=== PATIENT | female | born 1970 | race Caucasian/White ===

== ENCOUNTER 2019-07-30 13:49 | Inpatient (IN) | payer BC ==
[2019-07-30] MEDS ORDERED: ONDANSETRON 4 MG/2 ML VIAL IVP STA (14:43)
[2019-07-30] MEDS ORDERED: SODIUM CHLORIDE 0.9% 2,000 ML IV STA (14:43)
[2019-07-30 14:45] LABS: Appearance,Urine Cloudy (Clear); Bacteria,Urine Moderate /hpf; Bilirubin,Urine Negative (Negative); Blood,Urine Negative (Negative); Color,Urine Yellow; Glucose,Urine (UA) Negative (Negative); Ketones,Urine Negative (Negative); Leukocyte Esterase,Urine Small (Negative); Mucus,Urine Rare /hpf; Nitrite,Urine Positive (Negative); Protein,Urine Trace (Negative); RBC,Urine 1 /hpf (0-5); Specific Gravity,Urine 1.011 (1.001-1.035); Squamous Epithelial Cell,Urine 4 /hpf (0-4); Urobilinogen,Urine <2.0 mg/dL (<2.0); WBC,Urine 14 /hpf (0-5)
[2019-07-30 15:23] LABS: Basophils # (A) 0.1 k/uL (0-0.2); Basophils % (A) 2 %; Eosinophils # (A) 0.1 k/uL (0-0.7); Eosinophils % (A) 3 %; HCT 41.9 % (34.0-46.0); HGB 15.2 gm/dL (11.4-16.0); Lymphocytes # (A) 1.7 k/uL (1.0-4.8); Lymphocytes % (A) 32 %; MCH 34.5 pg (25.0-35.0); MCHC 36.3 g/dL (31.0-37.0); MCV 95.1 fL (80.0-100.0); Mean Platelet Volume 5.9; Monocytes # (A) 0.4 k/uL (0-1.0); Monocytes % (A) 7 %; Neutrophils # (A) 2.8 k/uL (1.3-7.7); Neutrophils % (A) 55 %; Platelet Count 164 k/uL (150-450); RBC 4.41 m/uL (3.80-5.40); RDW 13.5 % (11.5-15.5); WBC 5.2 k/uL (3.8-10.6)
[2019-07-30 15:26] LABS: ALT 88 U/L (9-52); AST 162 U/L (14-36); African American GFR (CKD) >90 (>60 ml/min/1.73 sqM); Albumin 4.9 g/dL (3.5-5.0); Alkaline Phosphatase 98 U/L (38-126); Anion Gap 18 mmol/L; Blood Urea Nitrogen 6 mg/dL (7-17); Calcium 9.8 mg/dL (8.4-10.2); Carbon Dioxide 21 mmol/L (22-30); Chloride 105 mmol/L (98-107); Glucose 100 mg/dL (74-99); Sodium 144 mmol/L (137-145); Total Bilirubin 0.5 mg/dL (0.2-1.3)
--- NOTE | 2019-07-30 16:13 | XR ---
KUB HISTORY: Abdominal pain Frontal KUB submitted Multiple surgical clips are present. There is no evident bowel obstruction or pneumoperitoneum. There is a scoliosis. Lung bases not included on exam. Pathologic calcification not evident, there are lik jannette vascular calcifications in the pelvis. IMPRESSION: Nonspecific bowel gas pattern. Postop changes.
--- NOTE | 2019-07-30 16:14 | XR ---
EXAMINATION TYPE: XR chest 2V DATE OF EXAM: 07/30/2019 COMPARISON: NONE HISTORY: Cough TECHNIQUE: Frontal and lateral views of the chest are obtained. FINDINGS: There is no focal air space opacity, pleural effusion, or pneumothorax seen. The cardiac silhouette size is within normal limits. The osseous structures are intact. Surgical clips present in the upper abdomen. IMPRESSION: No acute cardiopulmonary process.
--- NOTE | 2019-07-30 17:16 | US ---
EXAMINATION TYPE: US abdomen limited DATE OF EXAM: 07/30/2019 COMPARISON: NONE CLINICAL HISTORY: ruq abdominal pain. Nausea per patient, weakness EXAM MEASUREMENTS: Liver Length: 18.2 cm Gallbladder Wall: 0.2 cm CBD: 0.6 cm Right Kidney: 11.7 x 5.2 x 4.6 cm Pancreas: wnl. tail gassed out Liver: enlarged, attenuated posteriorly, fatty liver Gallbladder: large, mobile shadowing stone noted within and size = 1.9 x 2.0 x 0.9cm; wall is wnl Evidence for sonographic Denson's sign: no CBD: wnl Right Kidney: No hydronephrosis or masses seen IMPRESSION: Large gallstone. No dilated ducts. No focal liver defect.
--- NOTE | 2019-07-30 17:55 | ED ---
General Adult HPI - General Chief complaint: Nausea/Vomiting/Diarrhea Stated complaint: nausea, weakness x 3 weeks Time Seen by Provider: 07/30/19 14:16 Source: patient Mode of arrival: ambulatory Limitations: no limitations - History of Present Illness Initial comments: Patient complains of abdominal discomfort, nausea, vomiting. She has been vomiting for several days. She was seen at another facility. They were concerned she is dehydrated. Nothing makes her symptoms better or worse. She has taken no specific medication to help with the symptoms. She denies any sick contacts. She denies any recent illnesses. She did not eat or drink anything unusual. She has no lightheadedness. She does feel very weak. - Related Data Home Medications Medication Instructions Recorded Confirmed diphenhydrAMINE [Benadryl] 25 mg PO QID PRN 07/30/19 07/30/19 Allergies Allergy/AdvReac Type Severity Reaction Status Date / Time Penicillins Allergy Anaphylaxis Verified 07/30/19 14:33 Review of Systems ROS Statement: Those systems with pertinent positive or pertinent negative responses have been documented in the HPI. ROS Other: All systems not noted in ROS Statement are negative. Past Medical History Past Medical History: Hypertension History of Any Multi-Drug Resistant Organisms: None Reported Additional Past Surgical History / Comment(s): Gastric bypass Past Psychological History: No Psychological Hx Reported Smoking Status: Current every day smoker Past Alcohol Use History: Occasional Past Drug Use History: None Reported General Exam Limitations: no limitations General appearance: alert, in no apparent distress Head exam: Present: atraumatic, normocephalic, normal inspection Eye exam: Present: normal appearance, PERRL, EOMI. Absent: scleral icterus, conjunctival injection, periorbital swelling ENT exam: Present: normal exam, mucous membranes moist Neck exam: Present: normal inspection. Absent: tenderness, meningismus, lymphadenopathy Respiratory exam: Present: normal lung sounds bilaterally. Absent: respiratory distress, wheezes, rales, rhonchi, stridor Cardiovascular Exam: Present: regular rate, normal rhythm, normal heart sounds. Absent: systolic murmur, diastolic murmur, rubs, gallop, clicks GI/Abdominal exam: Present: soft, normal bowel sounds. Absent: distended, tenderness, guarding, rebound, rigid Extremities exam: Present: normal inspection, full ROM, normal capillary refill. Absent: tenderness, pedal edema, joint swelling, calf tenderness Back exam: Present: normal inspection Neurological exam: Present: alert, oriented X3, CN II-XII intact Psychiatric exam: Present: normal affect, normal mood Skin exam: Present: warm, dry, intact, normal color. Absent: rash Course Vital Signs 07/30/19 07/30/19 07/30/19 13:53 15:30 17:35 Temperature 98 F 98.7 F Pulse Rate 90 94 95 Respiratory 20 16 18 Rate Blood Pressure 178/119 178/122 160/122 O2 Sat by Pulse 99 98 98 Oximetry Medical Decision Making - Medical Decision Making Patient presents with nausea and vomiting. Laboratory studies show a very elevated lipase. She has transaminitis. Ultrasound shows gallstones. I'm conc irma for gallstone pancreatitis. I will consult surgery. Patient will be admitted to the hospital. - Lab Data Result diagrams: 07/30/19 15:08 07/30/19 15:08 Lab Results 07/30/19 07/30/19 07/30/19 Range/Units 14:31 14:31 15:08 WBC 5.2 (3.8-10.6) k/uL RBC 4.41 (3.80-5.40) m/uL Hgb 15.2 (11.4-16.0) gm/dL Hct 41.9 (34.0-46.0) % MCV 95.1 (80.0-100.0) fL MCH 34.5 (25.0-35.0) pg MCHC 36.3 (31.0-37.0) g/dL RDW 13.5 (11.5-15.5) % Plt Count 164 (150-450) k/uL Neutrophils % 55 % Lymphocytes % 32 % Monocytes % 7 % Eosinophils % 3 % Basophils % 2 % Neutrophils # 2.8 (1.3-7.7) k/uL Lymphocytes # 1.7 (1.0-4.8) k/uL Monocytes # 0.4 (0-1.0) k/uL Eosinophils # 0.1 (0-0.7) k/uL Basophils # 0.1 (0-0.2) k/uL Sodium (137-145) mmol/L Potassium (3.5-5.1) mmol/L Chloride (98-107) mmol/L Carbon Dioxide (22-30) mmol/L Anion Gap mmol/L BUN (7-17) mg/dL Creatinine (0.52-1.04) mg/dL Est GFR (CKD-EPI)AfAm (>60 ml/min/1.73 sqM) Est GFR (CKD-EPI)NonAf (>60 ml/min/1.73 sqM) Glucose (74-99) mg/dL Calcium (8.4-10.2) mg/dL Total Bilirubin (0.2-1.3) mg/dL AST (14-36) U/L ALT (9-52) U/L Alkaline Phosphatase (38-126) U/L Total Protein (6.3-8.2) g/dL Albumin (3.5-5.0) g/dL Lipase (23-300) U/L Urine Color Yellow Urine Appearance Cloudy H (Clear) Urine pH 8.0 (5.0-8.0) Ur Specific Agenda 1.011 (1.001-1.035) Urine Protein Trace H (Negative) Urine Glucose (UA) Negative (Negative) Urine Ketones Negative (Negative) Urine Blood Negative (Negative) Urine Nitrite Positive H (Negative) Urine Bilirubin Negative (Negative) Urine Urobilinogen <2.0 (<2.0) mg/dL Ur Leukocyte Esterase Small H (Negative) Urine RBC 1 (0-5) /hpf Urine WBC 14 H (0-5) /hpf Ur Squamous Epith Cells 4 (0-4) /hpf Urine Bacteria Moderate H (None) /hpf Urine Mucus Rare H (None) /hpf Urine HCG, Qual Not Detected (Not Detectd) 07/30/19 Range/Units 15:08 WBC (3.8-10.6) k/uL RBC (3.80-5.40) m/uL Hgb (11.4-16.0) gm/dL Hct (34.0-46.0) % MCV (80.0-100.0) fL MCH (25.0-35.0) pg MCHC (31.0-37.0) g/dL RDW (11.5-15.5) % Plt Count (150-450) k/uL Neutrophils % % Lymphocytes % % Monocytes % % Eosinophils % % Basophils % % Neutrophils # (1.3-7.7) k/uL Lymphocytes # (1.0-4.8) k/uL Monocytes # (0-1.0) k/uL Eosinophils # (0-0.7) k/uL Basophils # (0-0.2) k/uL Sodium 144 (137-145) mmol/L Potassium 4.0 (3.5-5.1) mmol/L Chloride 105 (98-107) mmol/L Carbon Dioxide 21 L (22-30) mmol/L Anion Gap 18 mmol/L BUN 6 L (7-17) mg/dL Creatinine 0.58 (0.52-1.04) mg/dL Est GFR (CKD-EPI)AfAm >90 (>60 ml/min/1.73 sqM) Est GFR (CKD-EPI)NonAf >90 (>60 ml/min/1.73 sqM) Glucose 100 H (74-99) mg/dL Calcium 9.8 (8.4-10.2) mg/dL Total Bilirubin 0.5 (0.2-1.3) mg/dL AST 162 H (14-36) U/L ALT 88 H (9-52) U/L Alkaline Phosphatase 98 (38-126) U/L Total Protein 8.0 (6.3-8.2) g/dL Albumin 4.9 (3.5-5.0) g/dL Lipase 1384 H (23-300) U/L Urine Color Urine Appearance (Clear) Urine pH (5.0-8.0) Ur Specific Agenda (1.001-1.035) Urine Protein (Negative) Urine Glucose (UA) (Negative) Urine Ketones (Negative) Urine Blood (Negative) Urine Nitrite (Negative) Urine Bilirubin (Negative) Urine Urobilinogen (<2.0) mg/dL Ur Leukocyte Esterase (Negative) Urine RBC (0-5) /hpf Urine WBC (0-5) /hpf Ur Squamous Epith Cells (0-4) /hpf Urine Bacteria (None) /hpf Urine Mucus (None) /hpf Urine HCG, Qual (Not Detectd) Disposition Clinical Impression: Pancreatitis Disposition: ADMITTED IP TO THIS [facility] Condition: Serious Referrals: None,Stated [Primary Care Provider] - 1-2 days
[2019-07-30] MEDS ORDERED: ONDANSETRON 4 MG/2 ML VIAL IVP PRN (17:56)
[2019-07-30] MEDS ORDERED: TEMAZEPAM 15 MG CAP PO PRN (17:56)
[2019-07-30] MEDS ORDERED: MORPHINE SULFATE 4 MG/ML SYRINGE IV PRN (17:56)
[2019-07-30] MEDS ORDERED: MAG HYDROX/AL HYDROX/SIMETH 30 ML CUP PO PRN (17:56)
[2019-07-30] MEDS ORDERED: NALOXONE 0.4 MG/ML 1 ML VIAL IV PRN (17:56)
[2019-07-30] MEDS ORDERED: amLODIPine 10 MG TAB PO STA (18:19)
[2019-07-30] MEDS ORDERED: hydrALAZINE HCL 20 MG/ML 1 ML VIAL IVP PRN (19:51)
[2019-07-30] MEDS ORDERED: diphenhydrAMINE 25 MG CAP PO PRN (19:53)
[2019-07-30 22:40] VITALS: BMI 24.2
[2019-07-30] MEDS: CIPROFLOXACIN HCL 500 MG TAB PO SCH (23:15)
[2019-07-31] MEDS: CIPROFLOXACIN HCL 500 MG TAB PO SCH ×2 (07:39→21:21)
[2019-07-31] MEDS ORDERED: LORazepam 2 MG/ML INJ IV PRN ×3 (08:37→08:39)
[2019-07-31] MEDS: LORazepam 2 MG/ML INJ IV PRN ×3 (08:53→16:10)
[2019-07-31] MEDS: SODIUM CHLORIDE 0.9% 1,000 ML IV SCH ×3 (09:45→22:47)
--- NOTE | 2019-07-31 12:43 | P.GSCN ---
History of Present Illness Consult date: 07/31/19 History of present illness: CHIEF COMPLAINT: Pancreatitis HISTORY OF PRESENT ILLNESS: The patient is a 48 year old female who reports coming in for generalized weakness and instability on her feet for over 2 days. She was unable to stand or walk without falling. She denies any abdominal pain today. She had nausea for 3 weeks but since admission her nausea is resolved. She had incidental finding of elevated lipase and work-up of finding of gallstones. "I don't have any abdominal pain." In fact, she is eager to go home. She denies any elevating factors. Since being placed on Ativan she is feeling better. PAST MEDICAL HISTORY: See list. PAST SURGICAL HISTORY: See list. MEDICATIONS: See list. ALLERGIES: See list. SOCIAL HISTORY: See list. FAMILY HISTORY: See list. REVIEW OF ORGAN SYSTEMS: CONSTITUTIONAL: No fevers or chills. EYES: Denies any trouble with vision. HEENT: No difficulties with hearing. No nosebleeds. No difficulty swallowing. RESPIRATORY: Denies pneumonia. Denies any troubles with breathing or dyspnea on exertion. CARDIOVASCULAR: Denies any chest pain, palpitations, or recent heart attacks. GASTROINTESTINAL: Denies fatty food intolerance. Denies change in bowel habits and gas bloat. GENITOURINARY: Denies any blood in urine or increased urinary frequency. NEUROLOGICAL: Denies any numbness or tingling along the distal extremities. No seizure disorders or headaches. MUSCULOSKELETAL: Has back pain, stiffness or joint arthritis. SKIN: No current skin cancer. No rash. PSYCHIATRIC: Denies current depression or suicidal thoughts. ENDOCRINE: Denies current thyroid disorders. Denies any blood sugar glucose int olerance. HEME/LYMPHATIC: Denies any lumps and bumps around the neck. No recent deep venous thrombosis. ALLERGY/IMMUNOLOGY: No immunoglobulin therapy. No immune deficiencies. BREAST: Denies current breast lumps, pain or nipple discharge. PHYSICAL EXAM: VITALS: Reviewed CONSTITUTIONAL: Well developed and in no acute distress. EYES: Conjuctivae without sclera icterus. Pupils are equally round and reactive to light. Extraocular movements grossly intact. HEAD, EARS, NOSE, THROAT: Moist buccal mucosa. Head is atraumatic, normocephalic. Hears conversational speech. No nasal drainage. Good dentition. NECK: Supple. No JV distention. No thyroidomegaly. RESPIRATORY: Non-labored respirations and equal bilateral excursions. No gross wheezes. CARDIOVASCULAR: Regular rate and rhythm. Extremities without moderate edema. Palpable 2+ radial pulses. ABDOMEN: Soft. Non-tender. Nondistended. LYMPH: No neck lymphadenopathy. No axillary lymphadenopathy. MUSCULOSKELETAL: Gait within normal limits. Range of motion bilateral upper extremities within normal limits. Nail and fingers with good capillary refill. SKIN: Warm and well perfused with good skin turgor. NEUROLOGIC: Cranial nerves I through XII grossly intact. Sensation upper and extremities intact. No focal or lateralizing signs. PSYCH: Appropriate affect. Alert and oriented to person, place and time. Displays appropriate insight. CLINCAL LABS: Reviewed. WBC normal 5,200. AST and ALT elevated. Lipase elevated 1300+ RADIOLOGY: Report reviewed without cholecystitis IMAGING: Independently reviewed with gallstone without cholecystitis ASSESSMENT: 1. Generalized instability and weakness 2. Nausea, resolved 3. Gallstones 4. Pancreatitis PLAN: 1. She is clinically stable without any abdominal pain 2. Low fat diet advised 3. Outpatient cholecystectomy described as well 4. Option for discharge once tolerating diet as she feels well today Thank you for this kind consultation. Past Medical History Past Medical History: Hypertension History of Any Multi-Drug Resistant Organisms: None Reported Additional Past Surgical History / Comment(s): Gastric bypass, Reconstrutive surg after weight loss, and bilat overy removal Past Psychological History: No Psychological Hx Reported Smoking Status: Current every day smoker Past Alcohol Use History: Occasional Past Drug Use History: None Reported - Past Family History Mother Family Medical History: Diabetes Mellitus Additional Family Medical History / Comment(s): mother from rectal cancer 1999 Father Family Medical History: Diabetes Mellitus Additional Family Medical History / Comment(s): from emphysema in 2003 Medications and Allergies Home Medications Medication Instructions Recorded Confirmed Type diphenhydrAMINE [Benadryl] 25 mg PO QID PRN 07/30/19 07/30/19 History Allergies Allergy/AdvReac Type Severity Reaction Status Date / Time Penicillins Allergy Anaphylaxis Verified 07/30/19 14:33 Surgical - Exam Vital Signs Temp Pulse Resp BP Pulse Ox 98 F 90 20 178/119 99 07/30/19 13:53 07/30/19 13:53 07/30/19 13:53 07/30/19 13:53 07/30/19 13:53 Results - Labs 07/30/19 15:08 07/30/19 15:08 Abnormal Lab Results - Last 24 Hours (Table) 07/30/19 07/30/19 Range/Units 14:31 15:08 Carbon Dioxide 21 L (22-30) mmol/L BUN 6 L (7-17) mg/dL Glucose 100 H (74-99) mg/dL AST 162 H (14-36) U/L ALT 88 H (9-52) U/L Lipase 1384 H (23-300) U/L Urine Appearance Cloudy H (Clear) Urine Protein Trace H (Negative) Urine Nitrite Positive H (Negative) Ur Leukocyte Esterase Small H (Negative) Urine WBC 14 H (0-5) /hpf Urine Bacteria Moderate H (None) /hpf Urine Mucus Rare H (None) /hpf Diabetes panel 07/30/19 Range/Units 15:08 Sodium 144 (137-145) mmol/L Potassium 4.0 (3.5-5.1) mmol/L Chloride 105 (98-107) mmol/L Carbon Dioxide 21 L (22-30) mmol/L BUN 6 L (7-17) mg/dL Creatinine 0.58 (0.52-1.04) mg/dL Glucose 100 H (74-99) mg/dL Calcium 9.8 (8.4-10.2) mg/dL AST 162 H (14-36) U/L ALT 88 H (9-52) U/L Alkaline Phosphatase 98 (38-126) U/L Total Protein 8.0 (6.3-8.2) g/dL Albumin 4.9 (3.5-5.0) g/dL Calcium panel 07/30/19 Range/Units 15:08 Calcium 9.8 (8.4-10.2) mg/dL Albumin 4.9 (3.5-5.0) g/dL Pituitary panel 07/30/19 Range/Units 15:08 Sodium 144 (137-145) mmol/L Potassium 4.0 (3.5-5.1) mmol/L Chloride 105 (98-107) mmol/L Carbon Dioxide 21 L (22-30) mmol/L BUN 6 L (7-17) mg/dL Creatinine 0.58 (0.52-1.04) mg/dL Glucose 100 H (74-99) mg/dL Calcium 9.8 (8.4-10.2) mg/dL Adrenal panel 07/30/19 Range/Units 15:08 Sodium 144 (137-145) mmol/L Potassium 4.0 (3.5-5.1) mmol/L Chloride 105 (98-107) mmol/L Carbon Dioxide 21 L (22-30) mmol/L BUN 6 L (7-17) mg/dL Creatinine 0.58 (0.52-1.04) mg/dL Glucose 100 H (74-99) mg/dL Calcium 9.8 (8.4-10.2) mg/dL Total Bilirubin 0.5 (0.2-1.3) mg/dL AST 162 H (14-36) U/L ALT 88 H (9-52) U/L Alkaline Phosphatase 98 (38-126) U/L Total Protein 8.0 (6.3-8.2) g/dL Albumin 4.9 (3.5-5.0) g/dL
--- NOTE | 2019-07-31 16:40 | HP ---
HISTORY AND PHYSICAL SUBJECTIVE: This is a 48-year-old white female who comes in with generalized weakness, instability in her feet any abdominal pain, nausea for 3 weeks only. She had elevated lipase and a finding of gallstones. She is having some abdominal pain. She has had nausea and vomiting for 3 or 4 days. She is also complaining of severe tremors in her extremities. PAST MEDICAL HISTORY: 1. Gastric bypass. 2. Reconstructive surgery after weight loss. 3. Bilateral ovary removal. 4. Hypertension. SOCIAL HISTORY: Current everyday smoker. FAMILY HISTORY: Mother with diabetes mellitus. Father with diabetes mellitus. HOME MEDICINES: Benadryl. ALLERGIES: PENICILLIN. LABS: Reviewed. Carbon dioxide 21, BUN of 6, glucose 100. Liver enzymes are 100, 162, lipase 1384. Small nitrite. Fourteen white cells in the urine, moderate bacteria. REVIEW OF SYSTEMS: Fourteen-point review of systems negative except for significant tremors, which are responding to CIWA protocol. She has a chronic alcohol problem. ASSESSMENT: 1. Acute on chronic pancreatitis. 2. Cholelithiasis. 3. Probably cholecystitis. Surgery will be consulted as well as Neurology for severe tremors. Continue to monitor closely. Continue on CIWA protocol. Check electrolytes in the morning. MMODL / IJN: [id number] /
[2019-08-01] MEDS: LORazepam 2 MG/ML INJ IV PRN ×8 (02:50→22:54)
[2019-08-01] MEDS: SODIUM CHLORIDE 0.9% 1,000 ML IV SCH ×3 (05:25→17:00)
[2019-08-01 06:52] LABS: Basophils # (A) 0.1 k/uL (0-0.2); Basophils % (A) 2 %; Eosinophils # (A) 0.1 k/uL (0-0.7); Eosinophils % (A) 2 %; HCT 42.2 % (34.0-46.0); HGB 14.8 gm/dL (11.4-16.0); Lymphocytes % (A) 23 %; MCH 33.8 pg (25.0-35.0); MCV 96.5 fL (80.0-100.0); Mean Platelet Volume 7.1; Monocytes # (A) 0.4 k/uL (0-1.0); Monocytes % (A) 10 %; Neutrophils # (A) 2.7 k/uL (1.3-7.7); Neutrophils % (A) 61 %; Platelet Count 112 k/uL (150-450); RBC 4.37 m/uL (3.80-5.40); RDW 13.3 % (11.5-15.5); WBC 4.5 k/uL (3.8-10.6)
[2019-08-01 07:02] LABS: ALT 92 U/L (9-52); AST 160 U/L (14-36); African American GFR (CKD) >90 (>60 ml/min/1.73 sqM); Albumin 3.6 g/dL (3.5-5.0); Alkaline Phosphatase 70 U/L (38-126); Anion Gap 8 mmol/L; Blood Urea Nitrogen 12 mg/dL (7-17); Calcium 8.8 mg/dL (8.4-10.2); Carbon Dioxide 23 mmol/L (22-30); Chloride 108 mmol/L (98-107); Glucose 98 mg/dL (74-99); Potassium 3.4 mmol/L (3.5-5.1); Sodium 139 mmol/L (137-145); Total Bilirubin 0.8 mg/dL (0.2-1.3); Total Protein 6.2 g/dL (6.3-8.2)
[2019-08-01] MEDS: CIPROFLOXACIN HCL 500 MG TAB PO SCH ×2 (07:11→20:43)
[2019-08-01] MEDS ORDERED: hydrALAZINE HCL 25 MG TAB PO PRN (08:55)
[2019-08-01] MEDS: cloNIDine HCL 0.1 MG TAB PO SCH ×3 (09:17→20:43)
--- NOTE | 2019-08-01 13:10 | P.PN ---
Subjective Progress Note Date: 08/01/19 CHIEF COMPLAINT: Pancreatitis HISTORY OF PRESENT ILLNESS: The patient is a 48 year old female who reports coming in for generalized weakness and instability on her feet 2 days prior to admission. She had additional work-up for nausea with findings of gallstones and elevated lipase over 1000+. She denies any abdominal pain yesterday or today. She is tolerating regular diet. She denies nausea. She reports that her sister had gallstones and she has none of her sister's symptoms. "I do not want surgery !" She wants to go home. ROS: No fevers or chills. No productive cough or sputum. No chest pain. PHYSICAL EXAM: VITALS: Reviewed CONSTITUTIONAL: Well developed and in no acute distress. EYES: Conjuctivae without sclera icterus. Pupils are equally round and reactive to light. Extraocular movements grossly intact. Wears glasses. HEAD, EARS, NOSE, THROAT: Moist buccal mucosa. Head is atraumatic, normocephalic. Hears conversational speech. No nasal drainage. Good dentition. RESPIRATORY: Non-labored respirations and equal bilateral excursions. No gross wheezes. CARDIOVASCULAR: Regular rate and rhythm. Extremities without moderate edema. Palpable 2+ radial pulses. ABDOMEN: Soft. Non-tender. Nondistended. MUSCULOSKELETAL: Nail and fingers with good capillary refill. SKIN: Warm and well perfused with good skin turgor. NEUROLOGIC: Cranial nerves I through XII grossly intact. Sensation upper and extremities intact. No focal or lateralizing signs. PSYCH: Appropriate affect. Alert and oriented to person, place and time. Displays appropriate insight. CLINCAL LABS: Reviewed. Lipase elevated 1300+ to over 1400+. LFTs remain unchanged and elevated ASSESSMENT: 1. Generalized instability and weakness 2. Nausea, resolved 3. Gallstones 4. Pancreatitis PLAN: 1. She denies any abdominal pain despite the laboratory findings. "I want to go home." I have recommended bowel rest for pancreatitis 2. Also recommend additional labs including for hypertriglyceridemia for other causes of pancreatitis. 3. Surgical intervention with cholecystectomy also reviewed for which she prefers to do as an outpatient. 4. Repeat chemistries for tomorrow. Objective - Vital Signs Vital signs: Vital Signs Temp 98.5 F 08/01/19 07:00 Pulse 102 H 08/01/19 10:55 Resp 17 08/01/19 07:10 BP 90/63 08/01/19 10:55 Pulse Ox 96 08/01/19 02:45 Intake & Output 07/31/19 08/01/19 08/01/19 18:59 06:59 18:59 Intake Total 319 408 7834 Balance 993 668 7144 Weight 63.957 kg Intake: Intake, IV Titration 2200 Amount Sodium Chloride 0.9% 1, 2200 000 ml @ 150 mls/hr IV . Q6H40M [facility] Rx#:[id number] Oral 420 120 300 Other: Voiding Method Bedside Commode Bedside Commode Bedside Commode # Voids 2 3 2 - Labs CBC & Chem 7: 08/01/19 05:53 08/01/19 05:53 Labs: Abnormal Lab Results - Last 24 Hours (Table) 08/01/19 08/01/19 Range/Units 05:53 05:53 Plt Count 112 L (150-450) k/uL Potassium 3.4 L (3.5-5.1) mmol/L Chloride 108 H (98-107) mmol/L AST 160 H (14-36) U/L ALT 92 H (9-52) U/L Total Protein 6.2 L (6.3-8.2) g/dL Lipase 1490 H (23-300) U/L Assessment and Plan (1) Gallstones Current Visit: Yes Status: Acute Code(s): K80.20 - CALCULUS OF GALLBLADDER W/O CHOLECYSTITIS W/O OBSTRUCTION SNOMED Code(s): 493768489 (2) Generalized weakness Current Visit: Yes Status: Acute Code(s): R53.1 - WEAKNESS SNOMED Code(s): 20700840 (3) Elevated liver enzymes Current Visit: Yes Status: Acute Code(s): R74.8 - ABNORMAL LEVELS OF OTHER SERUM ENZYMES SNOMED Code(s): 169434275 (4) Pancreatitis Current Visit: Yes Status: Acute Code(s): K85.90 - ACUTE PANCREATITIS WITHOUT NECROSIS OR INFECTION, UNSP SNOMED Code(s): 48785034
--- NOTE | 2019-08-01 18:20 | PN ---
PROGRESS NOTE 48-year-old female comes in with generalized weakness, fatigue, instability severe DTs. She is improving with her Ativan every 2 hours. Catapres has improved her tachycardia and hypertension today. She has gallstones and she has elevated lipase. For some reason, surgeon gave her regular food and fed her despite her bad gallbladder and her elevated lipase and liver enzymes. She is sitting in bed. Defiant. Is going to sign out AMA, possibly. She does not want any treatment done. Lungs are clear. Heart: Regular rate and rhythm. Apparently surgeon today told her she wants bowel rest for pancreatitis and repeat chemistries tomorrow. Do bowel rest. Follow up in next 24-48 hours. Continue with Catapres and Ativan for withdrawal. MMODL / IJN: [id number] /
[2019-08-01 19:38] VITALS: PULSE 77
[2019-08-02] MEDS: SODIUM CHLORIDE 0.9% 1,000 ML IV SCH (00:23)
[2019-08-02 00:47] VITALS: RESP 15
[2019-08-02] MEDS: LORazepam 2 MG/ML INJ IV PRN (03:08)
[2019-08-02 03:35] VITALS: BP 154/100; TEMP 98
== END 2019-08-02 04:57 | disposition left against medical advice (07) | DRG 439 ==
LOC: EC 13:49 → 6PED 17:56 → 4SSUR 19:23
PROVIDERS: ADMIT Family Medicine; ATTEND Family Medicine
DX: K85.90 Acute pancreatitis without necrosis or infection, unspecified (principal); K80.10 Calculus of gallbladder with chronic cholecystitis without obstruction; F10.231 Alcohol dependence with withdrawal delirium; K86.1 Other chronic pancreatitis; F17.200 Nicotine dependence, unspecified, uncomplicated; I10 Essential (primary) hypertension; R53.1 Weakness; R26.81 Unsteadiness on feet; R25.1 Tremor, unspecified; Z98.84 Bariatric surgery status; Z88.0 Allergy status to penicillin; Z90.722 Acquired absence of ovaries, bilateral; Z83.3 Family history of diabetes mellitus; Z82.5 Family history of asthma and other chronic lower respiratory diseases; Z80.0 Family history of malignant neoplasm of digestive organs
CPT/HCPCS: 36415; 71046; 74018; 76705; 80053; 81001; 81025; 83690; 85025; 96360; 96361; 99285

== ENCOUNTER 2019-09-08 23:23 | Inpatient (IN) | payer BC ==
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
[2019-09-09] MEDS ORDERED: LORazepam 2 MG/ML INJ IM STA (00:54)
[2019-09-09] MEDS ORDERED: LORazepam 1 MG TAB PO STA (01:16)
[2019-09-09 01:40] LABS: Basophils # (A) 0.1 k/uL (0-0.2); Basophils % (A) 3 %; Eosinophils # (A) 0.1 k/uL (0-0.7); Eosinophils % (A) 1 %; HCT 50.4 % (34.0-46.0); HGB 16.7 gm/dL (11.4-16.0); Lymphocytes # (A) 1.8 k/uL (1.0-4.8); Lymphocytes % (A) 40 %; MCH 33.6 pg (25.0-35.0); MCHC 33.2 g/dL (31.0-37.0); MCV 101.2 fL (80.0-100.0); Macrocytosis Slight; Mean Platelet Volume 5.9; Monocytes # (A) 0.4 k/uL (0-1.0); Monocytes % (A) 8 %; Neutrophils # (A) 2.1 k/uL (1.3-7.7); Neutrophils % (A) 45 %; RBC 4.98 m/uL (3.80-5.40); RDW 14.1 % (11.5-15.5); WBC 4.6 k/uL (3.8-10.6)
[2019-09-09 01:44] LABS: Platelet Count 542 k/uL (150-450)
[2019-09-09 01:59] LABS: ALT 54 U/L (9-52); AST 88 U/L (14-36); Acetaminophen <10.0 ug/mL; African American GFR (CKD) >90 (>60 ml/min/1.73 sqM); Albumin 5.2 g/dL (3.5-5.0); Alkaline Phosphatase 121 U/L (38-126); Anion Gap 17 mmol/L; Blood Urea Nitrogen 6 mg/dL (7-17); Calcium 9.7 mg/dL (8.4-10.2); Carbon Dioxide 22 mmol/L (22-30); Chloride 100 mmol/L (98-107); Glucose 109 mg/dL (74-99); Potassium 5.1 mmol/L (3.5-5.1); Salicylate <1.0 mg/dL; Sodium 139 mmol/L (137-145); Total Bilirubin 0.7 mg/dL (0.2-1.3); Total Protein 8.6 g/dL (6.3-8.2)
[2019-09-09 02:00] LABS: Alcohol 283 mg/dL
[2019-09-09 02:52] LABS: Appearance,Urine Cloudy (Clear); Bilirubin,Urine Negative (Negative); Blood,Urine Negative (Negative); Color,Urine Yellow; Glucose,Urine (UA) Negative (Negative); Hyaline Casts,Urine 30 /lpf (0-2); Ketones,Urine Negative (Negative); Leukocyte Esterase,Urine Negative (Negative); Mucus,Urine Rare /hpf; Nitrite,Urine Negative (Negative); Protein,Urine Trace (Negative); RBC,Urine 1 /hpf (0-5); Specific Gravity,Urine 1.006 (1.001-1.035); Squamous Epithelial Cell,Urine 2 /hpf (0-4); Urobilinogen,Urine <2.0 mg/dL (<2.0); WBC,Urine 1 /hpf (0-5)
[2019-09-09 03:00] LABS: Amphetamine Screen,Urine Not Detected (NotDetected); Barbiturate Screen,Urine Not Detected (NotDetected); Benzodiazepines Screen,Urine Not Detected (NotDetected); Cocaine Screen,Urine Not Detected (NotDetected); Methadone Screen, Urine Not Detected (NotDetected); Opiate Screen,Urine Not Detected (NotDetected); Oxycodone Screen, Urine Not Detected (NotDetected); Phencyclidine Screen,Urine Not Detected (NotDetected); Tricyclic Antidepressant,Urine Not Detected (NotDetected); Urn Cannabinoid Scrn Not Detected (NotDetected)
[2019-09-09] MEDS ORDERED: LORazepam 2 MG/ML INJ IV PRN (03:10)
[2019-09-09] MEDS ORDERED: THIAMINE 100 MG/ML 2 ML VIAL IM STA (03:10)
[2019-09-09] MEDS ORDERED: SODIUM CHLORIDE 0.9% 1,000 ML IV STA (03:11)
[2019-09-09] MEDS ORDERED: NALOXONE 0.4 MG/ML 1 ML VIAL IV PRN (03:23)
[2019-09-09] MEDS: LORazepam 2 MG/ML INJ IV PRN ×7 (04:39→22:55)
--- NOTE | 2019-09-09 05:02 | P.HPIM ---
History of Present Illness H&P Date: 09/09/19 Chief Complaint: Alcohol intoxication and suicidal and homicidal ideation 48-year-old female who was brought in by police custody due to suicidal and homicidal ideation Police reported that he got a phone call from unknown person notifying them regarding an incident at the patient address. When the police arrived they found the patient's belligerent reporting someone in her house. after checking the house they could found nothing however they found a gallon of liquor sitting around the patient who apparently was intoxicated she starting reporting homicidal threats against her however she also reported that he's not worth going to assisted for. She was also reporting suicidal ideation for which they brought her to the hospital. Patient has history of alcohol abuse and pancreatitis in the past, she reports that she has relapsed recently due to her 's behavior and started drinking again. She became very irritated using foul language when she realized that she is getting admitted for observation she requested to be discharged home at this point she started denying suicidal ideation or homicidal ideations. She currently denies any chest pain or trouble breathing denies any abdominal pain nausea or vomiting. Patient was not interested in participating in the interview or giving any further history In the ER she was found to have elevated liver enzymes slightly. With alcohol level of 283. She was kept to the hospital under observation until sober to be evaluated by psychiatry Review of Systems Unable to obtain full meaningful review of systems due to patient not cooperating with history taking due to alcohol intoxication Past Medical History Past Medical History: Hypertension Additional Past Medical History / Comment(s): Alcohol abuse, pancreatitis History of Any Multi-Drug Resistant Organisms: None Reported Additional Past Surgical History / Comment(s): Gastric bypass, Reconstrutive s urg after weight loss, and bilat overy removal Past Psychological History: No Psychological Hx Reported Smoking Status: Current every day smoker Past Alcohol Use History: Occasional Past Drug Use History: None Reported - Past Family History Mother Family Medical History: Diabetes Mellitus Additional Family Medical History / Comment(s): mother from rectal cancer 1999 Father Family Medical History: Diabetes Mellitus Additional Family Medical History / Comment(s): from emphysema in 2003 Medications and Allergies Home Medications Medication Instructions Recorded Confirmed Type diphenhydrAMINE [Benadryl] 25 mg PO QID PRN 07/30/19 07/30/19 History Allergies Allergy/AdvReac Type Severity Reaction Status Date / Time Penicillins Allergy Anaphylaxis Verified 09/08/19 23:33 Physical Exam Vitals: Vital Signs Temp Pulse Resp BP Pulse Ox 09/08/19 23:28 98.3 F 65 20 155/83 97 Intake and Output 09/08/19 09/08/19 09/09/19 14:59 22:59 06:59 Other: Weight 63.049 kg Limited exam was obtained due to patient not cooperating with the interview Constitutional: No acute distress, patient is anxious and irritable not cooperative Eyes: Anicteric sclerae, moist conjunctiva, Pupils equal round reactive to light ENMT: NC/AT Neck: patient is moving her neck freely Lungs: Clear to auscultation Clear to percussion Normal respiratory effort, no accessory muscle use Cardiovascular: Heart regular in rate and rhythm, No murmurs, gallops, or rubs No peripheral edema Abdominal: Soft Nontender, no guarding, rebound or rigidity Extremities: No digital cyanosis No clubbing Pedal pulses intact and symmetrical Radial pulses intact and symmetrical No calf tenderness Psychiatric: Alert and oriented to person, place Patient using foul language, belligerent Poor judgment Neuro Limited exam patient moving all extremities Results CBC & Chem 7: 09/09/19 01:30 09/09/19 01:30 Labs: Abnormal Lab Results - Last 24 Hours (Table) 09/09/19 09/09/19 09/09/19 Range/Units 01:30 01:30 02:41 Hgb 16.7 H (11.4-16.0) gm/dL Hct 50.4 H (34.0-46.0) % MCV 101.2 H (80.0-100.0) fL Plt Count 542 H D (150-450) k/uL BUN 6 L (7-17) mg/dL Glucose 109 H (74-99) mg/dL AST 88 H (14-36) U/L ALT 54 H (9-52) U/L Total Protein 8.6 H (6.3-8.2) g/dL Albumin 5.2 H (3.5-5.0) g/dL Urine Appearance Cloudy H (Clear) Urine Protein Trace H (Negative) Hyaline Casts 30 H (0-2) /lpf Urine Mucus Rare H (None) /hpf Serum Alcohol 283 H* mg/dL Assessment and Plan Assessment: 48-year-old female with history of alcohol abuse presented to the hospital by po lice custody due to suicidal and homicidal ideation patient was found to be intoxicated with alcohol admitted under observation with anticipated length of stay less than two midnight until sober for psych evaluation Plan: Acute severe alcohol intoxication with delirium IV fluid hydration Thiamine Fall precautions When necessary benzos per CIWA scale for pending withdrawals Counseled to quit alcohol abuse Suicidal and homicidal ideation Psych evaluation Suicide precautions Alcoholic hepatitis Significant alcohol abuse Monitoring for now DVT prophylaxis mechanical CODE STATUS: Full code Discussed with: Patient, ER, RN Anticipated length of stay us than [address]: Pending clinical course and psych eval A total of 60 minutes was spent on the care of this complex patient more than 50% of the time was spent in counseling and care coordination.
[2019-09-09] MEDS: THIAMINE 100 MG TAB PO SCH (09:10)
--- NOTE | 2019-09-09 11:10 | P.PN ---
Progress Note - Text Progress Note Date: 09/09/19 Patient was seen for a short visit today after her admission early this morning, patient was noted to be still severely depressed and she is very angry has no eye contact and poor insight in her condition she was referred for mental evaluation it was communicated to the nurse to call mental health attending half section ironer to see this patient as soon as possible. We will continue one-to-one direct supervision for her and suicide precautions. Patient will be continued on I'll call withdrawal protocol currently there is no signs symptoms of withdrawal noted. We will continue to monitor.
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
[2019-09-09 19:01] VITALS: RESP 20
[2019-09-10] MEDS: LORazepam 2 MG/ML INJ IV PRN ×5 (00:33→06:32)
[2019-09-10] MEDS: THIAMINE 100 MG TAB PO SCH (11:03)
--- NOTE | 2019-09-10 11:17 | P.DS ---
Providers Date of admission: 09/09/19 03:23 Attending physician: Lucy Baker MD Consults: 09/09/19 03:23 Consult Physician Stat Consulting Provider: Sebastien Mahajan Consult Reason/Comments: SI/HI Do you want consulting provider notified?: Yes, Notify in am Primary care physician: Stated None Hospital Course: This is a 48-year-old female who presented to the emergency room brought in by police after she was found intoxicated with alcohol and was having homicidal and suicidal ideation. Patient was evaluated in the ER and admitted to the medical floor for IV fluid hydration. She had mild alcoholic hepatitis. She was counseled extensively regarding alcohol cessation. She was seen and evaluated by psychiatry. She was deemed him stable to be discharged home and plan is to admit her to the psych hospital for further management. Patient will be transferred to the psych unit in a stable condition. For further details about this hospitalization please refer to the electronic chart. Patient Condition at Discharge: Serious Plan - Discharge Summary Discharge Rx Participant: No New Discharge Prescriptions: No Action No Known Home Medications Discharge Medication List No Known Home Medications 09/09/19 [History] Follow up Appointment(s)/Referral(s): None,Stated [Primary Care Provider] - 1-2 days Discharge Disposition: TRANSFER TO PSYCH HOSP/UNIT
[2019-09-10 13:59] VITALS: BP 154/107; PULSE 102; TEMP 98.4
== END 2019-09-10 14:59 | disposition still patient (30) | DRG 897 ==
LOC: EC 23:23 → 4SSUR 09-09 03:23 → OBSVTOIN 09-10 10:40
PROVIDERS: ADMIT Internal Medicine; ATTEND Internal Medicine
DX: F10.221 Alcohol dependence with intoxication delirium (principal); R45.851 Suicidal ideations; F33.2 Major depressive disorder, recurrent severe without psychotic features; K70.10 Alcoholic hepatitis without ascites; Y90.8 Blood alcohol level of 240 mg/100 ml or more; Z71.41 Alcohol abuse counseling and surveillance of alcoholic; F10.239 Alcohol dependence with withdrawal, unspecified; F17.210 Nicotine dependence, cigarettes, uncomplicated; I10 Essential (primary) hypertension; R45.850 Homicidal ideations; Z80.0 Family history of malignant neoplasm of digestive organs; Z82.5 Family history of asthma and other chronic lower respiratory diseases; Z83.3 Family history of diabetes mellitus; Z98.84 Bariatric surgery status; F41.0 Panic disorder [episodic paroxysmal anxiety]; Z88.0 Allergy status to penicillin; Z79.899 Other long term (current) drug therapy
CPT/HCPCS: 36415; 80053; 80306; 80320; 80329; 81001; 81025; 82075; 83520; 85025; 99285

== ENCOUNTER 2019-09-10 14:15 | Inpatient (IN) | payer BC ==
[2019-09-10] MEDS ORDERED: ACETAMINOPHEN TAB 325 MG TAB PO PRN (14:30)
[2019-09-10] MEDS ORDERED: MAGNESIUM HYDROXIDE 2,400 MG/10 ML CUP PO PRN (14:30)
[2019-09-10] MEDS ORDERED: MAG HYDROX/AL HYDROX/SIMETH 30 ML CUP PO PRN (14:30)
[2019-09-10] MEDS: LORazepam 1 MG TAB PO PRN (15:30)
[2019-09-10] MEDS ORDERED: cloNIDine HCL 0.1 MG TAB PO STA (17:05)
[2019-09-10] MEDS: DIAZEPAM 5 MG TAB PO SCH ×2 (17:27→21:05)
[2019-09-11] MEDS: LORazepam 1 MG TAB PO PRN ×3 (06:11→18:48)
[2019-09-11 08:53] LABS: Cholesterol 199 mg/dL (<200); Triglycerides 63 mg/dL (<150)
[2019-09-11] MEDS: DIAZEPAM 5 MG TAB PO SCH (09:00)
[2019-09-11 09:01] LABS: LDL Cholesterol,Calculated 63 mg/dL (0-99)
[2019-09-11 09:13] LABS: HDL Cholesterol 123 mg/dL (40-60)
--- NOTE | 2019-09-11 11:47 | P.CONS ---
History of Present Illness - Reason for Consult Consult date: 09/11/19 Medical management - Chief Complaint Alcohol abuse - History of Present Illness This is a 48-year-old female with past medical history significant for alcohol abuse who was brought in by police originally with suicidal and homicidal thoughts. Patient was placed on the medical floor and was treated aggressively with IV fluid. She was transferred to the psych unit yesterday. I was asked to see her for medical management. Yesterday upon arrival to the psych unit patient was more agitated and was noted to be tachycardic and hypertensive. She was started on Valium 5 mg every 8 hours scheduled for prevention of alcohol withdrawals. She is doing a lot better today. Blood pressure is better controlled. She denies having any history of hypertension nor that she take blood pressure medications at home. She is awaiting psychiatry evaluation. She does not have any concerns at this time other than when she can go home. Review of Systems Review of system: 14 points review of systems were obtained and were negative except to what were mentioned in the HPI. Past Medical History Past Medical History: Hypertension Additional Past Medical History / Comment(s): Alcohol abuse, pancreatitis History of Any Multi-Drug Resistant Organisms: None Reported Additional Past Surgical History / Comment(s): Gastric bypass, Reconstrutive surg after weight loss, and bilat overy removal Past Anesthesia/Blood Transfusion Reactions: No Reported Reaction Past Psychological History: No Psychological Hx Reported Smoking Status: Current every day smoker Past Alcohol Use History: Occasional Additional Past Alcohol Use History / Comment(s): Start smoking a the age 12 Past Drug Use History: None Reported - Past Family History Mother Family Medical History: Diabetes Mellitus Additional Family Medical History / Comment(s): mother from rectal cancer 1999 Father Family Medical History: Diabetes Mellitus Additional Family Medical History / Comment(s): from emphysema in 2003 Medications and Allergies Home Medications Medication Instructions Recorded Confirmed Type No Known Home Medications 09/09/19 09/10/19 History Allergies Allergy/AdvReac Type Severity Reaction Status Date / Time Penicillins Allergy Anaphylaxis Verified 09/09/19 09:42 Physical Exam Vitals: Vital Signs Temp Pulse Resp BP BP Pulse Ox 09/11/19 09:00 85 16 139/89 09/11/19 06:07 98 F 75 16 136/101 09/10/19 17:58 87 146/96 09/10/19 17:09 156/103 11/08/19 17:08 99 170/117 09/10/19 16:39 97.1 F L 105 H 20 168/115 09/10/19 15:25 97.1 F L 20 168/115 98 Intake and Output 09/10/19 09/11/19 09/11/19 22:59 06:59 14:59 Other: Weight 62.6 kg General: The patient is awake and alert, in no distress Eye: there is normal conjunctiva bilaterally. Neck: The neck is supple, there is no JVD. Cardiovascular: Normal S1-S2, no S3-S4, no murmurs. Respiratory: Lungs clear to auscultation bilaterally Gastrointestinal: Abdomen is soft, nontender Musculoskeletal: There is no pedal edema. Neurological:. Speech is normal. Skin: Skin is warm and dry Results Labs: Abnormal Lab Results - Last 24 Hours (Table) 09/11/19 Range/Units 07:45 HDL Cholesterol 123 H (40-60) mg/dL Assessment and Plan Assessment: 1. Suicidal and homicidal thoughts and ideation on presentation. Now denies any this time. Awaiting psychiatry evaluation. 2. Alcohol abuse: Counseled extensively to quit during this admission. Patient was on Valium 5 mg 3 times a day to prevent withdrawal that can be discontinued today. Continue Ativan as needed. Today, I reviewed her medication list and lab work results. We will continue to monitor blood pressure closely. I advised nursing staff to check blood pressure manually to confirm any elevated blood pressure. Please call back as needed.
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
[2019-09-11 19:03] LABS: Hemoglobin A1C 5.1 % (4.0-6.0)
[2019-09-12] MEDS: LORazepam 1 MG TAB PO PRN ×4 (02:06→22:21)
--- NOTE | 2019-09-12 15:00 | P.PN ---
Progress Note - Text Interval history: The patient is found in her room she refuses to follow me to an interview room she additionally refuses to answer any questions if I do not promise to discharge her today. Mental status exam: The patient is in bed she is covered with a blanket she refuses to meet with me an interview room and further refuses to answer any questions if I do not tell her I'm discharging her today. I did not observe her out in the milieu this morning. Insight and judgment are impaired. She appears to be in no physical distress. She demonstrates no verbal or physical aggressiveness. She demonstrates no involuntary repetitive movements. Plan: The patient is uncooperative with the interview today. We will continue to monitor her for safety. She is encouraged to participate fully in the milieu so that we are able to evaluate her. She does not wish to discuss any treatment options in terms of medication management. CIWA scores are reviewed.
[2019-09-13] MEDS: LORazepam 1 MG TAB PO PRN (04:07)
[2019-09-13] MEDS ORDERED: hydrOXYzine PAMOATE 25 MG CAP PO PRN (14:39)
--- NOTE | 2019-09-13 14:45 | P.PN ---
Progress Note - Text Progress Note Date: 09/13/19 Interval History: Patient was seen in her room and was agreeable to speak to marine underwriter today in the office. Patient described the many events that led her to come in to the hospital. She described "the police got it all wrong" and stated that she was not suicidal or homicidal and did not know why she came into the hospital. Patient was focused on discharge throughout the interview and was minimizing her symptoms and tearful at times. Patient did appear to be somewhat cooperative and was agreeable to continue with treatment. She did state that she would like to move from [place]" back to [place] as she would be able to smoke cigarettes and still work. She states that her mood is depressed and she is anxious throughout the day. She denies any withdrawal symptoms from alcohol at this time. She states that she has poor sleep overnight. At this time patient denies any suicidal or homical ideations, intent or plan. Patient denies any auditory, visual hallucinations and denies any paranoia or delusions. Mental Status Exam: General Appearance: Patient appears to be stated age is alert, directable, poor hygiene and grooming. Behavior: Patient is calmly seated without any agitated behavior. Speech: Patient's speech is fluent and nonpressured. Soft tone. Mood/Affect: Mood is depressed and anxious, affect is congruent and tearful. Suicidality/Homicidality: Patient denies having any suicidal or homicidal ideation intent or plan. Perceptions: Patient denies any auditory or visual hallucinations. Though content/process: There is no evidence of any delusional thought content and thought process is linear and goal-directed. Patient is minimizing her symptoms and focused on discharge. Memory and concentration: AOX3, grossly intact for the purposes of this session Judgment and insight: Poor Assessment Major depressive disorder, without psychotic features Alcohol use disorder, moderate and severe Anxiety disorder unspecified Plan: -Patient continues to meet criteria for inpatient psychiatric admission for symptom stabilization and safety. Patient has signed adult voluntary form and medication consent and was placed in patient's chart. -Medications: Patient was agreeable to be started on Zoloft 50 mg daily for mood/anxiety. Trazodone 50 mg daily at bedtime for sleep/mood. Vistaril 50 mg daily at bedtime for anxiety/sleep as needed. -When necessary Ativan for agitation/aggression. -NRT - patient states that she is ALLERGIC to nicotine patch and gum and declines these at this time. -SW on board for discharge planning. She is declining medication for alcohol use disorder and declining inpatient rehab upon discharge. Likely discharge in 1-2 days.
[2019-09-13] MEDS: SERTRALINE 50 MG TAB PO SCH (15:25)
[2019-09-13] MEDS ORDERED: traZODone HCL 50 MG TAB PO SCH (21:00)
[2019-09-14] MEDS: SERTRALINE 50 MG TAB PO SCH (09:05)
--- NOTE | 2019-09-14 14:19 | P.PN ---
Progress Note - Text Progress Note Date: 09/14/19 Interval History: Patient was seen wandering the hallways and was agreeable to speak to clinical writer raquel canchola in the office. Patient states that today she feels "much better" and claims that yesterday after she took her first dose of Zoloft she felt an improvement in her mood. She states that she is feeling like she wants to participate more and speak to other people on the unit and claims that she feels "calm her". Patient described watching TV with other patients yesterday and having a good time. 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 She spoke about her mood and her anxiety gradually improving and is open to having her medications titrated up.. She denies any withdrawal symptoms from alcohol at this time. She states that she slept better last night however only reported 2-1/2 hours of sleep and requested an increase in her trazodone. At this time patient denies any suicidal or homical ideations, intent or plan. Patient denies any auditory, visual hallucinations and denies any paranoia or delusions. Mental Status Exam: General Appearance: Patient appears to be stated age is alert, directable, improving hygiene and grooming. Behavior: Patient is calmly seated without any agitated behavior. Speech: Patient's speech is fluent and nonpressured. Mood/Affect: Mood is depressed and anxious, mildly improving. affect is congruent Suicidality/Homicidality: Patient denies having any suicidal or homicidal ideation intent or plan. Perceptions: Patient denies any auditory or visual hallucinations. Though content/process: There is no evidence of any delusional thought content and thought process is linear and goal-directed. More future oriented. Memory and concentration: AOX3, grossly intact for the purposes of this session Judgment and insight: Poor, mildly improving Assessment Major depressive disorder, without psychotic features Alcohol use disorder, moderate and severe Anxiety disorder unspecified Plan: -Patient continues to meet criteria for inpatient psychiatric admission for symptom stabilization and safety. Patient has signed adult voluntary form and medication consent and was placed in patient's chart. -Medications: Will increase Zoloft 100 mg daily for mood/anxiety. We will increase Trazodone 100 mg daily at bedtime for sleep/mood. Continue with Vistaril 50 mg daily at bedtime for anxiety/sleep as needed. -When necessary Ativan for agitation/aggression. -NRT - patient states that she is ALLERGIC to nicotine patch and gum and declines these at this time. -SW on board for discharge planning. She is declining medication for alcohol use disorder and declining inpatient rehab upon discharge. Likely discharge in 1-2 days.
[2019-09-14] MEDS: hydrOXYzine PAMOATE 25 MG CAP PO SCH (20:53)
[2019-09-14] MEDS ORDERED: traZODone HCL 100 MG TAB PO SCH (21:00)
[2019-09-15 06:52] VITALS: RESP 16
[2019-09-15] MEDS: SERTRALINE 100 MG TAB PO SCH (09:09)
--- NOTE | 2019-09-15 12:06 | P.PN ---
Progress Note - Text Progress Note Date: 09/15/19 Interval History: Patient was seen wandering the hallways and was agreeable to speak to rewriter raquel canchola in the conference room. Patient states that today she feels "better" with regards to her mood and is happy to be on medications to help her depression. Patient continues to reflect back on her mood and state of mind when she did come in the hospital and how she wanted to be discharged at any cost however now claims that she is feeling much better however continues to be anxious about what her next step is. Patient spoke about continuing to want to leave her as he gets drunk almost every day and she cannot have conversation with him. She states that she is concerned about her dog and whether or not he is taking care of the dog. Patient also states that she would like to possibly call into rehab today to see if she'll be able to go on Friday to work on her sobriety. Patient did speak about other patients on the unit and how she is trying to be supportive however finds herself being roped into their problems. She denies any withdrawal symptoms from alcohol at this time. She states that she slept better last night however only reported approximately 3-4 hours hours of sleep and requested an increase in her trazodone once again. At this time patient denies any suicidal or homical ideations, intent or plan. Patient denies any auditory, visual hallucinations and denies any paranoia or delusions. Mental Status Exam: General Appearance: Patient appears to be stated age is alert, directable, improving hygiene and grooming. Behavior: Patient is calmly seated without any agitated behavior. Speech: Patient's speech is fluent and nonpressured. Mood/Affect: Mood is mildly improving. affect is congruent Suicidality/Homicidality: Patient denies having any suicidal or homicidal ideation intent or plan. Perceptions: Patient denies any auditory or visual hallucinations. Though content/process: There is no evidence of any delusional thought content and thought process is linear and goal-directed. Future oriented. Memory and concentration: AOX3, grossly intact for the purposes of this session Judgment and insight: Fair, mildly improving Assessment Major depressive disorder, without psychotic features Alcohol use disorder, moderate and severe Anxiety disorder unspecified Plan: -Patient continues to meet criteria for inpatient psychiatric admission for symptom stabilization and safety. Patient has signed adult voluntary form and medication consent and was placed in patient's chart. -Medications: Will continue with Zoloft 100 mg daily for mood/anxiety. We will increase Trazodone 150 mg daily at bedtime for sleep/mood. Continue with Vistaril 50 mg daily at bedtime for anxiety/sleep as needed. -When necessary Ativan for agitation/aggression. -NRT - patient states that she is ALLERGIC to nicotine patch and gum and declines these at this time. -SW on board for discharge planning. Patient is more open to the idea of substance use rehab and will try to get more information/do the screening call today. Likely discharge tomorrow.
[2019-09-15] MEDS: hydrOXYzine PAMOATE 25 MG CAP PO SCH (20:03)
[2019-09-15] MEDS ORDERED: traZODone HCL 50 MG TAB PO SCH (21:00)
[2019-09-16 04:18] VITALS: BP 152/96; PULSE 62; TEMP 97.9
[2019-09-16] MEDS: SERTRALINE 100 MG TAB PO SCH (07:55)
[2019-09-16] MEDS: LORazepam 1 MG TAB PO PRN (09:36)
--- NOTE | 2019-09-16 10:19 | P.DS ---
Providers Date of admission: 09/10/19 15:05 Expected date of discharge: 09/16/19 Attending physician: Rosendo Woodward MD Consults: 09/10/19 14:30 Consult Physician Routine Consulting Provider: Mary Physician Consult Reason/Comments: medical management Do you want consulting provider notified?: Already Contacted Primary care physician: Stated None - Discharge Diagnosis(es) (1) Major depressive disorder without psychotic features Current Visit: Yes Status: Acute Priority: High (2) Alcohol use disorder, moderate, dependence Current Visit: Yes Status: Acute Priority: Medium (3) Anxiety disorder Current Visit: Yes Status: Acute Priority: Medium Hospital Course: Admission HPI: Patient is a 48-year-old female who was admitted to the mental health unit as a transfer from medical floor due to concerns of suicidal ideation. The patient presented initially to the hospital after calling 911 with an alcohol level of 283. She states that she had consumed a box of wine and was feeling paranoid that somebody was in her home. She felt someone may be in the basement and her refused to go check. She called 911 so the police could investigate. She states while the police were there she endorsed feeling depressed and may have made him a statement about being suicidal. She was admitted to the medical floor to treat any alcohol withdrawal symptoms and transferred subsequently to our unit after being seen by Dr. Mahajan in psychiatric consultation. Dr. Mahajan felt that the patient was at risk due to her previous suicide attempt 2 years ago and having very little support. In his consult he noted that she was tearful throughout the interview. Today the patient is quite agitated that she is here in the mental health unit. She is minimizing symptoms and answering questions so as to try to facilitate a discharge. She indicates she is not depressed. She states her mood is quite good. She is endorsing no hopelessness thinking. She states she is chronically struggling with insomnia and that is why she drinks alcohol. When she does not sleep her energy is subsequently affected. Appetite is stable when she is not drinking alcohol. She is reporting no suicidal or homicidal ideation intent or plan at this time. She states she never made those statements. She is endorsing auditory visual hallucinations when she is sober. She states that these occur when she is intoxicated. She reports feeling safe overall. She is endorsing no other paranoid or persecutory thoughts. She endorses no history of hypomania or lenny. She states that usually at home she is calm in terms of anxiety symptoms. She feels her anxiety can be provoked in certain social situations. She endorses no panic attacks. She resides with her . She states that there are no firearms at home. Hospital course: Upon admission to the unit patient was initially hostile, guarded/evasive and tearful. Patient was however directable and agreeable to commence treatment. Patient got along well with other patients on the unit and followed unit pro tocol. Patient was compliant with the medications and denied any side effects throughout hospital course. Patient was started on Zoloft and titrated up to dose of 100 mg daily for mood/anxiety. Patient was also started on trazodone and titrated up to a dose of 150 mg daily at bedtime for sleep/mood. Patient was also started on Vistaril 50 mg nightly for anxiety/sleep as needed. Patient spoke of her stressors and engaged in therapy both group and individual. Patient was also seen by medical team for history and physical exam. Throughout the course of the hospitalization patient gradually improved with regards to mood, anxiety, sleep and became future oriented with improved insight and judgment. On the day of discharge patient denied any suicidal or homicidal ideations intent or plan denied any auditory or visual hallucinations. Patient endorsed wanting to live for her health and her future. The patient denied any access to guns or weapons. Patient denied any paranoia and did not endorse any delusions. Patient does have a significant history of substance abuse and was counseled on abstaining from all substances including alcohol and marijuana. Patient claims that she did when new go to inpatient substance-abuse rehab however due to her insurance not being able to cover this she claims that she will look down other avenues to stay sober and other treatment options on her own. She declined any medication for alcohol treatment. Patient was also counseled on the medications and need for regular compliance and was encouraged to follow-up with their outpatient appointment for mental health and also for primary care. Patient adamantly declined a family meeting prior to discharge as she states she does not want her involved in her care and does not have other relatives in the area. Mental status exam: General Appearance: Patient appears to be older than stated age is alert, pleasant, and cooperative. Patient is in no acute distress and has fair hygiene and grooming Behavior: Patient is calmly seated without any agitated behavior. Speech: Patient's speech is fluent and nonpressured. Mood/Affect: Patient reports their mood is "much better", affect is congruent and euthymic. Suicidality/Homicidality: Patient denies having any suicidal or homicidal ideation intent or plan. Perceptions: Patient denies any auditory or visual hallucinations. Though content/process: There is no evidence of any delusional thought content and thought process is linear and goal-directed. Memory and concentration: AOX3, grossly intact for the purposes of this session. Can spell "WORLD" backwards correctly. Judgment and insight: fair, improved Impression: Major depressive disorder, without psychotic features Alcohol use disorder moderate-severe Anxiety disorder unspecified Plan: -Continue with discharge today as patient has improved and stabilized psychiatrically and is not currently an imminent threat to herself and/or others. -Continue medications: To be continued on Zoloft 100 mg daily for mood/anxiety, trazodone 150 mg nightly for sleep/mood. Vistaril 50 mg nightly for anxiety/sleep as needed. -Patient was counseled on the need for medication compliance and appropriate follow-up at mental health and also primary care for medical issues. Patient verbalized understanding and agreed. - Patient adamantly declined a family meeting prior to discharge as she states she does not want her involved in her care and does not have other relatives in the area. Social work also to arrange for patients follow up appointments for psychiatric care along with follow up with primary care provider. Patient did want to go to inpatient substance rehab however her insurance did not cover it therefore patient states that she would like to explore other treatment options in the community and declined any medication assisted treatment for alcohol use. -Patient counseled on abstaining from recreational drugs and marijuana and alcohol. Was informed/educated on the adverse effects on their physical and mental health. Patient verbally agreed and understood -Patient was instructed to return to the hospital or seek immediate medical care if their psychiatric or medical symptoms do worsen or reoccur. Allergies Allergy/AdvReac Type Severity Reaction Status Date / Time Penicillins Allergy Anaphylaxis Verified 09/09/19 09:[address] Glu mg/dL 100 09/11/19 07:45 Hemoglobin A1c 5.1 % (4.0-6.0) 09/11/19 07:45 Triglycerides 63 mg/dL (<150) 09/11/19 07:45 Cholesterol 199 mg/dL (<200) 09/11/19 07:45 LDL Cholesterol, Calc 63 mg/dL (0-99) 09/11/19 07:45 HDL Cholesterol 123 mg/dL (40-60) H 09/11/19 07:45 Vital Signs Temp 97.9 F 09/16/19 04:17 Pulse 62 09/16/19 04:17 Resp 16 09/16/19 04:17 BP 152/96 09/16/19 04:17 Pulse Ox 97 09/14/19 06:25 Patient Condition at Discharge: Stable Plan - Discharge Summary Discharge Rx Participant: No New Discharge Prescriptions: New traZODone HCL [Desyrel] 150 mg PO HS 30 Days tab hydrOXYzine PAMOATE [Vistaril] 50 mg PO HS PRN 28 Days cap PRN Reason: Insomnia Sertraline [Zoloft] 100 mg PO DAILY 30 Days tab Discharge Medication List Sertraline [Zoloft] 100 mg PO DAILY 30 Days tab 09/16/19 [Rx] hydrOXYzine PAMOATE [Vistaril] 50 mg PO HS PRN 28 Days cap 09/16/19 [Rx] traZODone HCL [Desyrel] 150 mg PO HS 30 Days tab 09/16/19 [Rx] Follow up Appointment(s)/Referral(s): [facility] [Outside] - 09/20/19 1:00 pm (Susan Steen) Patient Instructions/Handouts: Depression (DC) Activity/Diet/Wound Care/Special Instructions: Activity and diet as tolerated. Avoid the use of street drugs and alcohol. Take all medications as prescribed. When you are in need of refills on your medications please contact your medical provider and/or outpatient psychiatrist to have this done. Please go to scheduled outpatient appointment for aftercare treatment. If symptoms return or become worse, call the crisis line at and/or go to the nearest emergency room for evaluation. Discharge Disposition: HOME SELF-CARE
== END 2019-09-16 14:00 | disposition home or self-care (01) | DRG 881 ==
LOC: 3MHU 15:05
PROVIDERS: ADMIT Psychiatry & Neurology Psychiatry; ATTEND Psychiatry & Neurology Psychiatry
DX: F32.9 Major depressive disorder, single episode, unspecified (principal); R45.851 Suicidal ideations; F41.9 Anxiety disorder, unspecified; F17.210 Nicotine dependence, cigarettes, uncomplicated; G47.00 Insomnia, unspecified; F10.20 Alcohol dependence, uncomplicated; Y90.8 Blood alcohol level of 240 mg/100 ml or more; I10 Essential (primary) hypertension; R45.850 Homicidal ideations; Z79.899 Other long term (current) drug therapy; Z80.0 Family history of malignant neoplasm of digestive organs; Z82.5 Family history of asthma and other chronic lower respiratory diseases; Z83.3 Family history of diabetes mellitus; Z91.5 Personal history of self-harm; Z98.84 Bariatric surgery status
CPT/HCPCS: 80061; 83036

== ENCOUNTER 2019-10-15 12:49 | Inpatient (IN) | payer BC ==
[2019-10-15] MEDS ORDERED: KETOROLAC 30 MG/ML 1 ML VIAL IVP STA (14:30)
[2019-10-15] MEDS ORDERED: SODIUM CHLORIDE 0.9% 1,000 ML IV STA (14:30)
[2019-10-15] MEDS ORDERED: ONDANSETRON 4 MG/2 ML VIAL IVP STA (14:30)
[2019-10-15 14:59] LABS: Basophils % (A) 1 %; Eosinophils # (A) 0.1 k/uL (0-0.7); Eosinophils % (A) 2 %; HCT 43.3 % (34.0-46.0); Lymphocytes # (A) 1.5 k/uL (1.0-4.8); Lymphocytes % (A) 30 %; MCH 35.4 pg (25.0-35.0); MCHC 34.7 g/dL (31.0-37.0); MCV 101.9 fL (80.0-100.0); Macrocytosis Slight; Monocytes # (A) 0.6 k/uL (0-1.0); Monocytes % (A) 12 %; Neutrophils # (A) 2.7 k/uL (1.3-7.7); Neutrophils % (A) 54 %; RBC 4.25 m/uL (3.80-5.40); RDW 13.9 % (11.5-15.5)
--- NOTE | 2019-10-15 15:00 | ED ---
Abdominal Pain HPI - General Chief Complaint: Abdominal Pain Stated Complaint: Poss rectal prolapse, NVD Time Seen by Provider: 10/15/19 14:06 Source: patient Mode of arrival: ambulatory Limitations: no limitations - History of Present Illness Initial Comments: Patient is a 48-year-old female, with past medical history of alcohol abuse, pancreatitis, presenting to the emergency Department with complaints of abdominal pain for a few months now. Patient states she was in the ER approximately 3 months ago for same complaint and was recommended to have her gallbladder removed however she declined at that time. Patient states since that she has been having intermittent abdominal pain, nausea, vomiting, diarrhea. Patient states she continues to get weaker and weaker. Patient went to her PCP today, Dr. Bagley, who recommended she come in to the ER for further reevaluation and possible surgical consultation. Patient denies recent fever, chills. Patient states she has not eaten much food in the last week. Patient states her last drink was 2 days ago. Patient does have history of gastric bypass as well as abdominal reconstruction, no other abdominal surgeries. Patient has not been taking anything for her pain or other symptoms. There are no other complaints at this time. Upon arrival to the ER, vital signs are stable. - Related Data Home Medications Medication Instructions Recorded Confirmed Loperamide [Imodium] 2 mg PO Q6H PRN 10/15/19 10/15/19 Previous Rx's Medication Instructions Recorded Sertraline [Zoloft] 100 mg PO DAILY 30 Days tab 09/16/19 hydrOXYzine PAMOATE [Vistaril] 50 mg PO HS PRN 28 Days cap 09/16/19 traZODone HCL [Desyrel] 150 mg PO HS 30 Days tab 09/16/19 Allergies Allergy/AdvReac Type Severity Reaction Status Date / Time Penicillins Allergy Anaphylaxis Verified 10/15/19 17:45 Review of Systems ROS Statement: Those systems with pertinent positive or pertinent negative responses have been documented in the HPI. ROS Other: All systems not noted in ROS Statement are negative. Past Medical History Past Medical History: Hypertension Additional Past Medical History / Comment(s): Alcohol abuse, pancreatitis History of Any Multi-Drug Resistant Organisms: None Reported Additional Past Surgical History / Comment(s): Gastric bypass, Reconstrutive surg after weight loss, and bilat overy removal Past Anesthesia/Blood Transfusion Reactions: No Reported Reaction Past Psychological History: No Psychological Hx Reported Smoking Status: Current every day smoker Past Alcohol Use History: Abuse, Daily Past Drug Use History: None Reported - Past Family History Mother Family Medical History: Diabetes Mellitus Additional Family Medical History / Comment(s): mother from rectal cancer 1999 Father Family Medical History: Diabetes Mellitus Additional Family Medical History / Comment(s): from emphysema in 2003 General Exam - General Exam Comments Initial Comments: GENERAL: Disheveled appearance, looks uncomfortable. HEAD: Atraumatic, normocephalic. EYES: Pupils equal round and reactive to light, extraocular movements intact, sclera anicteric, conjunctiva are normal. ENT: TMs normal, nares patent, oropharynx clear without exudates. Moist mucous membranes. NECK: Normal range of motion, supple without lymphadenopathy or JVD. LUNGS: Breath sounds clear to auscultation bilaterally and equal. No wheezes rales or rhonchi. HEART: Regular rate and rhythm without murmurs, rubs or gallops. ABDOMEN: Tender to palpation of right upper quadrant. Soft, normoactive bowel sounds. No guarding, no rebound. No masses appreciated. : Deferred EXTREMITIES: Normal range of motion, no pitting or edema. No clubbing or cyanosis. NEUROLOGICAL: Normal speech, normal gait. PSYCH: Normal mood, normal affect. SKIN: Warm, Dry, normal turgor, no rashes or lesions noted. Limitations: no limitations Course Vital Signs 10/15/19 10/15/19 13:08 17:26 Temperature 98.5 F 98.5 F Pulse Rate 92 75 Respiratory 16 18 Rate Blood Pressure 145/107 133/94 O2 Sat by Pulse 99 99 Oximetry Medical Decision Making - Medical Decision Making Patient is a 48-year-old female presenting with right upper quadrant pain has been ongoing for months now. Patient was sent in today by Dr. Bagley for possible surgical consultation for cholecystectomy. Vital signs normal upon arrival. Lab work reveals lipase of 1400, bilirubin is 1.5, AST and ALTs are elevated. Urine shows 4+ ketones and 1+ bilirubin. Ultrasound the gallbladder shows cholelithiasis. The gallbladder is distended, dilated common bile duct, consider GI consult. I discussed these findings with the patient and patient will be admitted for pancreatitis as well as cholelithiasis. GI and surgery will be consulted. Patient is in agreement this plan of care. Patient will be accepted by Dr. Sneed. Case discussed with Dr. Meza. - Lab Data Result diagrams: 10/15/19 14:15 10/15/19 14:15 Lab Results 10/15/19 10/15/19 10/15/19 Range/Units 14:15 14:15 15:55 WBC 5.0 (3.8-10.6) k/uL RBC 4.25 (3.80-5.40) m/uL Hgb 15.0 (11.4-16.0) gm/dL Hct 43.3 (34.0-46.0) % MCV 101.9 H (80.0-100.0) fL MCH 35.4 H (25.0-35.0) pg MCHC 34.7 (31.0-37.0) g/dL RDW 13.9 (11.5-15.5) % Plt Count 192 D (150-450) k/uL Neutrophils % 54 % Lymphocytes % 30 % Monocytes % 12 % Eosinophils % 2 % Basophils % 1 % Neutrophils # 2.7 (1.3-7.7) k/uL Lymphocytes # 1.5 (1.0-4.8) k/uL Monocytes # 0.6 (0-1.0) k/uL Eosinophils # 0.1 (0-0.7) k/uL Basophils # 0.0 (0-0.2) k/uL Macrocytosis Slight Sodium 135 L (137-145) mmol/L Potassium 4.0 (3.5-5.1) mmol/L Chloride 92 L (98-107) mmol/L Carbon Dioxide 16 L (22-30) mmol/L Anion Gap 27 mmol/L BUN 9 (7-17) mg/dL Creatinine 0.73 (0.52-1.04) mg/dL Est GFR (CKD-EPI)AfAm >90 (>60 ml/min/1.73 sqM) Est GFR (CKD-EPI)NonAf >90 (>60 ml/min/1.73 sqM) Glucose 112 H (74-99) mg/dL Calcium 10.2 (8.4-10.2) mg/dL Total Bilirubin 1.5 H (0.2-1.3) mg/dL AST 106 H (14-36) U/L ALT 58 H (4-34) U/L Alkaline Phosphatase 83 (38-126) U/L Total Protein 8.4 H (6.3-8.2) g/dL Albumin 5.2 H (3.5-5.0) g/dL Amylase 91 (30-110) U/L Lipase 1429 H (23-300) U/L Urine Color Urine Appearance (Clear) Urine pH (5.0-8.0) Ur Specific [place] (1.001-1.035) Urine Protein (Negative) Urine Glucose (UA) (Negative) Urine Ketones (Negative) Urine Blood (Negative) Urine Nitrite (Negative) Urine Bilirubin (Negative) Urine Urobilinogen (<2.0) mg/dL Ur Leukocyte Esterase (Negative) Urine RBC (0-5) /hpf Urine WBC (0-5) /hpf Ur Squamous Epith Cells (0-4) /hpf Amorphous Sediment (None) /hpf Urine Bacteria (None) /hpf Hyaline Casts (0-2) /lpf Urine Mucus (None) /hpf Urine HCG, Qual Not Detected (Not Detectd) 10/15/19 Range/Units 15:55 WBC (3.8-10.6) k/uL RBC (3.80-5.40) m/uL Hgb (11.4-16.0) gm/dL Hct (34.0-46.0) % MCV (80.0-100.0) fL MCH (25.0-35.0) pg MCHC (31.0-37.0) g/dL RDW (11.5-15.5) % Plt Count (150-450) k/uL Neutrophils % % Lymphocytes % % Monocytes % % Eosinophils % % Basophils % % Neutrophils # (1.3-7.7) k/uL Lymphocytes # (1.0-4.8) k/uL Monocytes # (0-1.0) k/uL Eosinophils # (0-0.7) k/uL Basophils # (0-0.2) k/uL Macrocytosis Sodium (137-145) mmol/L Potassium (3.5-5.1) mmol/L Chloride (98-107) mmol/L Carbon Dioxide (22-30) mmol/L Anion Gap mmol/L BUN (7-17) mg/dL Creatinine (0.52-1.04) mg/dL Est GFR (CKD-EPI)AfAm (>60 ml/min/1.73 sqM) Est GFR (CKD-EPI)NonAf (>60 ml/min/1.73 sqM) Glucose (74-99) mg/dL Calcium (8.4-10.2) mg/dL Total Bilirubin (0.2-1.3) mg/dL AST (14-36) U/L ALT (4-34) U/L Alkaline Phosphatase (38-126) U/L Total Protein (6.3-8.2) g/dL Albumin (3.5-5.0) g/dL Amylase (30-110) U/L Lipase (23-300) U/L Urine Color Yellow Urine Appearance Clear (Clear) Urine pH 6.0 (5.0-8.0) Ur Specific [place] 1.020 (1.001-1.035) Urine Protein 1+ H (Negative) Urine Glucose (UA) Negative (Negative) Urine Ketones 4+ H (Negative) Urine Blood Negative (Negative) Urine Nitrite Negative (Negative) Urine Bilirubin 1+ H (Negative) Urine Urobilinogen 4.0 (<2.0) mg/dL Ur Leukocyte Esterase Negative (Negative) Urine RBC 1 (0-5) /hpf Urine WBC 4 (0-5) /hpf Ur Squamous Epith Cells 5 H (0-4) /hpf Amorphous Sediment Rare H (None) /hpf Urine Bacteria Rare H (None) /hpf Hyaline Casts 12 H (0-2) /lpf Urine Mucus Few H (None) /hpf Urine HCG, Qual (Not Detectd) Disposition Clinical Impression: Pancreatitis, Cholelithiasis Disposition: ADMITTED IP TO THIS [facility] Condition: Good Is patient prescribed a controlled substance at d/c from ED?: No Decision Date: 10/15/19 Decision Time: 16:42
[2019-10-15 15:04] LABS: Platelet Count 192 k/uL (150-450)
[2019-10-15 15:15] LABS: ALT 58 U/L (4-34); AST 106 U/L (14-36); African American GFR (CKD) >90 (>60 ml/min/1.73 sqM); Albumin 5.2 g/dL (3.5-5.0); Alkaline Phosphatase 83 U/L (38-126); Amylase 91 U/L (30-110); Anion Gap 27 mmol/L; Blood Urea Nitrogen 9 mg/dL (7-17); Calcium 10.2 mg/dL (8.4-10.2); Carbon Dioxide 16 mmol/L (22-30); Chloride 92 mmol/L (98-107); Glucose 112 mg/dL (74-99); Non-African American GFR(CKD) >90 (>60 ml/min/1.73 sqM); Sodium 135 mmol/L (137-145); Total Bilirubin 1.5 mg/dL (0.2-1.3); Total Protein 8.4 g/dL (6.3-8.2)
--- NOTE | 2019-10-15 15:28 | US ---
EXAMINATION TYPE: US gallbladder DATE OF EXAM: 10/15/2019 COMPARISON: US 07/30/2019 CLINICAL HISTORY: RUQ pain. EXAM MEASUREMENTS: Liver Length: 15.3 cm Gallbladder Wall: 0.1 cm CBD: 0.7 cm Right Kidney: 10.9 x 4.1 x 5.5 cm Pancreas: visualized portions wnl Liver: difficult to penetrate Gallbladder: large mobile stone with shadowing measures 1.8 cm with adjacent sludge. Evidence for sonographic Denson's sign: Yes CBD: measures 0.7 cm Right Kidney: No hydronephrosis or masses seen IMPRESSION: There are some limitations the exam. Possible hepatic steatosis, hepatocellular disease. Cholelithiasis. There is distended gallbladder. Dilated common bile duct, consider gastroenterology c onsult
[2019-10-15 16:17] LABS: Amorphous Sediment,Urine Rare /hpf; Appearance,Urine Clear (Clear); Bacteria,Urine Rare /hpf; Bilirubin,Urine 1+ (Negative); Blood,Urine Negative (Negative); Color,Urine Yellow; Glucose,Urine (UA) Negative (Negative); Hyaline Casts,Urine 12 /lpf (0-2); Ketones,Urine 4+ (Negative); Leukocyte Esterase,Urine Negative (Negative); Mucus,Urine Few /hpf; Nitrite,Urine Negative (Negative); Protein,Urine 1+ (Negative); RBC,Urine 1 /hpf (0-5); Squamous Epithelial Cell,Urine 5 /hpf (0-4); WBC,Urine 4 /hpf (0-5)
[2019-10-15] MEDS ORDERED: ONDANSETRON 4 MG/2 ML VIAL IVP PRN (16:26)
[2019-10-15] MEDS ORDERED: traMADol 50 MG TAB PO PRN (16:26)
[2019-10-15] MEDS ORDERED: NALOXONE 0.4 MG/ML 1 ML VIAL IV PRN (16:26)
[2019-10-15] MEDS ORDERED: ACETAMINOPHEN TAB 325 MG TAB PO PRN (16:26)
[2019-10-15] MEDS ORDERED: LORazepam 2 MG/ML INJ IV PRN ×3 (16:39)
[2019-10-15] MEDS ORDERED: THIAMINE 100 MG/ML 2 ML VIAL IM STA (16:39)
[2019-10-15] MEDS: SODIUM CHLORIDE 0.9% 1,000 ML IV SCH (17:22)
[2019-10-15] MEDS: MORPHINE SULFATE 4 MG/ML SYRINGE IV PRN (21:29)
[2019-10-16] MEDS: THIAMINE 100 MG TAB PO SCH ×2 (08:01→17:03)
[2019-10-16] MEDS: SODIUM CHLORIDE 0.9% 1,000 ML IV SCH ×2 (08:01→20:18)
[2019-10-16 08:05] LABS: Basophils % (A) 1 %; Eosinophils # (A) 0.2 k/uL (0-0.7); Eosinophils % (A) 5 %; HCT 39.7 % (34.0-46.0); HGB 13.3 gm/dL (11.4-16.0); Lymphocytes # (A) 1.1 k/uL (1.0-4.8); Lymphocytes % (A) 35 %; MCH 34.1 pg (25.0-35.0); MCHC 33.4 g/dL (31.0-37.0); MCV 102.2 fL (80.0-100.0); Macrocytosis Slight; Mean Platelet Volume 8.3; Monocytes # (A) 0.3 k/uL (0-1.0); Monocytes % (A) 8 %; Neutrophils # (A) 1.7 k/uL (1.3-7.7); Neutrophils % (A) 50 %; Platelet Count 146 k/uL (150-450); RBC 3.88 m/uL (3.80-5.40); RDW 13.8 % (11.5-15.5); WBC 3.3 k/uL (3.8-10.6)
[2019-10-16 08:21] LABS: ALT 47 U/L (4-34); AST 85 U/L (14-36); African American GFR (CKD) >90 (>60 ml/min/1.73 sqM); Albumin 3.9 g/dL (3.5-5.0); Alkaline Phosphatase 62 U/L (38-126); Anion Gap 13 mmol/L; Blood Urea Nitrogen 8 mg/dL (7-17); Calcium 9.4 mg/dL (8.4-10.2); Carbon Dioxide 27 mmol/L (22-30); Chloride 98 mmol/L (98-107); Glucose 106 mg/dL (74-99); Non-African American GFR(CKD) >90 (>60 ml/min/1.73 sqM); Potassium 3.3 mmol/L (3.5-5.1); Sodium 138 mmol/L (137-145); Total Bilirubin 0.8 mg/dL (0.2-1.3); Total Protein 6.3 g/dL (6.3-8.2)
[2019-10-16] MEDS ORDERED: PANTOPRAZOLE 40 MG/10 ML VIAL IV SCH (09:00)
--- NOTE | 2019-10-16 10:11 | P.GSCN ---
History of Present Illness Consult date: 10/16/19 History of present illness: 48-year-old female presented to the emergency department with complaints of abdominal pain and nausea. She had similar episodes a few weeks ago and was counseled on possible gallbladder disease, however the patient did refuse surgical care at that point in time. Currently, the patient states that she has been having abdominal pain for approximately 4 days. She does admit to being a heavy alcohol user but states that she has not had an alcoholic beverage and 3 days. She states that her pain is in the right upper quadrant of her abdomen and that she also has nausea episodes. On workup on her arrival, the patient was noted to have elevated transaminases, mildly elevated bilirubin and lipase indicative of pancreatitis. After treatment overnight with IV fluids, her bilirubin has normalized, however her lipase remains elevated. She states her nausea has improved. She has no additional complaints at this time. She denies any fevers, chills, chest pain or shortness of breath. She is noted to have a previous gastric bypass for weight loss. This was performed laparoscopically according to the patient. Review of Systems All systems: negative Past Medical History Past Medical History: Hypertension Additional Past Medical History / Comment(s): Alcohol abuse, pancreatitis History of Any Multi-Drug Resistant Organisms: None Reported Additional Past Surgical History / Comment(s): Gastric bypass, Reconstrutive surg after weight loss, and bilat overy removal Past Anesthesia/Blood Transfusion Reactions: No Reported Reaction Past Psychological History: No Psychological Hx Reported Smoking Status: Current every day smoker Past Alcohol Use History: Abuse, Daily Past Drug Use History: None Reported - Past Family History Mother Family Medical History: Diabetes Mellitus Additional Family Medical History / Comment(s): mother from rectal cancer 1999 Father Family Medical History: Diabetes Mellitus Additional Family Medical History / Comment(s): from emphysema in 2003 Medications and Allergies Home Medications Medication Instructions Recorded Confirmed Type Sertraline [Zoloft] 100 mg PO DAILY 30 Days tab 09/16/19 10/15/19 Rx hydrOXYzine PAMOATE [Vistaril] 50 mg PO HS PRN 28 Days cap 09/16/19 10/15/19 Rx traZODone HCL [Desyrel] 150 mg PO HS 30 Days tab 09/16/19 10/15/19 Rx Loperamide [Imodium] 2 mg PO Q6H PRN 10/15/19 10/15/19 History Allergies Allergy/AdvReac Type Severity Reaction Status Date / Time Penicillins Allergy Anaphylaxis Verified 10/15/19 17:45 Surgical - Exam Osteopathic Statement: *. No significant issues noted on an osteopathic structural exam other than those noted in the History and Physical/Consult. Vital Signs Temp Pulse Resp BP Pulse Ox 98.5 F 92 16 145/107 99 10/15/19 13:08 10/15/19 13:08 10/15/19 13:08 10/15/19 13:08 10/15/19 13:08 - General well nourished, no distress - Eyes normal ocular movement - ENT normal mucosa, no hearing loss - Neck trachea midline - Respiratory No difficulty with respiration - Abdomen Soft, tenderness to palpation in the epigastrium and right upper quadrant, nondistended, no rebound, no guarding - Psychiatric oriented to time, oriented to person, oriented to place Results - Labs 10/16/19 07:48 10/16/19 07:48 Abnormal Lab Results - Last 24 Hours (Table) 10/15/19 10/15/19 10/15/19 Range/Units 14:15 14:15 15:55 WBC (3.8-10.6) k/uL MCV 101.9 H (80.0-100.0) fL MCH 35.4 H (25.0-35.0) pg Plt Count (150-450) k/uL Sodium 135 L (137-145) mmol/L Potassium (3.5-5.1) mmol/L Chloride 92 L (98-107) mmol/L Carbon Dioxide 16 L (22-30) mmol/L Glucose 112 H (74-99) mg/dL Total Bilirubin 1.5 H (0.2-1.3) mg/dL AST 106 H (14-36) U/L ALT 58 H (4-34) U/L Total Protein 8.4 H (6.3-8.2) g/dL Albumin 5.2 H (3.5-5.0) g/dL Lipase 1429 H (23-300) U/L Urine Protein 1+ H (Negative) Urine Ketones 4+ H (Negative) Urine Bilirubin 1+ H (Negative) Ur Squamous Epith Cells 5 H (0-4) /hpf Amorphous Sediment Rare H (None) /hpf Urine Bacteria Rare H (None) /hpf Hyaline Casts 12 H (0-2) /lpf Urine Mucus Few H (None) /hpf 10/16/19 10/16/19 Range/Units 07:48 07:48 WBC 3.3 L (3.8-10.6) k/uL MCV 102.2 H (80.0-100.0) fL MCH (25.0-35.0) pg Plt Count 146 L (150-450) k/uL Sodium (137-145) mmol/L Potassium 3.3 L (3.5-5.1) mmol/L Chloride (98-107) mmol/L Carbon Dioxide (22-30) mmol/L Glucose 106 H (74-99) mg/dL Total Bilirubin (0.2-1.3) mg/dL AST 85 H (14-36) U/L ALT 47 H (4-34) U/L Total Protein (6.3-8.2) g/dL Albumin (3.5-5.0) g/dL Lipase 1506 H (23-300) U/L Urine Protein (Negative) Urine Ketones (Negative) Urine Bilirubin (Negative) Ur Squamous Epith Cells (0-4) /hpf Amorphous Sediment (None) /hpf Urine Bacteria (None) /hpf Hyaline Casts (0-2) /lpf Urine Mucus (None) /hpf Diabetes panel 10/15/19 10/16/19 Range/Units 14:15 07:48 Sodium 135 L 138 (137-145) mmol/L Potassium 4.0 3.3 L (3.5-5.1) mmol/L Chloride 92 L 98 (98-107) mmol/L Carbon Dioxide 16 L 27 (22-30) mmol/L BUN 9 8 (7-17) mg/dL Creatinine 0.73 0.60 (0.52-1.04) mg/dL Glucose 112 H 106 H (74-99) mg/dL Calcium 10.2 9.4 (8.4-10.2) mg/dL AST 106 H 85 H (14-36) U/L ALT 58 H 47 H (4-34) U/L Alkaline Phosphatase 83 62 (38-126) U/L Total Protein 8.4 H 6.3 (6.3-8.2) g/dL Albumin 5.2 H 3.9 (3.5-5.0) g/dL Calcium panel 10/15/19 10/16/19 Range/Units 14:15 07:48 Calcium 10.2 9.4 (8.4-10.2) mg/dL Albumin 5.2 H 3.9 (3.5-5.0) g/dL Pituitary panel 10/15/19 10/16/19 Range/Units 14:15 07:48 Sodium 135 L 138 (137-145) mmol/L Potassium 4.0 3.3 L (3.5-5.1) mmol/L Chloride 92 L 98 (98-107) mmol/L Carbon Dioxide 16 L 27 (22-30) mmol/L BUN 9 8 (7-17) mg/dL Creatinine 0.73 0.60 (0.52-1.04) mg/dL Glucose 112 H 106 H (74-99) mg/dL Calcium 10.2 9.4 (8.4-10.2) mg/dL Adrenal panel 10/15/19 10/16/19 Range/Units 14:15 07:48 Sodium 135 L 138 (137-145) mmol/L Potassium 4.0 3.3 L (3.5-5.1) mmol/L Chloride 92 L 98 (98-107) mmol/L Carbon Dioxide 16 L 27 (22-30) mmol/L BUN 9 8 (7-17) mg/dL Creatinine 0.73 0.60 (0.52-1.04) mg/dL Glucose 112 H 106 H (74-99) mg/dL Calcium 10.2 9.4 (8.4-10.2) mg/dL Total Bilirubin 1.5 H 0.8 (0.2-1.3) mg/dL AST 106 H 85 H (14-36) U/L ALT 58 H 47 H (4-34) U/L Alkaline Phosphatase 83 62 (38-126) U/L Total Protein 8.4 H 6.3 (6.3-8.2) g/dL Albumin 5.2 H 3.9 (3.5-5.0) g/dL Assessment and Plan (1) Pancreatitis Narrative/Plan: 48-year-old female with pancreatitis - Cause of pancreatitis is difficult to elicit due to the patient's history of alcohol abuse along with finding of cholelithiasis along with distended gallbladder and elevated transaminases and bilirubin. However, with the patient's history of weight loss surgery along with current finding of right upper quadrant pain, gallbladder etiology cannot be excluded. I did have a long discussion with the patient about cholecystectomy and risk of recurrent pancreatitis episodes with continued alcohol abuse. The patient did state that she understood and that she has not had any alcohol use in the past 3 days and does not intend on continuing alcohol use after her discharge in the hospital. We will await GI recommendations, however due to her resolution of hyperbilirubinemia, likely plan is for cholecystectomy. Currently, the patient will be tried on clear liquid diet and increase in IV fluids to evaluate for resolution of pancreatitis. Current Visit: Yes Status: Acute Code(s): K85.90 - ACUTE PANCREATITIS WITHOUT NECROSIS OR INFECTION, UNSP SNOMED Code(s): 35147802
--- NOTE | 2019-10-16 11:12 | PN ---
PROGRESS NOTE DATE OF SERVICE: October 16, 2019. REASON FOR CONSULTATION: Acute biliary pancreatitis. HISTORY OF PRESENT ILLNESS: The patient is a 48-year-old pleasant white female admitted to hospital with intermittent episodes of epigastric abdominal pain associated with nausea on and off for the last 2 weeks duration. Patient had a similar episode about 6 weeks ago, came into the emergency room, admitted to the hospital for 3 days, was diagnosed with cholelithiasis and recommended a gallbladder surgery, but she did not have it done. She presents to the hospital with ongoing symptoms and during this time she is noted to have elevated lipase consistent with acute pancreatitis. Also she is noted to have mild elevation of serum transaminases and hence we are consulted in regards to this issue. She did have ultrasound of the gallbladder done yesterday that showed evidence of gallstones and mild CBD dilation of 7 mm. She is feeling much better today. The abdominal pain has resolved. She has mild nausea. PAST MEDICAL HISTORY: Hypertension and recent episode of pancreatitis and alcohol use. PAST SURGICAL HISTORY: Gastric bypass. MEDICATIONS: At home include Zoloft, Vistaril, Restoril, Imodium. ALLERGIES: PENICILLIN. SOCIAL HISTORY: Chronic smoker and alcohol use as mentioned above. FAMILY HISTORY: Mother diabetes mellitus and father had also diabetes mellitus. REVIEW OF SYSTEMS: CARDIOPULMONARY: No chest pain, shortness of breath. GENITOURINARY: No dysuria or hematuria. MUSCULOSKELETAL: Unremarkable. SKIN unremarkable. ENDOCRINE unremarkable. PSYCHIATRIC unremarkable. NEUROLOGICAL: Unremarkable. ENT/vision unremarkable. CONSTITUTIONAL: No recent weight loss. No fever, chills, night sweats. PHYSICAL EXAMINATION: Appears comfortable in no apparent distress. Vital signs stable. Blood pressure 152/95, pulse is 63, temperature 97.2. HEENT examination unremarkable. Conjunctivae pink. Sclerae anicteric. Oral cavity no lesions. NECK: No JVD or lymph node enlargement. Chest was clear to auscultation. HEART: Regular rate and rhythm. ABDOMEN: Soft. Mild tenderness in the epigastric area. Bowel sounds are positive. No organomegaly. EXTREMITIES: No pedal edema. SKIN no rashes. NEUROLOGIC: Alert and oriented x3. No focal deficits. LABS: From yesterday WBC 5, hemoglobin 15, platelets normal. AST and ALT are 106 and 58 respectively. T-bilirubin 1.5 and alkaline phosphatase 83. Today, T-bilirubin and alkaline phosphatase are normal. AST and ALT are 85 and 47. Lipase was 1506. IMPRESSION: This is a lady who presents to the hospital with epigastric and right upper quadrant abdominal pain on and off for the last 2 weeks duration. She had a similar episode 6 weeks ago and was diagnosed with gallstones. During this hospitalization was noted to have elevated lipase and mild elevation of serum transaminases as well as T-bilirubin of 1.5, suggestive of acute biliary pancreatitis. The patient also has history of heavy alcohol abuse and part of the elevated LFTs could be on the basis of liver disease. In any event, her serum transaminases are improving and the T-bilirubin and alkaline phosphatase have normalized. Ultrasound showed gallstones with CBD measuring 7 mm. RECOMMENDATIONS: 1. Since her serum transaminases are improving no indication for an ERCP at the present time. 2. Repeat labs in the morning. 3. Abstain from alcohol. 4. Patient already evaluated by Dr. Najera and scheduled for laparoscopic cholecystectomy tomorrow. Thank you for this consultation. MMODL / IJN: [id number] /
[2019-10-16] MEDS: MORPHINE SULFATE 4 MG/ML SYRINGE IV PRN (20:18)
--- NOTE | 2019-10-16 20:41 | P.HPIM ---
History of Present Illness H&P Date: 10/16/19 Chief Complaint: abdominal pain History of present complaint: This is a pleasant [address] Bagley. Patient is a long-standing history of smoking and also increase alcohol intake for quite a while. Amount fluctuates. We'll 6 week ago patient had a bout of pancreatitis. She'll also was found to have gallbladder dysfunction. Surgery was held because of her clinical condition. 4 days ago patient decided to stop drinking and went into withdrawals. Her mood appears to be a cold withdrawal for at least 2 days. The same time patient been having nausea and abdominal pain on and off for about 2 weeks. Level has been fluctuating. Pain is predominantly in the right upper quadrant.. Ultrasound did confirm clinical picture compatible with cholecystitis. Patient also was found to have acute pancreatitis again. Patient admitted for the same. Both GI and general surgery were consulted. 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 Physical examination: VITAL SIGNS: 98.5, 92, 16, 145/107, 99% room air GENERAL: BMI 22.9, sitting up in a chair awake, not in distress. EYES: Pupils equal. Conjunctiva normal. HEENT: External appearance of nose and ears normal, oral cavity grossly normal. NECK: JVD not raised; masses not palpable. HEART: First and second heart sounds are normal; no edema. LUNGS: Respiratory rate normal; clear to auscultation. ABDOMEN: Soft, right upper quadrant tenderness, with positive Denson's sign, no guarding rigidity liver spleen not palpable, no masses palpable. PSYCH: Alert and oriented x3; mood and affect normal. NEUROLOGICAL: Cranial nerves grossly intact; no facial asymmetry, power and sensation grossly intact. LYMPHATICS: No lymph nodes palpable in the axilla and neck INVESTIGATIONS, reviewed in the clinical context: White count 3.3 hemoglobin 13.3 platelets 146 potassium 3.3 creatinine 0.69 bilirubin 1.5 AST 106 ALT 58 lipase 1429 Abdominal ultrasound she evidence of acute cholecystitis Assessment: -Acute on chronic cholecystitis with the patient having a similar diagnoses about 6 weeks ago -Acute pancreatitis recurrent secondary to alcoholism -Chronic alcohol use -Chronic nicotine dependence -Alcoholic hepatitis Plan: Patient is getting IV fluids, Lovenox for DVT prophylaxis, pain control in place. Patient's home medications resumed. Both GI and general surgery were consulted. We will put the patient on a CIWA scale follow closely. We'll put the patient will small dose of Valium for DT prophylaxis. Care was discussed with the patient. Questions were answered. Smoke cessation counseling: This was done with the patient. Patient has declined a nicotine patch.. More than 3 minutes was spent for this Past Medical History Past Medical History: Hypertension Additional Past Medical History / Comment(s): Alcohol abuse, pancreatitis History of Any Multi-Drug Resistant Organisms: None Reported Additional Past Surgical History / Comment(s): Gastric bypass, Reconstrutive surg after weight loss, and bilat overy removal Past Anesthesia/Blood Transfusion Reactions: No Reported Reaction Past Psychological History: No Psychological Hx Reported Smoking Status: Current every day smoker Past Alcohol Use History: Abuse, Daily Past Drug Use History: None Reported - Past Family History Mother Family Medical History: Diabetes Mellitus Additional Family Medical History / Comment(s): mother from rectal cancer 1999 Father Family Medical History: Diabetes Mellitus Additional Family Medical History / Comment(s): from emphysema in 2003 Medications and Allergies Home Medications Medication Instructions Recorded Confirmed Type Sertraline [Zoloft] 100 mg PO DAILY 30 Days tab 09/16/19 10/15/19 Rx hydrOXYzine PAMOATE [Vistaril] 50 mg PO HS PRN 28 Days cap 09/16/19 10/15/19 Rx traZODone HCL [Desyrel] 150 mg PO HS 30 Days tab 09/16/19 10/15/19 Rx Loperamide [Imodium] 2 mg PO Q6H PRN 10/15/19 10/15/19 History Allergies Allergy/AdvReac Type Severity Reaction Status Date / Time Penicillins Allergy Anaphylaxis Verified 10/15/19 17:45 Physical Exam Vitals: Vital Signs Temp Pulse Pulse Resp BP BP Pulse Ox 10/16/19 05:00 97.2 F L 63 18 152/95 96 10/15/19 21:00 98.0 F 62 18 122/80 98 10/15/19 17:56 97.7 F 70 16 157/103 99 10/15/19 17:26 98.5 F 75 18 133/94 99 10/15/19 13:08 98.5 F 92 16 145/107 99 Intake and Output 10/15/19 10/16/19 10/16/19 22:59 06:59 14:59 Intake Total 0 0 Balance 0 0 Intake: Oral 0 0 Other: # Voids 1 2 Weight 58.649 kg Results CBC & Chem 7: 10/16/19 07:48 10/16/19 07:48 Labs: Abnormal Lab Results - Last 24 Hours (Table) 10/15/19 10/15/19 10/15/19 Range/Units 14:15 14:15 15:55 WBC (3.8-10.6) k/uL MCV 101.9 H (80.0-100.0) fL MCH 35.4 H (25.0-35.0) pg Plt Count (150-450) k/uL Sodium 135 L (137-145) mmol/L Potassium (3.5-5.1) mmol/L Chloride 92 L (98-107) mmol/L Carbon Dioxide 16 L (22-30) mmol/L Glucose 112 H (74-99) mg/dL Total Bilirubin 1.5 H (0.2-1.3) mg/dL AST 106 H (14-36) U/L ALT 58 H (4-34) U/L Total Protein 8.4 H (6.3-8.2) g/dL Albumin 5.2 H (3.5-5.0) g/dL Lipase 1429 H (23-300) U/L Urine Protein 1+ H (Negative) Urine Ketones 4+ H (Negative) Urine Bilirubin 1+ H (Negative) Ur Squamous Epith Cells 5 H (0-4) /hpf Amorphous Sediment Rare H (None) /hpf Urine Bacteria Rare H (None) /hpf Hyaline Casts 12 H (0-2) /lpf Urine Mucus Few H (None) /hpf 10/16/19 10/16/19 Range/Units 07:48 07:48 WBC 3.3 L (3.8-10.6) k/uL MCV 102.2 H (80.0-100.0) fL MCH (25.0-35.0) pg Plt Count 146 L (150-450) k/uL Sodium (137-145) mmol/L Potassium 3.3 L (3.5-5.1) mmol/L Chloride (98-107) mmol/L Carbon Dioxide (22-30) mmol/L Glucose 106 H (74-99) mg/dL Total Bilirubin (0.2-1.3) mg/dL AST 85 H (14-36) U/L ALT 47 H (4-34) U/L Total Protein (6.3-8.2) g/dL Albumin (3.5-5.0) g/dL Lipase 1506 H (23-300) U/L Urine Protein (Negative) Urine Ketones (Negative) Urine Bilirubin (Negative) Ur Squamous Epith Cells (0-4) /hpf Amorphous Sediment (None) /hpf Urine Bacteria (None) /hpf Hyaline Casts (0-2) /lpf Urine Mucus (None) /hpf Thrombosis Risk Factor Assmnt - Choose All That Apply Any of the Below Risk Factors Present?: Yes Each Factor Represents 1 point: Age 41-60 years Other Risk Factors: No Other congenital or acquired thrombophilia - If yes, enter type in comment: No Thrombosis Risk Factor Assessment Total Risk Factor Score: 1 Thrombosis Risk Factor Assessment Level: Low Risk
[2019-10-16] MEDS ORDERED: POTASSIUM CHLORIDE ER 20 MEQ TAB.ER PO STA (20:47)
[2019-10-16] MEDS: DIAZEPAM 2 MG TAB PO SCH (21:00)
[2019-10-16] MEDS: FAMOTIDINE 20 MG TAB PO SCH (21:01)
[2019-10-16] MEDS ORDERED: POTASSIUM CHLORIDE ER 20 MEQ TAB.ER PO ONE (22:00)
[2019-10-17] MEDS: MORPHINE SULFATE 4 MG/ML SYRINGE IV PRN ×3 (00:59→11:04)
[2019-10-17] MEDS: DIAZEPAM 2 MG TAB PO SCH ×2 (05:21→12:53)
[2019-10-17] MEDS: THIAMINE 100 MG TAB PO SCH ×2 (06:31→16:45)
[2019-10-17 06:39] LABS: African American GFR (CKD) >90 (>60 ml/min/1.73 sqM); Anion Gap 11 mmol/L; Blood Urea Nitrogen 4 mg/dL (7-17); Calcium 9.4 mg/dL (8.4-10.2); Carbon Dioxide 23 mmol/L (22-30); Chloride 104 mmol/L (98-107); Glucose 145 mg/dL (74-99); Non-African American GFR(CKD) >90 (>60 ml/min/1.73 sqM); Potassium 3.1 mmol/L (3.5-5.1); Sodium 138 mmol/L (137-145)
[2019-10-17] MEDS ORDERED: POTASSIUM CHLORIDE ER 20 MEQ TAB.ER PO STA ×2 (07:15→11:00)
[2019-10-17] MEDS: FAMOTIDINE 20 MG TAB PO SCH (07:37)
[2019-10-17] MEDS: POTASSIUM CHLORIDE 20 MEQ in WATER FOR INJECTION 1 100ML.BAG IVPB SCH ×2 (08:16→10:53)
[2019-10-17] MEDS: SODIUM CHLORIDE 0.9% 1,000 ML IV SCH (08:16)
[2019-10-17] MEDS ORDERED: fentaNYL (PF) 50 MCG/ML 2 ML AMP ONE (08:57)
[2019-10-17] MEDS ORDERED: MIDAZOLAM 2 MG/2 ML VIAL ONE (08:57)
[2019-10-17] MEDS ORDERED: NEOSTIGMINE 1 MG/ML 10 ML VIAL ONE (08:57)
[2019-10-17] MEDS ORDERED: GLYCOPYRROLATE 0.2 MG/ML 2 ML VIAL ONE (08:57)
[2019-10-17] MEDS ORDERED: ROCURONIUM BROMIDE 10 MG/ML 10 ML VIAL IV ONE (08:57)
[2019-10-17] MEDS ORDERED: PHENYLEPHRINE-0.9% NACL SYG 1 MG/10 ML SYRINGE ONE (08:57)
[2019-10-17] MEDS ORDERED: PROPOFOL 10 MG/ML 20 ML VIAL IV ONE (08:57)
[2019-10-17] MEDS ORDERED: SUCCINYLCHOLINE CHLORIDE 100 MG/5 ML SYR IV ONE (08:57)
[2019-10-17] MEDS ORDERED: LIDOCAINE 1% INJ 10MG/ML (20 ML MDV) ONE (08:57)
[2019-10-17] MEDS ORDERED: CLINDAMYCIN 150 MG/ML 4 ML VIAL IVPB ONE (09:02)
[2019-10-17] MEDS ORDERED: IV FLUID CONTINUATION 1,000 ML IV ONE (09:02)
[2019-10-17] MEDS ORDERED: BUPIVACAINE (PF) 0.25% 30 ML VIAL SQ ONE ×2 (09:16)
--- NOTE | 2019-10-17 09:51 | P.OP ---
Date of Procedure: 10/17/19 Preoperative Diagnosis: Cholecystitis Pancreatitis Postoperative Diagnosis: Cholecystitis Pancreatitis Procedure(s) Performed: Laparoscopic cholecystectomy Anesthesia: BALJINDER Surgeon: Francesca Najera Pathology: other (Gallbladder) Condition: stable Disposition: floor Indications for Procedure: 40-year-old female presented to the emergency department with complaints of epigastric and right upper quadrant pain. She is known to have a history of all call abuse and is also found to have cholelithiasis. Due to her symptoms along with elevated transaminases and bilirubin, there was suspicion for biliary etiology for pancreatitis. Secondary to this, plan is for left scopic cholecystectomy. Operative Findings: Significantly distended gallbladder Description of Procedure: The patient was brought into the operating suite and placed in supine position on the operating table. Sedation was provided by anesthesia and the patient underwent endotracheal intubation. The patient was then prepped and draped in regular sterile fashion. An infraumbilical incision was made dissection was carried to the fascia the fascia was incised and a 12 mm trocar was placed. Pneumoperitoneum was then achieved. The gallbladder was clearly visualized and was noted to be significantly distended. 3 additional 5 mm ports were placed. One was placed in the subxiphoid location and 2 were placed in the right upper quadrant. The gallbladder was then grasped and retracted, dissection was carried along the infundibulum to create the critical view. The cystic duct and cystic artery were skeletonized. 2 clips were placed proximally and the cystic duct and one was placed distally and the cystic duct was ligated. 2 clips were placed proximally and the cystic artery and one was placed distally and the cystic artery was ligated. At this point cautery was used to dissect the gallbladder from the gallbladder fossa. Hemostasis was noted to be maintained. The gallbladder was then placed in an Endo Catch bag and removed from the abdomen from the infraumbilical incision site. Irrigation was then used in the right upper quadrant. Hemostasis was noted to be maintained. The infra umbilical incision site fascia was closed with 0 Vicryl suture using a Navid- Sandra device under direct visualization. Pneumoperitoneum was released and all ports removed from the abdomen. All ports sites were closed with 4-0 Vicryl subcuticular suture. The patient was awakened in the operating suite and taken to postanesthesia care unit in stable condition.
[2019-10-17] MEDS ORDERED: LACTATED RINGERS 1,000 ML IV SCH (10:00)
[2019-10-17] MEDS ORDERED: LACTATED RINGERS 1,000 ML IV ONE (10:05)
[2019-10-17 11:00] VITALS: RESP 18
[2019-10-17 15:11] VITALS: BP 148/98; PULSE 71; TEMP 97.9
[2019-10-17] MEDS ORDERED: HYDROcodone/APAP 5-325MG 1 EACH TAB PO PRN (15:37)
--- NOTE | 2019-10-17 20:34 | P.DS ---
Providers Date of admission: 10/15/19 16:54 Expected date of discharge: 10/17/19 Attending physician: Carlton Sneed Consults: 10/15/19 16:26 Consult Physician Stat Consulting Provider: Bouchra Ro Consult Reason/Comments: Pancreatitis, cholelithiasis Do you want consulting provider notified?: Yes 10/15/19 16:41 Consult Physician Stat Consulting Provider: Francesca Njaera Consult Reason/Comments: Cholelithiasis Do you want consulting provider notified?: Yes Primary care physician: Rosendo Bagley [facility] Course: Chief Complaint: abdominal pain Hospital course: This is a pleasant [address] Bag[address]. Patient is a long-standing history of smoking and also increase alcohol intake for quite a while. Amount fluctuates. We'll 6 week ago patient had a bout of pancreatitis. She'll also was found to have gallbladder dysfunction. Surgery was held because of her clinical condition. 4 days ago patient decided to stop drinking and went into withdrawals. Her mood appears to be a cold withdrawal for at least 2 days. The same time patient been having nausea and abdominal pain on and off for about 2 weeks. Level has been fluctuating. Pain is predominantly in the right upper quadrant.. Ultrasound did confirm clinical picture compatible with cholecystitis. Patient also was found to have acute pancreatitis again. Patient admitted for the same. Both GI and general surgery were consulted. Abdominal ultrasound did confirm acute cholecystitis. Today- This morning patient underwent a laparoscopic cholecystectomy. Postprocedure doing well. Diet was advanced. Currently well. I discussed with Dr. Najera. Okay to discharge. Lipase is coming on. GI also okayed the patient to DC. Discussed with nurse. Patient be discharged later today. Care was discussed with the patient. Patient to have low fat diet Discussion and discharge planning more than 35 minutes Consults: Dr. Najera from surgery Dr. Nataliia Ro from GI Physical examination: VITAL SIGNS: 97.9, 71, 18, 148/98, 97% on room air GENERAL: Sitting up, not in distress EYES: Pupils equal. Conjunctiva normal. HEENT: External appearance of nose and ears normal, oral cavity grossly normal. NECK: JVD not raised; masses not palpable. HEART: First and second heart sounds are normal; no edema. LUNGS: Respiratory rate normal; clear to auscultation. ABDOMEN: Soft, mild tenderness,, no guarding rigidity liver spleen not palpable, no masses palpable. PSYCH: Alert and oriented x3; mood and affect normal. NEUROLOGICAL: Cranial nerves grossly intact; no facial asymmetry, power and sensation grossly intact. INVESTIGATIONS, reviewed in the clinical context: Potassium 3.1 creatinine 0.53 lipase 691 White count 3.3 hemoglobin 13.3 platelets 146 potassium 3.3 creatinine 0.69 bilirubin 1.5 AST 106 ALT 58 lipase 1429 Abdominal ultrasound she evidence of acute cholecystitis Assessment: -Acute on chronic cholecystitis with the patient having a similar diagnoses about 6 weeks ago. Status post laparoscopic cholecystectomy, POA -Acute pancreatitis recurrent secondary to alcoholism, POA -Chronic alcohol use -Chronic nicotine dependence -Alcoholic hepatitis Disposition: Home Patient Condition at Discharge: Stable Plan - Discharge Summary New Discharge Prescriptions: New Acetaminophen Tab [Tylenol] 650 mg PO Q6HR PRN tab PRN Reason: Mild Pain Or Fever > 100.5 Continue traZODone HCL [Desyrel] 150 mg PO HS 30 Days tab hydrOXYzine PAMOATE [Vistaril] 50 mg PO HS PRN 28 Days cap PRN Reason: Insomnia Sertraline [Zoloft] 100 mg PO DAILY 30 Days tab Loperamide [Imodium] 2 mg PO Q6H PRN PRN Reason: Diarrhea Discharge Medication List Sertraline [Zoloft] 100 mg PO DAILY 30 Days tab 09/16/19 [Rx] hydrOXYzine PAMOATE [Vistaril] 50 mg PO HS PRN 28 Days cap 09/16/19 [Rx] traZODone HCL [Desyrel] 150 mg PO HS 30 Days tab 09/16/19 [Rx] Loperamide [Imodium] 2 mg PO Q6H PRN 10/15/19 [History] Acetaminophen Tab [Tylenol] 650 mg PO Q6HR PRN tab 10/17/19 [Rx] Follow up Appointment(s)/Referral(s): Rosendo Bagley DO [Primary Care Provider] - 1-2 days (office closed. please make follow up appointments) Francesca Najera DO [Doctor of Osteopathic Medicine] - 2 Weeks (office closed, please make follow up appointment) Patient Instructions/Handouts: *Surgery [facility] - Laparoscopic Cholecystectomy Discharge Instructions, Low Fat Diet (DC), Laparoscopic Cholecystectomy (DC) Activity/Diet/Wound Care/Special Instructions: Perri Benoit 10/17/19 activity as tolerated low fat diet as tolerated Incentive Spirometer 10x/hr to prevent post op pneumonia monitor incision sites for s/sx of infection, keep area clean and dry, no submerging sites in water tylenol Q6hour PRN for pain/fever Discharge Disposition: HOME SELF-CARE
== END 2019-10-17 18:17 | disposition home or self-care (01) | DRG 417 ==
LOC: EC 12:49 → 4MS4W 16:54 → 6NMEDSUR 10-17 07:35
PROVIDERS: ADMIT Hospitalist; ATTEND Hospitalist
PROC: 0FT44ZZ Resection of Gallbladder, Percutaneous Endoscopic Approach (ICD-10-PCS; principal; 2019-10-17 09:00)
DX: K80.12 Calculus of gallbladder with acute and chronic cholecystitis without obstruction (principal); K85.10 Biliary acute pancreatitis without necrosis or infection; F17.200 Nicotine dependence, unspecified, uncomplicated; I10 Essential (primary) hypertension; K70.10 Alcoholic hepatitis without ascites; Z79.899 Other long term (current) drug therapy; Z80.0 Family history of malignant neoplasm of digestive organs; Z82.5 Family history of asthma and other chronic lower respiratory diseases; Z83.3 Family history of diabetes mellitus; Z98.84 Bariatric surgery status
CPT/HCPCS: 36415; 76705; 80048; 80053; 81001; 81025; 82150; 83690; 85025; 88304; 96361; 96372; 96374; 96375; 99285

== ENCOUNTER 2020-04-21 14:29 | Observation (INO) | payer BC, OTHER ==
--- NOTE | 2020-04-21 14:49 | ED ---
Psych HPI <LatoshawinifredlaurenHardik Ivory - Last Filed: 04/21/20 16:44> - General Source: patient, police, RN notes reviewed, old records reviewed - History of Present Illness MD Complaint: suicidal ideation, feels depressed <Hardik Dickerson - Last Filed: 04/22/20 07:17> - General Stated Complaint: Suicide attempt Time Seen by Provider: 04/21/20 14:39 - History of Present Illness Initial Comments: This is a 49-year-old female with a prior history of depression also history of pancreatitis in the past history of alcohol intoxication past was brought in by police and EMS after being found in her motor vehicle with the eyes are running in a garden was running from the exhaust to her vehicles compartment. She was found slumped over and was extricated by a chief of police. Patient initially was minimally responsive after several minutes and open air did respond. She has she did become somewhat combative and uncooperative per paramedics. She refused evaluation and refused intervention by paramedics in route to. Upon arrival the patient refused to be physically evaluated she was noted be hyperventilating. He states that she is afraid that her as well as kill her and her dog. Refuses to answer she's had any drugs or alcohol today. She is refusing examination at this time saying that no one can get near her and she Presenting her middle fingers to STAFF members and police present. (Hardik Dickerson) - Related Data Home Medications Medication Instructions Recorded Confirmed No Known Home Medications 04/21/20 04/21/20 Allergies Allergy/AdvReac Type Severity Reaction Status Date / Time Penicillins Allergy Anaphylaxis Verified 04/21/20 17:41 Review of Systems ROS Other: All systems not noted in ROS Statement are negative. <Hardik Kim - Last Filed: 04/21/20 16:44> ROS Other: All systems not noted in ROS Statement are negative. Limitations: ROS unobtainable due to patients medical condition <Hardik Dickerson - Last Filed: 04/22/20 07:17> ROS Statement: Those systems with pertinent positive or pertinent negative responses have been documented in the HPI. Past Medical History Past Medical History: Hypertension Additional Past Medical History / Comment(s): Alcohol abuse, pancreatitis History of Any Multi-Drug Resistant Organisms: None Reported Additional Past Surgical History / Comment(s): Gastric bypass, Reconstrutive surg after weight loss, and bilat overy removal Past Anesthesia/Blood Transfusion Reactions: No Reported Reaction Past Psychological History: No Psychological Hx Reported Smoking Status: Current every day smoker Past Alcohol Use History: Abuse, Daily Past Drug Use History: None Reported - Past Family History Mother Family Medical History: Diabetes Mellitus Additional Family Medical History / Comment(s): mother from rectal cancer 1999 Father Family Medical History: Diabetes Mellitus Additional Family Medical History / Comment(s): from emphysema in 2003 <Hardik Dickerson - Last Filed: 04/22/20 07:17> General Exam General appearance: alert, anxious Head exam: Present: atraumatic, normocephalic, normal inspection Eye exam: Present: normal appearance, PERRL, EOMI. Absent: scleral icterus, conjunctival injection, periorbital swelling Neck exam: Present: normal inspection, full ROM. Absent: tenderness, meningismus, lymphadenopathy Respiratory exam: Present: other (tachypnic). Absent: respiratory distress, wheezes, rales, rhonchi, stridor Cardiovascular Exam: Absent: systolic murmur, diastolic murmur, rubs, gallop, clicks GI/Abdominal exam: Absent: distended, tenderness, guarding, rebound, rigid Extremities exam: Present: normal inspection, full ROM. Absent: tenderness, pedal edema, joint swelling, calf tenderness Back exam: Present: normal inspection, other (Within the limits the exam allowed) Neurological exam: Present: alert, oriented X3, CN II-XII intact. Absent: motor sensory deficit Psychiatric exam: Present: depressed, agitated, anxious, suicidal ideation Skin exam: Present: intact, normal color. Absent: rash <Hardik Dickerson - Last Filed: 04/22/20 07:17> - General Exam Comments Initial Comments: This is a well-developed well-nourished awake alert very anxious female who was noted be hyperventilating. She is stating that she's afraid of her and her friend that he will kill her and her dog. She also stated that she wanted go back to her car and try to do it again. (Hardik Dickerson) Course <Hardik Dickerson - Last Filed: 04/22/20 07:17> Vital Signs 04/21/20 04/21/20 04/21/20 14:34 16:06 17:00 Temperature 97.0 F L Pulse Rate 110 H 103 H Respiratory 18 18 18 Rate Blood Pressure 193/103 O2 Sat by Pulse 99 99 Oximetry 04/21/20 04/21/20 04/21/20 17:53 18:18 19:56 Temperature 98.0 F 98.0 F Pulse Rate 72 78 91 Respiratory 16 16 16 Rate Blood Pressure 139/103 142/94 152/90 O2 Sat by Pulse 96 96 96 Oximetry - Reevaluation(s) Reevaluation #1: 04/21/20 15:02 The patient's care will be endorsed to Dr. Kim at our shift change. (Hardik Dickerson) Medical Decision Making - Lab Data Result diagrams: 04/21/20 16:00 04/21/20 16:00 <Hardik Kim - Last Filed: 04/21/20 16:44> - Lab Data Result diagrams: 04/21/20 16:00 04/21/20 16:00 <Hardik Dickerson - Last Filed: 04/22/20 07:17> - Medical Decision Making Patient's care was signed out at shift change awaiting laboratory testing and reevaluation. Patient was placed on a nonrebreather for concern of carbon monoxide toxicity with inhaled car exhaust. Her carbon monoxide level is 7% and she is a current smoker. She has a normal CBC, otherwise normal CMP, and alcohol level of 244. Given her high alcohol level and suicide attempts she will be admitted for close observation, suicide precautions, psychiatry is placed on consult. Case is discussed with the admitting physician Dr. Mancia. (Hardik Kim) - Lab Data Lab Results 04/21/20 04/21/20 04/21/20 Range/Units 16:00 16:00 16:00 WBC 6.9 (3.8-10.6) k/uL RBC 4.78 (3.80-5.40) m/uL Hgb 15.1 (11.4-16.0) gm/dL Hct 46.1 H (34.0-46.0) % MCV 96.6 (80.0-100.0) fL MCH 31.7 (25.0-35.0) pg MCHC 32.8 (31.0-37.0) g/dL RDW 13.4 (11.5-15.5) % Plt Count 288 (150-450) k/uL Neutrophils % 39 % Lymphocytes % 47 % Monocytes % 8 % Eosinophils % 2 % Basophils % 1 % Neutrophils # 2.7 (1.3-7.7) k/uL Lymphocytes # 3.2 (1.0-4.8) k/uL Monocytes # 0.6 (0-1.0) k/uL Eosinophils # 0.2 (0-0.7) k/uL Basophils # 0.1 (0-0.2) k/uL Carbon Monoxide, Quant 7.2 (<10.0) % Sodium 139 (137-145) mmol/L Potassium 4.4 (3.5-5.1) mmol/L Chloride 105 (98-107) mmol/L Carbon Dioxide 21 L (22-30) mmol/L Anion Gap 13 mmol/L BUN 5 L (7-17) mg/dL Creatinine 0.75 (0.52-1.04) mg/dL Est GFR (CKD-EPI)AfAm >90 (>60 ml/min/1.73 sqM) Est GFR (CKD-EPI)NonAf >90 (>60 ml/min/1.73 sqM) Glucose 111 H (74-99) mg/dL Calcium 9.3 (8.4-10.2) mg/dL Magnesium 2.0 (1.6-2.3) mg/dL Total Bilirubin 0.3 (0.2-1.3) mg/dL AST 53 H (14-36) U/L ALT 73 H (4-34) U/L Alkaline Phosphatase 124 (38-126) U/L Creatine Kinase 58 (30-135) U/L Total Protein 7.5 (6.3-8.2) g/dL Albumin 4.7 (3.5-5.0) g/dL Lipase 63 (23-300) U/L Serum Alcohol 244 H* mg/dL Disposition Is patient prescribed a controlled substance at d/c from ED?: No Decision to Admit Reason: Admit from EC Decision Date: 04/21/20 Decision Time: 16:46 <Hardik Kim - Last Filed: 04/21/20 16:44> <Hardik Dickerson - Last Filed: 04/22/20 07:17> Clinical Impression: Alcohol intoxication, Attempted suicide, Depression Disposition: ADMITTED IP TO THIS HOSP Condition: Stable
[2020-04-21 16:15] LABS: Basophils # (A) 0.1 k/uL (0-0.2); Basophils % (A) 1 %; Eosinophils # (A) 0.2 k/uL (0-0.7); Eosinophils % (A) 2 %; HCT 46.1 % (34.0-46.0); HGB 15.1 gm/dL (11.4-16.0); Lymphocytes # (A) 3.2 k/uL (1.0-4.8); Lymphocytes % (A) 47 %; MCH 31.7 pg (25.0-35.0); MCHC 32.8 g/dL (31.0-37.0); MCV 96.6 fL (80.0-100.0); Mean Platelet Volume 6.8; Monocytes # (A) 0.6 k/uL (0-1.0); Monocytes % (A) 8 %; Neutrophils # (A) 2.7 k/uL (1.3-7.7); Neutrophils % (A) 39 %; Platelet Count 288 k/uL (150-450); RBC 4.78 m/uL (3.80-5.40); RDW 13.4 % (11.5-15.5); WBC 6.9 k/uL (3.8-10.6)
[2020-04-21 16:26] LABS: ALT 73 U/L (4-34); AST 53 U/L (14-36); African American GFR (CKD) >90 (>60 ml/min/1.73 sqM); Albumin 4.7 g/dL (3.5-5.0); Alkaline Phosphatase 124 U/L (38-126); Anion Gap 13 mmol/L; Blood Urea Nitrogen 5 mg/dL (7-17); Calcium 9.3 mg/dL (8.4-10.2); Carbon Dioxide 21 mmol/L (22-30); Chloride 105 mmol/L (98-107); Creatine Kinase 58 U/L (30-135); Glucose 111 mg/dL (74-99); Non-African American GFR(CKD) >90 (>60 ml/min/1.73 sqM); Potassium 4.4 mmol/L (3.5-5.1); Sodium 139 mmol/L (137-145); Total Bilirubin 0.3 mg/dL (0.2-1.3); Total Protein 7.5 g/dL (6.3-8.2)
[2020-04-21 16:28] LABS: Alcohol 244 mg/dL
[2020-04-21] MEDS ORDERED: NALOXONE 0.4 MG/ML 1 ML VIAL IV PRN (16:42)
[2020-04-21 17:40] LABS: Amphetamine Screen,Urine Not Detected (NotDetected); Barbiturate Screen,Urine Not Detected (NotDetected); Benzodiazepines Screen,Urine Not Detected (NotDetected); Cocaine Screen,Urine Not Detected (NotDetected); Methadone Screen, Urine Not Detected (NotDetected); Opiate Screen,Urine Not Detected (NotDetected); Oxycodone Screen, Urine Not Detected (NotDetected); Phencyclidine Screen,Urine Not Detected (NotDetected); Tricyclic Antidepressant,Urine Not Detected (NotDetected); Urn Cannabinoid Scrn Not Detected (NotDetected)
[2020-04-21 17:56] VITALS: RESP 16; TEMP 98
[2020-04-21 19:57] VITALS: BP 152/90
[2020-04-22 09:44] VITALS: PULSE 68
[2020-04-22 17:57] LABS: Basophils # (A) 0.1 k/uL (0-0.2); Basophils % (A) 1 %; Eosinophils # (A) 0.1 k/uL (0-0.7); Eosinophils % (A) 1 %; HCT 48.5 % (34.0-46.0); HGB 15.6 gm/dL (11.4-16.0); Lymphocytes # (A) 1.8 k/uL (1.0-4.8); Lymphocytes % (A) 43 %; MCHC 32.1 g/dL (31.0-37.0); MCV 96.5 fL (80.0-100.0); Mean Platelet Volume 7.3; Monocytes # (A) 0.4 k/uL (0-1.0); Monocytes % (A) 9 %; Neutrophils # (A) 1.9 k/uL (1.3-7.7); Neutrophils % (A) 44 %; Platelet Count 271 k/uL (150-450); RBC 5.03 m/uL (3.80-5.40); RDW 13.3 % (11.5-15.5); WBC 4.3 k/uL (3.8-10.6)
[2020-04-22 18:32] LABS: ALT 52 U/L (4-34); AST 33 U/L (14-36); African American GFR (CKD) >90 (>60 ml/min/1.73 sqM); Albumin 4.5 g/dL (3.5-5.0); Alcohol <10 mg/dL; Alkaline Phosphatase 128 U/L (38-126); Anion Gap 7 mmol/L; Blood Urea Nitrogen 8 mg/dL (7-17); Calcium 9.5 mg/dL (8.4-10.2); Carbon Dioxide 26 mmol/L (22-30); Chloride 103 mmol/L (98-107); Glucose 97 mg/dL (74-99); Non-African American GFR(CKD) >90 (>60 ml/min/1.73 sqM); Potassium 4.1 mmol/L (3.5-5.1); Sodium 136 mmol/L (137-145); Total Bilirubin 0.6 mg/dL (0.2-1.3); Total Protein 7.2 g/dL (6.3-8.2)
--- NOTE | 2020-04-22 18:39 | P.CN ---
Psychiatric Consult - . Consult date: 04/22/20 Consult:: 04/22/20 18:31 IDENTIFYING DATA: 49-year-old female patient HPI: Patient was admitted to the medical floor status post an episode where she was found in her vehicle per chart history, was found slumped over and minimally responsive. Per chart history she became combative and uncooperative. carbon monoxide level was found to be 7.2. Patient says she talked to the psychiatric nurse in the emergency room relays that she can be kept for 72 hours and she signing out. She does make a reference to having attempted suicide. She also made a reference to having become drunk. Her serum alcohol level was found to be 244. Patient is hesitant to talk to me about things and asks that I reference the chart several times. She relays that I'm not going to help her because she's not going to talk to me. PAST PSYCHIATRIC HISTORY: She makes reference to one prior admission under Dr. Crissy granado in the past. She relays that the paperboard machine operator said that she was suicidal and homicidal. PMH: Per chart. Pancreatitis, hypertension, bilateral ovary removal, gastric bypass ALLERGIES: Penicillins MEDICATIONS: naloxone when necessary CHEMICAL DEPENDENCY HISTORY: relays that she got drunk prior to hospitalization FAMILY PSYCHIATRIC HISTORY: not known at this time FAMILY CHEMICAL DEPENDENCY HISTORY: not known at this time SOCIAL HISTORY: not known MENTAL STATUS EXAM: PATIENT IS ALERT, NOT FULLY COOPERATIVE WITH THE EXAM. SHE RELAYS THAT I'M NOT GOING TO HELP HER BECAUSE SHE'S NOT GOING TO TALK TO ME. HER MOOD APPEARS DEPRESSED. SHE DENIES ANY THOUGHTS OF HARM TO SELF OR OTHERS. SHE DID MAKE A REFERENCE TO HAVING ATTEMPTED SUICIDE. NO EVIDENCE OF ANY ACTIVE PSYCHOSIS. IMPRESSIONS: Unspecified depressive disorder, alcohol use disorder PLAN: recommend admission to the inpatient psychiatric unit. Patient is not agreeable at this time, petition has been done per staff, we'll need a first clinic closer to be done for involuntary admission. Recommend admission to be able to monitor for safety and continue to evaluate regarding depression and recommended treatment.
--- NOTE | 2020-04-22 19:06 | P.HPIM ---
History of Present Illness H&P Date: 04/22/20 Chief Complaint: suicidal attempt Ms. Lopez is a 49-year-old femalewith a past medical history of hypertension, alcohol abuse, gastric bypass brought in by the police after being found in her motor vehicle slumped over and was minimally responsive. As per the ED note patient was very combative and uncooperative in the emergency and her carbon monoxide level was found to be 7.2. Patient was petitioned for an attempted suicide and admitted to the floors. Currently the patient is sitting up in a chair by the bedside with a sitter in the room. She states that she was feeling depressed as she was not allowed to her [id number] . She states that her would not allow her and so she got depressed and drank alcohol and later on went into her car. Patient was having pressurized speech all through the conversation. She was also tearful at times. Her serum alcohol level was found to be 244 at the time of admission. On review of systems patient denies having any fevers chills or rigors. No abdominal pain nausea vomiting or diarrhea. No chest pain or palpitations. No cough or difficulty in breathing. No dysuria or hematuria. She denies taking any medications at home on a chronic basis. Review of Systems REVIEW OF SYSTEMS: PSYCH: as per HPI NEURO:No c/o weakness of the extremties, No facial droop, No speech abnormalities. VASCULAR: no edema HEMATOLOGIC: No history of easy bleeding and bruising . No recent infections . RESPIRATORY: No cough, No SOB, No chest discomfort. IMMUNE: No infections INTEGUMENT: no rashes OPHTHALMOLOGIC: No blurry vision and no eye discharge : No dysuria or hematuria FISH BAIT PROCESSING SUPERVISOR: No bleeding PV CARDIAC: No chest pain , shortness of breath , paroxysmal nocturnal dyspnea MUSCULOSKELETAL : No Aches or pains in the joints or muscles. GI: No abdominal pain, Nausea or vomiting. No constipation or diarrhea. Past Medical History Past Medical History: Hypertension Additional Past Medical History / Comment(s): Alcohol abuse, pancreatitis History of Any Multi-Drug Resistant Organisms: None Reported Additional Past Surgical History / Comment(s): Gastric bypass, Reconstrutive surg after weight loss, and bilat overy removal Past Anesthesia/Blood Transfusion Reactions: No Reported Reaction Past Psychological History: No Psychological Hx Reported Smoking Status: Current every day smoker Past Alcohol Use History: Abuse, Daily Past Drug Use History: None Reported - Past Family History Mother Family Medical History: Diabetes Mellitus Additional Family Medical History / Comment(s): mother from rectal cancer 1999 Father Family Medical History: Diabetes Mellitus Additional Family Medical History / Comment(s): from emphysema in 2003 Medications and Allergies Home Medications Medication Instructions Recorded Confirmed Type No Known Home Medications 04/21/20 04/21/20 History Allergies Allergy/AdvReac Type Severity Reaction Status Date / Time Penicillins Allergy Anaphylaxis Verified 04/21/20 17:41 Physical Exam Vitals: Vital Signs Temp Pulse Pulse Resp BP Pulse Ox 04/22/20 09:43 68 95 04/21/20 19:56 98.0 F 91 16 152/90 96 Intake and Output 04/22/20 04/22/20 04/22/20 06:59 14:59 22:59 Other: # Voids 1 1 PHYSICAL EXAM GEN. APPEARANCE: pressurized speech and at times tearful HEAD EXAM: atraumatic, normocephalic, normal inspection EYE EXAM: normal appearance, PERRL, EOMI. No pallor. No icterus. ENT EXAM: normal exam, mucous membranes moist NECK EXAM: normal inspection. no JVD. No thyromegaly. RESPIRATORY EXAM: normal lung sounds bilaterally. no wheezes or crackles. CARDIOVASCULAR EXAM: regular rate, normal rhythm, normal heart sounds. no additional sounds. GI/ABDOMINAL EXAM: soft, normal bowel sounds. nontender. No rebound or guarding or rigidity. EXTREMITIES EXAM: no pedal edema. NEUROLOGICAL EXAM: alert, oriented X3, no focal neurological deficits on gross exam PSYCHIATRIC EXAM: pressurized speech and tearful. SKIN EXAM: warm, dry, intact, normal color. Absent: rash Results CBC & Chem 7: 04/22/20 17:36 04/22/20 17:36 Labs: Abnormal Lab Results - Last 24 Hours (Table) 04/22/20 04/22/20 Range/Units 17:36 17:36 Hct 48.5 H (34.0-46.0) % Sodium 136 L (137-145) mmol/L ALT 52 H (4-34) U/L Alkaline Phosphatase 128 H (38-126) U/L Assessment and Plan Assessment: ASSESSMENT Suicidal attempt Alcohol intoxication Depression Hypertension PLAN: Patient's labs have been reviewed. except for an alcohol level of 244 on labs seemed to be within normal limits. Consult at psychiatric for possible inpatient psychiatric admission. Continue with the sitter at bedside. Patient cannot leave AGAINST MEDICAL ADVICE.
--- NOTE | 2020-04-23 14:07 | P.PN ---
Progress Note - Text Progress Note Date: 04/23/20 Interval history: Patient is seen in follow-up to psychiatric consultation provided yesterday. Patient verbalizes that she she does not wish to talk with me. Mental status exam: Patient is seen with one-to-one staff present. She relays that she does not wish to talk with me today. She does not display any significant agitation. Plan: Plan is for admission to the inpatient mental health unit for monitoring and stabilization. Patient was not agreeable with psychiatric follow-up session today.
[2020-04-23] MEDS ORDERED: IMIQUIMOD MISCELLANE SCH (21:00)
--- NOTE | 2020-04-23 23:45 | P.DS ---
Providers Date of admission: 04/21/20 16:43 Expected date of discharge: 04/23/20 Attending physician: Tracy Mancia Consults: 04/21/20 16:43 Consult Physician Routine Consulting Provider: Cipriano Talavera Consult Reason/Comments: Alcohol intoxication, suicide attempt Do you want consulting provider notified?: Yes Primary care physician: Rosendo Bagley [facility] Course: Ms. Lopez is a 49-year-old femalewith a past medical history of hypertension, alcohol abuse, gastric bypass brought in by the police after being found in her motor vehicle slumped over and was minimally responsive. As per the ED note patient was very combative and uncooperative in the emergency and her carbon monoxide level was found to be 7.2. Patient was petitioned for an attempted suicide and admitted to the floors. She had a sitter in the room. She states that she was feeling depressed as she was not allowed to her [id number] . She states that her would not allow her and so she got depressed and drank alcohol and later on went into her car. Patient was having pressurized speech all through the conversation. She was also tearful at times. Her serum alcohol level was found to be 244 at the time of admission. On review of systems patient denied having any fevers chills or rigors. No abdominal pain nausea vomiting or diarrhea. No chest pain or palpitations. No cough or difficulty in breathing. No dysuria or hematuria. She denies taking any medications at home on a chronic basis. Hospital course - Patient was stable all through. Inpatient psychiatric services have been consulted and she is being transferred to their service today. The patient is medically cleared to be transferred to inpatient psychiatric unit. DISCHARGE DIAGNOSIS Suicidal attempt Alcohol intoxication Depression More than 35 min spent for coordination the transfer of care. Patient Condition at Discharge: Stable Plan - Discharge Summary New Discharge Prescriptions: No Action Imiquimod 1 packet VAGINAL MOWEFR@1999 Discharge Medication List Imiquimod 1 packet VAGINAL MOWEFR@199904/23/20 [History] Follow up Appointment(s)/Referral(s): Rosendo Bagley DO [Primary Care Provider] - 1-2 days Discharge Disposition: TRANSFER TO PSYCH HOSP/UNIT
[2020-04-24] MEDS ORDERED: IMIQUIMOD MISCELLANE SCH (21:00)
== END 2020-04-23 20:13 ==
LOC: EC 14:29 → 4SSUR 16:43 → EEVIPCON 16:43
PROVIDERS: ADMIT Internal Medicine; ATTEND Internal Medicine
DX: R45.851 Suicidal ideations (principal); Z78.1 Physical restraint status
CPT/HCPCS: 36415; 80053 ×2; 82375; 82550; 83690; 83735; 85025 ×2; 80306; 80320 ×2; G0378 ×3; 99285

== ENCOUNTER 2020-04-23 20:16 | Inpatient (IN) | payer BC, OTHER ==
[2020-04-23] MEDS ORDERED: MAG HYDROX/AL HYDROX/SIMETH 30 ML CUP PO PRN (20:30)
[2020-04-23] MEDS ORDERED: ZIPRASIDONE 20 MG VIAL IM PRN (20:30)
[2020-04-23] MEDS ORDERED: MAGNESIUM HYDROXIDE 2,400 MG/10 ML CUP PO PRN (20:30)
[2020-04-23] MEDS ORDERED: ACETAMINOPHEN TAB 325 MG TAB PO PRN (20:30)
[2020-04-23] MEDS ORDERED: LORazepam 2 MG/ML INJ IM PRN (20:34)
[2020-04-23] MEDS: LORazepam 1 MG TAB PO PRN (22:12)
[2020-04-24 06:37] VITALS: RESP 16
[2020-04-24] MEDS: NICOTINE 14MG/24HR PATCH TRANSDERM SCH (08:22)
[2020-04-24] MEDS: LORazepam 1 MG TAB PO PRN ×2 (08:23→16:05)
--- NOTE | 2020-04-24 10:55 | P.HP ---
Psychiatric H&P - . History & Physical: Allergies Allergy/AdvReac Type Severity Reaction Status Date / Time Penicillins Allergy Anaphylaxis Verified 04/21/20 17:41 Vital Signs Temp 97.9 F 04/24/20 05:23 Pulse 91 04/24/20 05:23 Resp 16 04/24/20 05:23 BP 153/97 04/24/20 05:23 Pulse Ox 96 04/23/20 22:42 Intake & Output 04/23/20 04/24/20 04/24/20 18:59 06:59 18:59 Weight 63.684 kg 04/24/20 10:17 IDENTIFYING DATA: This patient is a 49-year-old female who was admitted to the mental health unit from the medical floor after a recent suicide attempt via carbon monoxide poisoning. HPI: The patient presented to the hospital intoxicated with alcohol with a blood level of 244, she had recently attempted suicide with carbon monoxide poisoning. She admits that she had placed a garden hose in her exhaust pipe of her vehicle and then put the other end of the hose in the back seat of her car. Apparently she was found by a pedestrian who had observe the hose running from the exhaust into the vehicle. The petition states "arrived on location observe Pavithra slumped over front seat and running vehicle. Hose from exhaust to inside of car. Car was full of exhaust. I removed her from running vehicle. She had shallow breathing and was originally unresponsive." The patient states that her [id number] recently . The patient had been experiencing ongoing altercations with her and he indicated that he did not want her going to his mother's . While he was at the she became overwhelmed began using alcohol and attempted suicide. The patient is known to the psychiatric service she was admitted here in September 2019 with suicidal ideation in the context of alcohol use disorder. The patient states that she wants to be discharged he states that she's only here because she drink alcohol. She does have a history of depression and alcohol use disorder and anxiety symptoms. She was treated with trazodone Vistaril and Zoloft with her last admission but she states she discontinued though shortly after discharge and did not follow up with outpatient services. She indicates that she recently left her and went to stay with a friend in [place] but that friend had expectations that she wasn't comfortable with. She states again that she wants to divorce her and moved to [place]. She is endorsing no homicidal thoughts she is endorsing no symptoms of psychosis hypomania or elnny. PAST PSYCHIATRIC HISTORY: This is the patient's second inpatient psychiatric hospitalization on this mental health unit the last one was in September 2019. This is at least her second suicide attempt. Previous to that she overdosed with Ambien. No outpatient mental health services are in place. Previously she has been treated with Wellbutrin XL Effexor Zoloft trazodone and Vistaril. PMH: History of hypertension, pancreatitis history, gastric bypass ALLERGIES: Penicillin MEDICATIONS: Refer to [facility] CHEMICAL DEPENDENCY HISTORY: The patient has a history of alcohol use disorder she reports that recently she was sober for 2 weeks then began drinking Friday. She drank Friday and pretty consistently and was in the hospital on Friday. She has never been placed in residential care for chemical dependency reasons. Her alcohol use has ranged from 1 bottle of wine to 2 bottles of wine and 3 pints in a day. She reports no use of marijuana or other substances. FAMILY PSYCHIATRIC HISTORY: She has a sister known to have bipolar disorder, no suicides in the family FAMILY CHEMICAL DEPENDENCY HISTORY: Unknown SOCIAL HISTORY: The patient is 49 years old she is for the third time she indicates her marriage is poor. She has 3 daughters reside in [place] and she has no contact with them. 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 No history of experience. No legal or abuse history reported. MENTAL STATUS EXAM: Patient is a female appearing her stated age she presents in her own clothing she is disheveled hygiene adequate. One of her front teeth is fractured. Eye contact is appropriate. Upon approach she is very irritable and refused to speak with me, with further attempts he was willing to follow me to an interview room. She reports that she is fine and demands to be discharged. She freely admits that she attempted to end her life and described how she arranged the hose for the attempted carbon monoxide poisoning. She reports no thoughts of harming others she is reporting no auditory or visual hallucinations or any specific delusions thought process is linear she demonstrates no tangential thinking loose associations or flight of ideas. She demonstrates no abnormal involuntary movements. She demonstrates no evidence of alcohol withdrawal at this point. Insight and judgment appear to be impaired. Affect very she is irritable at first she becomes more cooperative she is tearful at times. She is oriented to person place and date she is able to name the days of the week backwards. STRENGTHS/WEAKNESSES: Strengths: Housing, support from friends weaknesses: Alcohol use marital strain INTELLECTUAL FUNCTIONING: Average IMPRESSIONS: [] 1. Major depressive disorder recurrent severe without psychosis, anxiety unspecified, alcohol use disorder severe PLAN: Patient has been admitted to the mental health unit on a petition and clinical certificate. She indicates she does not wish to sign in voluntarily and would like to be discharged. I will complete a second clinical certificate. We reviewed her presenting symptoms and treatment options. She is willing to restart the Zoloft and trazodone. She is asking for more frequent Ativan but this will be limited to 1 mg 3 times a day as needed. We will monitor for any alcohol withdrawal symptoms. She was informed that she would not leave with a prescription for Ativan. We will discuss the possibility of inpatient chemical dependency treatment. She will be seen by internal medicine for routine history and physical exam. We will monitor her for safety and encourage full participation in the milieu. We will involve any available support in treatment and discharge planning as she will allow. 04/24/20 10:52
[2020-04-24 13:59] VITALS: BMI 21.9
--- NOTE | 2020-04-24 18:39 | P.CON ---
Consult Note - . Consult date: 04/24/20 Assessment/Plan:: Consultation was put in for management of medical issues. I went in to evaluate the patient this afternoon. The patient refused to see me and this message was conveyed to the nursing staff.
[2020-04-24] MEDS ORDERED: traZODone HCL 100 MG TAB PO SCH (21:00)
[2020-04-24] MEDS ORDERED: SERTRALINE 50 MG TAB PO SCH (21:00)
[2020-04-25] MEDS: LORazepam 1 MG TAB PO PRN ×3 (00:37→15:39)
[2020-04-25] MEDS ORDERED: IMIQUIMOD 5% TOPICAL SCH (00:45)
[2020-04-25] MEDS: NICOTINE 14MG/24HR PATCH TRANSDERM SCH (07:38)
--- NOTE | 2020-04-25 10:50 | P.PN ---
Progress Note - Text Interval history: The patient is found in the hallway she follows me to an interview room. She indicates her mood is fine. Apparently she had told staff that she did not want to be transferred to another facility but this morning she expresses concern about her insurance not covering her stay at this hospital and she would like a transfer. I did speak with staff this morning during treatment team meeting and they will clarify with her again today. We reviewed her psychotropic medications. She continues to ask for more frequent Ativan which she was informed we cannot do. We plan to titrate the Zoloft further during the course of her stay. Vital signs reviewed she does have a history of hypertension area refused the internal medicine visit yesterday. She states that she has been on Zestoretic in the past and is willing to have me restart that medication for some blood pressure control. She did have some difficulty sleeping last evening appetite stable. We discussed having her possibly dissipate an inpatient chemical dependency treatment but she refuses we discussed using naltrexone and she refuses. Mental status exam: The patient is alert she is dressed in her own clothing hygiene grooming adequate. Eye contact is appropriate. She is somewhat guarded she reports her mood is fine affect is bland. She is reporting no suicidal or homicidal ideation intent or plan I don't believe that she is a valid historian in that regard however. She is reporting no auditory or visual hallucinations she denies having any specific delusional thoughts there is no observed evidence of psychosis. She demonstrates no tangential thinking loose associations or flight of ideas. Insight and judgment continue to be impaired. She demonstrates no verbal or physical aggressiveness she does have an irritable quality during conversation intermittently. She remains oriented to person place and date. Plan: The patient will continue on her current psychotropic medications I will initiate Zestoretic 1012 0.5 mg. We will plan to titrate the Zoloft to chair. Social work and utilization review will speak with the patient again regarding her desire to transfer to another facility that accepts her insurance. She is encouraged to fully participate in the milieu we will monitor her for safety.
[2020-04-25 10:55] LABS: Cholesterol 172 mg/dL (<200); HDL Cholesterol 75 mg/dL (40-60); LDL Cholesterol,Calculated 73 mg/dL (0-99); Triglycerides 120 mg/dL (<150)
[2020-04-25] MEDS ORDERED: LISINOPRIL-HCTZ 10-12.5 MG 1 EACH TAB PO SCH (11:00)
[2020-04-25 11:12] VITALS: BP 112/67; PULSE 79; TEMP 97.6
[2020-04-25 20:31] LABS: Hemoglobin A1C 5.6 % (4.0-6.0)
--- NOTE | 2020-05-11 10:14 | P.DS ---
Providers Date of admission: 04/23/20 20:16 Expected date of discharge: 04/25/20 Attending physician: Nathanael Gotti Consults: 04/23/20 20:30 Consult Physician Routine Consulting Provider: Carlton Sneed Consult Reason/Comments: medical management Do you want consulting provider notified?: Yes Primary care physician: Rosendo Bagley - Discharge Diagnosis(es) (1) Major depressive disorder, recurrent severe without psychotic features Status: Acute Priority: High (2) Anxiety disorder Status: Acute Priority: Medium (3) Alcohol use disorder, severe, dependence Status: Acute Priority: High Hospital Course: Brief summary of admission note: This patient is a 49-year-old female who was admitted to the mental health unit from the medical floor after a recent suicide attempt via carbon monoxide poisoning. The patient presented to the hospital with a blood alcohol level of 244. She had attempted suicide by placing a garden hose from her exhaust pipe of her vehicle into the vehicle and letting the engine run. She was found by a pedestrian who observed the hose entering the car and that person called for help. The petition indicates that the patient was observed slumped over the front seat in a running vehicle. The car was full of exhaust. Upon admission the patient states that she had several verbal altercations with her and that seemed to be the primary stressor. For full detail please refer to the psychiatric evaluation. Summary of hospital course: The patient was admitted to the hospital on a petition and clinical certificate. She indicated she did not accept voluntary admission and treatment therefore I completed a second clinical certificate. We decided to restart Zoloft and we would use Ativan for treating any potential alcohol withdrawal symptoms. The patient was seen by internal medicine for routine history and physical exam. irrigation worker met with the patient to complete a psychosocial assessment for discharge planning purposes. Early into the admission it became apparent that this hospital did not take the patient's insurance. It was determined that she would benefit from a transfer to a facility that accepted her insurance area arrangements were made for her to be transferred to [facility] via EMS for further psychiatric treatment and stabilization. Mental status exam: The patient was alert she is dressed in her own clothing hygiene grooming adequate. Eye contact was appropriate she was somewhat guarded but reported her mood was fine. Affect was bland. She reported no acute suicidal or homicidal ideation intent or plan. I don't believe that she is a valid historian in that regard however. She reported no auditory or visual hallucinations or any specific delusions there was no observed evidence of psychosis. She demonstrated no tangential thinking loose associations or flight of ideas. Insight and judgment continued to be impaired. She demonstrated no verbal or physical aggressiveness. She was irritable during the conversation will ever. She was oriented to person place and date. Impressions 1. He depressive disorder recurrent severe without psychosis, anxiety disorder unspecified, alcohol use disorder severe Plan: The patient will be discharged to [facility] for continued inpatient psychiatric stabilization. She will be transported there via EMS. Patient Condition at Discharge: Fair Plan - Discharge Summary New Discharge Prescriptions: No Action Imiquimod 1 packet VAGINAL MOWEFR@1999 Loperamide HCl [Imodium A-D] 2 - 4 mg PO QID PRN PRN Reason: Diarrhea Magnesium Oxide [Mag-Ox] 400 mg PO BID 30 Days #60 tab Pantoprazole [Protonix] 40 mg PO DAILY 30 Days #30 tablet. Thiamine [Vitamin B-1] 100 mg PO DAILY 30 Days #30 tab Discharge Medication List Imiquimod 1 packet VAGINAL MOWEFR@199904/23/20 [History] Loperamide HCl [Imodium A-D] 2 - 4 mg PO QID PRN 05/02/20 [History] Magnesium Oxide [Mag-Ox] 400 mg PO BID 30 Days #60 tab 05/09/20 [Rx] Pantoprazole [Protonix] 40 mg PO DAILY 30 Days #30 tablet. 05/09/20 [Rx] Thiamine [Vitamin B-1] 100 mg PO DAILY 30 Days #30 tab 05/09/20 [Rx] Follow up Appointment(s)/Referral(s): intake,intake [Other] - 04/25/20 (Facility to facility transfer (inpatient behavioral health). Per patients request, being transferred to [facility] (in-network with [facility]). ) Activity/Diet/Wound Care/Special Instructions: Activity and diet as tolerated. Avoid the use of street drugs and alcohol. Take all medications as prescribed. When you are in need of refills on your medications please contact your medical provider and/or outpatient psychiatrist to have this done. Please go to scheduled outpatient appointment for aftercare treatment. If symptoms return or become worse, call the crisis line at and/or go to the nearest emergency room for evaluation. Discharge Disposition: TRANSFER TO PSYCH HOSP/UNIT
== END 2020-04-25 16:34 | DRG 885 ==
LOC: 3MHU 20:16
PROVIDERS: ADMIT Psychiatry & Neurology Psychiatry; ATTEND Psychiatry & Neurology Psychiatry
DX: F33.2 Major depressive disorder, recurrent severe without psychotic features (principal); F10.129 Alcohol abuse with intoxication, unspecified; T58.8X2A Toxic effect of carbon monoxide from other source, intentional self-harm, initial encounter; Y90.8 Blood alcohol level of 240 mg/100 ml or more; I10 Essential (primary) hypertension; Y92.810 Car as the place of occurrence of the external cause; Z98.84 Bariatric surgery status; Z53.29 Procedure and treatment not carried out because of patient's decision for other reasons; Z63.5 Disruption of family by separation and divorce; K08.89 Other specified disorders of teeth and supporting structures; F41.9 Anxiety disorder, unspecified; Z88.0 Allergy status to penicillin; Z79.899 Other long term (current) drug therapy
CPT/HCPCS: 80061; 83036

== ENCOUNTER 2020-05-02 17:56 | Inpatient (IN) | payer BC ==
[2020-05-02] MEDS ORDERED: SODIUM CHLORIDE 0.9% 1,000 ML IV STA (18:34)
[2020-05-02 18:37] LABS: Glucose,Whole Blood 117 mg/dL (75-99)
--- NOTE | 2020-05-02 19:13 | XR ---
EXAMINATION TYPE: XR pelvis AP view DATE OF EXAM: 05/02/2020 COMPARISON: NONE HISTORY: Pain TECHNIQUE: 2 views FINDINGS: Pelvic ring appears intact. Proximal femurs and hip joints appear normal. There is no sign of hip dysplasia. Sacroiliac joints appear normal. IMPRESSION: Negative exam. No fracture.
[2020-05-02 19:24] LABS: INR 1.2 (<1.2); Partial Thromboplastin Time 24.3 sec (22.0-30.0)
[2020-05-02] MEDS ORDERED: SODIUM CHLORIDE 0.9% 1,000 ML IV ONE ×2 (19:30→21:10)
--- NOTE | 2020-05-02 19:31 | ED ---
Weakness HPI - General Chief complaint: Weakness Stated complaint: Dehydration Time Seen by Provider: 05/02/20 18:05 Source: patient Mode of arrival: ambulatory - History of Present Illness Initial comments: Patient is a 49 year female past medical history of pancreatitis secondary to alcohol abuse and gastric bypass who presents to emergency room with reported diarrhea 3 days. at bedside helps provide history. He states that the patient has had dark stools for the past 3 days. She has become progressively weak. States he left for work this morning and she was able to ambulate. He came home and found the patient on the floor. Unknown if the patient had fall en. states that she has been taking ibuprofen at home. No history of peptic ulcer disease. Patient admits to generalized abdominal pain as well as bilateral arm and leg pain. Denies chest pain or shortness of breath. No fevers or chills. Denies hematuria, dysuria or difficulty voiding. There are no alleviating, precipitating or modifying factors - Related Data Home Medications Medication Instructions Recorded Confirmed Imiquimod 1 packet VAGINAL [id number]/23/20 05/02/20 Ibuprofen [Motrin Ib] 200 - 800 mg PO Q6H PRN 05/02/20 05/02/20 Loperamide HCl [Imodium A-D] 2 - 4 mg PO QID PRN 05/02/20 05/02/20 Allergies Allergy/AdvReac Type Severity Reaction Status Date / Time Penicillins Allergy Anaphylaxis Verified 05/02/20 19:19 Review of Systems ROS Statement: Those systems with pertinent positive or pertinent negative responses have been documented in the HPI. ROS Other: All systems not noted in ROS Statement are negative. Past Medical History Past Medical History: Hypertension Additional Past Medical History / Comment(s): Alcohol abuse, pancreatitis History of Any Multi-Drug Resistant Organisms: None Reported Additional Past Surgical History / Comment(s): Gastric bypass, Reconstrutive surg after weight loss, and bilat overy removal Past Anesthesia/Blood Transfusion Reactions: No Reported Reaction Past Psychological History: No Psychological Hx Reported Smoking Status: Current every day smoker Past Alcohol Use History: None Reported - Past Family History Mother Family Medical History: Diabetes Mellitus Additional Family Medical History / Comment(s): mother from rectal cancer 1999 Father Family Medical History: Diabetes Mellitus Additional Family Medical History / Comment(s): from emphysema in 2003 General Exam Limitations: altered mental status General appearance: lethargic, in distress Head exam: Present: atraumatic, normocephalic, normal inspection Eye exam: Present: PERRL, EOMI ENT exam: Present: mucous membranes dry Neck exam: Present: normal inspection. Absent: tenderness, meningismus, lymphadenopathy Respiratory exam: Present: decreased breath sounds. Absent: wheezes, rales, rhonchi Cardiovascular Exam: Present: regular rate, normal rhythm, normal heart sounds. Absent: systolic murmur, diastolic murmur, rubs, gallop, clicks GI/Abdominal exam: Present: tenderness (generalized. No peritoneal signs) Rectal exam: Present: normal rectal tone, heme (+) stool. Absent: black stool, bloody stool Extremities exam: Present: tenderness (generalized tenderness to palpation of the bilateral upper and lower extremities. All compartments are soft. Patient has delayed cap refill about 5 seconds) Back exam: Present: normal inspection Neurological exam: Present: altered. Absent: motor sensory deficit Psychiatric exam: Present: flat affect Skin exam: Present: diaphoretic (pallor bilateral upper extremities and face), pallor Course Vital Signs 05/02/20 05/02/20 05/02/20 18:02 18:19 18:40 Temperature 97.8 F Pulse Rate 84 77 75 Respiratory 22 16 16 Rate Blood Pressure 65/45 92/54 92/54 O2 Sat by Pulse 100 98 Oximetry 05/02/20 05/02/20 05/02/20 19:57 20:06 21:00 Temperature 98 F Pulse Rate 75 85 Respiratory 16 16 Rate Blood Pressure 91/58 85/70 O2 Sat by Pulse 91 L 98 97 Oximetry 05/02/20 05/02/20 05/02/20 21:30 21:44 21:50 Temperature Pulse Rate 86 98 99 Respiratory 16 16 16 Rate Blood Pressure 78/59 107/50 114/86 O2 Sat by Pulse 100 93 L 94 L Oximetry 05/02/20 05/02/20 05/02/20 21:55 22:15 22:30 Temperature Pulse Rate 97 92 95 Respiratory 16 16 16 Rate Blood Pressure 95/53 101/50 89/47 O2 Sat by Pulse 95 98 100 Oximetry 05/02/20 05/02/20 05/02/20 22:45 23:00 23:10 Temperature Pulse Rate 95 98 93 Respiratory 16 16 16 Rate Blood Pressure 63/41 91/68 91/68 O2 Sat by Pulse 98 98 95 Oximetry 05/02/20 05/02/20 05/02/20 23:20 23:30 23:40 Temperature Pulse Rate 92 92 101 H Respiratory 16 16 16 Rate Blood Pressure 99/50 97/59 92/51 O2 Sat by Pulse 97 98 96 Oximetry 05/02/20 05/03/20 05/03/20 23:50 00:00 00:10 Temperature Pulse Rate 98 96 101 H Respiratory 16 16 16 Rate Blood Pressure 88/65 80/48 99/31 O2 Sat by Pulse 97 98 96 Oximetry 05/03/20 05/03/20 05/03/20 00:20 00:30 00:40 Temperature Pulse Rate 103 H 96 95 Respiratory 16 16 16 Rate Blood Pressure 106/48 65/35 73/38 O2 Sat by Pulse 95 96 95 Oximetry 05/03/20 05/03/20 05/03/20 00:50 01:00 01:10 Temperature Pulse Rate 90 90 92 Respiratory 16 16 16 Rate Blood Pressure 72/38 75/42 74/44 O2 Sat by Pulse 96 97 98 Oximetry 05/03/20 05/03/20 05/03/20 01:20 01:30 01:45 Temperature Pulse Rate 90 78 88 Respiratory 16 16 16 Rate Blood Pressure 72/38 61/33 78/42 O2 Sat by Pulse 98 97 98 Oximetry 05/03/20 05/03/20 05/03/20 02:00 02:15 02:30 Temperature Pulse Rate 91 85 84 Respiratory 16 16 16 Rate Blood Pressure 89/52 89/52 77/57 O2 Sat by Pulse 97 99 99 Oximetry 05/03/20 05/03/20 05/03/20 02:45 03:00 03:15 Temperature Pulse Rate 82 84 84 Respiratory 16 16 16 Rate Blood Pressure 87/45 94/56 90/50 O2 Sat by Pulse 100 99 98 Oximetry 05/03/20 05/03/20 05/03/20 03:30 03:45 04:00 Temperature Pulse Rate 81 86 81 Respiratory 16 16 16 Rate Blood Pressure 101/48 94/64 94/64 O2 Sat by Pulse 97 96 98 Oximetry 05/03/20 05/03/20 05/03/20 04:15 04:30 04:45 Temperature Pulse Rate 88 96 90 Respiratory 16 16 16 Rate Blood Pressure 96/55 99/58 101/63 O2 Sat by Pulse 96 97 97 Oximetry 05/03/20 05/03/20 05/03/20 05:00 05:15 05:30 Temperature Pulse Rate 94 89 85 Respiratory 16 16 17 Rate Blood Pressure 104/48 104/59 100/67 O2 Sat by Pulse 97 98 97 Oximetry 05/03/20 05/03/20 05/03/20 05:32 05:45 06:00 Temperature 98.9 F Pulse Rate 79 87 Respiratory 16 17 Rate Blood Pressure 92/53 91/57 O2 Sat by Pulse 95 98 Oximetry 05/03/20 05/03/20 05/03/20 06:15 06:30 06:45 Temperature Pulse Rate 85 85 84 Respiratory 16 16 19 Rate Blood Pressure 97/59 95/49 97/54 O2 Sat by Pulse 98 98 96 Oximetry 05/03/20 05/03/20 05/03/20 07:00 07:15 07:30 Temperature 98.5 F Pulse Rate 78 85 Respiratory 9 L 12 Rate Blood Pressure 97/41 99/60 90/51 O2 Sat by Pulse 96 94 L Oximetry 05/03/20 05/03/20 05/03/20 07:45 08:00 08:15 Temperature 97.8 F Pulse Rate 78 86 78 Respiratory 9 L 14 8 L Rate Blood Pressure 99/52 89/50 O2 Sat by Pulse 96 95 93 L Oximetry 05/03/20 05/03/20 05/03/20 08:30 08:45 09:00 Temperature Pulse Rate 83 79 82 Respiratory 9 L 8 L 13 Rate Blood Pressure 93/55 93/52 95/57 O2 Sat by Pulse 95 97 97 Oximetry 05/03/20 05/03/20 05/03/20 09:15 09:30 09:45 Temperature Pulse Rate 91 77 87 Respiratory 7 L 8 L 9 L Rate Blood Pressure 85/56 101/64 101/50 O2 Sat by Pulse 97 90 L 94 L Oximetry 05/03/20 05/03/20 05/03/20 10:00 10:15 10:30 Temperature Pulse Rate 80 84 78 Respiratory 11 L 9 L 11 L Rate Blood Pressure 84/46 102/57 86/52 O2 Sat by Pulse 96 95 Oximetry 05/03/20 05/03/20 05/03/20 10:45 11:00 11:15 Temperature Pulse Rate 78 80 82 Respiratory 11 L 10 L 9 L Rate Blood Pressure 89/58 89/53 96/49 O2 Sat by Pulse 93 L 95 94 L Oximetry 05/03/20 05/03/20 05/03/20 11:30 11:45 12:00 Temperature Pulse Rate 79 82 75 Respiratory 10 L 12 9 L Rate Blood Pressure 95/57 110/55 93/53 O2 Sat by Pulse 94 L 93 L 94 L Oximetry 05/03/20 05/03/20 13:00 14:00 Temperature 98.6 F Pulse Rate 96 76 Respiratory 9 L 11 L Rate Blood Pressure 93/64 102/53 O2 Sat by Pulse 95 Oximetry EKG Findings - EKG Comments: EKG Findings:: EKG demonstrates a normal sinus rhythm with a ventricular rate of 77. MN interval 148. QRS 102. QTC 425. Peak T waves in V2 through the 4. No acute ST segment elevations. Procedures - Central Line Placement Right IJ Consent Obtained: verbal consent, emergent situation Patient Placed on Monitor/Pulse Ox: Yes MD Prep: mask, gown, gloves Central Line Prep: Chlorhexidine scrub, sterile drapes applied Local Anesthesia Used: Lidocaine 1% Amount of Anesthesia Used (mls): 10 Ultrasound Used for Placement: Yes Central Line Lumen Inserted: triple Bloods Obtained for Lab: Yes Central Line Position: good blood return, all ports aspirated, flushed, capped, sutured in place with nylon Dressing Applied: Tegaderm Post Procedure X-Ray: tip of catheter in good position Patient Tolerated Procedure: well, no complications Complications: none Medical Decision Making - Medical Decision Making Upon arrival the patient is promptly placed in trauma bay 1. A thorough history and physical exam was performed. Patient is markedly hypotensive. He is started on a 2 L bolus of normal saline. Lab studies were conducted. CT of the patient's chest abdomen pelvis was ordered. I requested we wait until lab studies result prior to going over for imaging however this information was not communicated and the patient did go as CT techs did assume that the patient was going to be dialyzed. Lab studies show multiple lab abnormalities. Potassium is 6.6. CO2 is 6. Creatinine 9.5. Lactic acid 4.5. Calcium 5.6. AST 1918. ALT 1395. CK is 12,491. Urinalysis is positive for 18 red blood, 178 white blood cells and many white cell clumps. Fecal is positive for blood. Urine drug screen is positive for benzodiazepines. CT of the chest demonstrates linear infiltrate and atelectasis of the left lower lobe. CT of the abdomen demonstrates a distended fluid-filled loops of small bowel with a few thickened wall thickening related to ileus and inflammatory bowel disease. the patient does have improvement in her blood pressures with fluid administration however does drop again to 80 systolic. Central line was placed. Patient received 1 g of calcium chloride, 10 g of IV insulin, an amp of dextrose, 1 amp of bicarb and was started on a bicarb drip at 200 mL per hour. I discussed the case with Dr. Valencia at 2132 agreed to the management. I also discussed the case with Dr. Pierre and Dr. Tinoco. She is currently awaiting a bed in the ICU - Lab Data Result diagrams: 05/05/20 07:39 05/05/20 07:39 Lab Results 05/02/20 05/02/20 05/02/20 Range/Units 18:35 18:38 18:38 WBC (3.8-10.6) k/uL RBC (3.80-5.40) m/uL Hgb (11.4-16.0) gm/dL Hct (34.0-46.0) % MCV (80.0-100.0) fL MCH (25.0-35.0) pg MCHC (31.0-37.0) g/dL RDW (11.5-15.5) % Plt Count (150-450) k/uL Neutrophils % (Manual) % Band Neutrophils % % Lymphocytes % (Manual) % Monocytes % (Manual) % Metamyelocytes % % Myelocytes % % Neutrophils # (Manual) (1.3-7.7) k/uL Lymphocytes # (Manual) (1.0-4.8) k/uL Monocytes # (Manual) (0-1.0) k/uL Metamyelocytes # (Man) (0) k/uL Myelocytes # (Manual) (0) k/uL Nucleated RBCs (0-0) /100 WBC Manual Slide Review Hypochromasia Poikilocytosis (manual Anisocytosis (manual) Macrocytosis PT 12.0 (9.0-12.0) sec INR 1.2 H (<1.2) APTT 24.3 (22.0-30.0) sec Sodium (137-145) mmol/L Potassium (3.5-5.1) mmol/L Chloride (98-107) mmol/L Carbon Dioxide (22-30) mmol/L Anion Gap mmol/L BUN (7-17) mg/dL Creatinine (0.52-1.04) mg/dL Est GFR (CKD-EPI)AfAm (>60 ml/min/1.73 sqM) Est GFR (CKD-EPI)NonAf (>60 ml/min/1.73 sqM) Glucose (74-99) mg/dL POC Glucose (mg/dL) 117 H (75-99) mg/dL POC Glu Him Specialist ID Ron Hart Lactic Ac Sepsis Rflx Plasma Lactic Acid [place] (0.7-2.0) mmol/L Calcium (8.4-10.2) mg/dL Magnesium (1.6-2.3) mg/dL Total Bilirubin (0.2-1.3) mg/dL AST (14-36) U/L ALT (4-34) U/L Alkaline Phosphatase (38-126) U/L Ammonia (<30) umol/L Creatine Kinase (30-135) U/L Troponin I <0.012 (0.000-0.034) ng/mL Total Protein (6.3-8.2) g/dL Albumin (3.5-5.0) g/dL Lipase (23-300) U/L Urine Color Urine Appearance (Clear) Urine pH (5.0-8.0) Ur Specific [place] (1.001-1.035) Urine Protein (Negative) Urine Glucose (UA) (Negative) Urine Ketones (Negative) Urine Blood (Negative) Urine Nitrite (Negative) Urine Bilirubin (Negative) Urine Urobilinogen (<2.0) mg/dL Ur Leukocyte Esterase (Negative) Urine RBC (0-5) /hpf Urine WBC (0-5) /hpf Urine WBC Clumps (None) /hpf Ur Squamous Epith Cells (0-4) /hpf Urine Bacteria (None) /hpf Urine Mucus (None) /hpf Urine HCG, Qual (Not Detectd) Stool Occult Blood (Negative) Salicylates mg/dL Urine Opiates Screen (NotDetected) Ur Oxycodone Screen (NotDetected) Urine Methadone Screen (NotDetected) Ur Propoxyphene Screen (NotDetected) Acetaminophen ug/mL Ur Barbiturates Screen (NotDetected) U Tricyclic Antidepress (NotDetected) Ur Phencyclidine Scrn (NotDetected) Ur Amphetamines Screen (NotDetected) U Methamphetamines Scrn (NotDetected) U Benzodiazepines Scrn (NotDetected) Urine Cocaine Screen (NotDetected) U Marijuana (THC) Screen (NotDetected) Serum Alcohol mg/dL Coronavirus (PCR) (Not Detected) Blood Type Blood Type Confirm Blood Type Recheck Bld Type Recheck Status Antibody Screen Spec Expiration Date 05/02/20 05/02/20 05/02/20 Range/Units 18:38 18:39 18:39 WBC 5.6 (3.8-10.6) k/uL RBC 4.72 (3.80-5.40) m/uL Hgb 15.5 (11.4-16.0) gm/dL Hct 48.7 H (34.0-46.0) % MCV 103.3 H D (80.0-100.0) fL MCH 32.9 (25.0-35.0) pg MCHC 31.9 (31.0-37.0) g/dL RDW 14.4 (11.5-15.5) % Plt Count 150 (150-450) k/uL Neutrophils % (Manual) 76 % Band Neutrophils % 6 % Lymphocytes % (Manual) 9 % Monocytes % (Manual) 8 % Metamyelocytes % 2 % Myelocytes % 1 % Neutrophils # (Manual) 4.50 (1.3-7.7) k/uL Lymphocytes # (Manual) 0.50 L (1.0-4.8) k/uL Monocytes # (Manual) 0.45 (0-1.0) k/uL Metamyelocytes # (Man) 0.11 H (0) k/uL Myelocytes # (Manual) 0.06 H (0) k/uL Nucleated RBCs 0 (0-0) /100 WBC Manual Slide Review Performed Hypochromasia Marked Poikilocytosis (manual Present Anisocytosis (manual) Present Macrocytosis Slight PT (9.0-12.0) sec INR (<1.2) APTT (22.0-30.0) sec Sodium 130 L (137-145) mmol/L Potassium 6.6 H* (3.5-5.1) mmol/L Chloride 97 L (98-107) mmol/L Carbon Dioxide 6 L* (22-30) mmol/L Anion Gap 27 mmol/L BUN 82 H (7-17) mg/dL Creatinine 9.55 H* (0.52-1.04) mg/dL Est GFR (CKD-EPI)AfAm 5 (>60 ml/min/1.73 sqM) Est GFR (CKD-EPI)NonAf 4 (>60 ml/min/1.73 sqM) Glucose 108 H (74-99) mg/dL POC Glucose (mg/dL) (75-99) mg/dL POC Glu Him Specialist ID Lactic Ac Sepsis Rflx Plasma Lactic Acid [place] (0.7-2.0) mmol/L Calcium 5.6 L* (8.4-10.2) mg/dL Magnesium 2.0 (1.6-2.3) mg/dL Total Bilirubin 0.8 (0.2-1.3) mg/dL AST 1918 H (14-36) U/L ALT 1395 H (4-34) U/L Alkaline Phosphatase 113 (38-126) U/L Ammonia (<30) umol/L Creatine Kinase 29314 H* (30-135) U/L Troponin I (0.000-0.034) ng/mL Total Protein 6.4 (6.3-8.2) g/dL Albumin 3.6 (3.5-5.0) g/dL Lipase 172 (23-300) U/L Urine Color Urine Appearance (Clear) Urine pH (5.0-8.0) Ur Specific [place] (1.001-1.035) Urine Protein (Negative) Urine Glucose (UA) (Negative) Urine Ketones (Negative) Urine Blood (Negative) Urine Nitrite (Negative) Urine Bilirubin (Negative) Urine Urobilinogen (<2.0) mg/dL Ur Leukocyte Esterase (Negative) Urine RBC (0-5) /hpf Urine WBC (0-5) /hpf Urine WBC Clumps (None) /hpf Ur Squamous Epith Cells (0-4) /hpf Urine Bacteria (None) /hpf Urine Mucus (None) /hpf Urine HCG, Qual (Not Detectd) Stool Occult Blood (Negative) Salicylates mg/dL Urine Opiates Screen (NotDetected) Ur Oxycodone Screen (NotDetected) Urine Methadone Screen (NotDetected) Ur Propoxyphene Screen (NotDetected) Acetaminophen ug/mL Ur Barbiturates Screen (NotDetected) U Tricyclic Antidepress (NotDetected) Ur Phencyclidine Scrn (NotDetected) Ur Amphetamines Screen (NotDetected) U Methamphetamines Scrn (NotDetected) U Benzodiazepines Scrn (NotDetected) Urine Cocaine Screen (NotDetected) U Marijuana (THC) Screen (NotDetected) Serum Alcohol <10 mg/dL Coronavirus (PCR) (Not Detected) Blood Type O Positive Blood Type Confirm Blood Type Recheck No Previous Record Bld Type Recheck Status CABO Indicated Antibody Screen NEGATIVE Spec Expiration Date 05/05/2020 - 233705/02/20 05/02/20 05/02/20 Range/Units 18:39 18:39 18:39 WBC (3.8-10.6) k/uL RBC (3.80-5.40) m/uL Hgb (11.4-16.0) gm/dL Hct (34.0-46.0) % MCV (80.0-100.0) fL MCH (25.0-35.0) pg MCHC (31.0-37.0) g/dL RDW (11.5-15.5) % Plt Count (150-450) k/uL Neutrophils % (Manual) % Band Neutrophils % % Lymphocytes % (Manual) % Monocytes % (Manual) % Metamyelocytes % % Myelocytes % % Neutrophils # (Manual) (1.3-7.7) k/uL Lymphocytes # (Manual) (1.0-4.8) k/uL Monocytes # (Manual) (0-1.0) k/uL Metamyelocytes # (Man) (0) k/uL Myelocytes # (Manual) (0) k/uL Nucleated RBCs (0-0) /100 WBC Manual Slide Review Hypochromasia Poikilocytosis (manual Anisocytosis (manual) Macrocytosis PT (9.0-12.0) sec INR (<1.2) APTT (22.0-30.0) sec Sodium (137-145) mmol/L Potassium (3.5-5.1) mmol/L Chloride (98-107) mmol/L Carbon Dioxide (22-30) mmol/L Anion Gap mmol/L BUN (7-17) mg/dL Creatinine (0.52-1.04) mg/dL Est GFR (CKD-EPI)AfAm (>60 ml/min/1.73 sqM) Est GFR (CKD-EPI)NonAf (>60 ml/min/1.73 sqM) Glucose (74-99) mg/dL POC Glucose (mg/dL) (75-99) mg/dL POC Glu Him Specialist ID Lactic Ac Sepsis Rflx Plasma Lactic Acid [place] 4.5 H* (0.7-2.0) mmol/L Calcium (8.4-10.2) mg/dL Magnesium (1.6-2.3) mg/dL Total Bilirubin (0.2-1.3) mg/dL AST (14-36) U/L ALT (4-34) U/L Alkaline Phosphatase (38-126) U/L Ammonia <9 (<30) umol/L Creatine Kinase (30-135) U/L Troponin I (0.000-0.034) ng/mL Total Protein (6.3-8.2) g/dL Albumin (3.5-5.0) g/dL Lipase (23-300) U/L Urine Color Urine Appearance (Clear) Urine pH (5.0-8.0) Ur Specific [place] (1.001-1.035) Urine Protein (Negative) Urine Glucose (UA) (Negative) Urine Ketones (Negative) Urine Blood (Negative) Urine Nitrite (Negative) Urine Bilirubin (Negative) Urine Urobilinogen (<2.0) mg/dL Ur Leukocyte Esterase (Negative) Urine RBC (0-5) /hpf Urine WBC (0-5) /hpf Urine WBC Clumps (None) /hpf Ur Squamous Epith Cells (0-4) /hpf Urine Bacteria (None) /hpf Urine Mucus (None) /hpf Urine HCG, Qual (Not Detectd) Stool Occult Blood Positive H (Negative) Salicylates 1.1 mg/dL Urine Opiates Screen (NotDetected) Ur Oxycodone Screen (NotDetected) Urine Methadone Screen (NotDetected) Ur Propoxyphene Screen (NotDetected) Acetaminophen 19.5 ug/mL Ur Barbiturates Screen (NotDetected) U Tricyclic Antidepress (NotDetected) Ur Phencyclidine Scrn (NotDetected) Ur Amphetamines Screen (NotDetected) U Methamphetamines Scrn (NotDetected) U Benzodiazepines Scrn (NotDetected) Urine Cocaine Screen (NotDetected) U Marijuana (THC) Screen (NotDetected) Serum Alcohol mg/dL Coronavirus (PCR) (Not Detected) Blood Type Blood Type Confirm Blood Type Recheck Bld Type Recheck Status Antibody Screen Spec Expiration Date 05/02/20 05/02/20 05/02/20 Range/Units 19:38 19:57 19:57 WBC (3.8-10.6) k/uL RBC (3.80-5.40) m/uL Hgb (11.4-16.0) gm/dL Hct (34.0-46.0) % MCV (80.0-100.0) fL MCH (25.0-35.0) pg MCHC (31.0-37.0) g/dL RDW (11.5-15.5) % Plt Count (150-450) k/uL Neutrophils % (Manual) % Band Neutrophils % % Lymphocytes % (Manual) % Monocytes % (Manual) % Metamyelocytes % % Myelocytes % % Neutrophils # (Manual) (1.3-7.7) k/uL Lymphocytes # (Manual) (1.0-4.8) k/uL Monocytes # (Manual) (0-1.0) k/uL Metamyelocytes # (Man) (0) k/uL Myelocytes # (Manual) (0) k/uL Nucleated RBCs (0-0) /100 WBC Manual Slide Review Hypochromasia Poikilocytosis (manual Anisocytosis (manual) Macrocytosis PT (9.0-12.0) sec INR (<1.2) APTT (22.0-30.0) sec Sodium (137-145) mmol/L Potassium (3.5-5.1) mmol/L Chloride (98-107) mmol/L Carbon Dioxide (22-30) mmol/L Anion Gap mmol/L BUN (7-17) mg/dL Creatinine (0.52-1.04) mg/dL Est GFR (CKD-EPI)AfAm (>60 ml/min/1.73 sqM) Est GFR (CKD-EPI)NonAf (>60 ml/min/1.73 sqM) Glucose (74-99) mg/dL POC Glucose (mg/dL) (75-99) mg/dL POC Glu Him Specialist ID Lactic Ac Sepsis Rflx Plasma Lactic Acid [place] (0.7-2.0) mmol/L Calcium (8.4-10.2) mg/dL Magnesium (1.6-2.3) mg/dL Total Bilirubin (0.2-1.3) mg/dL AST (14-36) U/L ALT (4-34) U/L Alkaline Phosphatase (38-126) U/L Ammonia (<30) umol/L Creatine Kinase (30-135) U/L Troponin I (0.000-0.034) ng/mL Total Protein (6.3-8.2) g/dL Albumin (3.5-5.0) g/dL Lipase (23-300) U/L Urine Color Red Urine Appearance Cloudy H (Clear) Urine pH 5.0 (5.0-8.0) Ur Specific [place] 1.023 (1.001-1.035) Urine Protein 1+ H (Negative) Urine Glucose (UA) 1+ H (Negative) Urine Ketones Negative (Negative) Urine Blood Small H (Negative) Urine Nitrite Negative (Negative) Urine Bilirubin Negative (Negative) Urine Urobilinogen <2.0 (<2.0) mg/dL Ur Leukocyte Esterase Negative (Negative) Urine RBC 18 H (0-5) /hpf Urine WBC 178 H (0-5) /hpf Urine WBC Clumps Many H (None) /hpf Ur Squamous Epith Cells 3 (0-4) /hpf Urine Bacteria Rare H (None) /hpf Urine Mucus Rare H (None) /hpf Urine HCG, Qual Not Detected (Not Detectd) Stool Occult Blood (Negative) Salicylates mg/dL Urine Opiates Screen Not Detected (NotDetected) Ur Oxycodone Screen Not Detected (NotDetected) Urine Methadone Screen Not Detected (NotDetected) Ur Propoxyphene Screen Not Detected (NotDetected) Acetaminophen ug/mL Ur Barbiturates Screen Not Detected (NotDetected) U Tricyclic Antidepress Not Detected (NotDetected) Ur Phencyclidine Scrn Not Detected (NotDetected) Ur Amphetamines Screen Not Detected (NotDetected) U Methamphetamines Scrn Not Detected (NotDetected) U Benzodiazepines Scrn Detected H (NotDetected) Urine Cocaine Screen Not Detected (NotDetected) U Marijuana (THC) Screen Not Detected (NotDetected) Serum Alcohol mg/dL Coronavirus (PCR) (Not Detected) Blood Type Blood Type Confirm O Positive Blood Type Recheck Bld Type Recheck Status Antibody Screen Spec Expiration Date 05/02/20 05/02/20 Range/Units 20:31 21:56 WBC (3.8-10.6) k/uL RBC (3.80-5.40) m/uL Hgb (11.4-16.0) gm/dL Hct (34.0-46.0) % MCV (80.0-100.0) fL MCH (25.0-35.0) pg MCHC (31.0-37.0) g/dL RDW (11.5-15.5) % Plt Count (150-450) k/uL Neutrophils % (Manual) % Band Neutrophils % % Lymphocytes % (Manual) % Monocytes % (Manual) % Metamyelocytes % % Myelocytes % % Neutrophils # (Manual) (1.3-7.7) k/uL Lymphocytes # (Manual) (1.0-4.8) k/uL Monocytes # (Manual) (0-1.0) k/uL Metamyelocytes # (Man) (0) k/uL Myelocytes # (Manual) (0) k/uL Nucleated RBCs (0-0) /100 WBC Manual Slide Review Hypochromasia Poikilocytosis (manual Anisocytosis (manual) Macrocytosis PT (9.0-12.0) sec INR (<1.2) APTT (22.0-30.0) sec Sodium (137-145) mmol/L Potassium (3.5-5.1) mmol/L Chloride (98-107) mmol/L Carbon Dioxide (22-30) mmol/L Anion Gap mmol/L BUN (7-17) mg/dL Creatinine (0.52-1.04) mg/dL Est GFR (CKD-EPI)AfAm (>60 ml/min/1.73 sqM) Est GFR (CKD-EPI)NonAf (>60 ml/min/1.73 sqM) Glucose (74-99) mg/dL POC Glucose (mg/dL) (75-99) mg/dL POC Glu Him Specialist ID Lactic Ac Sepsis Rflx Y Plasma Lactic Acid [place] (0.7-2.0) mmol/L Calcium (8.4-10.2) mg/dL Magnesium (1.6-2.3) mg/dL Total Bilirubin (0.2-1.3) mg/dL AST (14-36) U/L ALT (4-34) U/L Alkaline Phosphatase (38-126) U/L Ammonia (<30) umol/L Creatine Kinase (30-135) U/L Troponin I (0.000-0.034) ng/mL Total Protein (6.3-8.2) g/dL Albumin (3.5-5.0) g/dL Lipase (23-300) U/L Urine Color Urine Appearance (Clear) Urine pH (5.0-8.0) Ur Specific [place] (1.001-1.035) Urine Protein (Negative) Urine Glucose (UA) (Negative) Urine Ketones (Negative) Urine Blood (Negative) Urine Nitrite (Negative) Urine Bilirubin (Negative) Urine Urobilinogen (<2.0) mg/dL Ur Leukocyte Esterase (Negative) Urine RBC (0-5) /hpf Urine WBC (0-5) /hpf Urine WBC Clumps (None) /hpf Ur Squamous Epith Cells (0-4) /hpf Urine Bacteria (None) /hpf Urine Mucus (None) /hpf Urine HCG, Qual (Not Detectd) Stool Occult Blood (Negative) Salicylates mg/dL Urine Opiates Screen (NotDetected) Ur Oxycodone Screen (NotDetected) Urine Methadone Screen (NotDetected) Ur Propoxyphene Screen (NotDetected) Acetaminophen ug/mL Ur Barbiturates Screen (NotDetected) U Tricyclic Antidepress (NotDetected) Ur Phencyclidine Scrn (NotDetected) Ur Amphetamines Screen (NotDetected) U Methamphetamines Scrn (NotDetected) U Benzodiazepines Scrn (NotDetected) Urine Cocaine Screen (NotDetected) U Marijuana (THC) Screen (NotDetected) Serum Alcohol mg/dL Coronavirus (PCR) Not Detected (Not Detected) Blood Type Blood Type Confirm Blood Type Recheck Bld Type Recheck Status Antibody Screen Spec Expiration Date Critical Care Time Critical Care Time: Yes Critical Care Time: 50 minutes Disposition Clinical Impression: Liver failure, Renal failure, Hypotension, GI bleed, Lactic acidosis, Hyperkalemia, Rhabdomyolysis, UTI (urinary tract infection) Disposition: ADMITTED IP TO THIS [facility] Condition: Serious Is patient prescribed a controlled substance at d/c from ED?: No Decision to Admit Reason: Admit from EC Decision Date: 05/02/20 Decision Time: 22:23
--- NOTE | 2020-05-02 19:33 | XR ---
EXAMINATION TYPE: XR femur bilateral DATE OF EXAM: 05/02/2020 COMPARISON: NONE HISTORY: Leg pain Fall TECHNIQUE: 4 views each femur FINDINGS: There is no evidence of fracture nor dislocation. Knee joint spaces are normal. There is no sign of knee joint effusion. Hip joint spaces are normal. Acetabula appear intact. IMPRESSION: Normal bilateral femur exam. No fracture.
[2020-05-02] MEDS ORDERED: PANTOPRAZOLE 40 MG/10 ML VIAL IVP ONE (19:58)
[2020-05-02 20:01] LABS: African American GFR (CKD) 5 (>60 ml/min/1.73 sqM); Albumin 3.6 g/dL (3.5-5.0); Alcohol <10 mg/dL; Alkaline Phosphatase 113 U/L (38-126); Anion Gap 27 mmol/L; Blood Urea Nitrogen 82 mg/dL (7-17); Chloride 97 mmol/L (98-107); Glucose 108 mg/dL (74-99); Non-African American GFR(CKD) 4 (>60 ml/min/1.73 sqM); Sodium 130 mmol/L (137-145); Total Bilirubin 0.8 mg/dL (0.2-1.3); Total Protein 6.4 g/dL (6.3-8.2)
[2020-05-02 20:13] LABS: HCT 48.7 % (34.0-46.0); HGB 15.5 gm/dL (11.4-16.0); Hypochromasia Marked; MCH 32.9 pg (25.0-35.0); MCHC 31.9 g/dL (31.0-37.0); Macrocytosis Slight; Mean Platelet Volume 8.9; Platelet Count 150 k/uL (150-450); RBC 4.72 m/uL (3.80-5.40); RDW 14.4 % (11.5-15.5); WBC 5.6 k/uL (3.8-10.6)
[2020-05-02 20:14] LABS: Appearance,Urine Cloudy (Clear); Bacteria,Urine Rare /hpf; Bilirubin,Urine Negative (Negative); Blood,Urine Small (Negative); Color,Urine Red; Glucose,Urine (UA) 1+ (Negative); Ketones,Urine Negative (Negative); Leukocyte Esterase,Urine Negative (Negative); Mucus,Urine Rare /hpf; Nitrite,Urine Negative (Negative); Protein,Urine 1+ (Negative); RBC,Urine 18 /hpf (0-5); Specific Gravity,Urine 1.023 (1.001-1.035); Squamous Epithelial Cell,Urine 3 /hpf (0-4); Urobilinogen,Urine <2.0 mg/dL (<2.0); WBC,Urine 178 /hpf (0-5)
[2020-05-02 20:17] LABS: MCV 103.3 fL (80.0-100.0)
[2020-05-02 20:23] LABS: Amphetamine Screen,Urine Not Detected (NotDetected); Barbiturate Screen,Urine Not Detected (NotDetected); Benzodiazepines Screen,Urine Detected (NotDetected); Cocaine Screen,Urine Not Detected (NotDetected); Methadone Screen, Urine Not Detected (NotDetected); Opiate Screen,Urine Not Detected (NotDetected); Oxycodone Screen, Urine Not Detected (NotDetected); Phencyclidine Screen,Urine Not Detected (NotDetected); Tricyclic Antidepressant,Urine Not Detected (NotDetected); Urn Cannabinoid Scrn Not Detected (NotDetected)
[2020-05-02 20:27] LABS: ALT 1395 U/L (4-34); AST 1918 U/L (14-36)
[2020-05-02 20:29] LABS: Potassium 6.6 mmol/L (3.5-5.1)
[2020-05-02 20:30] LABS: Calcium 5.6 mg/dL (8.4-10.2); Carbon Dioxide 6 mmol/L (22-30); Lactic Acid, Venous 4.5 mmol/L (0.7-2.0)
[2020-05-02 20:37] LABS: Creatine Kinase 12491 U/L (30-135)
[2020-05-02 20:45] LABS: Anisocytosis (M) Present; Band Neutrophils % 6 %; Metamyelocytes # (M) 0.11 k/uL (0); Metamyelocytes % 2 %; Monocytes # (M) 0.45 k/uL (0-1.0); Myelocytes # (M) 0.06 k/uL (0); Myelocytes % 1 %; Neutrophils % (M) 76 %; Nucleated Red Blood Cells 0 /100 WBC (0-0); Poikilocytosis (M) Present; Total Cells Counted 200
--- NOTE | 2020-05-02 20:56 | CT ---
EXAMINATION TYPE: CT abdomen pelvis w con DATE OF EXAM: 05/02/2020 COMPARISON: HISTORY: Abdominal pain. CT DLP: 1124.5 mGycm Automated exposure control for dose reduction was used. CONTRAST: Performed with IV Contrast, patient injected with mL of Isovue 300. There is some mild atelectasis at the left lung base. There is no pleural effusion. Heart size is nor mal. There are bilateral breast implants. Liver shows no focal defect. There are clips from cholecyst ectomy. Spleen appears normal. There is no evidence of pancreatic mass. There is no adrenal mass. Kid neys show satisfactory contrast opacification. There is no hydronephrosis. Ureters are not dilated. A ppendix appears normal. There is no retroperitoneal adenopathy. Bladder distends smoothly. There is n o inguinal hernia. There is no evidence of a pelvic mass. There are a few sigmoid diverticula. There is no sign of diverticulitis. There is no mesenteric edema . There is no ascites or free air. There is however some small bowel loops distended with fluid and air in the mid abdomen. These measure up to 3 cm. There is intestinal surgery noted in the left mid a bdomen. Lumbar vertebra have normal alignment. There is no compression fracture. Bony pelvis is intact. Hip j oints are intact. IMPRESSION: Distended fluid filled loops of small bowel with suggestion of a few thickened mascorro that could relat e to some ileus and inflammatory bowel disease. I do not suspect a mechanical bowel obstruction. Normal appendix.
[2020-05-02] MEDS ORDERED: INSULIN REGULAR 100 UNIT/ML VIAL IV ONE (21:03)
[2020-05-02] MEDS ORDERED: CALCIUM GLUCONATE 2 GM in SODIUM CHLORIDE 0.9% 100 ML IVPB ONE (21:04)
[2020-05-02] MEDS ORDERED: DEXTROSE 50% SYRINGE 50 ML IVP STA (21:05)
--- NOTE | 2020-05-02 21:05 | CT ---
EXAMINATION TYPE: CT chest angio for PE DATE OF EXAM: 05/02/2020 COMPARISON: None HISTORY: Hypoxia. CT DLP: 440.2 mGycm Automated exposure control for dose reduction was used. CONTRAST: Performed with IV Contrast, patient injected with 100 mL of Isovue 300. There are 3-D post processed images. There is some focal atelectasis in the posterior left lower lobe. There is no evidence of a pulmonary mass. There is no pleural effusion. Heart size is normal. There is no pericardial effusion. There ar e no hilar masses. There is no mediastinal adenopathy. Thoracic aorta is intact. There is no aneurysm or dissection. There is normal contrast opacification of the pulmonary arteries. There are no filling defects. Thora cic spine is intact. There is no compression fracture. I see no bony destructive process. IMPRESSION: There is some linear infiltrate and atelectasis left lower lobe posteriorly. No evidence of pulmonary embolism.
[2020-05-02] MEDS ORDERED: SODIUM BICARB 8.4% 50 ML SYR (1 MEQ/ML) IV STA (21:06)
[2020-05-02] MEDS ORDERED: cefTRIAXone IN SWFI 1,000 MG/10 ML SYRINGE IVP STA ×2 (21:12→23:05)
[2020-05-02] MEDS ORDERED: CALCIUM CHLORIDE 100 MG/ML 10 ML SYRINGE IVP STA (21:19)
[2020-05-02 21:27] LABS: Acetaminophen 19.5 ug/mL; Salicylate 1.1 mg/dL
[2020-05-02] MEDS ORDERED: NOREPINEPHRINE 4 MG in SODIUM CHLORIDE 0.9% 250 ML IV ONE (21:41)
[2020-05-02] MEDS: DEXTROSE 5% IN WATER 1,000 ML with SODIUM BICARB (1 MEQ/ML) 150 ML IV SCH (22:19)
[2020-05-02] MEDS ORDERED: NALOXONE 0.4 MG/ML 1 ML VIAL IV PRN (22:24)
[2020-05-02 23:32] LABS: MCH 30.9 pg (25.0-35.0); MCHC 31.6 g/dL (31.0-37.0); MCV 97.7 fL (80.0-100.0); Mean Platelet Volume 8.3; Platelet Count 111 k/uL (150-450); RBC 3.96 m/uL (3.80-5.40); RDW 14.3 % (11.5-15.5); WBC 3.7 k/uL (3.8-10.6)
[2020-05-02 23:41] LABS: Albumin 2.5 g/dL (3.5-5.0); Potassium 4.8 mmol/L (3.5-5.1); Total Bilirubin 0.5 mg/dL (0.2-1.3); Total Protein 4.8 g/dL (6.3-8.2)
[2020-05-02 23:45] LABS: HCT 38.7 % (34.0-46.0); HGB 12.2 gm/dL (11.4-16.0)
[2020-05-03 00:11] LABS: Calcium 5.6 mg/dL (8.4-10.2)
--- NOTE | 2020-05-03 00:47 | XR ---
EXAMINATION TYPE: XR chest 1V portable DATE OF EXAM: 05/03/2020 COMPARISON: 07/30/2019 HISTORY: Cough TECHNIQUE: Single view FINDINGS: There is right jugular catheter with the tip in the superior vena cava. There is some mild infiltrate in the left lower lobe. The right lung is clear. There are chest leads. There is no pneumo thorax. Trachea is midline. There is no pleural effusion. IMPRESSION: There is a new mild infiltrate left lower lobe compared to old exam. Normal heart.
[2020-05-03] MEDS ORDERED: NOREPINEPHRINE 32 MG in SODIUM CHLORIDE 0.9% 218 ML IV ONE (01:06)
[2020-05-03 01:16] LABS: Band Neutrophils % 18 %; Lymphocytes # (M) 0.78 k/uL (1.0-4.8); Monocytes # (M) 0.26 k/uL (0-1.0); Neutrophils % (M) 54 %; Nucleated Red Blood Cells 0 /100 WBC (0-0); Total Cells Counted 100
[2020-05-03 01:27] LABS: Glucose,Whole Blood 109 mg/dL (75-99)
[2020-05-03] MEDS ORDERED: CALCIUM GLUCONATE 1 GM in SODIUM CHLORIDE 0.9% 100 ML IVPB ONE (02:58)
[2020-05-03] MEDS: DEXTROSE 5% IN WATER 1,000 ML with SODIUM BICARB (1 MEQ/ML) 150 ML IV SCH ×3 (03:40→17:20)
[2020-05-03 04:51] LABS: HCT 36.9 % (34.0-46.0); HGB 12.2 gm/dL (11.4-16.0); MCH 31.4 pg (25.0-35.0); MCHC 32.9 g/dL (31.0-37.0); MCV 95.5 fL (80.0-100.0); Mean Platelet Volume 8.7; Platelet Count 101 k/uL (150-450); RBC 3.86 m/uL (3.80-5.40); RDW 14.2 % (11.5-15.5); WBC 3.6 k/uL (3.8-10.6)
[2020-05-03 04:52] LABS: Albumin 2.4 g/dL (3.5-5.0); Potassium 4.2 mmol/L (3.5-5.1); Total Bilirubin 0.4 mg/dL (0.2-1.3); Total Protein 4.6 g/dL (6.3-8.2)
[2020-05-03 05:19] LABS: Band Neutrophils % 10 %; Lymphocytes # (M) 0.47 k/uL (1.0-4.8); Monocytes # (M) 0.43 k/uL (0-1.0); Neutrophils % (M) 65 %; Nucleated Red Blood Cells 0 /100 WBC (0-0); Total Cells Counted 100
[2020-05-03 05:31] LABS: Calcium 5.3 mg/dL (8.4-10.2)
[2020-05-03] MEDS ORDERED: PANTOPRAZOLE 40 MG/10 ML VIAL IV SCH (09:00)
--- NOTE | 2020-05-03 09:09 | US ---
EXAMINATION TYPE: US liver DATE OF EXAM: 05/03/2020 COMPARISON: CT & US CLINICAL HISTORY: pancreatitis, elevated LFTs. Pain EXAM MEASUREMENTS: Liver Length: 13.8 cm CBD: 0.9 cm Right Kidney: 10.8 x 4.8 x 4.9 cm Pancreas: obscured by overlying bowel gas Liver: wnl Gallbladder: Surgically absent Evidence for sonographic Denson's sign: No CBD: wnl post pastor Right Kidney: wnl IMPRESSION: 1. Pancreas is limited by overlying bowel gas. 2. Post cholecystectomy.
[2020-05-03 09:17] LABS: HCT 34.3 % (34.0-46.0); HGB 11.8 gm/dL (11.4-16.0); MCH 32.8 pg (25.0-35.0); MCHC 34.5 g/dL (31.0-37.0); MCV 95.2 fL (80.0-100.0); Mean Platelet Volume 8.4; Platelet Count 103 k/uL (150-450); RDW 14.5 % (11.5-15.5); WBC 3.8 k/uL (3.8-10.6)
[2020-05-03 09:32] LABS: Metamyelocytes # (M) 0.04 k/uL (0); Metamyelocytes % 1 %; Myelocytes # (M) 0.08 k/uL (0); Myelocytes % 2 %; Nucleated Red Blood Cells 0 /100 WBC (0-0)
[2020-05-03 09:36] LABS: Band Neutrophils % 7 %; Eosinophils # (M) 0.11 k/uL (0-0.7); Lymphocytes # (M) 0.42 k/uL (1.0-4.8); Monocytes # (M) 0.15 k/uL (0-1.0); Neutrophils % (M) 74 %; Total Cells Counted 200
[2020-05-03 09:37] LABS: Toxic Granulation Present
[2020-05-03] MEDS: PANTOPRAZOLE 40 MG/10 ML VIAL IV SCH ×2 (09:39→21:05)
[2020-05-03 09:45] LABS: Albumin 2.4 g/dL (3.5-5.0); Potassium 3.8 mmol/L (3.5-5.1); Total Bilirubin 0.5 mg/dL (0.2-1.3); Total Protein 4.5 g/dL (6.3-8.2)
[2020-05-03] MEDS ORDERED: LORazepam 2 MG/ML INJ IV PRN ×3 (09:56)
[2020-05-03] MEDS ORDERED: THIAMINE 100 MG/ML 2 ML VIAL IM STA (09:56)
[2020-05-03] MEDS ORDERED: CALCIUM GLUCONATE 2 GM in SODIUM CHLORIDE 0.9% 100 ML IVPB ONE (11:30)
--- NOTE | 2020-05-03 13:46 | P.CNPUL ---
History of Present Illness Consult date: 05/03/20 Reason for consult: other (Acute rhabdomyolysis, acute kidney injury, and possible sepsis) Chief complaint: Weakness. History of present illness: This is a 49-year-old female with history of alcoholism and alcohol abuse, history of previous gastric bypass surgery. Patient was brought in by her yesterday to the ER complaining of 3 days history of diarrhea, dark stools for the last 3 days, and the patient has been progressively weak. found the patient on the floor, unable to ambulate, unknown whether the patient has fallen. states that the patient has been taking ibuprofen at home for generalized aches and pains and weakness. No history of peptic ulcer disease, no previous history of GI bleeding. Patient was brought into the ER, and she was found to have significant abnormalities including low sodium of 130. Significantly elevated BUN of 81 with creatinine of 7.89 anion gap metab olic acidosis of 27, normal lactic acid, calcium of 5.6, elevated liver enzymes with AST of 1989 ALT of 1397 and significantly elevated CPK of 12,500. Patient was also found to have abnormal urinalysis consistent with urinary tract infection although the patient had no symptoms. She had positive stool occult blood. Drug screen was mostly positive for benzodiazepines, and her acetaminophen level was 19.5, in that the therapeutic range, and alcohol was less than 10. Her potassium was as high as 6.6 initially. Patient received sodium bicarb, calcium chloride, insulin and dextrose 50, and she was placed on IV fluids, and sodium bicarb drip 150 mEq at 200 mL per hour. Patient was admitted to the ICU, however no beds were available, and I had to see the patient down in the ER this morning. Looking at the workup, patient seems to be improving, her BUN is down to 76 creatinine is down to 6.29, bicarb is up to 17, anion gap is down to 14. CPK is down to 7500, liver enzymes remain elevated. Patient was examined, and she seemed to be slow, could not give a good history. She knows that she has history of alcoholism, and her only complaint was mostly generalized weakness before she presented to the ER. And according to her her symptoms have been going on for the last [address] abdomen and pelvis showed distended fluid-filled loops of small bowel suggestive of ileus and inflammatory bowel disease, no clear-cut evidence of mechanical bowel obstruction. After evaluating the patient in the ER, I cut down on her sodium bicarb drip, kept her on IV fluids, and I recommended that we continue Rocephin empirically. Until the urine culture is available. I have also recommended placement on alcohol withdrawal protocol. Review of Systems Patient is not a great historian, her only complaint is weakness for the last 1 week. Denied any other symptoms, and she has no idea how she ended up in the ER. ROS unobtainable: due to mental status Past Medical History Past Medical History: Hypertension Additional Past Medical History / Comment(s): Alcohol abuse, pancreatitis History of Any Multi-Drug Resistant Organisms: None Reported Additional Past Surgical History / Comment(s): Gastric bypass, Reconstrutive surg after weight loss, and bilat overy removal Past Anesthesia/Blood Transfusion Reactions: No Reported Reaction Past Psychological History: No Psychological Hx Reported Smoking Status: Current every day smoker Past Alcohol Use History: None Reported - Past Family History Mother Family Medical History: Diabetes Mellitus Additional Family Medical History / Comment(s): mother from rectal cancer 1999 Father Family Medical History: Diabetes Mellitus Additional Family Medical History / Comment(s): from emphysema in 2003 Medications and Allergies Home Medications Medication Instructions Recorded Confirmed Type Imiquimod 1 packet VAGINAL [id number]/23/20 05/02/20 History Ibuprofen [Motrin Ib] 200 - 800 mg PO Q6H PRN 05/02/20 05/02/20 History Loperamide HCl [Imodium A-D] 2 - 4 mg PO QID PRN 05/02/20 05/02/20 History Allergies Allergy/AdvReac Type Severity Reaction Status Date / Time Penicillins Allergy Anaphylaxis Verified 05/02/20 19:19 Physical Exam Vitals: Vital Signs Temp Pulse Resp BP Pulse Ox 05/03/20 12:00 75 9 L 93/53 94 L 05/03/20 11:45 82 12 110/55 93 L 05/03/20 11:30 79 10 L 95/57 94 L 05/03/20 11:15 82 9 L 96/49 94 L 05/03/20 11:00 80 10 L 89/53 95 05/03/20 10:45 78 11 L 89/58 93 L 05/03/20 10:30 78 11 L 86/52 05/03/20 10:15 84 9 L 102/57 95 05/03/20 10:00 80 11 L 84/46 96 05/03/20 09:45 87 9 L 101/50 94 L 05/03/20 09:30 77 8 L 101/64 90 L 05/03/20 09:15 91 7 L 85/56 97 05/03/20 09:00 82 13 95/57 97 05/03/20 08:45 79 8 L 93/52 97 05/03/20 08:30 83 9 L 93/55 95 05/03/20 08:15 97.8 F 78 8 L 89/50 93 L 05/03/20 08:00 86 14 95 05/03/20 07:45 78 9 L 99/52 96 05/03/20 07:30 90/51 05/03/20 07:15 98.5 F 85 12 99/60 94 L 05/03/20 07:00 78 9 L 97/41 96 05/03/20 06:45 84 19 97/54 96 05/03/20 06:30 85 16 95/49 98 05/03/20 06:15 85 16 97/59 98 05/03/20 06:00 87 17 91/57 98 05/03/20 05:45 79 16 92/53 95 05/03/20 05:32 98.9 F 05/03/20 05:30 85 17 100/67 97 05/03/20 05:15 89 16 104/59 98 05/03/20 05:00 94 16 104/48 97 05/03/20 04:45 90 16 101/63 97 05/03/20 04:30 96 16 99/58 97 05/03/20 04:15 88 16 96/55 96 05/03/20 04:00 81 16 94/64 98 05/03/20 03:45 86 16 94/64 96 05/03/20 03:30 81 16 101/48 97 05/03/20 03:15 84 16 90/50 98 05/03/20 03:00 84 16 94/56 99 05/03/20 02:45 82 16 87/45 100 05/03/20 02:30 84 16 77/57 99 05/03/20 02:15 85 16 89/52 99 05/03/20 02:00 91 16 89/52 97 05/03/20 01:45 88 16 78/42 98 05/03/20 01:30 78 16 61/33 97 05/03/20 01:20 90 16 72/38 98 05/03/20 01:10 92 16 74/44 98 05/03/20 01:00 90 16 75/42 97 05/03/20 00:50 90 16 72/38 96 05/03/20 00:40 95 16 73/38 95 05/03/20 00:30 96 16 65/35 96 05/03/20 00:20 103 H 16 106/48 95 05/03/20 00:10 101 H 16 99/31 96 05/03/20 00:00 96 16 80/48 98 05/02/20 23:50 98 16 88/65 97 05/02/20 23:40 101 H 16 92/51 96 05/02/20 23:30 92 16 97/59 98 05/02/20 23:20 92 16 99/50 97 05/02/20 23:10 93 16 91/68 95 05/02/20 23:00 98 16 91/68 98 05/02/20 22:45 95 16 63/41 98 05/02/20 22:30 95 16 89/47 100 05/02/20 22:15 92 16 101/50 98 05/02/20 21:55 97 16 95/53 95 05/02/20 21:50 99 16 114/86 94 L 05/02/20 21:44 98 16 107/50 93 L 05/02/20 21:30 86 16 78/59 100 05/02/20 21:00 85 16 85/70 97 05/02/20 20:06 98 05/02/20 19:57 98 F 75 16 91/58 91 L 05/02/20 18:40 75 16 92/54 05/02/20 18:19 77 16 92/54 98 05/02/20 18:02 97.8 F 84 22 65/45 100 Intake and Output 05/02/20 05/03/20 05/03/20 22:59 06:59 14:59 Intake Total 27.287 1563.857 Output Total 450 450 Balance -681.945 5186.857 Intake: IV 580 ns 580 Intake, IV Titration 27.287 983.857 Amount Calcium Gluconate 2 gm In 100 Sodium Chloride 0.9% 100 ml @ 100 mls/hr IVPB ONCE ONE Rx#:[id number] Dextrose 5% in Water 1, 850 000 ml @ 150 mls/hr IV . Q7H40M KELLY with Sodium Bicarb (1 Meq/ml) 150 ml Rx#:[id number] Norepinephrine 32 mg In 1.507 33.857 Sodium Chloride 0.9% 218 ml @ 0.05 MCG/KG/MIN 1. 435 mls/hr IV .Q24H ONE Rx#:[id number] Norepinephrine 4 mg In 25.780 Sodium Chloride 0.9% 250 ml @ 0.05 MCG/KG/MIN 11. 665 mls/hr IV .[id number] ONE Rx#:[id number] Output: Urine 450 450 Other: Voiding Method Indwelling Catheter # Bowel Movements 1 Weight 61.235 kg 61.235 kg Physical Exam: Revealed a 49-year-old female in no distress, presently on room air. Head: Atraumatic, normocephalic. HEENT: PERRLA, EOMI, no icterus. [Neck is supple.] [No neck masses.] [No thyromegaly.] [No JVD.] Chest: [Diminished breath sounds at the bases, no crackles or rhonchi or wheezes. Cardiac Exam: [Normal S1 and S2, no S3 gallop, no murmur.] Abdomen: [Soft, slight tenderness in the left lower quadrant and left upper quadrant area., no megaly, no rebound, no guarding, normal bowel sounds.] Extremities: [No clubbing, no edema, no cyanosis.] Neurological Exam: Patient is noted to be generally weak, has slow mentation, unable to give adequate history, oriented 2. Psychiatric: Depressed mood, blunt affect, and mental status seems to be a bit compromised and slow. Results - Laboratory Findings CBC and BMP: 05/03/20 09:07 05/03/20 09:07 PT/INR, D-dimer PT 12.0 sec (9.0-12.0) 05/02/20 18:38 INR 1.2 (<1.2) H 05/02/20 18:38 Abnormal lab findings: Abnormal Labs 05/02/20 05/02/20 05/02/20 18:35 18:38 18:39 WBC RBC Hct 48.7 H MCV 103.3 H D Plt Count Lymphocytes # (Manual) 0.50 L Metamyelocytes # (Man) 0.11 H Myelocytes # (Manual) 0.06 H INR 1.2 H Sodium Potassium Chloride Carbon Dioxide BUN Creatinine Glucose POC Glucose (mg/dL) 117 H Plasma Lactic Acid Froilan Calcium Ionized Calcium Angy AST ALT Creatine Kinase Total Protein Albumin Urine Appearance Urine Protein Urine Glucose (UA) Urine Blood Urine RBC Urine WBC Urine WBC Clumps Urine Bacteria Urine Mucus Stool Occult Blood U Benzodiazepines Scrn 05/02/20 05/02/20 05/02/20 18:39 18:39 18:39 WBC RBC Hct MCV Plt Count Lymphocytes # (Manual) Metamyelocytes # (Man) Myelocytes # (Manual) INR Sodium 130 L Potassium 6.6 H* Chloride 97 L Carbon Dioxide 6 L* BUN 82 H Creatinine 9.55 H* Glucose 108 H POC Glucose (mg/dL) Plasma Lactic Acid Froilan 4.5 H* Calcium 5.6 L* Ionized Calcium Angy AST 1918 H ALT 1395 H Creatine Kinase 02916 H* Total Protein Albumin Urine Appearance Urine Protein Urine Glucose (UA) Urine Blood Urine RBC Urine WBC Urine WBC Clumps Urine Bacteria Urine Mucus Stool Occult Blood Positive H U Benzodiazepines Scrn 05/02/20 05/02/20 05/02/20 19:57 23:23 23:23 WBC 3.7 L RBC Hct MCV Plt Count 111 L Lymphocytes # (Manual) 0.78 L Metamyelocytes # (Man) Myelocytes # (Manual) INR Sodium 130 L Potassium Chloride Carbon Dioxide 10 L BUN 81 H Creatinine 7.89 H* Glucose 64 L POC Glucose (mg/dL) Plasma Lactic Acid Froilan Calcium 5.6 L* Ionized Calcium Angy AST 1989 H ALT 1397 H Creatine Kinase Total Protein 4.8 L Albumin 2.5 L Urine Appearance Cloudy H Urine Protein 1+ H Urine Glucose (UA) 1+ H Urine Blood Small H Urine RBC 18 H Urine WBC 178 H Urine WBC Clumps Many H Urine Bacteria Rare H Urine Mucus Rare H Stool Occult Blood U Benzodiazepines Scrn Detected H 05/03/20 05/03/20 05/03/20 01:23 04:00 04:00 WBC 3.6 L RBC Hct MCV Plt Count 101 L Lymphocytes # (Manual) 0.47 L Metamyelocytes # (Man) Myelocytes # (Manual) INR Sodium 131 L Potassium Chloride Carbon Dioxide 13 L BUN 77 H Creatinine 6.90 H Glucose 126 H POC Glucose (mg/dL) 109 H Plasma Lactic Acid Froilan Calcium 5.3 L* Ionized Calcium Angy AST 3164 H ALT 2151 H Creatine Kinase 7710 H* Total Protein 4.6 L Albumin 2.4 L Urine Appearance Urine Protein Urine Glucose (UA) Urine Blood Urine RBC Urine WBC Urine WBC Clumps Urine Bacteria Urine Mucus Stool Occult Blood U Benzodiazepines Scrn 05/03/20 05/03/20 05/03/20 06:14 09:07 09:07 WBC RBC 3.60 L Hct MCV Plt Count 103 L Lymphocytes # (Manual) 0.42 L Metamyelocytes # (Man) 0.04 H Myelocytes # (Manual) 0.08 H INR Sodium 133 L Potassium Chloride Carbon Dioxide 17 L BUN 76 H Creatinine 6.29 H Glucose 143 H POC Glucose (mg/dL) Plasma Lactic Acid Froilan Calcium 5.0 L* Ionized Calcium Angy 3.1 L* AST 2870 H ALT 2221 H Creatine Kinase Total Protein 4.5 L Albumin 2.4 L Urine Appearance Urine Protein Urine Glucose (UA) Urine Blood Urine RBC Urine WBC Urine WBC Clumps Urine Bacteria Urine Mucus Stool Occult Blood U Benzodiazepines Scrn - Diagnostic Findings Additional studies: CT angiogram of chest, CT of abdomen and pelvis were reviewed, as noted in HPI, liver ultrasound was also noted. Assessment and Plan Assessment: Impression: Acute kidney injury, most likely secondary to acute rhabdomyolysis and hypovolemia. And secondary to nonsteroidal anti-inflammatory drugs Acute rhabdomyolysis, possible fall,found patient on the floor. Acute alcoholic hepatitis Acute anion gap metabolic acidosis secondary to acute kidney injury, possible sepsis. Acute urinary tract infection, continue Rocephin. Acute GI bleeding most likely related to alcohol and related to nonsteroidal anti-inflammatory drugs. Acute hyperkalemia secondary to acute kidney injury History of alcoholism. History of depression and previous suicidal attempt, history of major depressive disorder History of hypertension Chronic nicotine dependence Recommendation: Continue IV fluids. Continue sodium bicarb. Continue antibiotics/Rocephin. Alcohol withdrawal protocol. Admitted to the ICU Close monitoring of electrolytes and labs on a daily basis. GI and DVT prophylaxis. Monitor renal status on a daily basis, nephrology to see on consultation. Overall prognosis is guarded, we'll continue to follow. Time with Patient: Greater than 30
--- NOTE | 2020-05-03 15:34 | CONS ---
CONSULTATION REASON FOR CONSULT: Renal failure. HISTORY OF PRESENT ILLNESS: Patient is a 49-year-old female with history of EtOH abuse. She also has a previous history of pancreatitis. Patient was admitted to the hospital with complaints of weakness and having had diarrhea for about 3-4 days prior to admission. She did state that her stools have been dark in color. No bright red blood noted, according to the history. There is report of taking ibuprofen at home prior to admission. No prior history of kidney diseases. Patient was found to be quite hypotensive on admission. Systolic blood pressure was in the 70s. She has received about 3 L of fluid boluses since admission. Patient has had good urine output. Her creatinine was 9.5 on admission, and it is now down to 6.29. Patient's CO2 was 6. She is currently maintained on a bicarb drip. Liver enzymes have been significantly elevated; 19,894 for AST and 1397 for ALT. PAST MEDICAL HISTORY: 1. History of EtOH abuse. 2. Hypertension, not taking any medications currently. 3. History of alcoholic pancreatitis. PAST SURGICAL HISTORY: 1. Gastric bypass surgery for weight loss. 2. Reconstructive surgery after weight loss. 3. Oophorectomy. SOCIAL HISTORY: Patient is a daily smoker. MEDICATIONS: Medications at home prior to admission included Motrin and Imodium. REVIEW OF SYSTEMS: As per HPI. Other systems negative. PHYSICAL EXAMINATION: Patient is comfortable, awake. She is not in any acute distress. She is sleepy but arousable. Blood pressure was 101/50, heart rate 87 per minute. She is afebrile. EXAMINATION OF THE HEART: S1 and S2. EXAMINATION OF LUNGS: Bilateral breath sounds are heard. ABDOMEN: Soft, non-tender. Examination of lower extremities shows no evidence of edema. [employer] exam shows patient moving all 4 extremities. LABS: Labs show hemoglobin 11.8, white cell count 3.8, sodium 133, potassium 3.8, chloride 102, CO2 17, BUN 76, creatinine 6.29. Calcium was 5.0, AST 2870, ALT 2221, creatine kinase 7710, albumin 2.5. UA shows 1+ protein, glucose 1+, small blood, WBCs 178. Alcohol was negative. Drug screen was negative except for benzodiazepines. Stool for occult blood was positive. ASSESSMENT: 1. Acute kidney injury, acute tubular necrosis, secondary to hypotension and volume depletion as well as secondary to non-steroidal anti-inflammatories, currently nonoliguric and improving. Continue with aggressive IV hydration. 2. Severe metabolic acidosis, anion gap, associated with renal failure, lactic acidosis, currently improving. Patient is maintained on a bicarb drip. She also had diarrhea prior to admission, which contributed to the acidosis as well. 3. Hypovolemic hyponatremia, improving with IV hydration. 4. Shock liver. Liver enzymes are now decreasing. 5. Rhabdomyolysis. CK levels will be repeated. The patient is not on any statins. 6. History of EtOH abuse. 7. History of pancreatitis related to alcohol previously. 8. Gastrointestinal bleed. Hemoglobin is stable. No active bleeding noted. Stool for occult blood was positive. 9. Hyperkalemia associated with acute kidney injury, use of non-steroidal anti- inflammatories and underlying gastrointestinal bleed, currently improved. PLAN: Continue with the bicarb drip. I will give her another liter of fluid bolus. We will try to wean down the Levophed. Check vitamin D levels. Repeat labs in a.m. Avoid nephrotoxic agents. However, patient did have IV contrast for a CT scan and CTA yesterday on admission. We need to avoid any further IV contrast administration. Thank you for this consultation. Will continue to follow the patient with you during her hospitalization. MMODL / EDWINN: [id number] /
[2020-05-03] MEDS: THIAMINE 100 MG TAB PO SCH (17:55)
--- NOTE | 2020-05-03 18:38 | P.HPIM ---
History of Present Illness This is a pleasant 49 years old female with past medical history of hypertension and alcoholic pancreatitis. Patient presents with a three-day history of diarrhea with dark-colored stool, pt could not provide much history as she looks tires and fatigues , talks very slowly although she talks appropriately and sometimes she does not answer so information were obtained form the records, staff and some from the pt as no family at bed side. pt states she was very weak and She's been using ibuprofen for her pain , she has generalized body aches and abd pain ( pt refused me examine her abd) Blood pressure 93/53, heart rate 75, breathing rate 9-12, she is afebrile. Labs showing normal hemoglobin 11.8 and WBCs 3.8K, platelets 103 which is low. Low calcium with an ionized Ca 3.1, sodium 133, creatinine 7.8 on admission current ly 6.2. Elevated liver enzymes with AST 2870 and ALT 2221, creatinine kinase is elevated at 7710. UA showing cloudy and concentrated sample was somewhat protein and glucose units. Occult blood in the stool is positive. Urine hydroxy train is positive for benzodiazepines. pelvis and femur x-ray were negative for fracture Chest x-ray: Mild lower lobe infiltrate Chest CTA: Some linear infiltrate and atelectasis in the left lower lobe posteriorly CT of the abdomen and pelvis: Possible ileus versus inflammatory bowel disease due to distended fluid-filled loops of small bowel On admission she is receives several injections of, some leukocytes and calcium gluconate, more than 2 L of normal saline, sodium bicarb, ceftriaxone, levophed Protonix Review of Systems -CONSTITUTIONAL: No fever,+ malaise,+ fatigue. HEENT: No recent visual problems or hearing problems. Denied any sore throat. CARDIOVASCULAR: No orthopnea, PND, no palpitations, no syncope. PULMONARY: No shortness of breath, no cough, no hemoptysis. -GASTROINTESTINAL: + abdominal pain. Normoactive bowel sounds. NEUROLOGICAL: No headaches, no weakness, no numbness. HEMATOLOGICAL: Denies any bleeding or petechiae. GENITOURINARY: Denies any burning micturition, frequency, or urgency. MUSCULOSKELETAL/RHEUMATOLOGICAL: Denies any joint pain, swelling, or any muscle pain. ENDOCRINE: Denies any polyuria or polydipsia. Past Medical History Past Medical History: Hypertension Additional Past Medical History / Comment(s): Alcohol abuse, pancreatitis History of Any Multi-Drug Resistant Organisms: None Reported Additional Past Surgical History / Comment(s): Gastric bypass, Reconstrutive surg after weight loss, and bilat overy removal Past Anesthesia/Blood Transfusion Reactions: No Reported Reaction Past Psychological History: No Psychological Hx Reported Smoking Status: Current every day smoker Past Alcohol Use History: None Reported - Past Family History Mother Family Medical History: Diabetes Mellitus Additional Family Medical History / Comment(s): mother from rectal cancer 1999 Father Family Medical History: Diabetes Mellitus Additional Family Medical History / Comment(s): from emphysema in 2003 Medications and Allergies Home Medications Medication Instructions Recorded Confirmed Type Imiquimod 1 packet VAGINAL [id number]/23/20 05/02/20 History Ibuprofen [Motrin Ib] 200 - 800 mg PO Q6H PRN 05/02/20 05/02/20 History Loperamide HCl [Imodium A-D] 2 - 4 mg PO QID PRN 05/02/20 05/02/20 History Allergies Allergy/AdvReac Type Severity Reaction Status Date / Time Penicillins Allergy Anaphylaxis Verified 05/02/20 19:19 Physical Exam Vitals: Vital Signs Temp Pulse Resp BP Pulse Ox 05/03/20 10:15 84 9 L 102/57 95 05/03/20 10:00 80 11 L 84/46 96 05/03/20 09:45 87 9 L 101/50 94 L 05/03/20 09:30 77 8 L 101/64 90 L 05/03/20 09:15 91 7 L 85/56 97 05/03/20 09:00 82 13 95/57 97 05/03/20 08:45 79 8 L 93/52 97 05/03/20 08:30 83 9 L 93/55 95 05/03/20 08:15 97.8 F 78 8 L 89/50 93 L 05/03/20 08:00 86 14 95 05/03/20 07:45 78 9 L 99/52 96 05/03/20 07:30 90/51 05/03/20 07:15 98.5 F 85 12 99/60 94 L 05/03/20 07:00 78 9 L 97/41 96 05/03/20 06:45 84 19 97/54 96 05/03/20 06:30 85 16 95/49 98 05/03/20 06:15 85 16 97/59 98 05/03/20 06:00 87 17 91/57 98 05/03/20 05:45 79 16 92/53 95 05/03/20 05:32 98.9 F 05/03/20 05:30 85 17 100/67 97 05/03/20 05:15 89 16 104/59 98 05/03/20 05:00 94 16 104/48 97 05/03/20 04:45 90 16 101/63 97 05/03/20 04:30 96 16 99/58 97 05/03/20 04:15 88 16 96/55 96 05/03/20 04:00 81 16 94/64 98 05/03/20 03:45 86 16 94/64 96 05/03/20 03:30 81 16 101/48 97 05/03/20 03:15 84 16 90/50 98 05/03/20 03:00 84 16 94/56 99 05/03/20 02:45 82 16 87/45 100 05/03/20 02:30 84 16 77/57 99 05/03/20 02:15 85 16 89/52 99 05/03/20 02:00 91 16 89/52 97 05/03/20 01:45 88 16 78/42 98 05/03/20 01:30 78 16 61/33 97 05/03/20 01:20 90 16 72/38 98 05/03/20 01:10 92 16 74/44 98 05/03/20 01:00 90 16 75/42 97 05/03/20 00:50 90 16 72/38 96 05/03/20 00:40 95 16 73/38 95 05/03/20 00:30 96 16 65/35 96 05/03/20 00:20 103 H 16 106/48 95 05/03/20 00:10 101 H 16 99/31 96 05/03/20 00:00 96 16 80/48 98 05/02/20 23:50 98 16 88/65 97 05/02/20 23:40 101 H 16 92/51 96 05/02/20 23:30 92 16 97/59 98 05/02/20 23:20 92 16 99/50 97 05/02/20 23:10 93 16 91/68 95 05/02/20 23:00 98 16 91/68 98 06/30/20 22:45 95 16 63/41 98 05/02/20 22:30 95 16 89/47 100 05/02/20 22:15 92 16 101/50 98 05/02/20 21:55 97 16 95/53 95 05/02/20 21:50 99 16 114/86 94 L 05/02/20 21:44 98 16 107/50 93 L 05/02/20 21:30 86 16 78/59 100 05/02/20 21:00 85 16 85/70 97 05/02/20 20:06 98 05/02/20 19:57 98 F 75 16 91/58 91 L 05/02/20 18:40 75 16 92/54 05/02/20 18:19 77 16 92/54 98 05/02/20 18:02 97.8 F 84 22 65/45 100 Intake and Output 05/02/20 05/03/20 05/03/20 22:59 06:59 14:59 Intake Total 27.287 1116.06 Output Total 450 300 Balance -422.713 816.06 Intake: IV 540 ns 540 Intake, IV Titration 27.287 576.06 Amount Dextrose 5% in Water 1, 550 000 ml @ 150 mls/hr IV . Q7H40M KELLY with Sodium Bicarb (1 Meq/ml) 150 ml Rx#:[id number] Norepinephrine 32 mg In 1.507 26.06 Sodium Chloride 0.9% 218 ml @ 0.05 MCG/KG/MIN 1. 435 mls/hr IV .Q24H ONE Rx#:[id number] Norepinephrine 4 mg In 25.780 Sodium Chloride 0.9% 250 ml @ 0.05 MCG/KG/MIN 11. 665 mls/hr IV .[id number] ONE Rx#:[id number] Output: Urine 450 300 Other: Voiding Method Indwelling Catheter # Bowel Movements 1 Weight 61.235 kg 61.235 kg GENERAL: The patient is alert and oriented x2-3, she is lethargic and weak rather than confused, not in any acute distress. thin build. HEENT: Pupils are round and equally reacting to light. EOMI. No scleral icterus. No conjunctival pallor. Normocephalic, atraumatic. No pharyngeal erythema. No thyromegaly. CARDIOVASCULAR: S1 and S2 present. No murmurs, rubs, or gallops. PULMONARY: Chest is clear to auscultation, no wheezing or crackles. -ABDOMEN: Soft, tender ( but pt refused me examine her abd or touch her abd), nondistended, normoactive bowel sounds. No palpable organomegaly. MUSCULOSKELETAL: No joint swelling or deformity. EXTREMITIES: No cyanosis, clubbing, or pedal edema. NEUROLOGICAL: Gross neurological examination did not reveal any focal deficits. SKIN: No rashes. No petechiae Results CBC & Chem 7: 05/03/20 09:07 05/03/20 09:07 Labs: Abnormal Lab Results - Last 24 Hours (Table) 05/02/20 05/02/20 05/02/20 Range/Units 18:35 18:38 18:39 WBC (3.8-10.6) k/uL RBC (3.80-5.40) m/uL Hct 48.7 H (34.0-46.0) % MCV 103.3 H D (80.0-100.0) fL Plt Count (150-450) k/uL Lymphocytes # (Manual) 0.50 L (1.0-4.8) k/uL Metamyelocytes # (Man) 0.11 H (0) k/uL Myelocytes # (Manual) 0.06 H (0) k/uL INR 1.2 H (<1.2) Sodium (137-145) mmol/L Potassium (3.5-5.1) mmol/L Chloride (98-107) mmol/L Carbon Dioxide (22-30) mmol/L BUN (7-17) mg/dL Creatinine (0.52-1.04) mg/dL Glucose (74-99) mg/dL POC Glucose (mg/dL) 117 H (75-99) mg/dL Plasma Lactic Acid Froilan (0.7-2.0) mmol/L Calcium (8.4-10.2) mg/dL Ionized Calcium Angy (4.5-5.3) mg/dL AST (14-36) U/L ALT (4-34) U/L Creatine Kinase (30-135) U/L Total Protein (6.3-8.2) g/dL Albumin (3.5-5.0) g/dL Urine Appearance (Clear) Urine Protein (Negative) Urine Glucose (UA) (Negative) Urine Blood (Negative) Urine RBC (0-5) /hpf Urine WBC (0-5) /hpf Urine WBC Clumps (None) /hpf Urine Bacteria (None) /hpf Urine Mucus (None) /hpf Stool Occult Blood (Negative) U Benzodiazepines Scrn (NotDetected) 05/02/20 05/02/20 05/02/20 Range/Units 18:39 18:39 18:39 WBC (3.8-10.6) k/uL RBC (3.80-5.40) m/uL Hct (34.0-46.0) % MCV (80.0-100.0) fL Plt Count (150-450) k/uL Lymphocytes # (Manual) (1.0-4.8) k/uL Metamyelocytes # (Man) (0) k/uL Myelocytes # (Manual) (0) k/uL INR (<1.2) Sodium 130 L (137-145) mmol/L Potassium 6.6 H* (3.5-5.1) mmol/L Chloride 97 L (98-107) mmol/L Carbon Dioxide 6 L* (22-30) mmol/L BUN 82 H (7-17) mg/dL Creatinine 9.55 H* (0.52-1.04) mg/dL Glucose 108 H (74-99) mg/dL POC Glucose (mg/dL) (75-99) mg/dL Plasma Lactic Acid Froilan 4.5 H* (0.7-2.0) mmol/L Calcium 5.6 L* (8.4-10.2) mg/dL Ionized Calcium Angy (4.5-5.3) mg/dL AST 1918 H (14-36) U/L ALT 1395 H (4-34) U/L Creatine Kinase 89186 H* (30-135) U/L Total Protein (6.3-8.2) g/dL Albumin (3.5-5.0) g/dL Urine Appearance (Clear) Urine Protein (Negative) Urine Glucose (UA) (Negative) Urine Blood (Negative) Urine RBC (0-5) /hpf Urine WBC (0-5) /hpf Urine WBC Clumps (None) /hpf Urine Bacteria (None) /hpf Urine Mucus (None) /hpf Stool Occult Blood Positive H (Negative) U Benzodiazepines Scrn (NotDetected) 05/02/20 05/02/20 05/02/20 Range/Units 19:57 23:23 23:23 WBC 3.7 L (3.8-10.6) k/uL RBC (3.80-5.40) m/uL Hct (34.0-46.0) % MCV (80.0-100.0) fL Plt Count 111 L (150-450) k/uL Lymphocytes # (Manual) 0.78 L (1.0-4.8) k/uL Metamyelocytes # (Man) (0) k/uL Myelocytes # (Manual) (0) k/uL INR (<1.2) Sodium 130 L (137-145) mmol/L Potassium (3.5-5.1) mmol/L Chloride (98-107) mmol/L Carbon Dioxide 10 L (22-30) mmol/L BUN 81 H (7-17) mg/dL Creatinine 7.89 H* (0.52-1.04) mg/dL Glucose 64 L (74-99) mg/dL POC Glucose (mg/dL) (75-99) mg/dL Plasma Lactic Acid Froilan (0.7-2.0) mmol/L Calcium 5.6 L* (8.4-10.2) mg/dL Ionized Calcium Angy (4.5-5.3) mg/dL AST 1989 H (14-36) U/L ALT 1397 H (4-34) U/L Creatine Kinase (30-135) U/L Total Protein 4.8 L (6.3-8.2) g/dL Albumin 2.5 L (3.5-5.0) g/dL Urine Appearance Cloudy H (Clear) Urine Protein 1+ H (Negative) Urine Glucose (UA) 1+ H (Negative) Urine Blood Small H (Negative) Urine RBC 18 H (0-5) /hpf Urine WBC 178 H (0-5) /hpf Urine WBC Clumps Many H (None) /hpf Urine Bacteria Rare H (None) /hpf Urine Mucus Rare H (None) /hpf Stool Occult Blood (Negative) U Benzodiazepines Scrn Detected H (NotDetected) 05/03/20 05/03/20 05/03/20 Range/Units 01:23 04:00 04:00 WBC 3.6 L (3.8-10.6) k/uL RBC (3.80-5.40) m/uL Hct (34.0-46.0) % MCV (80.0-100.0) fL Plt Count 101 L (150-450) k/uL Lymphocytes # (Manual) 0.47 L (1.0-4.8) k/uL Metamyelocytes # (Man) (0) k/uL Myelocytes # (Manual) (0) k/uL INR (<1.2) Sodium 131 L (137-145) mmol/L Potassium (3.5-5.1) mmol/L Chloride (98-107) mmol/L Carbon Dioxide 13 L (22-30) mmol/L BUN 77 H (7-17) mg/dL Creatinine 6.90 H (0.52-1.04) mg/dL Glucose 126 H (74-99) mg/dL POC Glucose (mg/dL) 109 H (75-99) mg/dL Plasma Lactic Acid Froilan (0.7-2.0) mmol/L Calcium 5.3 L* (8.4-10.2) mg/dL Ionized Calcium Angy (4.5-5.3) mg/dL AST 3164 H (14-36) U/L ALT 2151 H (4-34) U/L Creatine Kinase 7710 H* (30-135) U/L Total Protein 4.6 L (6.3-8.2) g/dL Albumin 2.4 L (3.5-5.0) g/dL Urine Appearance (Clear) Urine Protein (Negative) Urine Glucose (UA) (Negative) Urine Blood (Negative) Urine RBC (0-5) /hpf Urine WBC (0-5) /hpf Urine WBC Clumps (None) /hpf Urine Bacteria (None) /hpf Urine Mucus (None) /hpf Stool Occult Blood (Negative) U Benzodiazepines Scrn (NotDetected) 05/03/20 05/03/20 05/03/20 Range/Units 06:14 09:07 09:07 WBC (3.8-10.6) k/uL RBC 3.60 L (3.80-5.40) m/uL Hct (34.0-46.0) % MCV (80.0-100.0) fL Plt Count 103 L (150-450) k/uL Lymphocytes # (Manual) 0.42 L (1.0-4.8) k/uL Metamyelocytes # (Man) 0.04 H (0) k/uL Myelocytes # (Manual) 0.08 H (0) k/uL INR (<1.2) Sodium 133 L (137-145) mmol/L Potassium (3.5-5.1) mmol/L Chloride (98-107) mmol/L Carbon Dioxide 17 L (22-30) mmol/L BUN 76 H (7-17) mg/dL Creatinine 6.29 H (0.52-1.04) mg/dL Glucose 143 H (74-99) mg/dL POC Glucose (mg/dL) (75-99) mg/dL Plasma Lactic Acid Froilan (0.7-2.0) mmol/L Calcium 5.0 L* (8.4-10.2) mg/dL Ionized Calcium Angy 3.1 L* (4.5-5.3) mg/dL AST 2870 H (14-36) U/L ALT 2221 H (4-34) U/L Creatine Kinase (30-135) U/L Total Protein 4.5 L (6.3-8.2) g/dL Albumin 2.4 L (3.5-5.0) g/dL Urine Appearance (Clear) Urine Protein (Negative) Urine Glucose (UA) (Negative) Urine Blood (Negative) Urine RBC (0-5) /hpf Urine WBC (0-5) /hpf Urine WBC Clumps (None) /hpf Urine Bacteria (None) /hpf Urine Mucus (None) /hpf Stool Occult Blood (Negative) U Benzodiazepines Scrn (NotDetected) Thrombosis Risk Factor Assmnt - Choose All That Apply Any of the Below Risk Factors Present?: Yes Each Factor Represents 1 point: Age 41-60 years Other Risk Factors: No Other congenital or acquired thrombophilia - If yes, enter type in comment: No Thrombosis Risk Factor Assessment Total Risk Factor Score: 1 Thrombosis Risk Factor Assessment Level: Low Risk Assessment and Plan Assessment: Acute kidney injury Possible ileus versus inflamed small bowel Hypocalcemia Rhabdomyolysis Hepatitis/transaminitis alcohol abuse thrombocytopenia Hypertension Focal abuse Plan: this is a pleasant 49 years old female who presents with acute kidney injury and rhabdomyolysis with possible inflamed bowel versus ileus. Continue with CIWA protocol, continue with antibiotic ceftriaxone, continue with thiamine. She is currently on bicarbonate drip. pt is going to ICU, pulmonary/critical care team , nephrology and GI teams are on consults Labs and medication were reviewed.. Continue same treatment. Continue with symptomatic treatment. Resume home medication. Monitor lytes and vitals. DVT and GI prophylaxis. Further recommendations of the clinical course of the patient DVT prophylaxis: Subcutaneous heparin GI Prophylaxis: Pepcid PT/OT: Pending Prognosis is guarded
--- NOTE | 2020-05-03 22:32 | P.CONS ---
History of Present Illness - Reason for Consult Consult date: 05/03/20 Elevated liver enzymes, alcohol abuse Requesting physician: Gaurav E Sheet - Chief Complaint Diarrhea, dark stool, patient found down, weakness - History of Present Illness 49-year-old female with a past medical history significant for hypertension, alcoholic pancreatitis and alcohol abuse who was brought to the hospital for evaluation after she was found down at her residence and with concerned over altered bowel function. Of note the patient is a poor historian. And history has been taken in conversation with the patient and on review of the electronic medical record. The patient has a known history of alcohol abuse but is unable to quantify how much and for how long she had drained states that currently she has cut down on drinking. No history of alcoholic cirrhosis or GI bleed. She does not believe she has had an upper endoscopy in the past but does have a history of gastric bypass. Patient has been having loose dark stool at home for a few days prior to presentation. She has been weak and felt dehydrated. She denies any blood per rectum, nausea or vomiting or hematemesis. The patient does take ibuprofen regularly for pain. She has previously undergone cholecystectomy. On presentation patient was found to have a markedly elevated CPK has 7710 with elevated liver enzymes with total bilirubin 0.5, alkaline phosphatase 81, AST 2870 and ALT 2228. Creatinine found to be significantly elevated at 6.29 with WBC 3.8, hemoglobin 11.1 and platelet count of 203,000. Computed tomography scan of the abdomen did show fluid-filled small bowel العراقي ggestive of possible ileus versus inflammatory process with no focal liver lesions. Ultrasound of the abdomen showed a normal-appearing liver with a normal CBD. Review of Systems REVIEW OF SYSTEMS: CONSTITUTIONAL: Denies any fevers, chills, weight change but the patient did report fatigue.. CARDIOVASCULAR: Denies any chest pain, palpitations high or low blood pressures RESPIRATORY: Denies any shortness of breath, hemoptysis or cough. GENITOURINARY: No dysuria or hematuria. MUSCULOSKELETAL: No weakness reported. SKIN: Denies any new rashes or lesions, jaundice or pallor. PSYCHIATRIC: Does have a history significant for alcohol abuse.. NEUROLOGY: Denies headache, denies any new focal deficits. EARS/NOSE/THROAT: No recent hearing change, congestion, nasal discharge or sore throat. EYES: No pain in eyes, discharge or change in vision. GASTROINTESTINAL: As per HPI. Past Medical History Past Medical History: Hypertension Additional Past Medical History / Comment(s): Alcohol abuse, pancreatitis History of Any Multi-Drug Resistant Organisms: None Reported Additional Past Surgical History / Comment(s): Gastric bypass, Reconstrutive surg after weight loss, and bilat overy removal Past Anesthesia/Blood Transfusion Reactions: No Reported Reaction Past Psychological History: No Psychological Hx Reported Smoking Status: Current every day smoker Past Alcohol Use History: None Reported - Past Family History Mother Family Medical History: Diabetes Mellitus Additional Family Medical History / Comment(s): mother from rectal cancer 1999 Father Family Medical History: Diabetes Mellitus Additional Family Medical History / Comment(s): from emphysema in 2003 Medications and Allergies Home Medications Medication Instructions Recorded Confirmed Type Imiquimod 1 packet VAGINAL [id number]@[id number]/23/20 05/02/20 History Ibuprofen [Motrin Ib] 200 - 800 mg PO Q6H PRN 05/02/20 05/02/20 History Loperamide HCl [Imodium A-D] 2 - 4 mg PO QID PRN 05/02/20 05/02/20 History Allergies Allergy/AdvReac Type Severity Reaction Status Date / Time Penicillins Allergy Anaphylaxis Verified 05/02/20 19:19 Physical Exam Vitals: Vital Signs Temp Pulse Resp BP Pulse Ox 05/03/20 12:00 75 9 L 93/53 94 L 05/03/20 11:45 82 12 110/55 93 L 05/03/20 11:30 79 10 L 95/57 94 L 05/03/20 11:15 82 9 L 96/49 94 L 05/03/20 11:00 80 10 L 89/53 95 05/03/20 10:45 78 11 L 89/58 93 L 05/03/20 10:30 78 11 L 86/52 05/03/20 10:15 84 9 L 102/57 95 05/03/20 10:00 80 11 L 84/46 96 05/03/20 09:45 87 9 L 101/50 94 L 05/03/20 09:30 77 8 L 101/64 90 L 05/03/20 09:15 91 7 L 85/56 97 05/03/20 09:00 82 13 95/57 97 05/03/20 08:45 79 8 L 93/52 97 05/03/20 08:30 83 9 L 93/55 95 05/03/20 08:15 97.8 F 78 8 L 89/50 93 L 05/03/20 08:00 86 14 95 05/03/20 07:45 78 9 L 99/52 96 05/03/20 07:30 90/51 05/03/20 07:15 98.5 F 85 12 99/60 94 L 05/03/20 07:00 78 9 L 97/41 96 05/03/20 06:45 84 19 97/54 96 05/03/20 06:30 85 16 95/49 98 05/03/20 06:15 85 16 97/59 98 05/03/20 06:00 87 17 91/57 98 05/03/20 05:45 79 16 92/53 95 05/03/20 05:32 98.9 F 05/03/20 05:30 85 17 100/67 97 05/03/20 05:15 89 16 104/59 98 05/03/20 05:00 94 16 104/48 97 05/03/20 04:45 90 16 101/63 97 05/03/20 04:30 96 16 99/58 97 05/03/20 04:15 88 16 96/55 96 05/03/20 04:00 81 16 94/64 98 05/03/20 03:45 86 16 94/64 96 05/03/20 03:30 81 16 101/48 97 05/03/20 03:15 84 16 90/50 98 05/03/20 03:00 84 16 94/56 99 05/03/20 02:45 82 16 87/45 100 05/03/20 02:30 84 16 77/57 99 05/03/20 02:15 85 16 89/52 99 05/03/20 02:00 91 16 89/52 97 05/03/20 01:45 88 16 78/42 98 05/03/20 01:30 78 16 61/33 97 05/03/20 01:20 90 16 72/38 98 05/03/20 01:10 92 16 74/44 98 05/03/20 01:00 90 16 75/42 97 05/03/20 00:50 90 16 72/38 96 05/03/20 00:40 95 16 73/38 95 05/03/20 00:30 96 16 65/35 96 05/03/20 00:20 103 H 16 106/48 95 05/03/20 00:10 101 H 16 99/31 96 05/03/20 00:00 96 16 80/48 98 05/02/20 23:50 98 16 88/65 97 05/02/20 23:40 101 H 16 92/51 96 05/02/20 23:30 92 16 97/59 98 05/02/20 23:20 92 16 99/50 97 05/02/20 23:10 93 16 91/68 95 05/02/20 23:00 98 16 91/68 98 05/02/20 22:45 95 16 63/41 98 05/02/20 22:30 95 16 89/47 100 05/02/20 22:15 92 16 101/50 98 05/02/20 21:55 97 16 95/53 95 05/02/20 21:50 99 16 114/86 94 L 05/02/20 21:44 98 16 107/50 93 L 05/02/20 21:30 86 16 78/59 100 05/02/20 21:00 85 16 85/70 97 05/02/20 20:06 98 05/02/20 19:57 98 F 75 16 91/58 91 L 05/02/20 18:40 75 16 92/54 05/02/20 18:19 77 16 92/54 98 05/02/20 18:02 97.8 F 84 22 65/45 100 Intake and Output 05/02/20 05/03/20 05/03/20 22:59 06:59 14:59 Intake Total 27.287 1958.291 Output Total 450 675 Balance -282.923 6733.291 Intake: IV 620 ns 620 Intake, IV Titration 27.287 1338.291 Amount Calcium Gluconate 2 gm In 100 Sodium Chloride 0.9% 100 ml @ 100 mls/hr IVPB ONCE ONE Rx#:[id number] Dextrose 5% in Water 1, 1150 000 ml @ 150 mls/hr IV . Q7H40M KELLY with Sodium Bicarb (1 Meq/ml) 150 ml Rx#:[id number] Norepinephrine 32 mg In 1.507 38.291 Sodium Chloride 0.9% 218 ml @ 0.05 MCG/KG/MIN 1. 435 mls/hr IV .Q24H ONE Rx#:[id number] Norepinephrine 4 mg In 25.780 Sodium Chloride 0.9% 250 ml @ 0.05 MCG/KG/MIN 11. 665 mls/hr IV .[id number] ONE Rx#:[id number] cefTRIAXone 1 gm In 50 Sodium Chloride 0.9% 50 ml @ 100 mls/hr IVPB Q24HR [facility] Rx#:[id number] Output: Urine 450 675 Other: Voiding Method Indwelling Catheter # Bowel Movements 1 1 Weight 61.235 kg 61.235 kg On physical examination, patient appears comfortable in no apparent distress. HEAD: Normocephalic, atraumatic. EYES: No scleral icterus. No conjunctival injection. MOUTH: No lesions, tongue midline. NECK: Trachea midline, no gross abnormalities. CHEST: Clear to auscultation with no wheezing or rhonchi appreciated. HEART: Regular rate and rhythm. ABDOMEN: Soft, mildly tender to palpation. Bowel sounds are positive. No organomegaly. No guarding or rigidity. EXTREMITIES: No pedal edema. SKIN: No rashes, no jaundice. NEUROLOGIC: Alert and oriented x3 with no focal defects, however patient is slow and deliberate when speaking. Results CBC & Chem 7: 05/03/20 09:07 05/03/20 09:07 Labs: Abnormal Lab Results - Last 24 Hours (Table) 05/02/20 05/02/20 05/02/20 Range/Units 18:35 18:38 18:39 WBC (3.8-10.6) k/uL RBC (3.80-5.40) m/uL Hct 48.7 H (34.0-46.0) % MCV 103.3 H D (80.0-100.0) fL Plt Count (150-450) k/uL Lymphocytes # (Manual) 0.50 L (1.0-4.8) k/uL Metamyelocytes # (Man) 0.11 H (0) k/uL Myelocytes # (Manual) 0.06 H (0) k/uL INR 1.2 H (<1.2) Sodium (137-145) mmol/L Potassium (3.5-5.1) mmol/L Chloride (98-107) mmol/L Carbon Dioxide (22-30) mmol/L BUN (7-17) mg/dL Creatinine (0.52-1.04) mg/dL Glucose (74-99) mg/dL POC Glucose (mg/dL) 117 H (75-99) mg/dL Plasma Lactic Acid Froilan (0.7-2.0) mmol/L Calcium (8.4-10.2) mg/dL Ionized Calcium Angy (4.5-5.3) mg/dL AST (14-36) U/L ALT (4-34) U/L Creatine Kinase (30-135) U/L Total Protein (6.3-8.2) g/dL Albumin (3.5-5.0) g/dL Urine Appearance (Clear) Urine Protein (Negative) Urine Glucose (UA) (Negative) Urine Blood (Negative) Urine RBC (0-5) /hpf Urine WBC (0-5) /hpf Urine WBC Clumps (None) /hpf Urine Bacteria (None) /hpf Urine Mucus (None) /hpf Stool Occult Blood (Negative) U Benzodiazepines Scrn (NotDetected) 05/02/20 05/02/20 05/02/20 Range/Units 18:39 18:39 18:39 WBC (3.8-10.6) k/uL RBC (3.80-5.40) m/uL Hct (34.0-46.0) % MCV (80.0-100.0) fL Plt Count (150-450) k/uL Lymphocytes # (Manual) (1.0-4.8) k/uL Metamyelocytes # (Man) (0) k/uL Myelocytes # (Manual) (0) k/uL INR (<1.2) Sodium 130 L (137-145) mmol/L Potassium 6.6 H* (3.5-5.1) mmol/L Chloride 97 L (98-107) mmol/L Carbon Dioxide 6 L* (22-30) mmol/L BUN 82 H (7-17) mg/dL Creatinine 9.55 H* (0.52-1.04) mg/dL Glucose 108 H (74-99) mg/dL POC Glucose (mg/dL) (75-99) mg/dL Plasma Lactic Acid Froilan 4.5 H* (0.7-2.0) mmol/L Calcium 5.6 L* (8.4-10.2) mg/dL Ionized Calcium Angy (4.5-5.3) mg/dL AST 1918 H (14-36) U/L ALT 1395 H (4-34) U/L Creatine Kinase 99894 H* (30-135) U/L Total Protein (6.3-8.2) g/dL Albumin (3.5-5.0) g/dL Urine Appearance (Clear) Urine Protein (Negative) Urine Glucose (UA) (Negative) Urine Blood (Negative) Urine RBC (0-5) /hpf Urine WBC (0-5) /hpf Urine WBC Clumps (None) /hpf Urine Bacteria (None) /hpf Urine Mucus (None) /hpf Stool Occult Blood Positive H (Negative) U Benzodiazepines Scrn (NotDetected) 05/02/20 05/02/20 05/02/20 Range/Units 19:57 23:23 23:23 WBC 3.7 L (3.8-10.6) k/uL RBC (3.80-5.40) m/uL Hct (34.0-46.0) % MCV (80.0-100.0) fL Plt Count 111 L (150-450) k/uL Lymphocytes # (Manual) 0.78 L (1.0-4.8) k/uL Metamyelocytes # (Man) (0) k/uL Myelocytes # (Manual) (0) k/uL INR (<1.2) Sodium 130 L (137-145) mmol/L Potassium (3.5-5.1) mmol/L Chloride (98-107) mmol/L Carbon Dioxide 10 L (22-30) mmol/L BUN 81 H (7-17) mg/dL Creatinine 7.89 H* (0.52-1.04) mg/dL Glucose 64 L (74-99) mg/dL POC Glucose (mg/dL) (75-99) mg/dL Plasma Lactic Acid Froilan (0.7-2.0) mmol/L Calcium 5.6 L* (8.4-10.2) mg/dL Ionized Calcium Angy (4.5-5.3) mg/dL AST 1989 H (14-36) U/L ALT 1397 H (4-34) U/L Creatine Kinase (30-135) U/L Total Protein 4.8 L (6.3-8.2) g/dL Albumin 2.5 L (3.5-5.0) g/dL Urine Appearance Cloudy H (Clear) Urine Protein 1+ H (Negative) Urine Glucose (UA) 1+ H (Negative) Urine Blood Small H (Negative) Urine RBC 18 H (0-5) /hpf Urine WBC 178 H (0-5) /hpf Urine WBC Clumps Many H (None) /hpf Urine Bacteria Rare H (None) /hpf Urine Mucus Rare H (None) /hpf Stool Occult Blood (Negative) U Benzodiazepines Scrn Detected H (NotDetected) 05/03/20 05/03/20 05/03/20 Range/Units 01:23 04:00 04:00 WBC 3.6 L (3.8-10.6) k/uL RBC (3.80-5.40) m/uL Hct (34.0-46.0) % MCV (80.0-100.0) fL Plt Count 101 L (150-450) k/uL Lymphocytes # (Manual) 0.47 L (1.0-4.8) k/uL Metamyelocytes # (Man) (0) k/uL Myelocytes # (Manual) (0) k/uL INR (<1.2) Sodium 131 L (137-145) mmol/L Potassium (3.5-5.1) mmol/L Chloride (98-107) mmol/L Carbon Dioxide 13 L (22-30) mmol/L BUN 77 H (7-17) mg/dL Creatinine 6.90 H (0.52-1.04) mg/dL Glucose 126 H (74-99) mg/dL POC Glucose (mg/dL) 109 H (75-99) mg/dL Plasma Lactic Acid Froilan (0.7-2.0) mmol/L Calcium 5.3 L* (8.4-10.2) mg/dL Ionized Calcium Angy (4.5-5.3) mg/dL AST 3164 H (14-36) U/L ALT 2151 H (4-34) U/L Creatine Kinase 7710 H* (30-135) U/L Total Protein 4.6 L (6.3-8.2) g/dL Albumin 2.4 L (3.5-5.0) g/dL Urine Appearance (Clear) Urine Protein (Negative) Urine Glucose (UA) (Negative) Urine Blood (Negative) Urine RBC (0-5) /hpf Urine WBC (0-5) /hpf Urine WBC Clumps (None) /hpf Urine Bacteria (None) /hpf Urine Mucus (None) /hpf Stool Occult Blood (Negative) U Benzodiazepines Scrn (NotDetected) 05/03/20 05/03/20 05/03/20 Range/Units 06:14 09:07 09:07 WBC (3.8-10.6) k/uL RBC 3.60 L (3.80-5.40) m/uL Hct (34.0-46.0) % MCV (80.0-100.0) fL Plt Count 103 L (150-450) k/uL Lymphocytes # (Manual) 0.42 L (1.0-4.8) k/uL Metamyelocytes # (Man) 0.04 H (0) k/uL Myelocytes # (Manual) 0.08 H (0) k/uL INR (<1.2) Sodium 133 L (137-145) mmol/L Potassium (3.5-5.1) mmol/L Chloride (98-107) mmol/L Carbon Dioxide 17 L (22-30) mmol/L BUN 76 H (7-17) mg/dL Creatinine 6.29 H (0.52-1.04) mg/dL Glucose 143 H (74-99) mg/dL POC Glucose (mg/dL) (75-99) mg/dL Plasma Lactic Acid Froilan (0.7-2.0) mmol/L Calcium 5.0 L* (8.4-10.2) mg/dL Ionized Calcium Angy 3.1 L* (4.5-5.3) mg/dL AST 2870 H (14-36) U/L ALT 2221 H (4-34) U/L Creatine Kinase (30-135) U/L Total Protein 4.5 L (6.3-8.2) g/dL Albumin 2.4 L (3.5-5.0) g/dL Urine Appearance (Clear) Urine Protein (Negative) Urine Glucose (UA) (Negative) Urine Blood (Negative) Urine RBC (0-5) /hpf Urine WBC (0-5) /hpf Urine WBC Clumps (None) /hpf Urine Bacteria (None) /hpf Urine Mucus (None) /hpf Stool Occult Blood (Negative) U Benzodiazepines Scrn (NotDetected) CT scan - abdomen: report reviewed (Computed tomography scan of the abdomen did show fluid-filled small bowel suggestive of possible ileus versus inflammatory process with no focal liver lesions. Ultrasound of the abdomen showed a normal- appearing liver with a normal CBD.) Assessment and Plan (1) Elevated liver enzymes Narrative/Plan: 49-year-old female with a medical history significant for hypertension, prior episode of pancreatitis, and alcohol abuse who was brought to the hospital for evaluation of a constellation of symptoms including being found down on the floor of her residence by her , weakness, dark stool and fatigue. Patient found to have rhabdomyolysis on presentation with a creatinine kinase of 7710 with elevated creatinine at 6.29 and markedly elevated liver enzymes predominantly in a hepatocellular pattern with normal total bilirubin of 0.5, alkaline phosphatase 81, AST 2870 and ALT 2228. Elevation in liver enzymes is not consistent with alcoholic hepatitis and likely is secondary to underlying rhabdomyolysis. In addition computed tomography scan of the abdomen and ultrasound did not show any focal liver lesions or nodularity to suggest underlying cirrhosis, however given the chronicity of alcohol use cannot rule out some component of fibrosis/cirrhosis. Full liver serology will be ordered to rule out other underlying liver disease. Current Visit: No Status: Acute Code(s): R74.8 - ABNORMAL LEVELS OF OTHER SERUM ENZYMES SNOMED Code(s): 869041293 (2) Rhabdomyolysis Current Visit: Yes Status: Acute Code(s): M62.82 - RHABDOMYOLYSIS SNOMED Code(s): 029827898 (3) Melena Narrative/Plan: Patient had been having loose dark colored stool with positive testing for occult blood on presentation. This is in the setting of NSAID use. Cannot rule out peptic ulcer disease, esophagitis, gastritis, AVM or other upper GI source o f bleeding. Hemoglobin has remained stable at 11.1 today. Current Visit: Yes Status: Acute Code(s): K92.1 - MELENA SNOMED Code(s): 8970899 (4) Positive occult stool blood test Current Visit: Yes Status: Acute Code(s): R19.5 - OTHER FECAL ABNORMALITIES SNOMED Code(s): 33871819 Plan: Supportive care Okay for clear liquid diet Continue IV fluid resuscitation Continue to monitor CBC, BMP, LFTs, INR and clinically Alcohol abstinence Full liver serologies ordered and pending Continue Protonix therapy Continue ICU care Patient can be evaluated with upper endoscopy when medically stable Avoid NSAID use Thank you for allowing us to participate in the care of the patient
[2020-05-04 05:04] LABS: INR 1.2 (<1.2)
[2020-05-04 05:05] LABS: HCT 33.6 % (34.0-46.0); HGB 11.1 gm/dL (11.4-16.0); MCHC 33.1 g/dL (31.0-37.0); MCV 93.6 fL (80.0-100.0); Mean Platelet Volume 8.6; RBC 3.59 m/uL (3.80-5.40); RDW 14.2 % (11.5-15.5); WBC 4.4 k/uL (3.8-10.6)
[2020-05-04 05:11] LABS: Albumin 2.5 g/dL (3.5-5.0); Potassium 2.9 mmol/L (3.5-5.1); Total Bilirubin 0.9 mg/dL (0.2-1.3); Total Protein 4.9 g/dL (6.3-8.2)
[2020-05-04 05:29] LABS: Lactic Acid, Venous 1.1 mmol/L (0.7-2.0)
[2020-05-04 05:31] LABS: Band Neutrophils % 7 %; Eosinophils # (M) 0.09 k/uL (0-0.7); Lymphocytes # (M) 0.62 k/uL (1.0-4.8); Neutrophils % (M) 68 %; Nucleated Red Blood Cells 0 /100 WBC (0-0); Platelet Count 87 k/uL (150-450); Total Cells Counted 200
[2020-05-04 05:45] LABS: Calcium 6.1 mg/dL (8.4-10.2)
[2020-05-04] MEDS: DEXTROSE 5% IN WATER 1,000 ML with SODIUM BICARB (1 MEQ/ML) 150 ML IV SCH ×2 (06:52→08:42)
[2020-05-04] MEDS ORDERED: Potassium Replacement Protocol 1 EACH MISC MISCELLANE PRN (08:22)
[2020-05-04] MEDS: POTASSIUM CHLORIDE ER 20 MEQ TAB.ER PO SCH ×3 (08:52→15:26)
[2020-05-04] MEDS: THIAMINE 100 MG TAB PO SCH ×2 (08:52→18:57)
[2020-05-04] MEDS: POTASSIUM CHLORIDE 20 MEQ in WATER FOR INJECTION 1 100ML.BAG IVPB SCH ×3 (08:53→15:26)
[2020-05-04] MEDS: PANTOPRAZOLE 40 MG/10 ML VIAL IV SCH ×2 (08:53→21:54)
[2020-05-04] MEDS: SODIUM CHLORIDE 0.9% 1,000 ML IV SCH (09:05)
[2020-05-04] MEDS ORDERED: FUROSEMIDE 10 MG/ML 2 ML VIAL IV ONE (10:12)
--- NOTE | 2020-05-04 11:02 | XR ---
EXAMINATION TYPE: XR chest 1V portable DATE OF EXAM: 05/04/2020 COMPARISON: Prior chest x-ray 05/03/2020 HISTORY: Shortness of breath TECHNIQUE: Single frontal view of the chest is obtained. FINDINGS: Right jugular central venous catheter is present with the distal tip over the superior denice a cava level. Bilateral patchy airspace and interstitial disease has developed in the interval. Heart size is stable. There is no pneumothorax or pleural effusion. IMPRESSION: Correlate for bilateral pneumonia, edema, follow-up recommended.
--- NOTE | 2020-05-04 11:05 | XR ---
KUB HISTORY: Follow-up, abnormal plain film Frontal KUB and 2 images correlated to prior CT 05/02/2020 There are air-filled loops of small and large bowel present with some gastric distention. Surgical cl ips are present in the upper abdomen. Patchy interstitial and airspace disease present within the arnaldo gs. No evident pneumoperitoneum. IMPRESSION: Correlate for enteritis, ileus, follow-up as indicated if bowel obstruction is suspected clinically.
[2020-05-04 11:28] LABS: Magnesium 1.7 mg/dL (1.6-2.3)
[2020-05-04 11:44] LABS: % Iron Saturation 23.68 (12.00-45.00)
--- NOTE | 2020-05-04 12:02 | PN ---
PROGRESS NOTE The patient is seen for followup for acute kidney injury, severe metabolic acidosis and hyperkalemia. She has history of EtOH abuse. Patient was admitted with mental status changes, weakness and severe acute kidney injury. Serum creatinine has improved with creatinine down to 2.4, now from 9.5 mg/dL on initial admission. On examination today, patient is awake, comfortable, not in any acute distress. She is lethargic. She is complaining of pain in the upper part of the abdomen. Blood pressure was 119/74, heart rate 73 per minute. She is afebrile. Examination of the heart S1, S2. Examination of the lungs, bilateral breath sounds are heard. Decreased breath sounds at bases. Abdomen is soft. Minimal tenderness noted in the upper abdomen bilaterally. Examination of lower extremities shows no evidence of edema. [employer] exam shows patient is following commands. Moving all 4 extremities. Labs show sodium 134, potassium 2.9, chloride 98, CO2 is 32, BUN 62, creatinine 2.46, serum calcium was 6.1, AST 107 3, ALT 1511. CK level is down to 5163. ASSESSMENT: 1. Acute kidney injury, acute tubular necrosis, secondary to hypotension and volume depletion as well. Currently improved significantly. The patient has had good urine output. I will discontinue the bicarb drip and changed to normal saline. 2. Severe metabolic acidosis secondary to renal failure, lactic acidosis, currently resolved. The patient is status post bicarb drip. The patient also had diarrhea which contributed to the metabolic acidosis. 3. Hypovolemic hyponatremia, improved. 4. Shock liver, currently improving. 5. Rhabdomyolysis. Repeat CK level is down in the 5000 range. 6. History of EtOH abuse. 7. Previous history of pancreatitis secondary to alcohol. 8. Gastrointestinal bleed. Hemoglobin is stable. Stool for occult blood was positive. No active bleeding noted currently. 9. Hypokalemia associated with decreased oral intake bicarb drip and improving renal function, status post replacement. 10.Hyperkalemia on initial admission associated with acute kidney injury, metabolic acidosis, use of nonsteroidal anti-inflammatory agents, currently resolved. PLAN: Change IV fluids to normal saline. Replace potassium. Check a vitamin D level and encourage increased oral intake. Check magnesium if not done today. MMODL / IJN: [id number] /
[2020-05-04 12:26] LABS: EBV-EA (IgG) <0.2 AI; EBV-EBNA(IgG) >8.0 AI; EBV-VCA (IgM) <0.2 AI
--- NOTE | 2020-05-04 12:35 | P.PN ---
Subjective This is a pleasant 49 years old female with past medical history of hypertension and alcoholic pancreatitis. Patient presents with a three-day history of diarrhea with dark-colored stool, pt could not provide much history as she looks tires and fatigues , talks very slowly although she talks appropriately and sometimes she does not answer so information were obtained form the records, staff and some from the pt as no family at bed side. pt states she was very weak and She's been using ibuprofen for her pain , she has generalized body aches and abd pain ( pt refused me examine her abd) Blood pressure 93/53, heart rate 75, breathing rate 9-12, she is afebrile. Labs showing normal hemoglobin 11.8 and WBCs 3.8K, platelets 103 which is low. Low calcium with an ionized Ca 3.1, sodium 133, creatinine 7.8 on admission currently 6.2. Elevated liver enzymes with AST 2870 and ALT 2221, creatinine kinase is elevated at 7710. UA showing cloudy and concentrated sample was somewhat protein and glucose units. Occult blood in the stool is positive. Urine hydroxy train is positive for benzodiazepines. pelvis and femur x-ray were negative for fracture Chest x-ray: Mild lower lobe infiltrate Chest CTA: Some linear infiltrate and atelectasis in the left lower lobe posteriorly CT of the abdomen and pelvis: Possible ileus versus inflammatory bowel disease due to distended fluid-filled loops of small bowel On admission she is receives several injections of, some leukocytes and calcium gluconate, more than 2 L of normal saline, sodium bicarb, ceftriaxone, levophed Protonix 05/04/2020 Patient seen in the ICU, she is awake but drowsy, she is oriented to place and others. She complaining of from being first. Also she has some abdominal pain but less distressed compared to yesterday. No fever, vitals are stable. CBC is unremarkable and she has lymphopenia, INR is 1.2. Sodium 134, potassium low at 2.9 and his been replaced. Creatinine trended down significantly to 2.4. Lactic is still elevated at 6.1 and liver enzymes are almost cut in half with AST down to 1073 and ALT 1511. Creatinine kinase trending down to 5.63. Blood culture showing no growth so far Patient is off before. Abdominal x-ray showing enteritis, ileus and follow-up as indicated of bowel obstruction is suspected clinically. Will call surgical consults for her ileus Chest x-ray: Bilateral pneumonia and edema. Patient was started on normal saline by reconciliation clerk. She remains on Rocephin empirically, attention Protonix IV twice a day Surgical consult is on the case Review of Systems -CONSTITUTIONAL: No fever,+ malaise,+ fatigue. HEENT: No recent visual problems or hearing problems. Denied any sore throat. CARDIOVASCULAR: No orthopnea, PND, no palpitations, no syncope. PULMONARY: No shortness of breath, no cough, no hemoptysis. -GASTROINTESTINAL: + abdominal pain. Normoactive bowel sounds. NEUROLOGICAL: No headaches, no weakness, no numbness. HEMATOLOGICAL: Denies any bleeding or petechiae. GENITOURINARY: Denies any burning micturition, frequency, or urgency. MUSCULOSKELETAL/RHEUMATOLOGICAL: Denies any joint pain, swelling, or any muscle pain. ENDOCRINE: Denies any polyuria or polydipsia. Active Medications Generic Name Dose Route Start Last Admin Trade Name Freq PRN Reason Stop Dose Admin Ceftriaxone Sodium 1 gm/ 50 mls @ 100 mls/hr 05/03/20 10:00 05/04/20 08:52 Sodium Chloride IVPB 100 mls/hr Q24HR KELLY Administration Potassium Chloride 20 meq/ IV 100 mls @ 50 mls/hr 05/04/20 09:00 05/04/20 08:53 Solution IVPB 05/04/20 14:59 50 mls/hr Q2H KELLY Administration Sodium Chloride 1,000 mls @ 60 mls/hr 05/04/20 09:00 05/04/20 09:05 Saline 0.9% IV 60 mls/hr .[id number] KELLY Administration Lorazepam 1 mg 05/03/20 09:56 Ativan IV Q2HR PRN CIWA 8 or 9 Lorazepam 1 mg 05/03/20 09:56 Ativan IV Q1HR PRN CIWA 10 to 15 Lorazepam 2 mg 05/03/20 09:56 Ativan IV 05/05/20 09:57 Q10M PRN CIWA 16 or higher Miscellaneous Information 1 each 05/04/20 08:22 Potassium Per Protocol MISCELLANE DAILY PRN Per Protocol Protocol Naloxone HCl 0.2 mg 05/02/20 22:24 Narcan IV Q2M PRN Opioid Reversal Pantoprazole Sodium 40 mg 05/03/20 10:00 05/04/20 08:53 Protonix IV 40 mg BID KELLY Administration Potassium Chloride 20 meq 05/04/20 10:00 05/04/20 08:52 K-Dur 20 PO 05/04/20 14:01 20 meq Q2HR KELLY Administration Thiamine HCl 100 mg 05/03/20 17:30 05/04/20 08:52 Vitamin B-1 PO 100 mg BID-W/MEALS KELLY Administration Objective - Vital Signs Vital signs: Vital Signs Temp 98.3 F 05/04/20 04:00 Pulse 73 05/04/20 07:30 Resp 16 05/04/20 07:58 BP 114/62 05/04/20 07:30 Pulse Ox 96 05/04/20 07:58 Intake & Output 05/03/20 05/04/20 05/04/20 18:59 06:59 18:59 Intake Total 2818.676 1880.447 Output Total 1330 1530 100 Balance 1488.676 350.447 -100 Weight 71.1 kg Intake: IV 1320 1870 Dextrose 5% in Water 1, 600 1650 000 ml @ 150 mls/hr IV . Q7H40M KELLY with Sodium Bicarb (1 Meq/ml) 150 ml Rx#:[id number] ns 720 220 Intake, IV Titration 1498.676 10.447 Amount Calcium Gluconate 2 gm In 100 Sodium Chloride 0.9% 100 ml @ 100 mls/hr IVPB ONCE ONE Rx#:[id number] Dextrose 5% in Water 1, 1300 000 ml @ 150 mls/hr IV . Q7H40M KELLY with Sodium Bicarb (1 Meq/ml) 150 ml Rx#:[id number] Norepinephrine 32 mg In 48.676 10.447 Sodium Chloride 0.9% 218 ml @ 0.05 MCG/KG/MIN 1. 435 mls/hr IV .Q24H ONE Rx#:[id number] cefTRIAXone 1 gm In 50 Sodium Chloride 0.9% 50 ml @ 100 mls/hr IVPB Q24HR KELLY Rx#:[id number] Output: Urine 1330 1530 100 Other: Voiding Method Indwelling Catheter Indwelling Catheter # Bowel Movements 1 - Exam -GENERAL: The patient is alert and oriented x2-3, she is lethargic, drowsy and weak rather than confused, not in any acute distress. thin build. HEENT: Pupils are round and equally reacting to light. EOMI. No scleral icterus. No conjunctival pallor. Normocephalic, atraumatic. No pharyngeal erythema. No thyromegaly. CARDIOVASCULAR: S1 and S2 present. No murmurs, rubs, or gallops. PULMONARY: Chest is clear to auscultation, no wheezing or crackles. -ABDOMEN: Soft, generally tender, more in the upper abdomen, nondistended, normoactive bowel sounds. No palpable organomegaly. MUSCULOSKELETAL: No joint swelling or deformity. EXTREMITIES: No cyanosis, clubbing, or pedal edema. NEUROLOGICAL: Gross neurological examination did not reveal any focal deficits. SKIN: No rashes. No petechiae - Labs CBC & Chem 7: 05/04/20 04:50 05/04/20 04:50 Labs: Abnormal Lab Results - Last 24 Hours (Table) 05/03/20 05/03/20 05/04/20 Range/Units 09:07 09:07 04:50 RBC 3.60 L 3.59 L (3.80-5.40) m/uL Hgb 11.1 L (11.4-16.0) gm/dL Hct 33.6 L (34.0-46.0) % Plt Count 103 L 87 L (150-450) k/uL Lymphocytes # (Manual) 0.42 L 0.62 L (1.0-4.8) k/uL Metamyelocytes # (Man) 0.04 H (0) k/uL Myelocytes # (Manual) 0.08 H (0) k/uL INR (<1.2) Sodium 133 L (137-145) mmol/L Potassium (3.5-5.1) mmol/L Carbon Dioxide 17 L (22-30) mmol/L BUN 76 H (7-17) mg/dL Creatinine 6.29 H (0.52-1.04) mg/dL Glucose 143 H (74-99) mg/dL Calcium 5.0 L* (8.4-10.2) mg/dL AST 2870 H (14-36) U/L ALT 2221 H (4-34) U/L Creatine Kinase (30-135) U/L Total Protein 4.5 L (6.3-8.2) g/dL Albumin 2.4 L (3.5-5.0) g/dL 05/04/20 05/04/20 Range/Units 04:50 04:50 RBC (3.80-5.40) m/uL Hgb (11.4-16.0) gm/dL Hct (34.0-46.0) % Plt Count (150-450) k/uL Lymphocytes # (Manual) (1.0-4.8) k/uL Metamyelocytes # (Man) (0) k/uL Myelocytes # (Manual) (0) k/uL INR 1.2 H (<1.2) Sodium 134 L (137-145) mmol/L Potassium 2.9 L (3.5-5.1) mmol/L Carbon Dioxide 32 H (22-30) mmol/L BUN 62 H (7-17) mg/dL Creatinine 2.46 H (0.52-1.04) mg/dL Glucose (74-99) mg/dL Calcium 6.1 L* (8.4-10.2) mg/dL AST 1073 H (14-36) U/L ALT 1511 H (4-34) U/L Creatine Kinase 5163 H* (30-135) U/L Total Protein 4.9 L (6.3-8.2) g/dL Albumin 2.5 L (3.5-5.0) g/dL Microbiology - Last 24 Hours (Table) 05/02/20 21:44 Blood Culture - Preliminary Blood No Growth after 24 hours Assessment and Plan Assessment: Acute kidney injury Possible ileus versus inflamed small bowel Hypocalcemia Rhabdomyolysis Hepatitis/transaminitis alcohol abuse thrombocytopenia Hypertension Focal abuse Plan: this is a pleasant 49 years old female who presents with acute kidney injury and rhabdomyolysis with possible inflamed bowel versus ileus. Continue with CIWA protocol, continue with antibiotic ceftriaxone, continue with thiamine. S pulmonary/critical care team , nephrology and GI teams are on consults Change bicarb drip to normal saline, continue with Protonix and Rocephin. Consult general surgery for her bowel problem Labs and medication were reviewed.. Continue same treatment. Continue with symptomatic treatment. Resume home medication. Monitor lytes and vitals. DVT and GI prophylaxis. Further recommendations of the clinical course of the patient DVT prophylaxis: Subcutaneous heparin GI Prophylaxis: Pepcid PT/OT: Pending Prognosis is guarded
[2020-05-04 12:46] LABS: HIV 2 AB Non-Reactive (Non-Reactive); HIV AB P24 Non-Reactive (Non-Reactive); HIV P24 AG Non-Reactive (Non-Reactive)
--- NOTE | 2020-05-04 13:21 | P.PN ---
Subjective Progress Note Date: 05/04/20 Principal diagnosis: Acute rhabdomyolysis, and acute kidney injury. This is a 49-year-old female with history of alcoholism and alcohol abuse, history of previous gastric bypass surgery. Patient was brought in by her yesterday to the ER complaining of 3 days history of diarrhea, dark stools for the last 3 days, and the patient has been progressively weak. found the patient on the floor, unable to ambulate, unknown whether the patient has fallen. states that the patient has been taking ibuprofen at home for generalized aches and pains and weakness. No history of peptic ulcer disease, no previous history of GI bleeding. Patient was brought into the ER, and she was found to have significant abnormalities including low sodium of 130. Significantly elevated BUN of 81 with creatinine of 7.89 anion gap metabolic acidosis of 27, normal lactic acid, calcium of 5.6, elevated liver enzymes with AST of 1989 ALT of 1397 and significantly elevated CPK of 12,500. Patient was also found to have abnormal urinalysis consistent with urinary tract infection although the patient had no symptoms. She had positive stool occult blood. Drug screen was mostly positive for benzodiazepines, and her acetaminophen level was 19.5, in that the therapeutic range, and alcohol was less than 10. Her potassium was as high as 6.6 initially. Patient received so dium bicarb, calcium chloride, insulin and dextrose 50, and she was placed on IV fluids, and sodium bicarb drip 150 mEq at 200 mL per hour. Patient was admitted to the ICU, however no beds were available, and I had to see the patient down in the ER this morning. Looking at the workup, patient seems to be improving, her BUN is down to 76 creatinine is down to 6.29, bicarb is up to 17, anion gap is down to 14. CPK is down to 7500, liver enzymes remain elevated. Patient was examined, and she seemed to be slow, could not give a good history. She knows that she has history of alcoholism, and her only complaint was mostly generalized weakness before she presented to the ER. And according to her her symptoms have been going on for the last [address] abdomen and pelvis showed distended fluid-filled loops of small bowel suggestive of ileus and inflammatory bowel disease, no clear-cut evidence of mechanical bowel obstruction. After evaluating the patient in the ER, I cut down on her sodium bicarb drip, kept her on IV fluids, and I recommended that we continue Rocephin empirically. Until the urine culture is available. I have also recommended placement on alcohol withdrawal protocol. Reevaluated today in the ICU, patient is arousable, and bit drowsy, oriented to place and person, denies any specific complaints except she feels generally weak. Her labs are showing significant improvement, improved liver enzymes, improved. Renal profile, improved CPK, and improved acidosis, hence I recommended stopping the bicarb drip. Chest x-ray however showed evidence of interstitial edema, and I recommended diuretics/Lasix. Patient received significant amount of fluids over the last 24 hours. Remains on Rocephin for presumptive urinary tract infection, and she remains on Protonix, GI consultation is pending regarding her positive Hemoccult stools. Objective - Vital Signs Vital signs: Vital Signs Temp 98.3 F 05/04/20 04:00 Pulse 72 05/04/20 12:00 Resp 13 05/04/20 12:00 BP 119/72 05/04/20 12:00 Pulse Ox 97 05/04/20 12:00 Intake & Output 05/03/20 05/04/20 05/04/20 18:59 06:59 18:59 Intake Total 2818.676 1880.447 580 Output Total 1330 1530 1800 Balance 1488.676 350.447 -1220 Weight 71.1 kg Intake: IV 1320 1870 330 0.9 720 220 180 Dextrose 5% in Water 1, 600 1650 150 000 ml @ 150 mls/hr IV . Q7H40M KELLY with Sodium Bicarb (1 Meq/ml) 150 ml Rx#:[id number] Intake, IV Titration 1498.676 10.447 150 Amount Calcium Gluconate 2 gm In 100 Sodium Chloride 0.9% 100 ml @ 100 mls/hr IVPB ONCE ONE Rx#:[id number] Dextrose 5% in Water 1, 1300 000 ml @ 150 mls/hr IV . Q7H40M KELLY with Sodium Bicarb (1 Meq/ml) 150 ml Rx#:[id number] Norepinephrine 32 mg In 48.676 10.447 Sodium Chloride 0.9% 218 ml @ 0.05 MCG/KG/MIN 1. 435 mls/hr IV .Q24H ONE Rx#:[id number] Potassium Chloride 20 meq 100 In Water For Injection 1 100ml.bag @ 50 mls/hr IVPB Q2H KELLY Rx#: [id number] cefTRIAXone 1 gm In 50 50 Sodium Chloride 0.9% 50 ml @ 100 mls/hr IVPB Q24HR [facility] Rx#:[id number] Oral 100 Output: Urine 1330 1530 1800 Other: Voiding Method Indwelling Catheter Indwelling Catheter Indwelling Catheter # Bowel Movements 1 - Exam Physical Exam: Revealed a 49-year-old female in no distress, presently on 2 L nasal cannula. Head: Atraumatic, normocephalic. HEENT: PERRLA, EOMI, no icterus. [Neck is supple.] [No neck masses.] [No thyromegaly.] [No JVD.] Chest: [Diminished breath sounds at the bases, minimal crackles. Cardiac Exam: [Normal S1 and S2, no S3 gallop, no murmur.] Abdomen: [Soft, slight tenderness in the left lower quadrant and left upper quadrant area., no megaly, no rebound, no guarding, normal bowel sounds.] Extremities: [No clubbing, no edema, no cyanosis.] Neurological Exam: Patient is noted to be generally weak, more arousable today, follow simple instructions, but feels generally weak. Oriented 2. Psychiatric: Depressed mood, blunt affect, and mental status seems to be a bit compromised and slow. - Labs CBC & Chem 7: 05/04/20 04:50 05/04/20 04:50 Labs: Abnormal Lab Results - Last 24 Hours (Table) 05/04/20 05/04/20 05/04/20 Range/Units 04:50 04:50 04:50 RBC 3.59 L (3.80-5.40) m/uL Hgb 11.1 L (11.4-16.0) gm/dL Hct 33.6 L (34.0-46.0) % Plt Count 87 L (150-450) k/uL Lymphocytes # (Manual) 0.62 L (1.0-4.8) k/uL INR 1.2 H (<1.2) Sodium (137-145) mmol/L Potassium (3.5-5.1) mmol/L Carbon Dioxide (22-30) mmol/L BUN (7-17) mg/dL Creatinine (0.52-1.04) mg/dL Calcium (8.4-10.2) mg/dL AST (14-36) U/L ALT (4-34) U/L Creatine Kinase (30-135) U/L Total Protein (6.3-8.2) g/dL Albumin (3.5-5.0) g/dL EBV Capsid Ag IgG Intrp POSITIVE H (NEGATIVE) EBV Nuc Ag IgG Interp POSITIVE H (NEGATIVE) 05/04/20 Range/Units 04:50 RBC (3.80-5.40) m/uL Hgb (11.4-16.0) gm/dL Hct (34.0-46.0) % Plt Count (150-450) k/uL Lymphocytes # (Manual) (1.0-4.8) k/uL INR (<1.2) Sodium 134 L (137-145) mmol/L Potassium 2.9 L (3.5-5.1) mmol/L Carbon Dioxide 32 H (22-30) mmol/L BUN 62 H (7-17) mg/dL Creatinine 2.46 H (0.52-1.04) mg/dL Calcium 6.1 L* (8.4-10.2) mg/dL AST 1073 H (14-36) U/L ALT 1511 H (4-34) U/L Creatine Kinase 5163 H* (30-135) U/L Total Protein 4.9 L (6.3-8.2) g/dL Albumin 2.5 L (3.5-5.0) g/dL EBV Capsid Ag IgG Intrp (NEGATIVE) EBV Nuc Ag IgG Interp (NEGATIVE) Microbiology - Last 24 Hours (Table) 05/02/20 21:44 Blood Culture - Preliminary Blood No Growth after 24 hours Assessment and Plan Assessment: Impression: Acute kidney injury, most likely secondary to acute rhabdomyolysis and hypovolemia. And secondary to nonsteroidal anti-inflammatory drugs Acute rhabdomyolysis, possible fall,found patient on the floor. Acute alcoholic hepatitis Acute anion gap metabolic acidosis secondary to acute kidney injury, possible sepsis. Acute urinary tract infection, continue Rocephin. Acute GI bleeding most likely related to alcohol and related to nonsteroidal anti-inflammatory drugs. Acute hyperkalemia secondary to acute kidney injury History of alcoholism. History of depression and previous suicidal attempt, history of major depressive disorder History of hypertension Chronic nicotine dependence Possible ileus as noted on the CT of the abdomen and pelvis. And that is being addressed by hospitalist. And gastroenterology on the case. Suspect pulmonary edema from fluid overload, doubt any cardiac pathology. Patient received significant amount of fluids within a relatively short period of time because she presented mostly with profound hypovolemia and acute rhabdomyolysis. The relatively acute change on the chest x-ray noted is more consistent with fluid overload not pneumonia. Unless the patient aspirated. And that is not noted in the history. Recommendation: Cut down her IV fluid to KVO Discontinue bicarb. Gentle diuresis. Continue antibiotics/Rocephin. For presumptive urinary tract infection, cultures are pending. Alcohol withdrawal protocol. Transfer patient out of the ICU to a regular medical floor Close monitoring of electrolytes and labs on a daily basis. GI and DVT prophylaxis. Monitor renal status on a daily basis, nephrology to see on consultation. Suicidal precautions since the patient had history of previous suicidal attempts . Consider psychiatric consultation. If transferred out of the ICU, consider a sitter with the patient. Time with Patient: Less than 30
--- NOTE | 2020-05-04 13:56 | P.CN ---
Psychiatric Consult - . Consult date: 05/04/20 Consult:: 05/04/20 13:47 IDENTIFYING DATA: This patient is a 49-year-old female currently lives with her is unemployed has 3 daughters. HISTORY OF PRESENT ILLNESS: The patient presented to the hospital with a complaint of diarrhea for 3 days and dark stool and also increase in weakness and was brought in by her . Patient was apparently using ibuprofen for pain at home and was found by the apparently after work and patient was laying on the floor. Patient was found to have elevated potassium creatinine/BUN elevated AST/ALT and creatinine kinase levels. Patient was also hypotensive and required intravenous fluids and central line was placed and patient was admitted to the ICU. Patient was recently discharged from the mental unit 10 days ago. Patient has a history of alcohol abuse and depression. Her UDS was positive for benzodiazepines. It was suspected that patient possibly had overdosed on the floor at her home prior to coming in the hospital. Patient was seen at the bedside with a sitter and appeared to be tearful, withdrawn, concrete evasive and guarded during conversation and answered most questions with "I don't know". She claims that she does not know what occurred prior to coming into the hospital. She spoke about an incident in early April where her [id number] and states that her would not let her go to the . She states that "my doesn't understand me". She was tearful when describing her relationship with her . She states every day been having difficulties in the relationship. She states that he called her "selfish" and also states that "Socrates doesn't get me". She was fairly vague and guarded. She also admitted to sticking a pipe in her car exhaust and attempting suicide last Friday. She states that she has been noncompliant with her medications and was guarded about her alcohol use. At this time patient denies any suicidal or homical ideations, intent or plan. Patient denies any auditory, visual hallucinations and denies any paranoia or delusions. Patients admits to using alcohol regularly however does not indicate how much and when she last drank. She states that she uses cigarettes. PAST PSYCHIATRIC HISTORY: Patient has a a history of anxiety and depression.. Patient was previously on Zoloft trazodone and Vistaril patient has been admitted several times to the psychiatric unit. Then claims that she is two overdose and suicide attempts in the past. PAST MEDICAL HISTORY: History of hypertension, pancreatitis history and gastric bypass. ALLERGIES: as per EMR. CHEMICAL DEPENDENCY HISTORY: as per HPI. FAMILY PSYCHIATRIC/SUBSTANCE USE HISTORY: denies SOCIAL HISTORY: Patient was born and raised [place] patient is 49 years old she is for the first time and claims that her marriage is poor, she states that she has 3 daughters live in [place] and does not contact with them. She claims to have finished high school and completed her associate's in nursing but has not been employed. She has no history of experience and no legal history. MENTAL STATUS EXAM: General Appearance: Patient appears to be stated age is alert, guarded/evasive and uncooperative. Patient appears to have poor hygiene and grooming wearing hospital gown with poor eye contact. Behavior: Patient is calmly lying in bed without any agitated behavior. Tearful and withdrawn. Speech: Patient's speech is fluent and nonpressured. Mood/Affect: Patient reports their mood is "depressed", affect is congruent and tearful. Suicidality/Homicidality: Patient denies having any suicidal or homicidal ideation intent or plan. Perceptions: Patient denies any visual hallucinations and denies any auditory hallucinations Though content/process: [place]. Vague. Guarded/evasive. Perseverates on depression and her relationship with her . Memory and concentration: AOX3, grossly intact for the purposes of this session. Can spell "WORLD" backwards Judgment and insight: poor/impulsive. IMPRESSIONS: Depressive disorder, recurrent, severe without psychotic symptoms Anxiety disorder unspecified Alcohol use disorder, severe currently withdrawal PLAN: -At this time patient DOES meet criteria for inpatient psychiatric admission. -Would recommend the following medication changes/additions: At this time we will hold off on antidepressant medications until patient is medically cleared and transferred to the psychiatric unit. -Continue 1:1 sitter for safety -Continue with CIWA with Ativan when necessary for alcohol withdrawal. -Cannot leave AMA at this time. Patient will need a petition and certification if attempting to leave AMA. -Patient apparently has a full court hearing on 05/10/2020. -When medically stable and patient's LFTs and kidney function along with creatinine kinase has improved and patient has stable vital signs, patient will be eligible for transfer to a psych bed when available. We'll anticipate the patient be held on the medical floors for at least 24 hours from now before being transferred to the mental health unit. -Psychiatry will sign off at this point, please contact with any questions.
[2020-05-04 17:53] LABS: Albumin 2.4 g/dL (3.5-5.0); Calcium 7.2 mg/dL (8.4-10.2); Potassium 3.8 mmol/L (3.5-5.1); Total Bilirubin 0.9 mg/dL (0.2-1.3); Total Protein 4.8 g/dL (6.3-8.2)
--- NOTE | 2020-05-04 22:30 | P.PN ---
Subjective Progress Note Date: 05/04/20 Principal diagnosis: Elevated liver enzymes, melena, stool positive for occult blood Patient is seen lying in bed with one-to-one sitter bedside. No acute events ordered. Patient has been evaluated by the psychiatry service with plan for inpatient psychiatric evaluation when medically stable. Objective - Vital Signs Vital signs: Vital Signs Temp 98.3 F 05/04/20 04:00 Pulse 72 05/04/20 12:00 Resp 13 05/04/20 12:00 BP 119/72 05/04/20 12:00 Pulse Ox 97 05/04/20 12:00 Intake & Output 05/03/20 05/04/20 05/04/20 18:59 06:59 18:59 Intake Total 2818.676 1880.447 580 Output Total 1330 1530 600 Balance 1488.676 350.447 -20 Weight 71.1 kg Intake: IV 1320 1870 330 0.9 720 220 180 Dextrose 5% in Water 1, 600 1650 150 000 ml @ 150 mls/hr IV . Q7H40M KELLY with Sodium Bicarb (1 Meq/ml) 150 ml Rx#:[id number] Intake, IV Titration 1498.676 10.447 150 Amount Calcium Gluconate 2 gm In 100 Sodium Chloride 0.9% 100 ml @ 100 mls/hr IVPB ONCE ONE Rx#:[id number] Dextrose 5% in Water 1, 1300 000 ml @ 150 mls/hr IV . Q7H40M KELLY with Sodium Bicarb (1 Meq/ml) 150 ml Rx#:[id number] Norepinephrine 32 mg In 48.676 10.447 Sodium Chloride 0.9% 218 ml @ 0.05 MCG/KG/MIN 1. 435 mls/hr IV .Q24H ONE Rx#:[id number] Potassium Chloride 20 meq 100 In Water For Injection 1 100ml.bag @ 50 mls/hr IVPB Q2H KELLY Rx#: [id number] cefTRIAXone 1 gm In 50 50 Sodium Chloride 0.9% 50 ml @ 100 mls/hr IVPB Q24HR KELLY Rx#:[id number] Oral 100 Output: Urine 1330 1530 600 Other: Voiding Method Indwelling Catheter Indwelling Catheter Indwelling Catheter # Bowel Movements 1 - Exam On physical examination, patient appears comfortable in no apparent distress. HEAD: Normocephalic, atraumatic. EYES: No scleral icterus. No conjunctival injection. MOUTH: No lesions, tongue midline. NECK: Trachea midline, no gross abnormalities. CHEST: Clear to auscultation with no wheezing or rhonchi appreciated. HEART: Regular rate and rhythm. ABDOMEN: Soft, mildly tender to palpation. Bowel sounds are positive. No organomegaly. No guarding or rigidity. EXTREMITIES: No pedal edema. SKIN: No rashes, no jaundice. NEUROLOGIC: Alert and oriented x3. No focal deficits. - Labs CBC & Chem 7: 05/04/20 04:50 05/04/20 17:30 Labs: Abnormal Lab Results - Last 24 Hours (Table) 05/04/20 05/04/20 05/04/20 Range/Units 04:50 04:50 04:50 RBC 3.59 L (3.80-5.40) m/uL Hgb 11.1 L (11.4-16.0) gm/dL Hct 33.6 L (34.0-46.0) % Plt Count 87 L (150-450) k/uL Lymphocytes # (Manual) 0.62 L (1.0-4.8) k/uL INR 1.2 H (<1.2) Sodium (137-145) mmol/L Potassium (3.5-5.1) mmol/L Carbon Dioxide (22-30) mmol/L BUN (7-17) mg/dL Creatinine (0.52-1.04) mg/dL Calcium (8.4-10.2) mg/dL AST (14-36) U/L ALT (4-34) U/L Creatine Kinase (30-135) U/L Total Protein (6.3-8.2) g/dL Albumin (3.5-5.0) g/dL EBV Capsid Ag IgG Intrp POSITIVE H (NEGATIVE) EBV Nuc Ag IgG Interp POSITIVE H (NEGATIVE) 05/04/20 Range/Units 04:50 RBC (3.80-5.40) m/uL Hgb (11.4-16.0) gm/dL Hct (34.0-46.0) % Plt Count (150-450) k/uL Lymphocytes # (Manual) (1.0-4.8) k/uL INR (<1.2) Sodium 134 L (137-145) mmol/L Potassium 2.9 L (3.5-5.1) mmol/L Carbon Dioxide 32 H (22-30) mmol/L BUN 62 H (7-17) mg/dL Creatinine 2.46 H (0.52-1.04) mg/dL Calcium 6.1 L* (8.4-10.2) mg/dL AST 1073 H (14-36) U/L ALT 1511 H (4-34) U/L Creatine Kinase 5163 H* (30-135) U/L Total Protein 4.9 L (6.3-8.2) g/dL Albumin 2.5 L (3.5-5.0) g/dL EBV Capsid Ag IgG Intrp (NEGATIVE) EBV Nuc Ag IgG Interp (NEGATIVE) Microbiology - Last 24 Hours (Table) 05/02/20 21:44 Blood Culture - Preliminary Blood No Growth after 24 hours Assessment and Plan (1) Elevated liver enzymes Narrative/Plan: 49-year-old female with a medical history significant for hypertension, prior episode of pancreatitis, and alcohol abuse who was brought to the hospital for evaluation of a constellation of symptoms including being found down on the floor of her residence by her , weakness, dark stool and fatigue. Patient found to have rhabdomyolysis on presentation with a creatinine kinase of 7710 with elevated creatinine at 6.29 and markedly elevated liver enzymes predominantly in a hepatocellular pattern with normal total bilirubin of 0.5, alkaline phosphatase 81, AST 2870 and ALT 2228. Elevation in liver enzymes is not consistent with alcoholic hepatitis and likely is secondary to underlying rhabdomyolysis. In addition computed tomography scan of the abdomen and ultrasound did not show any focal liver lesions or nodularity to suggest underlying cirrhosis, however given the chronicity of alcohol use cannot rule out some component of fibrosis/cirrhosis. Full liver serology will be ordered to rule out other underlying liver disease with viral studies negative for acute infection. Liver enzymes trending down. Current Visit: No Status: Acute Code(s): R74.8 - ABNORMAL LEVELS OF OTHER SERUM ENZYMES SNOMED Code(s): 798851865 (2) Rhabdomyolysis Current Visit: Yes Status: Acute Code(s): M62.82 - RHABDOMYOLYSIS SNOMED Code(s): 578415628 (3) Melena Narrative/Plan: Patient had been having loose dark colored stool with positive testing for occult blood on presentation. This is in the setting of NSAID use. Cannot rule out peptic ulcer disease, esophagitis, gastritis, AVM or other upper GI source of bleeding. Hemoglobin has remained stable at 11.1 today. Current Visit: Yes Status: Acute Code(s): K92.1 - MELENA SNOMED Code(s): 7260671 (4) Positive occult stool blood test Current Visit: Yes Status: Acute Code(s): R19.5 - OTHER FECAL ABNORMALITIES SNOMED Code(s): 25416809 Plan: Supportive care Okay for diet as tolerated Continue IV fluid resuscitation Continue to monitor CBC, BMP, LFTs, INR and clinically Alcohol abstinence [facility] protocol Full liver serologies ordered and pending, viral studies negative Continue Protonix therapy Continue ICU care Need for endoscopy will be based on patient's symptoms and labs, currently the patient is not having any signs or symptoms of GI bleeding and has a stable hemoglobin at 11.1 Avoid NSAID use Thank you for allowing us to participate in the care of the patient
[2020-05-05] MEDS: SODIUM CHLORIDE 0.9% 1,000 ML IV SCH ×2 (04:14→21:47)
--- NOTE | 2020-05-05 07:52 | P.PN ---
Subjective This is a pleasant 49 years old female with past medical history of hypertension and alcoholic pancreatitis. Patient presents with a three-day history of diarrhea with dark-colored stool, pt could not provide much history as she looks tires and fatigues , talks very slowly although she talks appropriately and sometimes she does not answer so information were obtained form the records, staff and some from the pt as no family at bed side. pt states she was very weak and She's been using ibuprofen for her pain , she has generalized body aches and abd pain ( pt refused me examine her abd) Blood pressure 93/53, heart rate 75, breathing rate 9-12, she is afebrile. Labs showing normal hemoglobin 11.8 and WBCs 3.8K, platelets 103 which is low. Low calcium with an ionized Ca 3.1, sodium 133, creatinine 7.8 on admission currently 6.2. Elevated liver enzymes with AST 2870 and ALT 2221, creatinine kinase is elevated at 7710. UA showing cloudy and concentrated sample was somewhat protein and glucose units. Occult blood in the stool is positive. Urine hydroxy train is positive for benzodiazepines. pelvis and femur x-ray were negative for fracture Chest x-ray: Mild lower lobe infiltrate Chest CTA: Some linear infiltrate and atelectasis in the left lower lobe posteriorly CT of the abdomen and pelvis: Possible ileus versus inflammatory bowel disease due to distended fluid-filled loops of small bowel On admission she is receives several injections of, some leukocytes and calcium gluconate, more than 2 L of normal saline, sodium bicarb, ceftriaxone, levophed Protonix 05/04/2020 Patient seen in the ICU, she is awake but drowsy, she is oriented to place and others. She complaining of from being first. Also she has some abdominal pain but less distressed compared to yesterday. No fever, vitals are stable. CBC is unremarkable and she has lymphopenia, INR is 1.2. Sodium 134, potassium low at 2.9 and his been replaced. Creatinine trended down significantly to 2.4. Lactic is still elevated at 6.1 and liver enzymes are almost cut in half with AST down to 1073 and ALT 1511. Creatinine kinase trending down to 5.63. Blood culture showing no growth so far Patient is off before. Abdominal x-ray showing enteritis, ileus and follow-up as indicated of bowel obstruction is suspected clinically. Will call surgical consults for her ileus Chest x-ray: Bilateral pneumonia and edema. Patient was started on normal saline by heel seat laster. She remains on Rocephin empirically, attention Protonix IV twice a day Surgical consult is on the case 05/05/20 Patient is brought to the general medical floor. She is awake and alert. She still complaining of from some abdominal pain and tenderness felt generalized and more to the right and lower side. She still have low appetite, with no bowel movement. She has low grade temperature of 99.7. Personal vitals are stable. CBC is unremarkable. sodium is mildly low. Creatinine almost back to normal at 1.19, calcium is improved to 7.2, liver enzymes are cut in half to AST was 614 ALT 1151. Troponin is normal 0.9 Creatinine tenderness was improving gradually and her fluid switched to normal saline at 60 mL per hour. She remains on CIWA protocol, she does not need any Ativan as she's been drowsy most of the day. However she is awake and oriented 1. DrNaya She remains on Rocephin for possible UTI. No growth in blood culture so far Psychiatric evaluated the patient with severe depression, monitor her with one-to-one, patient cannot sign AMA and once she is medically clear she needs to go to the psych unit Review of Systems HEENT: No recent visual problems or hearing problems. Denied any sore throat. CARDIOVASCULAR: No orthopnea, PND, no palpitations, no syncope. PULMONARY: No shortness of breath, no cough, no hemoptysis. -GASTROINTESTINAL: + abdominal pain. Normoactive bowel sounds. NEUROLOGICAL: No headaches, no weakness, no numbness. HEMATOLOGICAL: Denies any bleeding or petechiae. GENITOURINARY: Denies any burning micturition, frequency, or urgency. MUSCULOSKELETAL/RHEUMATOLOGICAL: Denies any joint pain, swelling, or any muscle pain. ENDOCRINE: Denies any polyuria or polydipsia. Active Medications Generic Name Dose Route Start Last Admin Trade Name Freq PRN Reason Stop Dose Admin Ceftriaxone Sodium 1 gm/ 50 mls @ 100 mls/hr 05/03/20 10:00 05/04/20 08:52 Sodium Chloride IVPB 100 mls/hr Q24HR KELLY Administration Sodium Chloride 1,000 mls @ 60 mls/hr 05/04/20 09:00 05/05/20 04:14 Saline 0.9% IV 60 mls/hr .[id number] KELLY Administration Lorazepam 1 mg 05/03/20 09:56 Ativan IV Q2HR PRN CIWA 8 or 9 Lorazepam 1 mg 05/03/20 09:56 Ativan IV Q1HR PRN CIWA 10 to 15 Lorazepam 2 mg 05/03/20 09:56 Ativan IV 05/05/20 09:57 Q10M PRN CIWA 16 or higher Miscellaneous Information 1 each 05/04/20 08:22 Potassium Per Protocol MISCELLANE DAILY PRN Per Protocol Protocol Naloxone HCl 0.2 mg 05/02/20 22:24 Narcan IV Q2M PRN Opioid Reversal Pantoprazole Sodium 40 mg 05/03/20 10:00 05/04/20 21:54 Protonix IV 40 mg BID KELLY Administration Thiamine HCl 100 mg 05/03/20 17:30 05/04/20 18:57 Vitamin B-1 PO Not Given BID-W/MEALS KELLY Objective - Vital Signs Vital signs: Vital Signs Temp 99.7 F H 05/05/20 05:06 Pulse 100 05/05/20 05:06 Resp 18 05/05/20 05:06 BP 126/76 05/05/20 05:06 Pulse Ox 92 L 05/05/20 05:06 Intake & Output 05/04/20 05/05/20 05/05/20 18:59 06:59 18:59 Intake Total 940 600 Output Total 2049 1300 Balance -1110 -700 Intake: IV 330 60 0.9 180 60 Dextrose 5% in Water 1, 150 000 ml @ 150 mls/hr IV . Q7H40M KELLY with Sodium Bicarb (1 Meq/ml) 150 ml Rx#:[id number] Intake, IV Titration 210 Amount Potassium Chloride 20 meq 100 In Water For Injection 1 100ml.bag @ 50 mls/hr IVPB Q2H KELLY Rx#: [id number] Sodium Chloride 0.9% 1, 60 000 ml @ 60 mls/hr IV . [id number] [facility] Rx#:[id number] cefTRIAXone 1 gm In 50 Sodium Chloride 0.9% 50 ml @ 100 mls/hr IVPB Q24HR [facility] Rx#:[id number] Oral 400 540 Output: Urine 2049 1300 Uretheral ([place]) 1050 Other: Voiding Method Indwelling Catheter Indwelling Catheter # Voids 0 # Bowel Movements 0 - Exam -GENERAL: The patient is alert and oriented x2-3, she is lethargic, drowsy and weak rather than confused, not in any acute distress. thin build. HEENT: Pupils are round and equally reacting to light. EOMI. No scleral icterus. No conjunctival pallor. Normocephalic, atraumatic. No pharyngeal erythema. No thyromegaly. CARDIOVASCULAR: S1 and S2 present. No murmurs, rubs, or gallops. PULMONARY: Chest is clear to auscultation, no wheezing or crackles. -ABDOMEN: Soft, generally tender, more in the upper abdomen, nondistended, normoactive bowel sounds. No palpable organomegaly. MUSCULOSKELETAL: No joint swelling or deformity. EXTREMITIES: No cyanosis, clubbing, or pedal edema. NEUROLOGICAL: Gross neurological examination did not reveal any focal deficits. SKIN: No rashes. No petechiae - Labs CBC & Chem 7: 05/04/20 04:50 05/04/20 17:30 Labs: Abnormal Lab Results - Last 24 Hours (Table) 05/04/20 05/04/20 05/04/20 Range/Units 04:50 04:50 17:30 Sodium 135 L (137-145) mmol/L Carbon Dioxide 34 H (22-30) mmol/L BUN 40 H (7-17) mg/dL Creatinine 1.19 H (0.52-1.04) mg/dL Glucose 101 H (74-99) mg/dL Calcium 7.2 L (8.4-10.2) mg/dL AST 640 H (14-36) U/L ALT 1151 H (4-34) U/L Total Protein 4.8 L (6.3-8.2) g/dL Albumin 2.4 L (3.5-5.0) g/dL Vitamin D 25-Hydroxy 9.1 L (30.0-100.0) ng/mL EBV Capsid Ag IgG Intrp POSITIVE H (NEGATIVE) EBV Nuc Ag IgG Interp POSITIVE H (NEGATIVE) Microbiology - Last 24 Hours (Table) 05/02/20 21:44 Blood Culture - Preliminary Blood No Growth after 48 hours Assessment and Plan Assessment: Acute kidney injury with Rhabdomyolysis, improving Possible ileus versus inflamed small bowel Severe depression Hypocalcemia, improvement Hepatitis/transaminitis , mostly secondary to alcohol problem, improvement alcohol abuse thrombocytopenia Hypertension Focal abuse Plan: this is a pleasant 49 years old female who presents with acute kidney injury and rhabdomyolysis with possible inflamed bowel versus ileus. Continue with CIWA protocol, continue with antibiotic ceftriaxone, continue with thiamine. Continue with IV fluids. S pulmonary/critical care team , nephrology and GI teams are on consults Patient is an one-to-one, psychiatric recommended psych unit admission once she is medically clear Change bicarb drip to normal saline, continue with Protonix and Rocephin. Consult general surgery for her bowel problem Labs and medication were reviewed.. Continue same treatment. Continue with symptomatic treatment. Resume home medication. Monitor lytes and vitals. DVT and GI prophylaxis. Further recommendations of the clinical course of the patient DVT prophylaxis: Subcutaneous heparin GI Prophylaxis: Pepcid PT/OT: Pending Prognosis is guarded
[2020-05-05 07:55] LABS: Basophils % (A) 0 %; Eosinophils # (A) 0.1 k/uL (0-0.7); Eosinophils % (A) 1 %; HCT 33.1 % (34.0-46.0); HGB 11.4 gm/dL (11.4-16.0); Lymphocytes # (A) 0.8 k/uL (1.0-4.8); Lymphocytes % (A) 12 %; MCHC 34.3 g/dL (31.0-37.0); MCV 96.3 fL (80.0-100.0); Mean Platelet Volume 8.9; Monocytes # (A) 0.4 k/uL (0-1.0); Monocytes % (A) 6 %; Neutrophils # (A) 5.2 k/uL (1.3-7.7); Neutrophils % (A) 78 %; RBC 3.44 m/uL (3.80-5.40); RDW 14.1 % (11.5-15.5); WBC 6.6 k/uL (3.8-10.6)
[2020-05-05 08:03] LABS: Platelet Count 83 k/uL (150-450)
[2020-05-05 08:05] LABS: INR 1.1 (<1.2); Prothrombin Time 10.8 sec (9.0-12.0)
[2020-05-05 08:09] LABS: AST 282 U/L (14-36); African American GFR (CKD) >90 (>60 ml/min/1.73 sqM); Albumin 2.3 g/dL (3.5-5.0); Alkaline Phosphatase 89 U/L (38-126); Anion Gap 2 mmol/L; Blood Urea Nitrogen 25 mg/dL (7-17); Calcium 7.5 mg/dL (8.4-10.2); Carbon Dioxide 33 mmol/L (22-30); Chloride 100 mmol/L (98-107); Glucose 85 mg/dL (74-99); Non-African American GFR(CKD) >90 (>60 ml/min/1.73 sqM); Potassium 3.5 mmol/L (3.5-5.1); Sodium 135 mmol/L (137-145); Total Bilirubin 1.2 mg/dL (0.2-1.3); Total Protein 4.5 g/dL (6.3-8.2)
[2020-05-05 08:17] LABS: ALT 800 U/L (4-34)
[2020-05-05] MEDS: PANTOPRAZOLE 40 MG/10 ML VIAL IV SCH ×2 (08:55→21:45)
[2020-05-05] MEDS: THIAMINE 100 MG TAB PO SCH ×2 (08:55→18:04)
--- NOTE | 2020-05-05 09:09 | XR ---
EXAMINATION TYPE: XR KUB DATE OF EXAM: 05/05/2020 COMPARISON: 05/04/2020 HISTORY: Pain TECHNIQUE: One view abdominal series FINDINGS: The osseous structures are intact. The bowel gas pattern is nonspecific. Numerous dilated bowel loop s are seen. Air in the rectum noted. Surgical clips in the abdomen. IMPRESSION: 1. Nonspecific abdomen. Correlate for bowel obstruction.
[2020-05-05 10:03] VITALS: BMI 28.6
[2020-05-05 10:25] LABS: Ceruloplasmin 18.8 mg/dL (20.0-60.0)
--- NOTE | 2020-05-05 11:06 | P.PN ---
Subjective Progress Note Date: 05/05/20 Principal diagnosis: Acute rhabdomyolysis, acute kidney injury This is a 49-year-old female with history of alcoholism and alcohol abuse, history of previous gastric bypass surgery. Patient was brought in by her yesterday to the ER complaining of 3 days history of diarrhea, dark stools for the last 3 days, and the patient has been progressively weak. found the patient on the floor, unable to ambulate, unknown whether the patient has fallen. states that the patient has been taking ibuprofen at home for generalized aches and pains and weakness. No history of peptic ulcer disease, no previous history of GI bleeding. Patient was brought into the ER, and she was found to have significant abnormalities including low sodium of 130. Significantly elevated BUN of 81 with creatinine of 7.89 anion gap metabolic acidosis of 27, normal lactic acid, calcium of 5.6, elevated liver enzymes with AST of 1989 ALT of 1397 and significantly elevated CPK of 12,500. Patient was also found to have abnormal urinalysis consistent with urinary tract infection although the patient had no symptoms. She had positive stool occult blood. Drug screen was mostly positive for benzodiazepines, and her acetaminophen level was 19.5, in that the therapeutic range, and alcohol was less than 10. Her potassium was as high as 6.6 initially. Patient received sodium bicarb, calcium chloride, insulin and dextrose 50, and she was placed on IV fluids, and sodium bicarb drip 150 mEq at 200 mL per hour. Patient was admitted to the ICU, however no beds were available, and I had to see the patient down in the ER this morning. Looking at the workup, patient seems to be improving, her BUN is down to 76 creatinine is down to 6.29, bicarb is up to 17, anion gap is down to 14. CPK is down to 7500, liver enzymes remain elevated. Patient was examined, and she seemed to be slow, could not give a good history. She knows that she has history of alcoholism, and her only complaint was mostly generalized weakness before she presented to the ER. And according to her her symptoms have been going on for the last [address] abdomen and pelvis showed distended fluid-filled loops of small bowel suggestive of ileus and inflammatory bowel disease, no clear-cut evidence of mechanical bowel obstruction. After evaluating the patient in the ER, I cut down on her sodium bicarb drip, kept her on IV fluids, and I recommended that we continue Rocephin empirically. Until t he urine culture is available. I have also recommended placement on alcohol withdrawal protocol. Reevaluated today in the ICU, patient is arousable, and bit drowsy, oriented to place and person, denies any specific complaints except she feels generally weak. Her labs are showing significant improvement, improved liver enzymes, improved. Renal profile, improved CPK, and improved acidosis, hence I recommended stopping the bicarb drip. Chest x-ray however showed evidence of interstitial edema, and I recommended diuretics/Lasix. Patient received significant amount of fluids over the last 24 hours. Remains on Rocephin for presumptive urinary tract infection, and she remains on Protonix, GI consultation is pending regarding her positive Hemoccult stools. The patient is seen today 05/05/2020 in follow-up on the regular medical floor. She is awake and alert in no acute distress. Somewhat sleepy. Somewhat thirsty. She is maintaining O2 saturations in the low 90s on 3 L/m per nasal c annula. She's afebrile. Hemodynamically stable. Blood culture reveals no growth. White count 6.6. Hemoglobin 11.4. Platelet count 83,000. INR 1.1. Sodium 135. Potassium 3.5. Creatinine 0.75. AST 282. ALT 800. CK level 834. Remains on ceftriaxone. Remains in the CIWA protocol. Remains on IV Protonix. Objective - Vital Signs Vital signs: Vital Signs Temp 99.7 F H 05/05/20 05:06 Pulse 100 05/05/20 05:06 Resp 18 05/05/20 05:06 BP 126/76 05/05/20 05:06 Pulse Ox 92 L 05/05/20 05:06 Intake & Output 05/04/20 05/05/20 05/05/20 18:59 06:59 18:59 Intake Total 940 600 Output Total 2050 1300 Balance -1110 -700 Weight 71.1 kg Intake: IV 330 60 0.9 180 60 Dextrose 5% in Water 1, 150 000 ml @ 150 mls/hr IV . Q7H40M KELLY with Sodium Bicarb (1 Meq/ml) 150 ml Rx#:[id number] Intake, IV Titration 210 Amount Potassium Chloride 20 meq 100 In Water For Injection 1 100ml.bag @ 50 mls/hr IVPB Q2H KELLY Rx#: [id number] Sodium Chloride 0.9% 1, 60 000 ml @ 60 mls/hr IV . [id number] KELLY Rx#:[id number] cefTRIAXone 1 gm In 50 Sodium Chloride 0.9% 50 ml @ 100 mls/hr IVPB Q24HR KELLY Rx#:[id number] Oral 400 540 Output: Urine 2050 1300 Uretheral ([place]) 1050 Other: Voiding Method Indwelling Catheter Indwelling Catheter Indwelling Catheter # Voids 0 # Bowel Movements 0 - Exam GENERAL EXAM: Alert, 49-year-old female patient, on 3 L nasal cannula, comfortable in no apparent distress. HEAD: Normocephalic. EYES: Normal reaction of pupils, equal size. NOSE: Clear with pink turbinates. THROAT: No erythema or exudates. NECK: No masses, no JVD. CHEST: No chest wall deformity. LUNGS: Equal air entry with no crackles, wheeze, rhonchi or dullness. CVS: S1 and S2 normal with no audible murmur, regular rhythm. ABDOMEN: No hepatosplenomegaly, normal bowel sounds, no guarding or rigidity. SPINE: No scoliosis or deformity SKIN: No rashes CENTRAL NERVOUS SYSTEM: No focal deficits, tone is normal in all 4 extremities. EXTREMITIES: There is no peripheral edema. No clubbing, no cyanosis. Peripheral pulses are intact. - Labs CBC & Chem 7: 05/05/20 07:39 05/05/20 07:39 Labs: Abnormal Lab Results - Last 24 Hours (Table) 05/04/20 05/04/20 05/04/20 Range/Units 04:50 04:50 17:30 RBC (3.80-5.40) m/uL Hct (34.0-46.0) % Plt Count (150-450) k/uL Lymphocytes # (1.0-4.8) k/uL Sodium (137-145) mmol/L Carbon Dioxide (22-30) mmol/L BUN (7-17) mg/dL Creatinine (0.52-1.04) mg/dL Glucose (74-99) mg/dL Calcium (8.4-10.2) mg/dL AST (14-36) U/L ALT (4-34) U/L Creatine Kinase (30-135) U/L Total Protein (6.3-8.2) g/dL Albumin (3.5-5.0) g/dL Ceruloplasmin 18.8 L (20.0-60.0) mg/dL Vitamin D 25-Hydroxy 9.1 L (30.0-100.0) ng/mL EBV Capsid Ag IgG Intrp POSITIVE H (NEGATIVE) EBV Nuc Ag IgG Interp POSITIVE H (NEGATIVE) 05/04/20 05/05/20 05/05/20 Range/Units 17:30 07:39 07:39 RBC 3.44 L (3.80-5.40) m/uL Hct 33.1 L (34.0-46.0) % Plt Count 83 L (150-450) k/uL Lymphocytes # 0.8 L (1.0-4.8) k/uL Sodium 135 L 135 L (137-145) mmol/L Carbon Dioxide 34 H 33 H (22-30) mmol/L BUN 40 H 25 H (7-17) mg/dL Creatinine 1.19 H (0.52-1.04) mg/dL Glucose 101 H (74-99) mg/dL Calcium 7.2 L 7.5 L (8.4-10.2) mg/dL AST 640 H 282 H (14-36) U/L ALT 1151 H 800 H (4-34) U/L Creatine Kinase (30-135) U/L Total Protein 4.8 L 4.5 L (6.3-8.2) g/dL Albumin 2.4 L 2.3 L (3.5-5.0) g/dL Ceruloplasmin (20.0-60.0) mg/dL Vitamin D 25-Hydroxy (30.0-100.0) ng/mL EBV Capsid Ag IgG Intrp (NEGATIVE) EBV Nuc Ag IgG Interp (NEGATIVE) 05/05/20 Range/Units 07:39 RBC (3.80-5.40) m/uL Hct (34.0-46.0) % Plt Count (150-450) k/uL Lymphocytes # (1.0-4.8) k/uL Sodium (137-145) mmol/L Carbon Dioxide (22-30) mmol/L BUN (7-17) mg/dL Creatinine (0.52-1.04) mg/dL Glucose (74-99) mg/dL Calcium (8.4-10.2) mg/dL AST (14-36) U/L ALT (4-34) U/L Creatine Kinase 834 H (30-135) U/L Total Protein (6.3-8.2) g/dL Albumin (3.5-5.0) g/dL Ceruloplasmin (20.0-60.0) mg/dL Vitamin D 25-Hydroxy (30.0-100.0) ng/mL EBV Capsid Ag IgG Intrp (NEGATIVE) EBV Nuc Ag IgG Interp (NEGATIVE) Microbiology - Last 24 Hours (Table) 05/02/20 21:44 Blood Culture - Preliminary Blood No Growth after 48 hours Assessment and Plan Assessment: Acute kidney injury, most likely secondary to acute rhabdomyolysis and hypovolemia. And secondary to nonsteroidal anti-inflammatory drugs Acute rhabdomyolysis, possible fall,found patient on the floor. Acute alcoholic hepatitis Acute anion gap metabolic acidosis secondary to acute kidney injury, possible sepsis. Acute urinary tract infection, continue Rocephin. Acute GI bleeding most likely related to alcohol and related to nonsteroidal anti-inflammatory drugs. Acute hyperkalemia secondary to acute kidney injury History of alcoholism. History of depression and previous suicidal attempt, history of major depressive disorder History of hypertension Chronic nicotine dependence Possible ileus as noted on the CT of the abdomen and pelvis. And that is being addressed by hospitalist. And gastroenterology on the case. Suspect pulmonary edema from fluid overload, doubt any cardiac pathology. Patient received significant amount of fluids within a relatively short period of time because she presented mostly with profound hypovolemia and acute rhabdomyolysis. The relatively acute change on the chest x-ray noted is more consistent with fluid overload not pneumonia. Unless the patient aspirated. And that is not noted in the history. Plan: The patient was seen and evaluated by Dr. Will Kearney from the pulmonary and critical care standpoint Titrate down the FiO2 as tolerated CK level improving Electrolytes recovering Psychiatry consult recommends inpatient treatment for depression Cleared for transfer once cleared medically I, the cosigning physician, performed a history & physical examination of the patient. Lungs sounds are clear. Maintaining good O2 saturations in the 90s on 3 L/m per nasal cannula. I discussed the assessment and plan of care with my nurse practitioner, Ruby Craig. I attest to the above note as dictated by her.
[2020-05-05 12:20] LABS: Hepatitis A Antibody IgM Non-Reactive (Non-Reactive); Hepatitis B Core IgM Non-Reactive (Non-Reactive); Hepatitis B Surface Antigen Non-Reactive (Non-Reactive); Hepatitis C IgG Antibody Non-Reactive (Non-Reactive); Procalcitonin 11.32 ng/mL (0.02-0.09)
[2020-05-05 12:37] LABS: Alpha Fetoprotein, Tumor Mkr 3.8 ng/mL (0.0-7.9)
--- NOTE | 2020-05-05 13:37 | P.GSCN ---
History of Present Illness Consult date: 05/05/20 History of present illness: CHIEF COMPLAINT: Abdominal pain HISTORY OF PRESENT ILLNESS: The patient is a 49-year-old female admitted less than a week ago secondary to generalized weakness including multiple electrolyte dyscrasias such as hyponatremia, acute kidney injury with creatinine over 9.0, moderately elevated liver enzymes with AST of 3000, ALT over 2000 with alkaline phosphatase during hospitalization, and alcoholism. Most history obtained from the patient's chart as patient is lethargic at the time of assessment. Patient currently has a sitter at bedside who gives additional history. Patient had a positive guaiac stool. Additionally, patient reports 1-2 week history of generalized abdominal pain prior to presentation to the hospital. She did have a bowel movement today and with passage of flatus and witnessed by a sitter. Additional diagnostic studies including CTs of the abdomen were obtained initially for ileus. Abdominal x-ray today demonstrates questionable bowel obstruction and general surgery consultation. PAST MEDICAL HISTORY: See list and reviewed PAST SURGICAL HISTORY: See list and reviewed MEDICATIONS: See list and reviewed ALLERGIES: See list and reviewed SOCIAL HISTORY: See list and reviewed FAMILY HISTORY: See list and reviewed REVIEW OF ORGAN SYSTEMS: History obtained from chart CONSTITUTIONAL: No fevers or chills. EYES: Denies any trouble with vision. No glasses. HEENT: No difficulties with hearing. No nosebleeds. RESPIRATORY: No active dyspnea on exertion CARDIOVASCULAR: No current chest pain GASTROINTESTINAL: Has change in bowel habits and gas bloat. History of pancreatitis GENITOURINARY: Denies any blood in urine or increased urinary frequency. NEUROLOGICAL: Denies any numbness or tingling along the distal extremities. No seizure disorders or headaches. MUSCULOSKELETAL: Has back pain, stiffness or joint arthritis. SKIN: No current skin cancer. No rash. PSYCHIATRIC: Has depression ENDOCRINE: Denies current thyroid disorders. Denies any blood sugar glucose intolerance. HEME/LYMPHATIC: Denies any lumps and bumps around the neck. No recent deep venous thrombosis. ALLERGY/IMMUNOLOGY: No immunoglobulin therapy. No immune deficiencies. BREAST: Has bilateral breast reconstruction following weight PHYSICAL EXAM: VITALS: Reviewed. T-max 39.7 CONSTITUTIONAL: Well developed and in no acute distress. EYES: Conjuctivae without sclera icterus. Pupils are equally round and reactive to light. Extraocular movements grossly intact. HEAD, EARS, NOSE, THROAT: Moist buccal mucosa. Head is atraumatic, normocephalic. Hears conversational speech. No nasal drainage. NECK: Supple. No JV distention. RESPIRATORY: Non-labored respirations and equal bilateral excursions. No gross wheezes. CARDIOVASCULAR: Regular rate and rhythm. Extremities without moderate edema. Palpable 2+ radial pulses. ABDOMEN: Soft. Nondistended. No diffuse peritonitis. LYMPH: No neck lymphadenopathy. No axillary lymphadenopathy. MUSCULOSKELETAL: G Nail and fingers with good capillary refill. SKIN: Warm and well perfused with good skin turgor. NEUROLOGIC: Cranial nerves II through XII grossly intact. No focal or lateralizing signs. PSYCH: Lethargic. Alert to person. CLINCAL LABS: Reviewed. Multiple electrolyte dyscrasias including hyponatremia, elevated LFTs, low calcium, elevated creatinine kinase identified IMAGING: CT of the abdomen and pelvis independent reviewed with surgical changes along the proximal stomach including jejunum suspicious for previous bariatric surgery. No presence of these enteric swirl to suggest internal hernia. No small bowel dilation features of bowel obstruction. This is my independent interpretation. Presence of bilateral breast implants noted Abdominal x-ray from 05/05/2020 independent reviewed demonstrating gaseous distention throughout the small bowel to the colon. RADIOLOGY: Report reviewed a CT of the abdomen pelvis also supports ileus without bowel obstruction. Abdominal x-ray report questionable for bowel obstruction ASSESSMENT: 1. Ileus secondary to multiple electrolyte and nutritional dyscrasias 2. Alcoholism PLAN: 1. Her medical records were reviewed including for imaging studies that sways between ileus versus bowel obstruction. Recommend small bowel follow through for assessment of mechanical small bowel obstruction. 2. Conservative management regarding liver disease 3. Also, patient has severe alcoholism for which abstinence advised Thank you for this kind consultation. Past Medical History Past Medical History: Hypertension Additional Past Medical History / Comment(s): Alcohol abuse, pancreatitis History of Any Multi-Drug Resistant Organisms: None Reported Additional Past Surgical History / Comment(s): Gastric bypass, Reconstrutive surg after weight loss, and bilat overy removal Past Anesthesia/Blood Transfusion Reactions: No Reported Reaction Past Psychological History: No Psychological Hx Reported Smoking Status: Current every day smoker Past Alcohol Use History: None Reported - Past Family History Mother Family Medical History: Diabetes Mellitus Additional Family Medical History / Comment(s): mother from rectal cancer 1999 Father Family Medical History: Diabetes Mellitus Additional Family Medical History / Comment(s): from emphysema in 2003 Medications and Allergies Home Medications Medication Instructions Recorded Confirmed Type Imiquimod 1 packet VAGINAL [id number]@[id number]/23/20 05/02/20 History Ibuprofen [Motrin Ib] 200 - 800 mg PO Q6H PRN 05/02/20 05/02/20 History Loperamide HCl [Imodium A-D] 2 - 4 mg PO QID PRN 05/02/20 05/02/20 History Allergies Allergy/AdvReac Type Severity Reaction Status Date / Time Penicillins Allergy Anaphylaxis Verified 05/02/20 19:19 Surgical - Exam Vital Signs Temp Pulse Resp BP Pulse Ox 97.8 F 84 22 65/45 100 05/02/20 18:02 05/02/20 18:02 05/02/20 18:02 05/02/20 18:02 05/02/20 18:02 Results - Labs 05/05/20 07:39 05/05/20 07:39 Abnormal Lab Results - Last 24 Hours (Table) 05/04/20 05/04/20 05/04/20 Range/Units 04:50 17:30 17:30 RBC (3.80-5.40) m/uL Hct (34.0-46.0) % Plt Count (150-450) k/uL Lymphocytes # (1.0-4.8) k/uL Sodium 135 L (137-145) mmol/L Carbon Dioxide 34 H (22-30) mmol/L BUN 40 H (7-17) mg/dL Creatinine 1.19 H (0.52-1.04) mg/dL Glucose 101 H (74-99) mg/dL Calcium 7.2 L (8.4-10.2) mg/dL AST 640 H (14-36) U/L ALT 1151 H (4-34) U/L Creatine Kinase (30-135) U/L Total Protein 4.8 L (6.3-8.2) g/dL Albumin 2.4 L (3.5-5.0) g/dL Ceruloplasmin 18.8 L (20.0-60.0) mg/dL Vitamin D 25-Hydroxy 9.1 L (30.0-100.0) ng/mL Procalcitonin 11.32 H (0.02-0.09) ng/mL 05/05/20 05/05/20 05/05/20 Range/Units 07:39 07:39 07:39 RBC 3.44 L (3.80-5.40) m/uL Hct 33.1 L (34.0-46.0) % Plt Count 83 L (150-450) k/uL Lymphocytes # 0.8 L (1.0-4.8) k/uL Sodium 135 L (137-145) mmol/L Carbon Dioxide 33 H (22-30) mmol/L BUN 25 H (7-17) mg/dL Creatinine (0.52-1.04) mg/dL Glucose (74-99) mg/dL Calcium 7.5 L (8.4-10.2) mg/dL AST 282 H (14-36) U/L ALT 800 H (4-34) U/L Creatine Kinase 834 H (30-135) U/L Total Protein 4.5 L (6.3-8.2) g/dL Albumin 2.3 L (3.5-5.0) g/dL Ceruloplasmin (20.0-60.0) mg/dL Vitamin D 25-Hydroxy (30.0-100.0) ng/mL Procalcitonin (0.02-0.09) ng/mL Microbiology - Last 24 Hours (Table) 05/02/20 21:44 Blood Culture - Preliminary Blood No Growth after 48 hours Diabetes panel 05/04/20 05/05/20 Range/Units 17:30 07:39 Sodium 135 L 135 L (137-145) mmol/L Potassium 3.8 3.5 (3.5-5.1) mmol/L Chloride 98 100 (98-107) mmol/L Carbon Dioxide 34 H 33 H (22-30) mmol/L BUN 40 H 25 H (7-17) mg/dL Creatinine 1.19 H 0.75 (0.52-1.04) mg/dL Glucose 101 H 85 (74-99) mg/dL Calcium 7.2 L 7.5 L (8.4-10.2) mg/dL AST 640 H 282 H (14-36) U/L ALT 1151 H 800 H (4-34) U/L Alkaline Phosphatase 94 89 (38-126) U/L Total Protein 4.8 L 4.5 L (6.3-8.2) g/dL Albumin 2.4 L 2.3 L (3.5-5.0) g/dL Calcium panel 05/04/20 05/05/20 Range/Units 17:30 07:39 Calcium 7.2 L 7.5 L (8.4-10.2) mg/dL Albumin 2.4 L 2.3 L (3.5-5.0) g/dL Pituitary panel 05/04/20 05/05/20 Range/Units 17:30 07:39 Sodium 135 L 135 L (137-145) mmol/L Potassium 3.8 3.5 (3.5-5.1) mmol/L Chloride 98 100 (98-107) mmol/L Carbon Dioxide 34 H 33 H (22-30) mmol/L BUN 40 H 25 H (7-17) mg/dL Creatinine 1.19 H 0.75 (0.52-1.04) mg/dL Glucose 101 H 85 (74-99) mg/dL Calcium 7.2 L 7.5 L (8.4-10.2) mg/dL Adrenal panel 05/04/20 05/05/20 Range/Units 17:30 07:39 Sodium 135 L 135 L (137-145) mmol/L Potassium 3.8 3.5 (3.5-5.1) mmol/L Chloride 98 100 (98-107) mmol/L Carbon Dioxide 34 H 33 H (22-30) mmol/L BUN 40 H 25 H (7-17) mg/dL Creatinine 1.19 H 0.75 (0.52-1.04) mg/dL Glucose 101 H 85 (74-99) mg/dL Calcium 7.2 L 7.5 L (8.4-10.2) mg/dL Total Bilirubin 0.9 1.2 (0.2-1.3) mg/dL AST 640 H 282 H (14-36) U/L ALT 1151 H 800 H (4-34) U/L Alkaline Phosphatase 94 89 (38-126) U/L Total Protein 4.8 L 4.5 L (6.3-8.2) g/dL Albumin 2.4 L 2.3 L (3.5-5.0) g/dL Assessment and Plan (1) GI bleed Current Visit: Yes Status: Acute Code(s): K92.2 - GASTROINTESTINAL HEMORRHAGE, UNSPECIFIED SNOMED Code(s): 75817992 (2) Positive occult stool blood test Current Visit: Yes Status: Acute Code(s): R19.5 - OTHER FECAL ABNORMALITIES SNOMED Code(s): 84838960 (3) Renal failure Current Visit: Yes Status: Acute Code(s): N19 - UNSPECIFIED KIDNEY FAILURE SNOMED Code(s): 56064651 (4) Rhabdomyolysis Current Visit: Yes Status: Acute Code(s): M62.82 - RHABDOMYOLYSIS SNOMED Code(s): 990168883 (5) Depression Current Visit: No Status: Acute Code(s): F32.9 - MAJOR DEPRESSIVE DISORDER, SINGLE EPISODE, UNSPECIFIED SNOMED Code(s): 75803582 (6) Elevated liver enzymes Current Visit: No Status: Acute Code(s): R74.8 - ABNORMAL LEVELS OF OTHER SERUM ENZYMES SNOMED Code(s): 324089701 (7) Generalized weakness Current Visit: No Status: Acute Code(s): R53.1 - WEAKNESS SNOMED Code(s): 21368867
[2020-05-05 16:35] LABS: Protein, Total 4.3 g/dL (6.2-8.2)
--- NOTE | 2020-05-05 18:33 | FL ---
EXAMINATION: Small bowel follow through DATE: 05/05/2020 CLINICAL INDICATION: 49-year-old female rule out small bowel obstruction COMPARISON: KUB 05/05/[address] 05/02/2020 Total Fluoroscopy Time: 1 minute 34 seconds Total images: 12 FINDINGS: The patient is status post Aliya-en-Y gastric bypass. Following administration of barium, serial films were carried out to 4 hours and 55 minutes. There ma y be trace barium just entering the cecum. The patient was unable to ingest the entire volume of cydney um and by the last image, there is significant segmentation of barium within the small bowel. During the course of the study, some of the proximal jejunal loops are noted to be dilated up to 4.1 cm. This is followed by normal caliber jejunal loops in the left side of the abdomen. Subsequent dilatation of mid jejunal loops up to 4.4 cm at one hour. Loops just distally located lowe r in the abdomen and pelvis are again noted a normal caliber. At 3 hours 35 minutes, a dilated loop o f ileum measuring up to 4.6 cm is encountered. Remaining ileal loops up to 4 hours and 5 minutes show variable normal caliber to dilatation up to 4.6 cm. At 1 hour, spot images were acquired but we were unable to identify a discrete transition point. Overall normal mucosal fold pattern. IMPRESSION: 1. Segmental dilatation of both jejunum and ileum throughout the abdomen up to 4.6 cm. Interspersed n ormal caliber small bowel loops are also present. A discrete transition point could not be identified . Consider a marked generalized ileus. 2. At 4 hours 55 minutes, trace contrast seems to be just entering the cecum. The patient was unable to ingest the entire volume of contrast limiting the evaluation. 3. The exam has been terminated at this point. A 2 hour post exam portable radiograph (approximately 7 hour time point) has been ordered and should further assess the contrast passage.
--- NOTE | 2020-05-05 20:52 | XR ---
EXAMINATION TYPE: XR K[facility] portable DATE OF EXAM: 05/05/2020 COMPARISON: Today HISTORY: Possible bowel obstruction TECHNIQUE: Single view FINDINGS: Supine view shows some oral contrast in the distal ileum extending into the cecum and ascen ding colon. There is contrast extending to the mid transverse colon. There is no sign of a bowel obst ruction. I see no filling defect. There are some gas-filled small bowel loops. IMPRESSION: There is some gaseous distention of the small bowel but no evidence of a mechanical small bowel obstruction. Terminal ileum appears normal.
[2020-05-06 07:10] LABS: Basophils % (A) 0 %; Eosinophils # (A) 0.1 k/uL (0-0.7); Eosinophils % (A) 1 %; HCT 31.6 % (34.0-46.0); HGB 10.5 gm/dL (11.4-16.0); Lymphocytes # (A) 1.2 k/uL (1.0-4.8); Lymphocytes % (A) 14 %; MCH 31.7 pg (25.0-35.0); MCHC 33.3 g/dL (31.0-37.0); MCV 95.1 fL (80.0-100.0); Mean Platelet Volume 8.6; Monocytes # (A) 0.6 k/uL (0-1.0); Monocytes % (A) 8 %; Neutrophils % (A) 74 %; RBC 3.32 m/uL (3.80-5.40); RDW 13.8 % (11.5-15.5); WBC 8.1 k/uL (3.8-10.6)
[2020-05-06 07:13] LABS: Platelet Count 93 k/uL (150-450)
[2020-05-06 07:31] LABS: African American GFR (CKD) >90 (>60 ml/min/1.73 sqM); Anion Gap 2 mmol/L; Blood Urea Nitrogen 12 mg/dL (7-17); Calcium 7.4 mg/dL (8.4-10.2); Carbon Dioxide 31 mmol/L (22-30); Chloride 100 mmol/L (98-107); Creatine Kinase 239 U/L (30-135); Glucose 92 mg/dL (74-99); Non-African American GFR(CKD) >90 (>60 ml/min/1.73 sqM); Potassium 3.1 mmol/L (3.5-5.1); Sodium 133 mmol/L (137-145)
[2020-05-06] MEDS: PANTOPRAZOLE 40 MG/10 ML VIAL IV SCH (07:56)
[2020-05-06] MEDS: POTASSIUM CHLORIDE ER 20 MEQ TAB.ER PO SCH ×2 (07:57→10:20)
[2020-05-06] MEDS: THIAMINE 100 MG TAB PO SCH ×2 (07:57→18:14)
[2020-05-06] MEDS ORDERED: Potassium Replacement Protocol 1 EACH MISC MISCELLANE PRN (09:24)
--- NOTE | 2020-05-06 09:24 | P.PN ---
Subjective This is a pleasant 49 years old female with past medical history of hypertension and alcoholic pancreatitis. Patient presents with a three-day history of diarrhea with dark-colored stool, pt could not provide much history as she looks tires and fatigues , talks very slowly although she talks appropriately and sometimes she does not answer so information were obtained form the records, staff and some from the pt as no family at bed side. pt states she was very weak and She's been using ibuprofen for her pain , she has generalized body aches and abd pain ( pt refused me examine her abd) Blood pressure 93/53, heart rate 75, breathing rate 9-12, she is afebrile. Labs showing normal hemoglobin 11.8 and WBCs 3.8K, platelets 103 which is low. Low calcium with an ionized Ca 3.1, sodium 133, creatinine 7.8 on admission currently 6.2. Elevated liver enzymes with AST 2870 and ALT 2221, creatinine kinase is elevated at 7710. UA showing cloudy and concentrated sample was somewhat protein and glucose units. Occult blood in the stool is positive. Urine hydroxy train is positive for benzodiazepines. pelvis and femur x-ray were negative for fracture Chest x-ray: Mild lower lobe infiltrate Chest CTA: Some linear infiltrate and atelectasis in the left lower lobe posteriorly CT of the abdomen and pelvis: Possible ileus versus inflammatory bowel disease due to distended fluid-filled loops of small bowel On admission she is receives several injections of, some leukocytes and calcium gluconate, more than 2 L of normal saline, sodium bicarb, ceftriaxone, levophed Protonix 05/04/2020 Patient seen in the ICU, she is awake but drowsy, she is oriented to place and others. She complaining of from being first. Also she has some abdominal pain but less distressed compared to yesterday. No fever, vitals are stable. CBC is unremarkable and she has lymphopenia, INR is 1.2. Sodium 134, potassium low at 2.9 and his been replaced. Creatinine trended down significantly to 2.4. Lactic is still elevated at 6.1 and liver enzymes are almost cut in half with AST down to 1073 and ALT 1511. Creatinine kinase trending down to 5.63. Blood culture showing no growth so far Patient is off before. Abdominal x-ray showing enteritis, ileus and follow-up as indicated of bowel obstruction is suspected clinically. Will call surgical consults for her ileus Chest x-ray: Bilateral pneumonia and edema. Patient was started on normal saline by [employer] worker. She remains on Rocephin empirically, attention Protonix IV twice a day Surgical consult is on the case 05/05/20 Patient is brought to the general medical floor. She is awake and alert. She still complaining of from some abdominal pain and tenderness felt generalized and more to the right and lower side. She still have low appetite, with no bowel movement. She has low grade temperature of 99.7. Personal vitals are stable. CBC is unremarkable. sodium is mildly low. Creatinine almost back to normal at 1.19, calcium is improved to 7.2, liver enzymes are cut in half to AST was 614 ALT 1151. Troponin is normal 0.9 Creatinine tenderness was improving gradually and her fluid switched to normal saline at 60 mL per hour. She remains on CIWA protocol, she does not need any Ativan as she's been drowsy most of the day. However she is awake and oriented 1. She remains on Rocephin for possible UTI. No growth in blood culture so far Psychiatric evaluated the patient with severe depression, monitor her with one-to-one, patient cannot sign AMA and once she is medically clear she needs to go to the psych unit 05/06/2020 Patient is more awake today than last couple days she does not go back to sleep after talking to her. She is tolerating liquid diet with no nausea or vomiting. Abdominal pain about 6-7/10 in severity, her pain is mainly in the left lower quadrant, she has normal bowel movement about passing gas. She has barium follow through yesterday to rule out bowel obstruction, no clear evidence of mechanical bowel obstruction but we will follow up with surgery regarding their recommendation. Patient images showing segmental dilatation of the jejunum and ileum. Also patient has ileus with low-grade temperature and hyperal gallstone in, so we added Flagyl plus she is already on ceftriaxone for possible intra- abdominal infection versus UTI versus others. Last night she ate 50% of her lunch. Serology workup by GI team is pending. She still have Walton catheter with clear urine and she is in normal sinus extremity to per ora Sitter at bedside and when patient is medically clear she would go to inpatient psych for her depression Review of Systems HEENT: No recent visual problems or hearing problems. Denied any sore throat. CARDIOVASCULAR: No orthopnea, PND, no palpitations, no syncope. PULMONARY: No shortness of breath, no cough, no hemoptysis. -GASTROINTESTINAL: + abdominal pain. Normoactive bowel sounds. NEUROLOGICAL: No headaches, no weakness, no numbness. HEMATOLOGICAL: Denies any bleeding or petechiae. GENITOURINARY: Denies any burning micturition, frequency, or urgency. MUSCULOSKELETAL/RHEUMATOLOGICAL: Denies any joint pain, swelling, or any muscle pain. ENDOCRINE: Denies any polyuria or polydipsia. Active Medications Generic Name Dose Route Start Last Admin Trade Name Freq PRN Reason Stop Dose Admin Ceftriaxone Sodium 1 gm/ 50 mls @ 100 mls/hr 05/03/20 10:00 05/06/20 07:57 Sodium Chloride IVPB 100 mls/hr Q24HR KELLY Administration Sodium Chloride 1,000 mls @ 60 mls/hr 05/04/20 09:00 05/05/20 21:47 Saline 0.9% IV 60 mls/hr .[id number] KELLY Administration Metronidazole 500 mg/ IV 100 mls @ 100 mls/hr 05/06/20 21:53 Solution IVPB Q8H KELLY Lorazepam 1 mg 05/03/20 09:56 Ativan IV Q2HR PRN CIWA 8 or 9 Lorazepam 1 mg 05/03/20 09:56 Ativan IV Q1HR PRN CIWA 10 to 15 Miscellaneous Information 1 each 05/04/20 08:22 Potassium Per Protocol MISCELLANE DAILY PRN Per Protocol Protocol Naloxone HCl 0.2 mg 05/02/20 22:24 Narcan IV Q2M PRN Opioid Reversal Pantoprazole Sodium 40 mg 05/03/20 10:00 05/06/20 07:56 Protonix IV 40 mg BID KELLY Administration Thiamine HCl 100 mg 05/03/20 17:30 05/06/20 07:57 Vitamin B-1 PO 100 mg BID-W/MEALS KELLY Administration Objective - Vital Signs Vital signs: Vital Signs Temp 99.2 F 05/06/20 05:15 Pulse 87 05/06/20 05:15 Resp 17 05/06/20 05:15 BP 159/96 05/06/20 05:15 Pulse Ox 91 L 05/06/20 05:15 Intake & Output 05/05/20 05/06/20 05/06/20 18:59 06:59 18:59 Intake Total 480 Output Total 625 800 Balance -145 -800 Weight 71.1 kg Intake: IV 480 0.9 480 Output: Urine 625 800 Uretheral (Walton) 625 400 Other: Voiding Method Indwelling Catheter Indwelling Catheter - Exam -GENERAL: The patient is alert and oriented x2-3, she is lethargic, drowsy and weak rather than confused, not in any acute distress. thin build. HEENT: Pupils are round and equally reacting to light. EOMI. No scleral icterus. No conjunctival pallor. Normocephalic, atraumatic. No pharyngeal erythema. No thyromegaly. CARDIOVASCULAR: S1 and S2 present. No murmurs, rubs, or gallops. PULMONARY: Chest is clear to auscultation, no wheezing or crackles. -ABDOMEN: Soft, generally tender, more in the upper abdomen, nondistended, normoactive bowel sounds. No palpable organomegaly. MUSCULOSKELETAL: No joint swelling or deformity. EXTREMITIES: No cyanosis, clubbing, or pedal edema. NEUROLOGICAL: Gross neurological examination did not reveal any focal deficits. SKIN: No rashes. No petechiae - Labs CBC & Chem 7: 05/06/20 06:58 05/06/20 06:58 Labs: Abnormal Lab Results - Last 24 Hours (Table) 05/04/20 05/05/20 05/06/20 Range/Units 17:30 07:39 06:38 RBC (3.80-5.40) m/uL Hgb (11.4-16.0) gm/dL Hct (34.0-46.0) % Plt Count (150-450) k/uL Sodium (137-145) mmol/L Potassium (3.5-5.1) mmol/L Carbon Dioxide (22-30) mmol/L Calcium (8.4-10.2) mg/dL Magnesium 1.3 L (1.6-2.3) mg/dL Creatine Kinase 834 H (30-135) U/L Total Protein (PEP) 4.3 L (6.2-8.2) g/dL Ceruloplasmin 18.8 L (20.0-60.0) mg/dL Procalcitonin 11.32 H (0.02-0.09) ng/mL 05/06/20 05/06/20 Range/Units 06:58 06:58 RBC 3.32 L (3.80-5.40) m/uL Hgb 10.5 L (11.4-16.0) gm/dL Hct 31.6 L (34.0-46.0) % Plt Count 93 L (150-450) k/uL Sodium 133 L (137-145) mmol/L Potassium 3.1 L (3.5-5.1) mmol/L Carbon Dioxide 31 H (22-30) mmol/L Calcium 7.4 L (8.4-10.2) mg/dL Magnesium (1.6-2.3) mg/dL Creatine Kinase 239 H (30-135) U/L Total Protein (PEP) (6.2-8.2) g/dL Ceruloplasmin (20.0-60.0) mg/dL Procalcitonin (0.02-0.09) ng/mL Microbiology - Last 24 Hours (Table) 05/02/20 21:44 Blood Culture - Preliminary Blood No Growth after 72 hours Assessment and Plan Assessment: Acute kidney injury with Rhabdomyolysis, improving Possible ileus versus inflamed small bowel Severe depression Hypocalcemia, improvement Hepatitis/transaminitis , mostly secondary to alcohol problem, improvement alcohol abuse thrombocytopenia Hypertension Focal abuse Plan: this is a pleasant 49 years old female who presents with acute kidney injury and rhabdomyolysis with possible inflamed bowel versus ileus. Continue with CIWA p rotocol, continue with antibiotic ceftriaxone, continue with thiamine. Continue with IV fluids. S pulmonary/critical care team , nephrology and GI teams are on consults Patient is an one-to-one, psychiatric recommended psych unit admission once she is medically clear Change bicarb drip to normal saline, continue with Protonix and Rocephin. Consult general surgery for her bowel problem Labs and medication were reviewed.. Continue same treatment. Continue with symptomatic treatment. Resume home medication. Monitor lytes and vitals. DVT and GI prophylaxis. Further recommendations of the clinical course of the patient DVT prophylaxis: Subcutaneous heparin GI Prophylaxis: Pepcid PT/OT: Pending Prognosis is guarded
[2020-05-06] MEDS ORDERED: Magnesium Replacement Protocol 1 EACH MISC MISCELLANE PRN (10:29)
--- NOTE | 2020-05-06 10:41 | P.PN ---
Subjective Progress Note Date: 05/05/20 Principal diagnosis: Elevated liver enzymes, melena, stool positive for occult blood Patient is seen lying in bed with one-to-one sitter bedside. No acute events reported. No signs or symptoms of GI bleeding. Liver enzymes continue to trend down. Objective - Vital Signs Vital signs: Vital Signs Temp 99.7 F H 05/05/20 05:06 Pulse 100 05/05/20 05:06 Resp 18 05/05/20 05:06 BP 126/76 05/05/20 05:06 Pulse Ox 92 L 05/05/20 05:06 Intake & Output 05/04/20 05/05/20 05/05/20 18:59 06:59 18:59 Intake Total 940 600 Output Total 205 1300 Balance -1110 -700 Weight 71.1 kg Intake: IV 330 60 0.9 180 60 Dextrose 5% in Water 1, 150 000 ml @ 150 mls/hr IV . Q7H40M KELLY with Sodium Bicarb (1 Meq/ml) 150 ml Rx#:[id number] Intake, IV Titration 210 Amount Potassium Chloride 20 meq 100 In Water For Injection 1 100ml.bag @ 50 mls/hr IVPB Q2H KELLY Rx#: [id number] Sodium Chloride 0.9% 1, 60 000 ml @ 60 mls/hr IV . [id number] KELLY Rx#:[id number] cefTRIAXone 1 gm In 50 Sodium Chloride 0.9% 50 ml @ 100 mls/hr IVPB Q24HR KELLY Rx#:[id number] Oral 400 540 Output: Urine 2049 1300 Uretheral (Walton) 1050 Other: Voiding Method Indwelling Catheter Indwelling Catheter Indwelling Catheter # Voids 0 # Bowel Movements 0 - Exam On physical examination, patient appears comfortable in no apparent distress. HEAD: Normocephalic, atraumatic. EYES: No scleral icterus. No conjunctival injection. MOUTH: No lesions, tongue midline. NECK: Trachea midline, no gross abnormalities. CHEST: Clear to auscultation with no wheezing or rhonchi appreciated. HEART: Regular rate and rhythm. ABDOMEN: Soft, mildly tender to palpation. Bowel sounds are positive. No organomegaly. No guarding or rigidity. EXTREMITIES: No pedal edema. SKIN: No rashes, no jaundice. NEUROLOGIC: Alert and oriented x3. No focal deficits. - Labs CBC & Chem 7: 05/06/20 06:58 05/06/20 06:58 Labs: Abnormal Lab Results - Last 24 Hours (Table) 05/04/20 05/04/20 05/04/20 Range/Units 04:50 04:50 17:30 RBC (3.80-5.40) m/uL Hct (34.0-46.0) % Plt Count (150-450) k/uL Lymphocytes # (1.0-4.8) k/uL Sodium (137-145) mmol/L Carbon Dioxide (22-30) mmol/L BUN (7-17) mg/dL Creatinine (0.52-1.04) mg/dL Glucose (74-99) mg/dL Calcium (8.4-10.2) mg/dL AST (14-36) U/L ALT (4-34) U/L Creatine Kinase (30-135) U/L Total Protein (6.3-8.2) g/dL Albumin (3.5-5.0) g/dL Ceruloplasmin 18.8 L (20.0-60.0) mg/dL Vitamin D 25-Hydroxy 9.1 L (30.0-100.0) ng/mL EBV Capsid Ag IgG Intrp POSITIVE H (NEGATIVE) EBV Nuc Ag IgG Interp POSITIVE H (NEGATIVE) 05/04/20 05/05/20 05/05/20 Range/Units 17:30 07:39 07:39 RBC 3.44 L (3.80-5.40) m/uL Hct 33.1 L (34.0-46.0) % Plt Count 83 L (150-450) k/uL Lymphocytes # 0.8 L (1.0-4.8) k/uL Sodium 135 L 135 L (137-145) mmol/L Carbon Dioxide 34 H 33 H (22-30) mmol/L BUN 40 H 25 H (7-17) mg/dL Creatinine 1.19 H (0.52-1.04) mg/dL Glucose 101 H (74-99) mg/dL Calcium 7.2 L 7.5 L (8.4-10.2) mg/dL AST 640 H 282 H (14-36) U/L ALT 1151 H 800 H (4-34) U/L Creatine Kinase (30-135) U/L Total Protein 4.8 L 4.5 L (6.3-8.2) g/dL Albumin 2.4 L 2.3 L (3.5-5.0) g/dL Ceruloplasmin (20.0-60.0) mg/dL Vitamin D 25-Hydroxy (30.0-100.0) ng/mL EBV Capsid Ag IgG Intrp (NEGATIVE) EBV Nuc Ag IgG Interp (NEGATIVE) 05/05/20 Range/Units 07:39 RBC (3.80-5.40) m/uL Hct (34.0-46.0) % Plt Count (150-450) k/uL Lymphocytes # (1.0-4.8) k/uL Sodium (137-145) mmol/L Carbon Dioxide (22-30) mmol/L BUN (7-17) mg/dL Creatinine (0.52-1.04) mg/dL Glucose (74-99) mg/dL Calcium (8.4-10.2) mg/dL AST (14-36) U/L ALT (4-34) U/L Creatine Kinase 834 H (30-135) U/L Total Protein (6.3-8.2) g/dL Albumin (3.5-5.0) g/dL Ceruloplasmin (20.0-60.0) mg/dL Vitamin D 25-Hydroxy (30.0-100.0) ng/mL EBV Capsid Ag IgG Intrp (NEGATIVE) EBV Nuc Ag IgG Interp (NEGATIVE) Microbiology - Last 24 Hours (Table) 05/02/20 21:44 Blood Culture - Preliminary Blood No Growth after 48 hours Assessment and Plan (1) Elevated liver enzymes Narrative/Plan: 49-year-old female with a medical history significant for hypertension, prior episode of pancreatitis, and alcohol abuse who was brought to the hospital for evaluation of a constellation of symptoms including being found down on the floor of her residence by her , weakness, dark stool and fatigue. Patient found to have rhabdomyolysis on presentation with a creatinine kinase of 7710 with elevated creatinine at 6.29 and markedly elevated liver enzymes predominantly in a hepatocellular pattern with normal total bilirubin of 0.5, alkaline phosphatase 81, AST 2870 and ALT 2228. Elevation in liver enzymes is not consistent with alcoholic hepatitis and likely is secondary to underlying rhabdomyolysis. In addition computed tomography scan of the abdomen and ultrasound did not show any focal liver lesions or nodularity to suggest underlying cirrhosis, however given the chronicity of alcohol use cannot rule out some component of fibrosis/cirrhosis. Full liver serology ordered to rule out other underlying liver disease with viral studies negative for acute infection, and normal iron studies and alpha-1 antitrypsin with only mildly depressed ceruloplasmin. Liver enzymes trending down. Current Visit: No Status: Acute Code(s): R74.8 - ABNORMAL LEVELS OF OTHER SERUM ENZYMES SNOMED Code(s): 002177566 (2) Rhabdomyolysis Current Visit: Yes Status: Acute Code(s): M62.82 - RHABDOMYOLYSIS SNOMED Code(s): 942816512 (3) Melena Narrative/Plan: Patient had been having loose dark colored stool with positive testing for occult blood on presentation. This is in the setting of NSAID use. Cannot rule out peptic ulcer disease, esophagitis, gastritis, AVM or other upper GI source of bleeding. Hemoglobin has remained stable. Current Visit: Yes Status: Acute Code(s): K92.1 - MELENA SNOMED Code(s): 2356769 (4) Positive occult stool blood test Current Visit: Yes Status: Acute Code(s): R19.5 - OTHER FECAL ABNORMALITIES SNOMED Code(s): 69134092 Plan: Supportive care Okay for diet as tolerated Continue IV fluid resuscitation Continue to monitor CBC, BMP, LFTs, INR and clinically Alcohol abstinence [facility] protocol Full liver serologies ordered and normal except for mildly depressed ceruloplasmin which can be repeated or followed up with 24-hour urine copper if liver enzymes do not continue to improve, viral studies negative Continue Protonix therapy Continue ICU care Need for endoscopy will be based on patient's symptoms and labs, currently the patient is not having any signs or symptoms of GI bleeding and has a stable hemoglobin Avoid NSAID use Thank you for allowing us to participate in the care of the patient
[2020-05-06] MEDS: MAGNESIUM SULFATE-D5W PMX 1 GM in DEXTROSE/WATER 1 100ML.BAG IVPB SCH ×3 (10:55→12:46)
[2020-05-06] MEDS: SODIUM CHLORIDE 0.9% 1,000 ML IV SCH (11:00)
--- NOTE | 2020-05-06 13:13 | P.PN ---
Subjective Progress Note Date: 05/06/20 Principal diagnosis: This is a 49-year-old female seen in consultation because of acute kidney injury. She has history of alcohol abuse previous history of pancreatitis. She came in with nausea vomiting diarrhea abdominal pain. Her acute kidney injury is deemed to be from combination of nonsteroidals and hypovolemia and hypotension. Additionally she had severe metabolic acidosis secondary to acute kidney injury and diarrhea. Shock liver rhabdomyolysis and hyperkalemia She was found to have rhabdomyolysis. Her CK was 12 491, has come down to 39. Her creatinine is improved. Liver function tests are improving. She continues to have abdominal pain, in the left lower quadrant with constipation now. Her past is significant also for gastric bypass surgery, Objective - Vital Signs Vital signs: Vital Signs Temp 98.5 F 05/06/20 11:20 Pulse 80 05/06/20 11:20 Resp 18 05/06/20 11:20 BP 168/93 05/06/20 11:20 Pulse Ox 95 05/06/20 11:20 Intake & Output 05/05/20 05/06/20 05/06/20 18:59 06:59 18:59 Intake Total 480 Output Total 625 800 600 Balance -145 -800 -600 Weight 71.1 kg Intake: IV 480 0.9 480 Output: Urine 625 800 600 Uretheral (Walton) 625 400 600 Other: Voiding Method Indwelling Catheter Indwelling Catheter Indwelling Catheter On examination she is awake alert seems to be anxious and depressed HEENT exam no JVP neck is supple no facial asymmetry Lungs are significant for few coarse crackle at the right lower lung posteriorly. Heart sounds are unremarkable for any murmur rub gallop Abdomen soft nontender except in the left lower quadrant Extreme exam was no edema Neurologically awake alert oriented. - Labs CBC & Chem 7: 05/06/20 06:58 05/06/20 06:58 Labs: Abnormal Lab Results - Last 24 Hours (Table) 05/04/20 05/06/20 05/06/20 Range/Units 17:30 06:38 06:58 RBC (3.80-5.40) m/uL Hgb (11.4-16.0) gm/dL Hct (34.0-46.0) % Plt Count (150-450) k/uL Sodium 133 L (137-145) mmol/L Potassium 3.1 L (3.5-5.1) mmol/L Carbon Dioxide 31 H (22-30) mmol/L Calcium 7.4 L (8.4-10.2) mg/dL Magnesium 1.3 L (1.6-2.3) mg/dL Creatine Kinase 239 H (30-135) U/L Total Protein (PEP) 4.3 L (6.2-8.2) g/dL 05/06/20 Range/Units 06:58 RBC 3.32 L (3.80-5.40) m/uL Hgb 10.5 L (11.4-16.0) gm/dL Hct 31.6 L (34.0-46.0) % Plt Count 93 L (150-450) k/uL Sodium (137-145) mmol/L Potassium (3.5-5.1) mmol/L Carbon Dioxide (22-30) mmol/L Calcium (8.4-10.2) mg/dL Magnesium (1.6-2.3) mg/dL Creatine Kinase (30-135) U/L Total Protein (PEP) (6.2-8.2) g/dL Microbiology - Last 24 Hours (Table) 05/02/20 21:44 Blood Culture - Preliminary Blood No Growth after 72 hours Assessment and Plan Assessment: Impression 1. Acute kidney injury from multiple factors including nonsteroidals rhabdomyolysis hypotension and hypovolemia. Corrected and resolved. Creatinine is down to 0.58. 2. Hyponatremia sodium is 133 secondary to low intake. 3. Hypokalemia secondary to low intake and previous GI losses. Magnesium is also low that might contribution to the hypokalemia 4. Hypokalemia secondary to low intake and diarrhea. 5. Rhabdomyolysis resolved CK is down to 239 from a peak of 12 491 6. Acidosis resolved, bicarb is 31 7. Abdominal pain cause not very clear. 8. Improving liver function tests. Ammonia is normal Recommendation 1. Replace magnesium with magnesium sulfate about 4 g IV slowly 2. Replace potassium should've probably require about 60 mEq, can be given by mouth 20 every 2 hours for 3 doses
--- NOTE | 2020-05-06 13:20 | P.PN ---
Subjective Progress Note Date: 05/06/20 CHIEF COMPLAINT: Abdominal pain HISTORY OF PRESENT ILLNESS: The patient is a 49-year-old female admitted for rhabdomyolysis, alcoholism, acute renal failure, abdominal pain are improved. She is tolerating liquid diet. She reports sore abdomen however improved from yesterday. Patient reports history of gastric bypass in 2013 without any follow- up since then. REVIEW OF ORGAN SYSTEMS: No fevers or chills. No new chest pain. No nausea or vomiting. PHYSICAL EXAM: VITALS: Reviewed. T-max 99.5 CONSTITUTIONAL: Well developed and in no acute distress. EYES: Conjuctivae without sclera icterus. Pupils are equally round and reactive to light. Extraocular movements grossly intact. HEAD, EARS, NOSE, THROAT: Moist buccal mucosa. Head is atraumatic, normocephalic. Hears conversational speech. No nasal drainage. NECK: Supple. No JV distention. RESPIRATORY: Non-labored respirations and equal bilateral excursions. No gross wheezes. CARDIOVASCULAR: Regular rate and rhythm. Extremities without moderate edema. Palpable 2+ radial pulses. ABDOMEN: Soft. Nondistended. Mild tenderness. No diffuse peritonitis. LYMPH: No neck lymphadenopathy. No axillary lymphadenopathy. MUSCULOSKELETAL: No clubbing cyanosis or edema. SKIN: Warm and well perfused with good skin turgor. NEUROLOGIC: Cranial nerves II through XII grossly intact. No focal or lateralizing signs. PSYCH: Alert to person and place. CLINCAL LABS: Reviewed. WBC normal at 8.1. Hemoglobin down 11.4-10.5 IMAGING: Small bowel follow-through independently reviewed without evidence of bowel obstruction. RADIOLOGY: Abdominal x-ray and small bowel follow-through results confirm no evidence of bowel obstruction. Findings consistent with ileus. ASSESSMENT: 1. Ileus secondary to multiple electrolyte and nutritional dyscrasias 2. Alcoholism PLAN: 1. Patient tolerated liquid diet. 2. Recommend bariatric dietitian consultation for dietary changes. 3. Advance diet as tolerated with direction from bariatric dietitian consult Objective - Vital Signs Vital signs: Vital Signs Temp 98.5 F 05/06/20 11:20 Pulse 80 05/06/20 11:20 Resp 18 05/06/20 11:20 BP 168/93 05/06/20 11:20 Pulse Ox 95 05/06/20 11:20 Intake & Output 05/05/20 05/06/2005/06/20 18:59 06:59 18:59 Intake Total 480 Output Total 625 800 600 Balance -145 -800 -600 Weight 71.1 kg Intake: IV 480 0.9 480 Output: Urine 625 800 600 Uretheral (Walton) 625 400 600 Other: Voiding Method Indwelling Catheter Indwelling Catheter Indwelling Catheter - Labs CBC & Chem 7: 05/06/20 06:58 05/06/20 15:13 Labs: Abnormal Lab Results - Last 24 Hours (Table) 05/04/20 05/06/20 05/06/20 Range/Units 17:30 06:38 06:58 RBC (3.80-5.40) m/uL Hgb (11.4-16.0) gm/dL Hct (34.0-46.0) % Plt Count (150-450) k/uL Sodium 133 L (137-145) mmol/L Potassium 3.1 L (3.5-5.1) mmol/L Carbon Dioxide 31 H (22-30) mmol/L Calcium 7.4 L (8.4-10.2) mg/dL Magnesium 1.3 L (1.6-2.3) mg/dL Creatine Kinase 239 H (30-135) U/L Total Protein (PEP) 4.3 L (6.2-8.2) g/dL 05/06/20 Range/Units 06:58 RBC 3.32 L (3.80-5.40) m/uL Hgb 10.5 L (11.4-16.0) gm/dL Hct 31.6 L (34.0-46.0) % Plt Count 93 L (150-450) k/uL Sodium (137-145) mmol/L Potassium (3.5-5.1) mmol/L Carbon Dioxide (22-30) mmol/L Calcium (8.4-10.2) mg/dL Magnesium (1.6-2.3) mg/dL Creatine Kinase (30-135) U/L Total Protein (PEP) (6.2-8.2) g/dL Microbiology - Last 24 Hours (Table) 05/02/20 21:44 Blood Culture - Preliminary Blood No Growth after 72 hours Assessment and Plan (1) GI bleed Current Visit: Yes Status: Acute Code(s): K92.2 - GASTROINTESTINAL HEMORRHAGE, UNSPECIFIED SNOMED Code(s): 86759207 (2) Positive occult stool blood test Current Visit: Yes Status: Acute Code(s): R19.5 - OTHER FECAL ABNORMALITIES SNOMED Code(s): 39162838 (3) Renal failure Current Visit: Yes Status: Acute Code(s): N19 - UNSPECIFIED KIDNEY FAILURE SNOMED Code(s): 67442375 (4) Rhabdomyolysis Current Visit: Yes Status: Acute Code(s): M62.82 - RHABDOMYOLYSIS SNOMED Code(s): 727813001 (5) Depression Current Visit: No Status: Acute Code(s): F32.9 - MAJOR DEPRESSIVE DISORDER, SINGLE EPISODE, UNSPECIFIED SNOMED Code(s): 02818391 (6) Elevated liver enzymes Current Visit: No Status: Acute Code(s): R74.8 - ABNORMAL LEVELS OF OTHER SERUM ENZYMES SNOMED Code(s): 010798475 (7) Generalized weakness Current Visit: No Status: Acute Code(s): R53.1 - WEAKNESS SNOMED Code(s): 02956186
[2020-05-06] MEDS: metroNIDAZOLE-NS PMX 500 MG in SALINE 1 100ML.BAG IVPB SCH (21:00)
[2020-05-06] MEDS: PANTOPRAZOLE 40 MG TABLET PO SCH (21:00)
[2020-05-06] MEDS ORDERED: POTASSIUM CHLORIDE ER 20 MEQ TAB.ER PO STA (22:18)
--- NOTE | 2020-05-06 23:57 | P.PN ---
Subjective Progress Note Date: 05/06/20 Principal diagnosis: Elevated liver enzymes, melena, stool positive for occult blood Patient is seen lying in bed with one-to-one sitter bedside. No acute events reported. No signs or symptoms of GI bleeding. Liver enzymes continue to trend down. Objective - Vital Signs Vital signs: Vital Signs Temp 99.2 F 05/06/20 05:15 Pulse 87 05/06/20 05:15 Resp 17 05/06/20 05:15 BP 159/96 05/06/20 05:15 Pulse Ox 91 L 05/06/20 05:15 Intake & Output 05/05/20 05/06/20 05/06/20 18:59 06:59 18:59 Intake Total 480 Output Total 625 800 Balance -145 -800 Weight 71.1 kg Intake: IV 480 0.9 480 Output: Urine 625 800 Uretheral (Walton) 625 400 Other: Voiding Method Indwelling Catheter Indwelling Catheter Indwelling Catheter - Exam On physical examination, patient appears comfortable in no apparent distress. HEAD: Normocephalic, atraumatic. EYES: No scleral icterus. No conjunctival injection. MOUTH: No lesions, tongue midline. NECK: Trachea midline, no gross abnormalities. ABDOMEN: Soft, mildly tender to palpation. Bowel sounds are positive. No organomegaly. No guarding or rigidity. EXTREMITIES: No pedal edema. SKIN: No rashes, no jaundice. NEUROLOGIC: Alert and oriented x3. No focal deficits. - Labs CBC & Chem 7: 05/06/20 06:58 05/06/20 15:13 Labs: Abnormal Lab Results - Last 24 Hours (Table) 05/04/20 05/06/20 05/06/20 Range/Units 17:30 06:38 06:58 RBC (3.80-5.40) m/uL Hgb (11.4-16.0) gm/dL Hct (34.0-46.0) % Plt Count (150-450) k/uL Sodium 133 L (137-145) mmol/L Potassium 3.1 L (3.5-5.1) mmol/L Carbon Dioxide 31 H (22-30) mmol/L Calcium 7.4 L (8.4-10.2) mg/dL Magnesium 1.3 L (1.6-2.3) mg/dL Creatine Kinase 239 H (30-135) U/L Total Protein (PEP) 4.3 L (6.2-8.2) g/dL Procalcitonin 11.32 H (0.02-0.09) ng/mL 05/06/20 Range/Units 06:58 RBC 3.32 L (3.80-5.40) m/uL Hgb 10.5 L (11.4-16.0) gm/dL Hct 31.6 L (34.0-46.0) % Plt Count 93 L (150-450) k/uL Sodium (137-145) mmol/L Potassium (3.5-5.1) mmol/L Carbon Dioxide (22-30) mmol/L Calcium (8.4-10.2) mg/dL Magnesium (1.6-2.3) mg/dL Creatine Kinase (30-135) U/L Total Protein (PEP) (6.2-8.2) g/dL Procalcitonin (0.02-0.09) ng/mL Microbiology - Last 24 Hours (Table) 05/02/20 21:44 Blood Culture - Preliminary Blood No Growth after 72 hours Assessment and Plan (1) Elevated liver enzymes Narrative/Plan: 49-year-old female with a medical history significant for hypertension, prior episode of pancreatitis, and alcohol abuse who was brought to the hospital for evaluation of a constellation of symptoms including being found down on the floor of her residence by her , weakness, dark stool and fatigue. Patient found to have rhabdomyolysis on presentation with a creatinine kinase of 7710 with elevated creatinine at 6.29 and markedly elevated liver enzymes predominantly in a hepatocellular pattern with normal total bilirubin of 0.5, alkaline phosphatase 81, AST 2870 and ALT 2228. Elevation in liver enzymes is not consistent with alcoholic hepatitis and likely is secondary to underlying r habdomyolysis. In addition computed tomography scan of the abdomen and ultrasound did not show any focal liver lesions or nodularity to suggest underlying cirrhosis, however given the chronicity of alcohol use cannot rule out some component of fibrosis/cirrhosis. Full liver serology ordered to rule out other underlying liver disease with viral studies negative for acute infection, and normal iron studies and alpha-1 antitrypsin with only mildly depressed ceruloplasmin. Liver enzymes trending down. Current Visit: No Status: Acute Code(s): R74.8 - ABNORMAL LEVELS OF OTHER SERUM ENZYMES SNOMED Code(s): 758276446 (2) Rhabdomyolysis Current Visit: Yes Status: Acute Code(s): M62.82 - RHABDOMYOLYSIS SNOMED Code(s): 844946175 (3) Melena Current Visit: Yes Status: Acute Code(s): K92.1 - MELENA SNOMED Code(s): 0198088 (4) Positive occult stool blood test Current Visit: Yes Status: Acute Code(s): R19.5 - OTHER FECAL ABNORMALITIES SNOMED Code(s): 31390156 Plan: Supportive care Okay for diet as tolerated Continue IV fluid resuscitation Continue to monitor CBC, BMP, LFTs, INR and clinically Alcohol abstinence [facility] protocol Full liver serologies ordered and normal except for mildly depressed ceruloplasmin which can be repeated or followed up with 24-hour urine copper if liver enzymes do not continue to improve, viral studies negative Continue Protonix therapy Continue ICU care Need for endoscopy will be based on patient's symptoms and labs, currently the patient is not having any signs or symptoms of GI bleeding and has a stable hemoglobin Avoid NSAID use Okay for discharge when otherwise medically stable Thank you for allowing us to participate in the care of the patient
[2020-05-07] MEDS: SODIUM CHLORIDE 0.9% 1,000 ML IV SCH (02:52)
[2020-05-07] MEDS: metroNIDAZOLE-NS PMX 500 MG in SALINE 1 100ML.BAG IVPB SCH (04:51)
[2020-05-07 07:21] LABS: Basophils % (A) 0 %; Eosinophils # (A) 0.2 k/uL (0-0.7); Eosinophils % (A) 2 %; HCT 30.2 % (34.0-46.0); HGB 10.4 gm/dL (11.4-16.0); Lymphocytes # (A) 1.3 k/uL (1.0-4.8); Lymphocytes % (A) 13 %; MCH 32.9 pg (25.0-35.0); MCHC 34.5 g/dL (31.0-37.0); MCV 95.4 fL (80.0-100.0); Mean Platelet Volume 8.3; Monocytes # (A) 0.7 k/uL (0-1.0); Monocytes % (A) 7 %; Neutrophils # (A) 7.8 k/uL (1.3-7.7); Neutrophils % (A) 75 %; Platelet Count 122 k/uL (150-450); RBC 3.17 m/uL (3.80-5.40); RDW 13.7 % (11.5-15.5); WBC 10.4 k/uL (3.8-10.6)
[2020-05-07 07:31] LABS: African American GFR (CKD) >90 (>60 ml/min/1.73 sqM); Anion Gap 3 mmol/L; Blood Urea Nitrogen 9 mg/dL (7-17); Calcium 7.6 mg/dL (8.4-10.2); Carbon Dioxide 28 mmol/L (22-30); Chloride 101 mmol/L (98-107); Creatine Kinase 129 U/L (30-135); Glucose 93 mg/dL (74-99); Magnesium 1.4 mg/dL (1.6-2.3); Non-African American GFR(CKD) >90 (>60 ml/min/1.73 sqM); Potassium 3.6 mmol/L (3.5-5.1); Sodium 132 mmol/L (137-145)
[2020-05-07 08:00] LABS: ALT 266 U/L (4-34); AST 69 U/L (14-36); Albumin 2.2 g/dL (3.5-5.0); Alkaline Phosphatase 86 U/L (38-126); Bilirubin, Delta 0.3 mg/dL (0.0-0.2); Bilirubin,Unconjugated 0.6 mg/dL (0.0-1.1); Total Bilirubin 0.9 mg/dL (0.2-1.3); Total Protein 4.2 g/dL (6.3-8.2)
[2020-05-07] MEDS: PANTOPRAZOLE 40 MG TABLET PO SCH ×2 (08:24→22:11)
[2020-05-07] MEDS: THIAMINE 100 MG TAB PO SCH ×2 (08:24→18:01)
[2020-05-07] MEDS: POTASSIUM CHLORIDE ER 20 MEQ TAB.ER PO SCH ×2 (08:27→22:11)
--- NOTE | 2020-05-07 08:30 | P.PN ---
Subjective This is a pleasant 49 years old female with past medical history of hypertension and alcoholic pancreatitis. Patient presents with a three-day history of diarrhea with dark-colored stool, pt could not provide much history as she looks tires and fatigues , talks very slowly although she talks appropriately and sometimes she does not answer so information were obtained form the records, staff and some from the pt as no family at bed side. pt states she was very weak and She's been using ibuprofen for her pain , she has generalized body aches and abd pain ( pt refused me examine her abd) Blood pressure 93/53, heart rate 75, breathing rate 9-12, she is afebrile. Labs showing normal hemoglobin 11.8 and WBCs 3.8K, platelets 103 which is low. Low calcium with an ionized Ca 3.1, sodium 133, creatinine 7.8 on admission currently 6.2. Elevated liver enzymes with AST 2870 and ALT 2221, creatinine kinase is elevated at 7710. UA showing cloudy and concentrated sample was somewhat protein and glucose units. Occult blood in the stool is positive. Urine hydroxy train is positive for benzodiazepines. pelvis and femur x-ray were negative for fracture Chest x-ray: Mild lower lobe infiltrate Chest CTA: Some linear infiltrate and atelectasis in the left lower lobe posteriorly CT of the abdomen and pelvis: Possible ileus versus inflammatory bowel disease due to distended fluid-filled loops of small bowel On admission she is receives several injections of, some leukocytes and calcium gluconate, more than 2 L of normal saline, sodium bicarb, ceftriaxone, levophed Protonix 05/04/2020 Patient seen in the ICU, she is awake but drowsy, she is oriented to place and others. She complaining of from being first. Also she has some abdominal pain but less distressed compared to yesterday. No fever, vitals are stable. CBC is unremarkable and she has lymphopenia, INR is 1.2. Sodium 134, potassium low at 2.9 and his been replaced. Creatinine trended down significantly to 2.4. Lactic is still elevated at 6.1 and liver enzymes are almost cut in half with AST down to 1073 and ALT 1511. Creatinine kinase trending down to 5.63. Blood culture showing no growth so far Patient is off before. Abdominal x-ray showing enteritis, ileus and follow-up as indicated of bowel obstruction is suspected clinically. Will call surgical consults for her ileus Chest x-ray: Bilateral pneumonia and edema. Patient was started on normal saline by knocker off. She remains on Rocephin empirically, attention Protonix IV twice a day Surgical consult is on the case 05/05/20 Patient is brought to the general medical floor. She is awake and alert. She still complaining of from some abdominal pain and tenderness felt generalized and more to the right and lower side. She still have low appetite, with no bowel movement. She has low grade temperature of 99.7. Personal vitals are stable. CBC is unremarkable. sodium is mildly low. Creatinine almost back to normal at 1.19, calcium is improved to 7.2, liver enzymes are cut in half to AST was 614 ALT 1151. Troponin is normal 0.9 Creatinine tenderness was improving gradually and her fluid switched to normal saline at 60 mL per hour. She remains on CIWA protocol, she does not need any Ativan as she's been drowsy most of the day. However she is awake and oriented 1. She remains on Rocephin for possible UTI. No growth in blood culture so far Psychiatric evaluated the patient with severe depression, monitor her with one-to-one, patient cannot sign AMA and once she is medically clear she needs to go to the psych unit 05/06/2020 Patient is more awake today than last couple days she does not go back to sleep after talking to her. She is tolerating liquid diet with no nausea or vomiting. Abdominal pain about 6-7/10 in severity, her pain is mainly in the left lower quadrant, she has normal bowel movement about passing gas. She has barium follow through yesterday to rule out bowel obstruction, no clear evidence of mechanical bowel obstruction but we will follow up with surgery regarding their recommendation. Patient images showing segmental dilatation of the jejunum and ileum. Also patient has ileus with low-grade temperature and hyperal gallstone in, so we added Flagyl plus she is already on ceftriaxone for possible intra- abdominal infection versus UTI versus others. Last night she ate 50% of her lunch. Serology workup by GI team is pending. She still have Walton catheter with clear urine and she is in normal sinus extremity to per ora Sitter at bedside and when patient is medically clear she would go to inpatient psych for her depression 05/07/2020 Patient is awake and answering questions appropriately. She ate 50% to 75% of her meal yesterday. She is having bowel movements with moderate amount of blood as per patient, however staff states is only streaks of blood. We will monitor hemoglobin, hemoglobin this morning is 10.4. Sodium 132, creatinine is normal at 0.4, magnesium is 1.4, liver enzymes are trending down gradually and this morning AST is 69, ALT is 266. She is on magnesium replacement therapy (2 g of magnesium sulfate is provided) she is also on oral magnesium We will discuss with GI and surgery team about any further plans. Objective - Vital Signs Vital signs: Vital Signs Temp 98.1 F 05/07/20 05:50 Pulse 80 05/07/20 05:50 Resp 24 05/07/20 05:50 BP 170/97 05/07/20 05:50 Pulse Ox 93 L 05/07/20 05:50 Intake & Output 05/06/20 05/07/20 05/07/20 18:59 06:59 18:59 Output Total 600 Balance -600 Output: Urine 600 Uretheral (Walton) 600 Other: Voiding Method Toilet Toilet # Voids 1 2 - Exam -GENERAL: The patient is alert and oriented x2-3, she is lethargic, drowsy and weak rather than confused, not in any acute distress. thin build. HEENT: Pupils are round and equally reacting to light. EOMI. No scleral icterus. No conjunctival pallor. Normocephalic, atraumatic. No pharyngeal erythema. No thyromegaly. CARDIOVASCULAR: S1 and S2 present. No murmurs, rubs, or gallops. PULMONARY: Chest is clear to auscultation, no wheezing or crackles. -ABDOMEN: Soft, generally tender, more in the upper abdomen, nondistended, normoactive bowel sounds. No palpable organomegaly. MUSCULOSKELETAL: No joint swelling or deformity. EXTREMITIES: No cyanosis, clubbing, or pedal edema. NEUROLOGICAL: Gross neurological examination did not reveal any focal deficits. SKIN: No rashes. No petechiae - Labs CBC & Chem 7: 05/07/20 06:35 05/07/20 06:35 Labs: Abnormal Lab Results - Last 24 Hours (Table) 05/07/20 05/07/20 Range/Units 06:35 06:35 RBC 3.17 L (3.80-5.40) m/uL Hgb 10.4 L (11.4-16.0) gm/dL Hct 30.2 L (34.0-46.0) % Plt Count 122 L (150-450) k/uL Neutrophils # 7.8 H (1.3-7.7) k/uL Sodium 132 L (137-145) mmol/L Creatinine 0.49 L (0.52-1.04) mg/dL Calcium 7.6 L (8.4-10.2) mg/dL Magnesium 1.4 L (1.6-2.3) mg/dL Delta Bilirubin 0.3 H (0.0-0.2) mg/dL AST 69 H (14-36) U/L ALT 266 H (4-34) U/L Total Protein 4.2 L (6.3-8.2) g/dL Albumin 2.2 L (3.5-5.0) g/dL Microbiology - Last 24 Hours (Table) 05/02/20 21:44 Blood Culture - Preliminary Blood No Growth after 96 hours Assessment and Plan Assessment: Acute kidney injury with Rhabdomyolysis, improving Possible ileus versus inflamed small bowel Severe depression Hypocalcemia, improvement Hepatitis/transaminitis , mostly secondary to alcohol problem, improvement alcohol abuse thrombocytopenia Hypertension Focal abuse Plan: this is a pleasant 49 years old female who presents with acute kidney injury and rhabdomyolysis with possible inflamed bowel versus ileus. Continue with CIWA protocol, continue with antibiotic ceftriaxone, continue with thiamine. Continue with IV fluids. pulmonary/critical care team , nephrology and GI tea ms are on consults Patient is an one-to-one, psychiatric recommended psych unit admission once she is medically clear Change bicarb drip to normal saline, continue with Protonix and Rocephin. Consult general surgery for her bowel problem Labs and medication were reviewed.. Continue same treatment. Continue with symptomatic treatment. Resume home medication. Monitor lytes and vitals. DVT and GI prophylaxis. Further recommendations of the clinical course of the patient DVT prophylaxis: Subcutaneous heparin GI Prophylaxis: Ppi PT/OT: 24 hour supervision Prognosis is guarded
[2020-05-07] MEDS: MAGNESIUM SULFATE-D5W PMX 1 GM in DEXTROSE/WATER 1 100ML.BAG IVPB SCH ×2 (10:15→12:28)
[2020-05-07] MEDS: MAGNESIUM OXIDE 400 MG TAB PO SCH ×2 (10:18→22:11)
--- NOTE | 2020-05-07 11:33 | P.PN ---
Subjective Progress Note Date: 05/07/20 CHIEF COMPLAINT: Abdominal pain HISTORY OF PRESENT ILLNESS: The patient is a 49-year-old female admitted for rhabdomyolysis, alcoholism, acute renal failure, abdominal pain, and acute hepatitis are improved. She can tolerate liquids. She has a gastric bypass with appropriate limited diet. She has not had any bariatric follow up since her surgery 6 years ago. She is more alert now. She has history of bleeding hemorrhoids. She is having bowel movements, 2 last night. REVIEW OF ORGAN SYSTEMS: No fevers or chills. No new chest pain. No vomiting. PHYSICAL EXAM: VITALS: Reviewed. Afebrile CONSTITUTIONAL: Well developed and in no acute distress. EYES: Conjuctivae without sclera icterus. Pupils are equally round and reactive to light. Extraocular movements grossly intact. HEAD, EARS, NOSE, THROAT: Moist buccal mucosa. Head is atraumatic, normocephalic. Hears conversational speech. No nasal drainage. NECK: Supple. No JV distention. RESPIRATORY: Non-labored respirations and equal bilateral excursions. No gross wheezes. CARDIOVASCULAR: Regular rate and rhythm. ABDOMEN: Soft. Nondistended. Mild tenderness. No diffuse peritonitis. LYMPH: No neck lymphadenopathy. No axillary lymphadenopathy. MUSCULOSKELETAL: No clubbing cyanosis or edema. SKIN: Warm and well perfused with good skin turgor. NEUROLOGIC: Cranial nerves II through XII grossly intact. No focal or lateralizing signs. PSYCH: Alert to person and place while occasional lethargy. CLINCAL LABS: Reviewed. WBC normal. Hemoglobin stable 10.5 to 10.4, Platelets 83 from 122. LFTs improved. ASSESSMENT: 1. Ileus secondary to multiple electrolyte and nutritional dyscrasias 2. Alcoholism 3. History of gastric bypass PLAN: 1. Recommend full bariatric panel which may also be done as outpatient 2. Hgb is stable for now. 3. Bariatric dietitian for dietary assessment available tomorrow 4. Will need prolonged follow-up as outpatient for her bariatric surgery 5. Surgically stable for discharge when medically stable. Objective - Vital Signs Vital signs: Vital Signs Temp 98.1 F 05/07/20 05:50 Pulse 80 05/07/20 05:50 Resp 24 05/07/20 05:50 BP 170/97 05/07/20 05:50 Pulse Ox 93 L 05/07/20 05:50 Intake & Output 05/06/20 05/07/20 05/07/20 18:59 06:59 18:59 Output Total 600 Balance -600 Output: Urine 600 Uretheral (Walton) 600 Other: Voiding Method Toilet Toilet # Voids 1 2 - Labs CBC & Chem 7: 05/07/20 06:35 05/07/20 06:35 Labs: Abnormal Lab Results - Last 24 Hours (Table) 05/07/20 05/07/20 Range/Units 06:35 06:35 RBC 3.17 L (3.80-5.40) m/uL Hgb 10.4 L (11.4-16.0) gm/dL Hct 30.2 L (34.0-46.0) % Plt Count 122 L (150-450) k/uL Neutrophils # 7.8 H (1.3-7.7) k/uL Sodium 132 L (137-145) mmol/L Creatinine 0.49 L (0.52-1.04) mg/dL Calcium 7.6 L (8.4-10.2) mg/dL Magnesium 1.4 L (1.6-2.3) mg/dL Delta Bilirubin 0.3 H (0.0-0.2) mg/dL AST 69 H (14-36) U/L ALT 266 H (4-34) U/L Total Protein 4.2 L (6.3-8.2) g/dL Albumin 2.2 L (3.5-5.0) g/dL Microbiology - Last 24 Hours (Table) 05/02/20 21:44 Blood Culture - Preliminary Blood No Growth after 96 hours Assessment and Plan (1) GI bleed Current Visit: Yes Status: Acute Code(s): K92.2 - GASTROINTESTINAL HEMORRHAGE, UNSPECIFIED SNOMED Code(s): 40647727 (2) Positive occult stool blood test Current Visit: Yes Status: Acute Code(s): R19.5 - OTHER FECAL ABNORMALITIES SNOMED Code(s): 43622934 (3) Renal failure Current Visit: Yes Status: Acute Code(s): N19 - UNSPECIFIED KIDNEY FAILURE SNOMED Code(s): 70771637 (4) Rhabdomyolysis Current Visit: Yes Status: Acute Code(s): M62.82 - RHABDOMYOLYSIS SNOMED Code(s): 063473913 (5) Depression Current Visit: No Status: Acute Code(s): F32.9 - MAJOR DEPRESSIVE DISORDER, SINGLE EPISODE, UNSPECIFIED SNOMED Code(s): 57080159 (6) Elevated liver enzymes Current Visit: No Status: Acute Code(s): R74.8 - ABNORMAL LEVELS OF OTHER SERUM ENZYMES SNOMED Code(s): 078913959 (7) Generalized weakness Current Visit: No Status: Acute Code(s): R53.1 - WEAKNESS SNOMED Code(s): 81035053
--- NOTE | 2020-05-07 11:51 | P.PN ---
Subjective Progress Note Date: 05/07/20 Principal diagnosis: This is a 49-year-old female seen in consultation because of acute kidney injury. She has history of alcohol abuse previous history of pancreatitis. She came in with nausea vomiting diarrhea abdominal pain. Her acute kidney injury is deemed to be from combination of nonsteroidals and hypovolemia and hypotension. Additionally she had severe metabolic acidosis secondary to acute kidney injury and diarrhea. Shock liver rhabdomyolysis and hyperkalemia She was found to have rhabdomyolysis. Her CK was 12 491, has come down to 39. Her creatinine improved from a peak of 9.55 on admission on 05/02/2022 0.4 this morning. Liver function tests are improving. She continues to have abdominal pain, in the left lower quadrant with constipation now. Complains of poor appetite she is on clear liquid diet Her past is significant also for gastric bypass surgery, Objective - Vital Signs Vital signs: Vital Signs Temp 98.1 F 05/07/20 05:50 Pulse 80 05/07/20 05:50 Resp 24 05/07/20 05:50 BP 170/97 05/07/20 05:50 Pulse Ox 93 L 05/07/20 05:50 Intake & Output 05/06/20 05/07/20 05/07/20 18:59 06:59 18:59 Output Total 600 Balance -600 Output: Urine 600 Uretheral (Walton) 600 Other: Voiding Method Toilet Toilet # Voids 1 2 Examination is awake alert oriented comfortable HEENT exam no JVP neck supple no facial asymmetry Lungs clear to auscultation good air entry bilaterally Heart sounds are unremarkable for any murmur rub gallop Abdomen soft, mild left lower quadrant ntender no ascites masses. Extremity examination was no edema Neurologically awake alert oriented 3 but anxious and depressed looking - Labs CBC & Chem 7: 05/07/20 06:35 05/07/20 06:35 Labs: Abnormal Lab Results - Last 24 Hours (Table) 05/07/20 05/07/20 Range/Units 06:35 06:35 RBC 3.17 L (3.80-5.40) m/uL Hgb 10.4 L (11.4-16.0) gm/dL Hct 30.2 L (34.0-46.0) % Plt Count 122 L (150-450) k/uL Neutrophils # 7.8 H (1.3-7.7) k/uL Sodium 132 L (137-145) mmol/L Creatinine 0.49 L (0.52-1.04) mg/dL Calcium 7.6 L (8.4-10.2) mg/dL Magnesium 1.4 L (1.6-2.3) mg/dL Delta Bilirubin 0.3 H (0.0-0.2) mg/dL AST 69 H (14-36) U/L ALT 266 H (4-34) U/L Total Protein 4.2 L (6.3-8.2) g/dL Albumin 2.2 L (3.5-5.0) g/dL Microbiology - Last 24 Hours (Table) 05/02/20 21:44 Blood Culture - Preliminary Blood No Growth after 96 hours Assessment and Plan Assessment: Impression 1. Acute kidney injury from multiple factors including nonsteroidals rhabdomyolysis hypotension and hypovolemia. Corrected and resolved. Creatinine is down to 0.49, from a peak of 9. 2. Hyponatremia sodium is 135> 133 > and 32 this morning, secondary to excess free water and low protein intake . 3. Hypokalemia secondary to low intake and previous GI losses. Magnesium is also low that might contribution to the hypokalemia 4. Hypomagnesemia secondary to low intake and diarrhea. 5. Rhabdomyolysis resolved CK is down to 239 from a peak of 12 491 6. Acidosis resolved, bicarb is 28 7. Abdominal pain cause not very clear. 8. Improving liver function tests. Ammonia is normal. 9. Lipase slightly about target Recommendation 1. Replace magnesium with magnesium sulfate 4 g IV slowly 2. Discontinue IV normal saline because of the blood pressure being high but watch sodium closely and this may need to be further workup if it continues to go down
[2020-05-07] MEDS: metroNIDAZOLE 500 MG TAB PO SCH ×2 (15:49→22:11)
[2020-05-08] MEDS: metroNIDAZOLE 500 MG TAB PO SCH ×3 (06:04→21:29)
[2020-05-08 07:28] LABS: Basophils % (A) 0 %; Eosinophils # (A) 0.2 k/uL (0-0.7); Eosinophils % (A) 3 %; HCT 29.4 % (34.0-46.0); HGB 10.1 gm/dL (11.4-16.0); Lymphocytes # (A) 1.6 k/uL (1.0-4.8); Lymphocytes % (A) 20 %; MCH 32.9 pg (25.0-35.0); MCHC 34.2 g/dL (31.0-37.0); MCV 96.3 fL (80.0-100.0); Mean Platelet Volume 8.3; Monocytes # (A) 0.6 k/uL (0-1.0); Monocytes % (A) 7 %; Neutrophils # (A) 5.5 k/uL (1.3-7.7); Neutrophils % (A) 67 %; Platelet Count 155 k/uL (150-450); RBC 3.06 m/uL (3.80-5.40); RDW 13.7 % (11.5-15.5); WBC 8.2 k/uL (3.8-10.6)
[2020-05-08 07:58] LABS: African American GFR (CKD) >90 (>60 ml/min/1.73 sqM); Anion Gap 2 mmol/L; Blood Urea Nitrogen 6 mg/dL (7-17); Calcium 7.7 mg/dL (8.4-10.2); Carbon Dioxide 26 mmol/L (22-30); Chloride 105 mmol/L (98-107); Creatine Kinase 101 U/L (30-135); Glucose 93 mg/dL (74-99); Magnesium 1.5 mg/dL (1.6-2.3); Non-African American GFR(CKD) >90 (>60 ml/min/1.73 sqM); Potassium 4.1 mmol/L (3.5-5.1); Sodium 133 mmol/L (137-145)
[2020-05-08] MEDS: MAGNESIUM OXIDE 400 MG TAB PO SCH ×2 (08:10→21:29)
[2020-05-08] MEDS: PANTOPRAZOLE 40 MG TABLET PO SCH ×2 (08:10→21:29)
[2020-05-08] MEDS: THIAMINE 100 MG TAB PO SCH ×2 (08:31→17:32)
--- NOTE | 2020-05-08 10:02 | CDI ---
Documentation Clarification Form Date: 05/08/2020 09:02:00 AM From: Jelly Izaguirre RN, CCDS Admit Date: 05/02/2020 10:24:00 PM Patient Name: Pavithra Lopez Visit Number: [id number] Discharge Date: ATTENTION: The Clinical Documentation Specialists (CDI) and [facility] Coding Staff appreciate your assistance in clarifying documentation. Please respond to the clarification below the line at the bottom and electronically sign. The CDI & [facility] Coding staff will review the response and follow-up if needed. Please note: Queries are made part of the Legal Health Record. If you have any questions, please contact the author of this message via ITS. Dr. Nolasco Sheet Shock liver is documented in the consult by Nephrology beginning 05/03 and subsequent. progress notes. Hypotension and Hypovelemic is also documented. Please further clarify any other clinical finding this may indicate. Patient history/risk factors: Hypertension, Alcoholic Pancreatitis, Alcohol abuse Clinical Indicators: 49-year-old female who present to ED on 05/02 with complaints of weakness and having had diarrhea for 3-4 days. The patient was found to be quite hypotensive on admission with systolic blood pressure in the 70s. 05/02 18:19 Vitals: 65/45 84 22 97.8 100 % RA 05/03@ 10:00 84/46 80 11 96 % 05/02 Labs: WBC 5.6, K+ 6.6, Na + 130, CO2 6, Chloride 97, Creatinine 9.55, Lactic Acid 4.5, Calcium 5.6, AST 1818, ALT 1395 Creatine Kinase 98988, Coronavirus (PCR) Not detected 05/02 CT abdomen: Distended fluid filled loops of small bowel with suggestion of a few thickened mascorro that could relate to some ileus and inflammatory bowel disease Treatment: .9 NS 3/L of fluid bolus Levophed drip (titrate) Sodium Bicarbonate 50 ml iv sta Monitor VS, per protocol In your professional opinion, can you please clarify if the treatment and clinical indicators meet the criteria for the following: Hypovolemic Shock Cause (specify) Sepsis Shock Cause (specify) Other, please specify Unable to determine (Last Revision: August 2017) Hypovolemic Shock MTDD
--- NOTE | 2020-05-08 10:47 | CDI ---
Documentation Clarification Form Date: 05/08/2020 10:10:59 AM From: Jelly Izaguirre RN, CCDS Admit Date: 05/02/2020 10:24:00 PM Patient Name: Pavithra Lopez Visit Number: [id number] Discharge Date: ATTENTION: The Clinical Documentation Specialists (CDI) and [facility] Coding Staff appreciate your assistance in clarifying documentation. Please respond to the clarification below the line at the bottom and electronically sign. The CDI & [facility] Coding staff will review the response and follow-up if needed. Please note: Queries are made part of the Legal Health Record. If you have any questions, please contact the author of this message via ITS. Dr. Nolasco E Sheet The patient presented with history of diarrhea, dark stools, progressively weakness, per pulmonary on 05/03 abnormal urinalysis consistent with urinary tract infection. Possible sepsis has been documented and clarification if requested to rule sepsis in or out. History/Risk Factors: Hypertension, Alcoholic Pancreatitis, Alcohol abuse Clinical Indicators: 49-year-old female who present to ED on 05/02 with complaints of weakness and having had diarrhea for 3-4 days. The patient was found to be quite hypotensive on admission with systolic blood pressure in the 70s. 05/02 18:19 Vitals: 65/45 84 22 97.8 100 % RA 05/03@ 10:00 84/46 80 11 96 % 05/02 WBC 5.6 05/02 Lactic acid: 4.5 05/02 Labs: , K+ 6.6, Na + 130, CO2 6, Chloride 97, Creatinine 9.55, Calcium 5.6, AST 1818, ALT 1395 Creatine Kinase 36762, Coronavirus (PCR) Not detected 05/02 CT abdomen: Distended fluid filled loops of small bowel with suggestion of a few thickened mascorro that could relate to some ileus and inflammatory bowel disease 05/02 Blood cultures: No growth after 120 hours 05/02 UA: Ur Leukocyte Esterase, Urine RBC 18, Urine WBC 178, Other Clinical Indicators: 05/03 Pulmonary (Dr. Solis): Patient was also found to have abnormal urinalysis consistent with urinary tract infection although the patient had no symptoms. Recommend the we continue Rocephin empirically Treatment .9 NS 3/L of fluid bolus Levophed drip (titrate) Sodium Bicarbonate 50 ml iv sta Monitor Labs: CBC, Lytes, BUN, Cr, AST, ALT, VS, per orders Rocephin 1 gm Iv q 24 hrs 05/03 and continue Flagyl 500 MG PO Q8 hrs 05/06 Progress note attending: Patient has ileus with low-grade temperature and hyperal gallstone, added Flagyl . She is on Rocephin for possible intra- abdominal infection versus UTI versus others. In your professional opinion, please clarify if these findings signify one of the following conditions, whether the condition is POA, and cause, if known: Condition Sepsis ruled out Sepsis secondary to UTI and inflammatory small bowel POA Severe Sepsis Septic Shock Other, please specify Unable to determine Present on Admission Yes No Identify the (suspected) organism Link or clarify if there is associated (due to/with): Organ failure Shock SIRS Criteria (2 or more of the following may indicate SIRS): -Temperature < 96.8F (36C) or > 101.0F (38.3C) -Heart Rate > 90 bpm -Respiratory Rate > 20 breaths/min or PaCO2 < 32 mmHg -White Blood Cell Count > 12,000 or < 4,000 cells/mm3 or > 10% bands -Lactate >2.0 mmol/L (>4.0 is equivalent to septic shock) (Last Revision: February 2018) i am not sure if pt meets SIRS criteria, she has only low grade temp for eg 99.7 on 05/05 and leukocytes were low on two day 3.6 and 3.7 on 05/02, not tachypneic or tachycardic. but i think pt had infection related to her bowel , possible gastroeneritis , her procalcitonin was elevated as well and trending down . pt improved while on antibiotic MTDD
[2020-05-08 12:39] LABS: Ferritin 335.7 ng/mL (10.0-291.0); Folate, Serum 4.9 ng/mL
--- NOTE | 2020-05-08 12:58 | P.PN ---
Subjective Progress Note Date: 05/08/20 CHIEF COMPLAINT: Abdominal pain HISTORY OF PRESENT ILLNESS: Patient examined this morning at with bedside with Dr. Wray. Patient reports mild abdominal discomfort but states it is improved compared to yesterday. Denies nausea or vomiting. Patient injuring a bout having rectal prolapse fixed during this hospital admission. PHYSICAL EXAM: VITAL SIGNS: Reviewed GENERAL: Well-developed in no acute distress. HEENT: No sclera icterus. Extraocular movements grossly intact. Moist buccal mucosa. Head is atraumatic, normocephalic. Hears conversational speech. No nasal drainage. NECK: Supple without lymphadenopathy. CHEST: Non-labored respirations and equal bilateral excursions. CARDIOVASCULAR: Regular rate with regular rhythm. Palpable 2+ radial pulses. ABDOMEN: Soft. Nondistended. Nontender. No peritonitis MUSCULOSKELETAL: No clubbing or cyanosis. NEUROLOGIC: No focal or lateralizing signs. Cranial nerves II through XII grossly intact. PSYCH: Appropriate affect. Alert and oriented to person, place and time. SKIN: Well perfused. Good skin turgor. ASSESSMENT: 1. Ileus 2. Alcoholism 3. History of gastric bypass 4. Rectal prolapse PLAN: -Patient met with bariatric dietitian today. She is stable for discharge from a surgical standpoint. -Patient may follow up outpatient in the bariatric center with Dr. Wray -Patient may follow up outpatient with a colorectal specialist regarding her rectal prolapse -We will sign off. Please reconsult if needed Nurse practitioner note has been reviewed by physician. Signing provider agrees with the documented findings, assessment, and plan of care. Objective - Vital Signs Vital signs: Vital Signs Temp 97.6 F 05/08/20 11:39 Pulse 65 05/08/20 11:39 Resp 18 05/08/20 11:39 BP 161/84 05/08/20 11:39 Pulse Ox 95 05/08/20 11:39 Intake & Output 05/07/20 05/08/20 05/08/20 18:59 06:59 18:59 Intake Total 480 Balance 480 Weight 71.1 kg Intake: Intake, IV Titration 480 Amount Sodium Chloride 0.9% 1, 480 000 ml @ 60 mls/hr IV . [id number] [facility] Rx#:[id number] Other: Voiding Method Toilet Toilet Toilet # Voids 1 1 1 # Bowel Movements 2 1 - Labs CBC & Chem 7: 05/09/20 06:44 05/09/20 06:44 Labs: Abnormal Lab Results - Last 24 Hours (Table) 05/07/20 05/08/20 05/08/20 Range/Units 12:18 06:52 06:52 RBC 3.06 L (3.80-5.40) m/uL Hgb 10.1 L (11.4-16.0) gm/dL Hct 29.4 L (34.0-46.0) % Sodium 133 L (137-145) mmol/L BUN 6 L (7-17) mg/dL Creatinine 0.48 L (0.52-1.04) mg/dL Calcium 7.7 L (8.4-10.2) mg/dL Magnesium 1.5 L (1.6-2.3) mg/dL Ferritin 335.7 H (10.0-291.0) ng/mL Vitamin B12 1949.0 H (200.0-944.0) pg/mL Microbiology - Last 24 Hours (Table) 05/02/20 21:44 Blood Culture - Preliminary Blood No Growth after 120 hours
--- NOTE | 2020-05-08 12:59 | P.PN ---
Subjective Progress Note Date: 05/08/20 Principal diagnosis: This is a pleasant 49 years old female with past medical history of hypertension and alcoholic pancreatitis. Patient presents with a three-day history of diar bridgett with dark-colored stool, pt could not provide much history as she looks tires and fatigues , talks very slowly although she talks appropriately and sometimes she does not answer so information were obtained form the records, staff and some from the pt as no family at bed side. pt states she was very weak and She's been using ibuprofen for her pain , she has generalized body aches and abd pain ( pt refused me examine her abd) Blood pressure 93/53, heart rate 75, breathing rate 9-12, she is afebrile. Labs showing normal hemoglobin 11.8 and WBCs 3.8K, platelets 103 which is low. Low calcium with an ionized Ca 3.1, sodium 133, creatinine 7.8 on admission currently 6.2. Elevated liver enzymes with AST 2870 and ALT 2221, creatinine kinase is elevated at 7710. UA showing cloudy and concentrated sample was somewhat protein and glucose units. Occult blood in the stool is positive. Urine hydroxy train is positive for benzodiazepines. pelvis and femur x-ray were negative for fracture Chest x-ray: Mild lower lobe infiltrate Chest CTA: Some linear infiltrate and atelectasis in the left lower lobe posteriorly CT of the abdomen and pelvis: Possible ileus versus inflammatory bowel disease due to distended fluid-filled loops of small bowel On admission she is receives several injections of, some leukocytes and calcium gluconate, more than 2 L of normal saline, sodium bicarb, ceftriaxone, levophed Protonix 05/04/2020 Patient seen in the ICU, she is awake but drowsy, she is oriented to place and others. She complaining of from being first. Also she has some abdominal pain but less distressed compared to yesterday. No fever, vitals are stable. CBC is unremarkable and she has lymphopenia, INR is 1.2. Sodium 134, potassium low at 2.9 and his been replaced. Creatinine trended down significantly to 2.4. Lactic is still elevated at 6.1 and liver enzymes are almost cut in half with AST down to 1073 and ALT 1511. Creatinine kinase trending down to 5.63. Blood culture showing no growth so far Patient is off before. Abdominal x-ray showing enteritis, ileus and follow-up as indicated of bowel obstruction is suspected clinically. Will call surgical consults for her ileus Chest x-ray: Bilateral pneumonia and edema. Patient was started on normal saline by boat canvas maker installer. She remains on Rocephin empirically, attention Protonix IV twice a day Surgical consult is on the case 05/05/20 Patient is brought to the general medical floor. She is awake and alert. She still complaining of from some abdominal pain and tenderness felt generalized and more to the right and lower side. She still have low appetite, with no bowel movement. She has low grade temperature of 99.7. Personal vitals are stable. CBC is unremarkable. sodium is mildly low. Creatinine almost back to normal at 1.19, calcium is improved to 7.2, liver enzymes are cut in half to AST was 614 ALT 1151. Troponin is normal 0.9 Creatinine tenderness was improving gradually and her fluid switched to normal saline at 60 mL per hour. She remains on CIWA protocol, she does not need any Ativan as she's been drowsy most of the day. However she is awake and oriented 1. She remains on Rocephin for possible UTI. No growth in blood culture so far Psychiatric evaluated the patient with severe depression, monitor her with one-to-one, patient cannot sign AMA and once she is medically clear she needs to go to the psych unit 05/06/2020 Patient is more awake today than last couple days she does not go back to sleep after talking to her. She is tolerating liquid diet with no nausea or vomiting. Abdominal pain about 6-7/10 in severity, her pain is mainly in the left lower quadrant, she has normal bowel movement about passing gas. She has barium follow through yesterday to rule out bowel obstruction, no clear evidence of mechanical bowel obstruction but we will follow up with surgery regarding their recommendation. Patient images showing segmental dilatation of the jejunum and ileum. Also patient has ileus with low-grade temperature and hyperal gallstone in, so we added Flagyl plus she is already on ceftriaxone for possible intra- abdominal infection versus UTI versus others. Last night she ate 50% of her lunch. Serology workup by GI team is pending. She still have Walton catheter with clear urine and she is in normal sinus extremity to per ora Sitter at bedside and when patient is medically clear she would go to inpatient psych for her depression 05/07/2020 Patient is awake and answering questions appropriately. She ate 50% to 75% of her meal yesterday. She is having bowel movements with moderate amount of blood as per patient, however staff states is only streaks of blood. We will monitor hemoglobin, hemoglobin this morning is 10.4. Sodium 132, creatinine is normal at 0.4, magnesium is 1.4, liver enzymes are trending down gradually and this morning AST is 69, ALT is 266. She is on magnesium replacement therapy (2 g of magnesium sulfate is provided) she is also on oral magnesium We will discuss with GI and surgery team about any further plans. 05/08/2020 Patient is seen and evaluated and follow-up stating she is having left lower abdominal pain after eating. Patient states she is also having bloody bowel movements and has been seen and evaluated by surgery along with GI recommending outpatient follow-up. Patient states she has a rectal prolapse that she's been dealing with since fall of last year. Patient was seen and evaluated by surgery and recommending outpatient follow-up. Hemoglobin is stable at 10.1 and no further surgical interventions to be done at this time. Patient also was being seen by psychiatry recommending inpatient although has no coverage for inpatient here at the hospital and will require placement at an outside facility. Case management and social work following to work on possible placement at [facility]. Patient's sodium is 133, potassium is 4.1, creatinine is 0.48, magnesium slightly low at 1.5 and will be replaced. Psychiatry to reevaluate the patient as patient is denying any suicidal ideation at this time. Currently no reports of chest pain, shortness of breath, or palpitations. Patient is afebrile. No reports of nausea or vomiting although patient is having slight abdominal discomfort as mentioned previously. Objective - Vital Signs Vital signs: Vital Signs Temp 97.6 F 05/08/20 11:39 Pulse 65 05/08/20 11:39 Resp 18 05/08/20 11:39 BP 161/84 05/08/20 11:39 Pulse Ox 95 05/08/20 11:39 Intake & Output 05/07/20 05/08/20 05/08/20 18:59 06:59 18:59 Intake Total 480 Balance 480 Weight 71.1 kg Intake: Intake, IV Titration 480 Amount Sodium Chloride 0.9% 1, 480 000 ml @ 60 mls/hr IV . [id number] [facility] Rx#:[id number] Other: Voiding Method Toilet Toilet Toilet # Voids 1 1 1 # Bowel Movements 2 1 - Exam GENERAL: The patient is alert and oriented x3, awake, well-developed, well- nourished. HEENT: Pupils are round and equally reacting to light. EOMI. No scleral icterus. No conjunctival pallor. Normocephalic, atraumatic. No pharyngeal erythema. No thyromegaly. CARDIOVASCULAR: S1 and S2 present. No murmurs, rubs, or gallops. PULMONARY: Chest is clear to auscultation, no wheezing or crackles. ABDOMEN: Soft, mild tenderness noted in the left lower quadrant with palpation, non-distended, normoactive bowel sounds. No palpable organomegaly. MUSCULOSKELETAL: No joint swelling or deformity. EXTREMITIES: No cyanosis, clubbing, or pedal edema. NEUROLOGICAL: Gross neurological examination did not reveal any focal deficits. SKIN: No rashes. No petechiae - Labs CBC & Chem 7: 05/08/20 06:52 05/08/20 06:52 Labs: Abnormal Lab Results - Last 24 Hours (Table) 05/07/20 05/08/20 05/08/20 Range/Units 12:18 06:52 06:52 RBC 3.06 L (3.80-5.40) m/uL Hgb 10.1 L (11.4-16.0) gm/dL Hct 29.4 L (34.0-46.0) % Sodium 133 L (137-145) mmol/L BUN 6 L (7-17) mg/dL Creatinine 0.48 L (0.52-1.04) mg/dL Calcium 7.7 L (8.4-10.2) mg/dL Magnesium 1.5 L (1.6-2.3) mg/dL Ferritin 335.7 H (10.0-291.0) ng/mL Vitamin B12 1949.0 H (200.0-944.0) pg/mL Microbiology - Last 24 Hours (Table) 05/02/20 21:44 Blood Culture - Preliminary Blood No Growth after 120 hours Assessment and Plan Assessment: Acute kidney injury with Rhabdomyolysis, improving Possible ileus versus inflamed small bowel Severe depression Hypocalcemia, improving Hepatitis/transaminitis , mostly secondary to alcohol problem, improvement alcohol abuse thrombocytopenia Hypertension Alcohol abuse Plan: Continue current medications, management, and symptomatic treatment. Psychiatry to reevaluate the patient. Case management and social work following for possible placement at an outside facility for inpatient psych she has no coverage for inpatient psychiatry unit here at the hospital. Patient is currently denying any suicidal ideation and is calm, cooperative, and appropriate. Multiple medical consultations following. Surgery is following and recommending outpatient follow-up for further workup. Hemoglobin is stable at 10.1. Patient states she continues to notice blood in her stool and has history of rectal prolapse and this was discussed at length with surgery and patient will need follow-up in the outpatient setting. Will repeat a.m. labs. Further recommendations to follow.
[2020-05-08 15:41] LABS: Liver/Kidney Microsome Antibod 1.3 UNITS (<=20)
[2020-05-08] MEDS ORDERED: Magnesium Replacement Protocol 1 EACH MISC MISCELLANE PRN (20:20)
[2020-05-08] MEDS: MAGNESIUM SULFATE-D5W PMX 1 GM in DEXTROSE/WATER 1 100ML.BAG IVPB SCH ×2 (21:29→23:04)
[2020-05-09 05:34] VITALS: BP 141/89; RESP 12; TEMP 98.1
[2020-05-09] MEDS: metroNIDAZOLE 500 MG TAB PO SCH (06:24)
[2020-05-09 07:25] LABS: ALT 116 U/L (4-34); AST 33 U/L (14-36); African American GFR (CKD) >90 (>60 ml/min/1.73 sqM); Albumin 2.2 g/dL (3.5-5.0); Alkaline Phosphatase 71 U/L (38-126); Anion Gap 3 mmol/L; Blood Urea Nitrogen 6 mg/dL (7-17); Calcium 7.8 mg/dL (8.4-10.2); Carbon Dioxide 25 mmol/L (22-30); Chloride 105 mmol/L (98-107); Glucose 87 mg/dL (74-99); Magnesium 1.7 mg/dL (1.6-2.3); Non-African American GFR(CKD) >90 (>60 ml/min/1.73 sqM); Potassium 3.9 mmol/L (3.5-5.1); Sodium 133 mmol/L (137-145); Total Bilirubin 0.4 mg/dL (0.2-1.3); Total Protein 4.3 g/dL (6.3-8.2)
[2020-05-09 07:30] LABS: HCT 29.1 % (34.0-46.0); HGB 9.6 gm/dL (11.4-16.0); MCH 31.6 pg (25.0-35.0); MCHC 33.1 g/dL (31.0-37.0); MCV 95.5 fL (80.0-100.0); Mean Platelet Volume 8.3; Platelet Count 231 k/uL (150-450); RBC 3.05 m/uL (3.80-5.40); RDW 13.7 % (11.5-15.5); WBC 6.4 k/uL (3.8-10.6)
[2020-05-09] MEDS: PANTOPRAZOLE 40 MG TABLET PO SCH (08:10)
[2020-05-09] MEDS: THIAMINE 100 MG TAB PO SCH (08:10)
[2020-05-09] MEDS: MAGNESIUM OXIDE 400 MG TAB PO SCH (08:10)
[2020-05-09 08:31] LABS: Metamyelocytes # (M) 0.06 k/uL (0); Nucleated Red Blood Cells 0 /100 WBC (0-0)
[2020-05-09 08:39] LABS: Band Neutrophils % 1 %; Basophils # (M) 0.06 k/uL (0-0.2); Eosinophils # (M) 0.32 k/uL (0-0.7); Lymphocytes # (M) 1.73 k/uL (1.0-4.8); Monocytes # (M) 0.45 k/uL (0-1.0); Neutrophils % (M) 61 %; Total Cells Counted 200
[2020-05-09 09:49] VITALS: PULSE 72
[2020-05-09 14:45] LABS: Zinc, Serum 40 ug/dL (60-130)
--- NOTE | 2020-05-09 15:45 | P.DS ---
Providers Date of admission: 05/02/20 22:24 Expected date of discharge: 05/09/20 Attending physician: Kristyn Tinoco Consults: 05/02/20 22:24 Consult Physician Stat Consulting Provider: Uzma Solis Consult Reason/Comments: acute GIB, PK, acute liver failure, lactic acidosis Do you want consulting provider notified?: Already Contacted Consult Physician Urgent Consulting Provider: Teresa Valencia Consult Reason/Comments: pk Do you want consulting provider notified?: Already Contacted 05/04/20 09:55 Consult Physician Stat Consulting Provider: Rosendo Woodward Consult Reason/Comments: Previous suicide attempt Do you want consulting provider notified?: Already Contacted 05/08/20 14:41 Consult Physician Routine Consulting Provider: Rosendo Woodward Consult Reason/Comments: Established patient, previous suicide attempt Do you want consulting provider notified?: Yes Primary care physician: Stated None Hospital Course: Final diagnosis Acute kidney injury with Rhabdomyolysis, improved Hypovolemic shock, present on admission Possible ileus versus inflamed small bowel Severe depression Hypocalcemia, improved Hepatitis/transaminitis , mostly secondary to alcohol problem, improvement alcohol abuse thrombocytopenia Hypertension Alcohol abuse Discharge disposition Patient is being discharged in a stable condition with guarded prognosis to home. Patient will follow-up with primary care provider upon discharge. Patient will also follow-up with surgery and colorectal specialist upon discharge. Total time taken is 35 minutes. History of present illness This is an 49-year-old female who was recently admitted with fatigue, weakness, alcoholic pancreatitis and was being closely monitored. Patient was also evaluated by surgery for possible ileus. Patient was evaluated by GI recommending outpatient follow-up as she was having blood in her stool and does have a history of rectal prolapse. Hemoglobin stable. Patient made comments of suicidal ideation upon admission and was evaluated by psychiatry recommending possible inpatient psych once stabilized. Currently patient is nonsuicidal and not making any suicidal comments or ideations. Patient would like to follow-up with [facility] for possible rehab in the outpatient setting voluntarily. Currently no reports of chest pain, shortness of breath, or palpitations. Patient is afebrile. No reports of nausea or vomiting and patient is tolerating diet. Patient will be going home with home care. On exam vital signs are stable. Temp is 98.1F, pulse is 74, respirations are 12, blood pressure is 141/89, oxygen saturation is 97 % on room air. Cardio S1, S2 are present. Respiratory system shows clear to auscultation. Abdomen is soft and nontender. Nervous system shows no focal deficits. Please refer to medication reconciliation sheet for a list of medications. Patient Condition at Discharge: Stable Plan - Discharge Summary Discharge Rx Participant: No New Discharge Prescriptions: New Magnesium Oxide [Mag-Ox] 400 mg PO BID 30 Days #60 tab Pantoprazole [Protonix] 40 mg PO DAILY 30 Days #30 tablet. Thiamine [Vitamin B-1] 100 mg PO DAILY 30 Days #30 tab Continue Imiquimod 1 packet VAGINAL MOWEFR@1999 Loperamide HCl [Imodium A-D] 2 - 4 mg PO QID PRN PRN Reason: Diarrhea Discontinued Ibuprofen [Motrin Ib] 200 - 800 mg PO Q6H PRN PRN Reason: Pain Discharge Medication List Imiquimod 1 packet VAGINAL MOWEFR@199904/23/20 [History] Loperamide HCl [Imodium A-D] 2 - 4 mg PO QID PRN 05/02/20 [History] Magnesium Oxide [Mag-Ox] 400 mg PO BID 30 Days #60 tab 05/09/20 [Rx] Pantoprazole [Protonix] 40 mg PO DAILY 30 Days #30 tablet. 05/09/20 [Rx] Thiamine [Vitamin B-1] 100 mg PO DAILY 30 Days #30 tab 05/09/20 [Rx] Follow up Appointment(s)/Referral(s): None,Stated [Primary Care Provider] - 1-2 days [place], [place] [NON-STAFF] - 05/17/20 Patient Instructions/Handouts: Acute Kidney Injury (DC), Diet for Stomach Ulcers and Gastritis (GEN), Rhabdomyolysis (DC), Abuse of Alcohol (DC), Nutrition after Bariatric Surgery (DC), Aliya-en-Y Gastric Bypass (DC) Activity/Diet/Wound Care/Special Instructions: Activity Limited until follow-up Follow-up with primary care provider upon discharge Follow-up with surgery in the outpatient setting Follow-up with colorectal specialist in the outpatient setting Continue current diet Avoid alcohol use Discharge Disposition: HOME SELF-CARE
[2020-05-10 11:22] LABS: Albumin 2.29 g/dL (3.80-4.90); Gamma Globulin 0.43 g/dL (0.70-1.50)
[2020-05-11 01:14] LABS: Selenium 55 mcg/L (63-160)
[2020-05-11 08:08] LABS: Vit B1(Thiamine) 71 ug/L (38-122)
[2020-05-11 08:23] LABS: Vitamin A <13 ug/dL (38-106)
== END 2020-05-09 11:12 | disposition home or self-care (01) | DRG 682 ==
LOC: EC 17:56 → 2SICU 22:24 → 5NMEDONC 05-04 22:54
PROVIDERS: ADMIT Internal Medicine; ATTEND Internal Medicine
PROC: 02HV33Z Insertion of Infusion Device into Superior Vena Cava, Percutaneous Approach (ICD-10-PCS; principal; 2020-05-02)
DX: N17.0 Acute kidney failure with tubular necrosis (principal); R57.1 Hypovolemic shock; K72.00 Acute and subacute hepatic failure without coma; M62.82 Rhabdomyolysis; N39.0 Urinary tract infection, site not specified; E87.2 Acidosis; E87.1 Hypo-osmolality and hyponatremia; K56.7 Ileus, unspecified; I10 Essential (primary) hypertension; F17.200 Nicotine dependence, unspecified, uncomplicated; D69.6 Thrombocytopenia, unspecified; E83.42 Hypomagnesemia; D72.810 Lymphocytopenia; E87.5 Hyperkalemia; E83.51 Hypocalcemia; K52.9 Noninfective gastroenteritis and colitis, unspecified; K62.3 Rectal prolapse; K70.10 Alcoholic hepatitis without ascites; T39.395A Adverse effect of other nonsteroidal anti-inflammatory drugs [NSAID], initial encounter; F32.9 Major depressive disorder, single episode, unspecified; F10.20 Alcohol dependence, uncomplicated; F41.9 Anxiety disorder, unspecified; E87.6 Hypokalemia; W18.30XA Fall on same level, unspecified, initial encounter; Y92.230 Patient room in hospital as the place of occurrence of the external cause; Z11.59 Encounter for screening for other viral diseases; Y93.89 Activity, other specified; Z98.84 Bariatric surgery status; Z88.0 Allergy status to penicillin; Z83.3 Family history of diabetes mellitus; Z82.5 Family history of asthma and other chronic lower respiratory diseases; Z80.0 Family history of malignant neoplasm of digestive organs; Z91.5 Personal history of self-harm; Z90.722 Acquired absence of ovaries, bilateral
CPT/HCPCS: 36415; 36556; 36600; 71045; 71275; 72170; 74018; 74177; 74248; 76705; 80048; 80053; 80074; 80076; 80306; 80320; 80329; 81001; 81025; 82103; 82105; 82140; 82272; 82306; 82330; 82390; 82525; 82550; 82607; 82728; 82746; 83516; 83520; 83540; 83550; 83605; 83690; 83735; 83935; 83970; 84132; 84145; 84165; 84255; 84425; 84484; 84590; 84630; 85025; 85610; 85730; 86038; 86376; 86644; 86645; 86663; 86664; 86665; 86850; 86900; 86901; 87040; 87390; 93005; 96361; 96365; 96366; 96368; 96374; 96375; 96376; 99291

== ENCOUNTER 2021-03-16 23:09 | Emergency (ER) | payer OTHER ==
[2021-03-16 23:16] VITALS: TEMP 98
--- NOTE | 2021-03-16 23:45 | ED ---
Fall HPI - General Chief Complaint: Fall Stated Complaint: ETOH Time Seen by Provider: 03/16/21 23:10 Source: EMS Mode of arrival: EMS - History of Present Illness Initial Comments: Patient's 50-year-old woman here after she had fallen and struck her face. Patient states there is a little bit of local discomfort. 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 Thiamine [Vitamin B-1] 100 mg PO DAILY 30 Days #30 tab 05/09/20 Allergies Allergy/AdvReac Type Severity Reaction Status Date / Time Penicillins Allergy Anaphylaxis Verified 03/16/21 23:16 ibuprofen AdvReac Nausea Verified 03/16/21 23:16 Review of Systems ROS Statement: Those systems with pertinent positive or pertinent negative responses have been documented in the HPI. ROS Other: All systems not noted in ROS Statement are negative. Constitutional: Denies: fever, chills Eyes: Denies: eye pain, vision change ENT: Denies: epistaxis Respiratory: Denies: cough, dyspnea Cardiovascular: Denies: chest pain, palpitations, syncope Gastrointestinal: Denies: abdominal pain, nausea, vomiting Musculoskeletal: Denies: back pain, arthralgia Skin: Denies: rash Neurological: Denies: headache, weakness, numbness Past Medical History Past Medical History: Hypertension Additional Past Medical History / Comment(s): Alcohol abuse, pancreatitis History of Any Multi-Drug Resistant Organisms: None Reported Additional Past Surgical History / Comment(s): Gastric bypass, Reconstrutive surg after weight loss, and bilat overy removal Past Anesthesia/Blood Transfusion Reactions: No Reported Reaction Past Psychological History: No Psychological Hx Reported Smoking Status: Current every day smoker Past Alcohol Use History: Daily Past Drug Use History: None Reported - Past Family History Mother Family Medical History: Diabetes Mellitus Additional Family Medical History / Comment(s): mother from rectal cancer 1999 Father Family Medical History: Diabetes Mellitus Additional Family Medical History / Comment(s): from emphysema in 2003 General Exam General appearance: alert, in no apparent distress Head exam: Present: atraumatic, normocephalic Eye exam: Present: normal appearance, PERRL, EOMI, nystagmus. Absent: scleral icterus, conjunctival injection ENT exam: Present: normal oropharynx Neck exam: Present: normal inspection, full ROM. Absent: tenderness Respiratory exam: Present: normal lung sounds bilaterally. Absent: respiratory distress, wheezes, rales, rhonchi, stridor Cardiovascular Exam: Present: regular rate, normal rhythm, normal heart sounds. Absent: systolic murmur, diastolic murmur, rubs, gallop GI/Abdominal exam: Present: soft. Absent: tenderness, guarding Back exam: Present: normal inspection. Absent: vertebral tenderness Neurological exam: Present: alert Skin exam: Present: warm, dry, normal color, abrasion. Absent: rash (r face. R wrist) Course Vital Signs 03/16/21 03/17/21 23:11 00:00 Temperature 98 F Pulse Rate 87 99 Respiratory 19 18 Rate Blood Pressure 182/120 160/99 O2 Sat by Pulse 100 100 Oximetry Medical Decision Making - Medical Decision Making Patient's 50-year-old woman presenting after a fall. Patient initially wanted to leave and as neurologic exam was not entirely normal I did suggest computed tomography scan. The patient did agree to stay and have serial exam and therefore a computed tomography scan canceled. Disposition Clinical Impression: Fall, Abrasion, face w/o infection, Alcohol intoxication Disposition: HOME SELF-CARE Condition: Good Instructions (If sedation given, give patient instructions): Alcohol Intoxication (ED), Fall Prevention (ED) Is patient prescribed a controlled substance at d/c from ED?: No Referrals: None,Stated [Primary Care Provider] - 1-2 days
[2021-03-17 01:40] VITALS: BP 160/99; PULSE 99; RESP 18
== END 2021-03-17 06:57 | disposition home or self-care (01) ==
LOC: EC 23:09
DX: S00.81XA Abrasion of other part of head, initial encounter (principal); F10.129 Alcohol abuse with intoxication, unspecified; I10 Essential (primary) hypertension; F17.200 Nicotine dependence, unspecified, uncomplicated; Z88.0 Allergy status to penicillin; W01.10XA Fall on same level from slipping, tripping and stumbling with subsequent striking against unspecified object, initial encounter; Y92.410 Unspecified street and highway as the place of occurrence of the external cause; Y90.9 Presence of alcohol in blood, level not specified
CPT/HCPCS: 82075; 99284

== ENCOUNTER 2024-05-23 23:52 | Emergency (ER) | payer SELFPAY ==
[2024-05-24 00:01] VITALS: BP 158/92; PULSE 85; RESP 18; TEMP 98
[2024-05-24] MEDS ORDERED: SODIUM CHLORIDE 0.9% 1,000 ML IV STA (00:16)
[2024-05-24] MEDS ORDERED: MORPHINE SULFATE 4 MG/ML SYRINGE IVP STA (00:18)
--- NOTE | 2024-05-24 01:14 | ED ---
Abdominal Pain HPI - General Chief Complaint: Abdominal Pain Stated Complaint: Left lower abd pain Time Seen by Provider: 05/24/24 00:02 Source: patient Mode of arrival: ambulatory Limitations: no limitations - History of Present Illness Initial Comments: This is a 53-year-old female who presents to the emergency department for abdominal pain. States that it started earlier today. Pain is localized to the left lower quadrant. Denies any radiation of pain. She has not had any nausea, vomiting, diarrhea, or constipation. Patient also denies any history of similar pain in the past. States that she does not have health insurance and wants the very minimal amount of testing and particularly wants to avoid any imaging if possible. Patient does appear to be acting bizarre as if she may be under the influence of some sort of substance. MD Complaint: abdominal pain - Related Data Home Medications Medication Instructions Recorded Confirmed Imiquimod [Aldara] 1 packet VAGINAL MOWEFR@199904/23/20 05/02/20 Loperamide HCl [Imodium A-D] 2 - 4 mg PO QID PRN 05/02/20 05/02/20 Previous Rx's Medication Instructions Recorded Magnesium Oxide [Mag-Ox] 400 mg PO BID 30 Days #60 tab 05/09/20 Pantoprazole [Protonix] 40 mg PO DAILY 30 Days #30 05/09/20 tablet. Thiamine [Vitamin B-1] 100 mg PO DAILY 30 Days #30 tab 05/09/20 Allergies Allergy/AdvReac Type Severity Reaction Status Date / Time Penicillins Allergy Anaphylaxis Verified 05/24/24 00:01 ibuprofen AdvReac Nausea Verified 05/24/24 00:01 Review of Systems ROS Statement: Those systems with pertinent positive or pertinent negative responses have been documented in the HPI. ROS Other: All systems not noted in ROS Statement are negative. Past Medical History Past Medical History: Hypertension Additional Past Medical History / Comment(s): Alcohol abuse, pancreatitis History of Any Multi-Drug Resistant Organisms: None Reported Additional Past Surgical History / Comment(s): Gastric bypass, Reconstrutive surg after weight loss, and bilat overy removal Past Anesthesia/Blood Transfusion Reactions: No Reported Reaction Past Psychological History: No Psychological Hx Reported Smoking Status: Current every day smoker Past Alcohol Use History: Daily Past Drug Use History: None Reported - Past Family History Mother Family Medical History: Diabetes Mellitus Additional Family Medical History / Comment(s): mother from rectal cancer 1999 Father Family Medical History: Diabetes Mellitus Additional Family Medical History / Comment(s): from emphysema in 2003 General Exam Limitations: no limitations General appearance: alert, appears intoxicated Head exam: Present: atraumatic, normocephalic, normal inspection Respiratory exam: Present: normal lung sounds bilaterally. Absent: respiratory distress, wheezes, rales, rhonchi, stridor Cardiovascular Exam: Present: regular rate, normal rhythm, normal heart sounds. Absent: systolic murmur, diastolic murmur, rubs, gallop, clicks GI/Abdominal exam: Present: soft, tenderness (LLQ), normal bowel sounds. Absent: distended Neurological exam: Present: alert, oriented X3, CN II-XII intact Psychiatric exam: Present: normal affect, normal mood Skin exam: Present: warm, dry, intact, normal color. Absent: rash Course Vital Signs 05/23/24 23:53 Temperature 98.0 F Pulse Rate 85 Respiratory 18 Rate Blood Pressure 158/92 O2 Sat by Pulse 98 Oximetry Medical Decision Making - Medical Decision Making This is a 53 year old female who presents to the emergency department for abdominal pain. Was pt. sent in by a medical professional or institution? @ -No Did you speak to anyone other than the patient for history? @ -No Did you review nursing and triage notes? @ -Yes, and I agree, it is accurate with regards to the patient's symptoms. Were old charts reviewed? @ -No Differential Diagnosis? @ -Differential Abdominal Pain Women: Appendicitis, Cholecystitis, diverticulosis, ischemic bowel, pancreatitis, hepatitis, UTI, gastroenteritis, AAA, incarcerated hernia, bowel obstruction, constipation, inflammatory bowel, hepatitis, peptic ulcer disease, splenic infarction, perforated viscus, vulvitis, ovarian torsion, PID, kidney stone, placenta abruption, this is not meant to be an all-inclusive list EKG interpreted by me (3pts min.)? @ -Not obtained, patient refused X-rays interpreted by me (1pt min.)? @ -Not obtained CT interpreted by me (1pt min.)? @ -Not obtained, patient refused U/S interpreted by me (1pt. min.)? @ -Not obtained What testing was considered but not performed? (CT, X-rays, U/S, labs)? Why? @ -EKG, lab work, and a CT scan of the abdomen and pelvis. However, patient eloped from the emergency department prior to testing being completed. What meds were considered but not given? Why? @ -IV fluids and pain medication, however she eloped from the emergency department prior to anything being given Did you discuss the management of the patient with other professionals? @ -No Did you reconcile home meds? @ -No Was smoking cessation discussed for >3mins.? @ -I discussed smoking cessation for greater than 3 minutes. The risk of smoking were discussed with the patient including but not limited to risks of cancer, stroke, coronary artery disease and COPD. Also discussed with patient were multiple methods of quitting smoking. Lastly we discussed the financial cost of smoking. Was critical care preformed (if so, how long)? @ -No Were there social determinants of health that impacted care today? How? (Homelessness, low income, unemployed, alcoholism, drug addiction, transportation, low edu. Level, literacy, decrease access to med. care, fci, rehab)? @ -No Was there de-escalation of care discussed even if they declined? (Discuss DNR or withdrawal of care, Hospice)? @ -No What co-morbidities impacted this encounter? (DM, HTN, Smoking, COPD, CAD, Cancer, CVA, Hep., AIDS, mental health diagnosis, sleep apnea, morbid obesity)? @ -Smoking, alcohol abuse Was patient admitted / discharged? @ -After being in the emergency department for only approximately 30 minutes, patient got up and eloped without alerting anyone that she was leaving. Prior to this she stated that she only wanted the minimal amount of testing possible as she did not have health insurance and she particularly wanted to avoid a CT scan despite my recommendations. Undiagnosed new problem with uncertain prognosis? @ -None Drug Therapy requiring intensive monitoring for toxicity (Heparin, Nitro, Insulin, Cardizem)? @ -None Were any procedures done? @ -None Diagnosis/symptom? @ -Abdominal pain Acute, or Chronic, or Acute on Chronic? @ -Acute Uncomplicated (without systemic symptoms) or Complicated (systemic symptoms)? @ -Uncomplicated Side effects of treatment? @ -None Exacerbation, Progression, or Severe Exacerbation] @ -Not applicable Poses a threat to life or bodily function? @ -This will depend on the cause of her pain Disposition Clinical Impression: Abdominal pain, Nicotine dependence Disposition: LEFT AGAINST MEDICAL ADVICE Condition: Stable Referrals: None,Stated [Primary Care Provider] - 1-2 days
== END 2024-05-24 00:47 | disposition left against medical advice (07) ==
LOC: EC 23:52
DX: R10.32 Left lower quadrant pain (principal); F17.200 Nicotine dependence, unspecified, uncomplicated; F10.10 Alcohol abuse, uncomplicated; Z53.29 Procedure and treatment not carried out because of patient's decision for other reasons; Z88.0 Allergy status to penicillin; Z88.6 Allergy status to analgesic agent
CPT/HCPCS: 99283; 99406

== ENCOUNTER 2024-05-24 01:56 | Emergency (ER) | payer OTHER ==
[2024-05-24 02:05] VITALS: TEMP 97.7
[2024-05-24 02:47] LABS: Basophils # (A) 0.1 k/uL (0-0.2); Basophils % (A) 1 %; Eosinophils # (A) 0.1 k/uL (0-0.7); Eosinophils % (A) 1 %; HCT 43.8 % (34.0-46.0); HGB 15.2 gm/dL (11.4-16.0); Lymphocytes # (A) 2.2 k/uL (1.0-4.8); Lymphocytes % (A) 30 %; MCH 33.2 pg (25.0-35.0); MCHC 34.7 g/dL (31.0-37.0); MCV 95.8 fL (80.0-100.0); Mean Platelet Volume 6.7; Monocytes # (A) 0.8 k/uL (0-1.0); Monocytes % (A) 11 %; Neutrophils % (A) 55 %; Platelet Count 358 k/uL (150-450); RBC 4.58 m/uL (3.80-5.40); RDW 13.4 % (11.5-15.5); WBC 7.3 k/uL (3.8-10.6)
[2024-05-24] MEDS: HYDROmorphone 1 MG/ML 1 ML SYRINGE IVP STA (02:52)
[2024-05-24 03:05] LABS: ALT 27 U/L (4-34); AST 34 U/L (14-36); African American GFR (CKD) 73 (>60 ml/min/1.73 sqM); Albumin 4.5 g/dL (3.5-5.0); Alkaline Phosphatase 149 U/L (38-126); Amylase 58 U/L (30-110); Anion Gap 15 mmol/L; Blood Urea Nitrogen 11 mg/dL (7-17); Calcium 9.4 mg/dL (8.4-10.2); Carbon Dioxide 18 mmol/L (22-30); Chloride 113 mmol/L (98-107); Glucose 91 mg/dL (74-99); Lipase 264 U/L (23-300); Non-African American GFR(CKD) 63 (>60 ml/min/1.73 sqM); Potassium 4.1 mmol/L (3.5-5.1); Sodium 146 mmol/L (137-145); Total Bilirubin 0.5 mg/dL (0.2-1.3); Total Protein 6.9 g/dL (6.3-8.2)
[2024-05-24 03:09] LABS: Appearance,Urine Clear (Clear); Bacteria,Urine Occasional /hpf; Bilirubin,Urine Negative (Negative); Blood,Urine Negative (Negative); Color,Urine Colorless; Glucose,Urine (UA) Negative (Negative); Ketones,Urine Negative (Negative); Leukocyte Esterase,Urine Negative (Negative); Mucus,Urine Rare /hpf; Nitrite,Urine Positive (Negative); Protein,Urine Negative (Negative); RBC,Urine <1 /hpf (0-5); Specific Gravity,Urine 1.005 (1.001-1.035); Squamous Epithelial Cell,Urine 1 /hpf (0-4); Urobilinogen,Urine <2.0 mg/dL (<2.0); WBC,Urine 2 /hpf (0-5)
[2024-05-24 03:14] LABS: Alcohol 330 mg/dL
--- NOTE | 2024-05-24 03:44 | ED ---
Abdominal Pain HPI <Keyon Meza - Last Filed: 05/24/24 05:09> - General Source: patient, RN notes reviewed Mode of arrival: ambulatory Limitations: no limitations - History of Present Illness MD Complaint: abdominal pain <Claudine Bridges - Last Filed: 05/24/24 19:29> - General Chief Complaint: Abdominal Pain Stated Complaint: Abdominal Pain Time Seen by Provider: 05/24/24 02:17 - History of Present Illness Initial Comments: This is a 53-year-old female who presents to the emergency department for abdominal pain. Reports lower abdominal pain beginning last night. I saw the patient a couple of hours earlier for the same complaint. She ended up eloping after approximately 30 minutes. She returns because the pain went from being just in the left lower quadrant to both sides of her lower abdomen. She was not initially nauseous, but states that she is now having some nausea. Denies any diarrhea or constipation. Patient is clearly under the influence of some sort of substance. (Claudine Bridges) - Related Data Home Medications Medication Instructions Recorded Confirmed Imiquimod [Aldara] 1 packet VAGINAL [id number]/23/20 05/02/20 Loperamide HCl [Imodium A-D] 2 - 4 mg PO QID PRN 05/02/20 05/02/20 Previous Rx's Medication Instructions Recorded Magnesium Oxide [Mag-Ox] 400 mg PO BID 30 Days #60 tab 05/09/20 Pantoprazole [Protonix] 40 mg PO DAILY 30 Days #30 05/09/20 tablet. Thiamine [Vitamin B-1] 100 mg PO DAILY 30 Days #30 tab 05/09/20 Ondansetron Odt [Zofran Odt] 4 mg PO Q8HR PRN #15 tab 05/24/24 Sulfamethox-Tmp 800-160Mg [Bactrim 1 tab PO Q12HR 7 Days #14 tab 05/24/24 DS 800-160 mg] Allergies Allergy/AdvReac Type Severity Reaction Status Date / Time Penicillins Allergy Anaphylaxis Verified 05/24/24 01:58 ibuprofen AdvReac Nausea Verified 05/24/24 01:58 Review of Systems ROS Other: All systems not noted in ROS Statement are negative. <Keyon Meza - Last Filed: 05/24/24 05:09> ROS Other: All systems not noted in ROS Statement are negative. <Claudine Bridges - Last Filed: 05/24/24 19:29> ROS Statement: Those systems with pertinent positive or pertinent negative responses have been documented in the HPI. Past Medical History Past Medical History: Hypertension Additional Past Medical History / Comment(s): Alcohol abuse, pancreatitis History of Any Multi-Drug Resistant Organisms: None Reported Additional Past Surgical History / Comment(s): Gastric bypass, Reconstrutive surg after weight loss, and bilat overy removal Past Anesthesia/Blood Transfusion Reactions: No Reported Reaction Past Psychological History: No Psychological Hx Reported, Anxiety, Depression, PTSD Smoking Status: Current every day smoker Past Alcohol Use History: Daily Past Drug Use History: None Reported - Past Family History Mother Family Medical History: Diabetes Mellitus Additional Family Medical History / Comment(s): mother from rectal cancer 1999 Father Family Medical History: Diabetes Mellitus Additional Family Medical History / Comment(s): from emphysema in 2003 <Claudine Bridges - Last Filed: 05/24/24 19:29> General Exam Limitations: no limitations General appearance: alert, appears intoxicated Head exam: Present: atraumatic, normocephalic, normal inspection Respiratory exam: Present: normal lung sounds bilaterally. Absent: respiratory distress, wheezes, rales, rhonchi, stridor Cardiovascular Exam: Present: regular rate, normal rhythm, normal heart sounds. Absent: systolic murmur, diastolic murmur, rubs, gallop, clicks GI/Abdominal exam: Present: soft, tenderness (Lower abdomen), normal bowel sounds. Absent: distended Neurological exam: Present: alert, oriented X3, CN II-XII intact Psychiatric exam: Present: normal affect, normal mood Skin exam: Present: warm, dry, intact, normal color. Absent: rash <Claudine Bridges - Last Filed: 05/24/24 19:29> Course Vital Signs 05/24/24 05/24/24 01:58 05:23 Temperature 97.7 F Pulse Rate 78 79 Respiratory 20 18 Rate Blood Pressure 192/132 131/83 O2 Sat by Pulse 95 94 L Oximetry Medical Decision Making - Lab Data Result diagrams: 05/24/24 02:25 05/24/24 02:25 <Keyon Meza - Last Filed: 05/24/24 05:09> - Lab Data Result diagrams: 05/24/24 02:25 05/24/24 02:25 - Radiology Data Radiology results: report reviewed, image reviewed <SeanjacoboClaudine - Last Filed: 05/24/24 19:29> - Medical Decision Making This is a 53 year old female who presents to the emergency department for abdominal pain. Was pt. sent in by a medical professional or institution? @ -No Did you speak to anyone other than the patient for history? @ -No Did you review nursing and triage notes? @ -Yes, and I agree, it is accurate with regards to the patient's symptoms. Were old charts reviewed? @ -No Differential Diagnosis? @ -Differential Abdominal Pain Women: Appendicitis, Cholecystitis, diverticulosis, ischemic bowel, pancreatitis, hepatitis, UTI, gastroenteritis, AAA, incarcerated hernia, bowel obstruction, constipation, inflammatory bowel, hepatitis, peptic ulcer disease, splenic infarction, perforated viscus, vulvitis, ovarian torsion, PID, kidney stone, placenta abruption, this is not meant to be an all-inclusive list EKG interpreted by me (3pts min.)? @ -Not obtained - pt refused X-rays interpreted by me (1pt min.)? @ -Not obtained CT interpreted by me (1pt min.)? @ -Pending U/S interpreted by me (1pt. min.)? @ -Not obtained What testing was considered but not performed? (CT, X-rays, U/S, labs)? Why? @ -None What meds were considered but not given? Why? @ -None Did you discuss the management of the patient with other professionals? @ -No Did you reconcile home meds? @ -No Was smoking cessation discussed for >3mins.? @ -I discussed smoking cessation for greater than 3 minutes. The risk of smoking were discussed with the patient including but not limited to risks of cancer, stroke, coronary artery disease and COPD. Also discussed with patient were multiple methods of quitting smoking. Lastly we discussed the financial cost of smoking. Was critical care preformed (if so, how long)? @ -No Were there social determinants of health that impacted care today? How? (Homelessness, low income, unemployed, alcoholism, drug addiction, transportation, low edu. Level, literacy, decrease access to med. care, intermediate, rehab)? @ -No Was there de-escalation of care discussed even if they declined? (Discuss DNR or withdrawal of care, Hospice)? @ -No What co-morbidities impacted this encounter? (DM, HTN, Smoking, COPD, CAD, Cancer, CVA, Hep., AIDS, mental health diagnosis, sleep apnea, morbid obesity)? @ -Alcoholism, smoking Was patient admitted / discharged? @ -Patient states that she is willing to proceed with lab work and imaging this time. Lab work demonstrates an elevated lactic acid of 3.5 and an alcohol level of 330. Urinalysis is consistent with infection and urine was sent for culture. Case signed out to ED attending, Dr. Meza, at shift completion pending results of CT scan and disposition. (Claudine Bridges) - Lab Data Lab Results 05/24/24 05/24/24 05/24/24 Range/Units 02:25 02:25 02:25 WBC 7.3 (3.8-10.6) k/uL RBC 4.58 (3.80-5.40) m/uL Hgb 15.2 (11.4-16.0) gm/dL Hct 43.8 (34.0-46.0) % MCV 95.8 (80.0-100.0) fL MCH 33.2 (25.0-35.0) pg MCHC 34.7 (31.0-37.0) g/dL RDW 13.4 (11.5-15.5) % Plt Count 358 (150-450) k/uL MPV 6.7 Neutrophils % 55 % Lymphocytes % 30 % Monocytes % 11 % Eosinophils % 1 % Basophils % 1 % Neutrophils # 4.0 (1.3-7.7) k/uL Lymphocytes # 2.2 (1.0-4.8) k/uL Monocytes # 0.8 (0-1.0) k/uL Eosinophils # 0.1 (0-0.7) k/uL Basophils # 0.1 (0-0.2) k/uL Sodium 146 H (137-145) mmol/L Potassium 4.1 (3.5-5.1) mmol/L Chloride 113 H (98-107) mmol/L Carbon Dioxide 18 L (22-30) mmol/L Anion Gap 15 mmol/L BUN 11 (7-17) mg/dL Creatinine 1.02 (0.52-1.04) mg/dL Est GFR (CKD-EPI)AfAm 73 (>60 ml/min/1.73 sqM) Est GFR (CKD-EPI)NonAf 63 (>60 ml/min/1.73 sqM) Glucose 91 (74-99) mg/dL Lactic Ac Sepsis Rflx Plasma Lactic Acid Froilan 3.5 H* (0.7-2.0) mmol/L Calcium 9.4 (8.4-10.2) mg/dL Total Bilirubin 0.5 (0.2-1.3) mg/dL AST 34 (14-36) U/L ALT 27 (4-34) U/L Alkaline Phosphatase 149 H (38-126) U/L Total Protein 6.9 (6.3-8.2) g/dL Albumin 4.5 (3.5-5.0) g/dL Amylase 58 (30-110) U/L Lipase 264 (23-300) U/L Urine Color Urine Appearance (Clear) Urine pH (5.0-8.0) Ur Specific [place] (1.001-1.035) Urine Protein (Negative) Urine Glucose (UA) (Negative) Urine Ketones (Negative) Urine Blood (Negative) Urine Nitrite (Negative) Urine Bilirubin (Negative) Urine Urobilinogen (<2.0) mg/dL Ur Leukocyte Esterase (Negative) Urine RBC (0-5) /hpf Urine WBC (0-5) /hpf Ur Squamous Epith Cells (0-4) /hpf Urine Bacteria (None) /hpf Urine Mucus (None) /hpf Urine Opiates Screen (NotDetected) Ur Oxycodone Screen (NotDetected) Urine Methadone Screen (NotDetected) Ur Barbiturates Screen (NotDetected) U Tricyclic Antidepress (NotDetected) Ur Phencyclidine Scrn (NotDetected) Ur Amphetamines Screen (NotDetected) U Methamphetamines Scrn (NotDetected) U Benzodiazepines Scrn (NotDetected) Urine Cocaine Screen (NotDetected) U Marijuana (THC) Screen (NotDetected) Serum Alcohol 330 H* mg/dL 07/22/24 07/22/24 07/22/24 Range/Units 02:52 02:52 03:17 WBC (3.8-10.6) k/uL RBC (3.80-5.40) m/uL Hgb (11.4-16.0) gm/dL Hct (34.0-46.0) % MCV (80.0-100.0) fL MCH (25.0-35.0) pg MCHC (31.0-37.0) g/dL RDW (11.5-15.5) % Plt Count (150-450) k/uL MPV Neutrophils % % Lymphocytes % % Monocytes % % Eosinophils % % Basophils % % Neutrophils # (1.3-7.7) k/uL Lymphocytes # (1.0-4.8) k/uL Monocytes # (0-1.0) k/uL Eosinophils # (0-0.7) k/uL Basophils # (0-0.2) k/uL Sodium (137-145) mmol/L Potassium (3.5-5.1) mmol/L Chloride (98-107) mmol/L Carbon Dioxide (22-30) mmol/L Anion Gap mmol/L BUN (7-17) mg/dL Creatinine (0.52-1.04) mg/dL Est GFR (CKD-EPI)AfAm (>60 ml/min/1.73 sqM) Est GFR (CKD-EPI)NonAf (>60 ml/min/1.73 sqM) Glucose (74-99) mg/dL Lactic Ac Sepsis Rflx Y Plasma Lactic Acid Froilan (0.7-2.0) mmol/L Calcium (8.4-10.2) mg/dL Total Bilirubin (0.2-1.3) mg/dL AST (14-36) U/L ALT (4-34) U/L Alkaline Phosphatase (38-126) U/L Total Protein (6.3-8.2) g/dL Albumin (3.5-5.0) g/dL Amylase (30-110) U/L Lipase (23-300) U/L Urine Color Colorless Urine Appearance Clear (Clear) Urine pH 5.0 (5.0-8.0) Ur Specific [place] 1.005 (1.001-1.035) Urine Protein Negative (Negative) Urine Glucose (UA) Negative (Negative) Urine Ketones Negative (Negative) Urine Blood Negative (Negative) Urine Nitrite Positive H (Negative) Urine Bilirubin Negative (Negative) Urine Urobilinogen <2.0 (<2.0) mg/dL Ur Leukocyte Esterase Negative (Negative) Urine RBC <1 (0-5) /hpf Urine WBC 2 (0-5) /hpf Ur Squamous Epith Cells 1 (0-4) /hpf Urine Bacteria Occasional H (None) /hpf Urine Mucus Rare H (None) /hpf Urine Opiates Screen Not Detected (NotDetected) Ur Oxycodone Screen Not Detected (NotDetected) Urine Methadone Screen Not Detected (NotDetected) Ur Barbiturates Screen Not Detected (NotDetected) U Tricyclic Antidepress Not Detected (NotDetected) Ur Phencyclidine Scrn Not Detected (NotDetected) Ur Amphetamines Screen Not Detected (NotDetected) U Methamphetamines Scrn Not Detected (NotDetected) U Benzodiazepines Scrn Not Detected (NotDetected) Urine Cocaine Screen Not Detected (NotDetected) U Marijuana (THC) Screen Not Detected (NotDetected) Serum Alcohol mg/dL Disposition Time of Disposition: 05:00 <Keyon Meza - Last Filed: 05/24/24 05:09> Is patient prescribed a controlled substance at d/c from ED?: No <Claudine Bridges - Last Filed: 05/24/24 19:29> Clinical Impression: Abdominal colic, Abdominal pain Disposition: HOME SELF-CARE Condition: Fair Instructions (If sedation given, give patient instructions): Abdominal Pain (ED) Prescriptions: Sulfamethox-Tmp 800-160Mg [Bactrim DS 800-160 mg] 1 tab PO Q12HR 7 Days #14 tab Ondansetron Odt [Zofran Odt] 4 mg PO Q8HR PRN #15 tab PRN Reason: Nausea And Vomiting Referrals: None,Stated [Primary Care Provider] - 1-2 days
[2024-05-24 03:55] LABS: Amphetamine Screen,Urine Not Detected (NotDetected); Barbiturate Screen,Urine Not Detected (NotDetected); Benzodiazepines Screen,Urine Not Detected (NotDetected); Cocaine Screen,Urine Not Detected (NotDetected); Methadone Screen, Urine Not Detected (NotDetected); Opiate Screen,Urine Not Detected (NotDetected); Oxycodone Screen, Urine Not Detected (NotDetected); Phencyclidine Screen,Urine Not Detected (NotDetected); Tricyclic Antidepressant,Urine Not Detected (NotDetected); Urn Cannabinoid Scrn Not Detected (NotDetected)
[2024-05-24] MEDS: ONDANSETRON 4 MG/2 ML VIAL IVP STA (04:26)
[2024-05-24] MEDS: SODIUM CHLORIDE 0.9% 2,000 ML IV STA (04:26)
[2024-05-24] MEDS: HYDROmorphone 0.5 MG/0.5 ML SYRINGE IVP STA (04:28)
[2024-05-24] MEDS: SULFAMETHOX-TMP 800-160MG 1 EACH TAB PO STA (04:28)
--- NOTE | 2024-05-24 04:37 | CT ---
EXAM: CT Abdomen and Pelvis With Intravenous Contrast CLINICAL HISTORY: Abdominal pain, acute, nonlocalized TECHNIQUE: Axial computed tomography images of the abdomen and pelvis with intravenous contrast. CTDI is 15.1 mGy and DLP is 707.1 mGy-cm. This CT exam was performed using one or more of the following dose reduction techniques: automated exposure control, adjustment of the mA and/or kV according to patient size, and/or use of iterative reconstruction technique. CONTRAST: 100 mL Isovue-300 COMPARISON: CT abdomen and pelvis with contrast dated 05/02/2020 FINDINGS: Lung bases: Unremarkable. No mass. No consolidation. ABDOMEN: Liver: Hepatic steatosis. Gallbladder and bile ducts: Cholecystectomy. Common bile duct is prominent measuring 12 cm in diameter. No common bile duct stone is seen. Pancreas: Unremarkable. No mass. No ductal dilation. Spleen: Unremarkable. No splenomegaly. Adrenals: Unremarkable. No mass. Kidneys and ureters: The kidneys demonstrate diffuse lobular contours with regions of cortical atrophy, new from the previous examination. No pyelonephritis. No hydronephrosis or obstructing nephrolithiasis. Delayed phase imaging demonstrates normal excreted contrast in the renal collecting systems. Stomach and bowel: Postsurgical changes consistent with previous gastric bypass. No evidence for focal high-grade bowel obstruction. Mild mucosal prominence in regions of colonic decompression is noted. Diverticulosis, most prominent involving the sigmoid colon. No obvious pericolonic inflammatory changes. PELVIS: Appendix: A normal caliber appendix is noted along the medial aspect of the cecum in the right lower quadrant. Bladder: Unremarkable. No mass. Reproductive: Unremarkable as visualized. ABDOMEN and PELVIS: Intraperitoneal space: Unremarkable. No free air. No significant fluid collection. Bones/joints: No acute fracture. No dislocation. Soft tissues: Unremarkable. Vasculature: Unremarkable. No abdominal aortic aneurysm. Lymph nodes: Unremarkable. No enlarged lymph nodes. IMPRESSION: 1. No bowel obstruction. Regions of colonic mucosal prominence in areas of decompression is similar to the prior examination. Diverticulosis without definitive diverticulitis. No free intraperitoneal fluid or pneumoperitoneum. 2. Common bile duct is prominent measuring 12 cm in diameter. This previously measured 7 mm. This is likely related to cholecystectomy. Please correlate with bilirubin levels. 3. The kidneys demonstrate diffuse lobular contours with regions of cortical atrophy, new from the previous examination. No pyelonephritis. No hydronephrosis or obstructing nephrolithiasis. Delayed phase imaging demonstrates normal excreted contrast in the renal collecting systems. This is a presumed incidental finding. However, there is a fairly rapid progression in the bilateral renal cortical atrophy when compared to the prior examination. Please correlate with renal function studies.
[2024-05-24 05:25] VITALS: BP 131/83; PULSE 79; RESP 18
== END 2024-05-24 05:27 | disposition home or self-care (01) ==
LOC: EC 01:56
DX: F10.129 Alcohol abuse with intoxication, unspecified (principal); R10.30 Lower abdominal pain, unspecified; F17.200 Nicotine dependence, unspecified, uncomplicated; Z88.0 Allergy status to penicillin; Z88.6 Allergy status to analgesic agent; Y90.8 Blood alcohol level of 240 mg/100 ml or more
CPT/HCPCS: 36415; 80053; 82150; 83605; 83690; 85025; 81001; 80306; 80320; 87086; 74177; 99284; 96374; 96375; 96361; 99406; J2405; J1170; Q9967